=== PATIENT | male | born 1945 | race Caucasian/White ===

== ENCOUNTER → 2016-11-30 | Outpatient (REF) | payer MEDICARE ==
[~2016-11-30] MED LIST: MECL-68 PO; MELO15TA4 PO; PERCOCET PO; TYLE325T5 PO; WARF05TA PO
[2016-11-30 13:14] LABS: ALBUMIN 3.4 GM/DL (3.2-5.2); ALBUMIN/GLOBULIN RATIO 0.87 (1.00-1.93); ALKALINE PHOSPHATASE 105 U/L (45-117); ALT/SGPT 19 U/L (12-78); ANION GAP 4 MEQ/L (8-16); AST/SGOT 16 U/L (15-37); BILIRUBIN,TOTAL 0.5 MG/DL (0.2-1.0); BLOOD UREA NITROGEN 18 MG/DL (7-18); CALCIUM LEVEL 8.5 MG/DL (8.8-10.2); CARBON DIOXIDE LEVEL 29 MEQ/L (21-32); CHLORIDE LEVEL 105 MEQ/L (98-107); CHOLESTEROL LEVEL 155 MG/DL (<200); CREATININE FOR GFR 0.75 MG/DL (0.70-1.30); GLOMERULAR FILTRATION RATE > 60.0 (>42); GLUCOSE, FASTING 96 MG/DL (83-110); POTASSIUM SERUM 4.2 MEQ/L (3.5-5.1); SODIUM LEVEL 138 MEQ/L (136-145); TOTAL PROTEIN 7.3 GM/DL (6.4-8.2); TRIGLYCERIDES LEVEL 113 MG/DL (<150)
[2016-11-30 13:22] LABS: BASO % 0.5 % (0.0-1.0); EOS # 0.1 K/mm3 (0.0-0.50); EOS % 1.5 % (0.0-3.0); LARGE UNSTAINED CELL # 0.2 K/mm3 (0.0-0.4); LARGE UNSTAINED CELL % 2.5 % (0.0-4.0); LYMPH # 1.1 K/mm3 (1.5-4.5); LYMPH % 18.7 % (24.0-44.0); MEAN CORPUSCULAR HEMOGLOBIN 29.4 pg (27.0-33.0); MEAN CORPUSCULAR HGB CONC 32.3 g/dl (32.0-36.5); MEAN CORPUSCULAR VOLUME 91.3 fl (80.0-96.0); MONO # 0.4 K/mm3 (0.0-0.8); MONO % 7.3 % (0.0-5.0); NEUTROPHILS # 4.2 K/mm3 (1.8-7.7); NEUTROPHILS % 69.5 % (36.0-66.0); PLATELET COUNT, AUTOMATED 149 k/mm3 (150-450); RED CELL DISTRIBUTION WIDTH 13.7 % (11.5-14.5)
== END ==
LOC: M SFHCPLAZ 09:23
PROVIDERS: ATTEND Family Medicine
DX: Z12.5 Encounter for screening for malignant neoplasm of prostate (principal); I10 Essential (primary) hypertension; E78.5 Hyperlipidemia, unspecified; M06.9 Rheumatoid arthritis, unspecified; E55.9 Vitamin D deficiency, unspecified
CPT/HCPCS: 36415; 80053; 80061; 82306; 82550; 83970; 85025; 86140; 86677; G0103

== ENCOUNTER → 2016-12-07 | Outpatient (REF) | payer MEDICARE ==
[2016-12-07 12:23] LABS: VITAMIN B12 LEVEL 395 PG/ML (247-911)
[2016-12-07 12:29] LABS: RETIC HEMOGLOBIN CONTENT CHr 31.3 PG (24-36); RETICULOCYTE % ADVIA2120 2.2 % (0.5-1.5)
[2016-12-07 12:37] LABS: FERRITIN 110 NG/ML (26-388); PERCENT SATURATION 12.9 % (19.7-37.4); TOTAL IRON BINDING CAPACITY 286 UG/DL (250-450); TOTAL PROTEIN 7.3 GM/DL (6.4-8.2)
[2016-12-08 14:36] LABS: PSA TOTAL 3.4 ng/mL (0.0-4.0)
[2016-12-11 13:03] LABS: GAMMA GLOBULIN % 20.3 % (11.1-18.8)
== END ==
LOC: M SFHCPLAZ 10:08
PROVIDERS: ATTEND Family Medicine
DX: D64.9 Anemia, unspecified (principal); Z12.5 Encounter for screening for malignant neoplasm of prostate
CPT/HCPCS: 36415; 82607; 82728; 82747; 83550; 84154; 84165; 85046; G0463

== ENCOUNTER 2017-02-06 12:34 | Emergency (ER) | payer MEDICARE ==
[~2017-02-06] VITALS: Ht 165.1 cm; Wt 88.9 kg
--- NOTE | 2017-02-06 14:52 | REP ---
LEFT KNEE SERIES: Five views. HISTORY: Trauma. FINDINGS: Five views of the left knee demonstrate left knee replacement unchanged in position from 05/14/2012. There is some diffuse osteopenia. No fracture is seen. IMPRESSION: Status post left knee replacement. No fracture seen. Diffuse osteopenia. Signed by Kirt Wadsworth MD 02/06/2017 02:53 P
[2017-02-06 15:29] VITALS: BP 160/89
== END 2017-02-06 15:30 | disposition home or self-care (01) ==
LOC: M ED 13:31
DX: S83.92XA Sprain of unspecified site of left knee, initial encounter (principal); W18.40XA Slipping, tripping and stumbling without falling, unspecified, initial encounter; Y92.099 Unspecified place in other non-institutional residence as the place of occurrence of the external cause; Y93.9 Activity, unspecified; Y99.9 Unspecified external cause status; H81.09 Meniere's disease, unspecified ear; Z96.652 Presence of left artificial knee joint; M85.88 Other specified disorders of bone density and structure, other site; Z79.899 Other long term (current) drug therapy; Z88.6 Allergy status to analgesic agent

== ENCOUNTER → 2017-04-26 | Outpatient (REF) | payer MEDICARE ==
[~2017-04-26] MED LIST changes: +OMEP40CA2 PO; +TRAM50TA2 PO
[2017-04-26 13:06] LABS: BASO % 0.6 % (0.0-1.0); EOS # 0.1 K/mm3 (0.0-0.50); EOS % 1.7 % (0.0-3.0); LARGE UNSTAINED CELL # 0.2 K/mm3 (0.0-0.4); LARGE UNSTAINED CELL % 3.6 % (0.0-4.0); LYMPH # 1.1 K/mm3 (1.5-4.5); LYMPH % 22.8 % (24.0-44.0); MEAN CORPUSCULAR HEMOGLOBIN 28.8 pg (27.0-33.0); MEAN CORPUSCULAR HGB CONC 32.8 g/dl (32.0-36.5); MEAN CORPUSCULAR VOLUME 87.7 fl (80.0-96.0); MONO # 0.4 K/mm3 (0.0-0.8); MONO % 8.2 % (0.0-5.0); NEUTROPHILS # 3.1 K/mm3 (1.8-7.7); NEUTROPHILS % 63.1 % (36.0-66.0); PLATELET COUNT, AUTOMATED 182 k/mm3 (150-450); RED CELL DISTRIBUTION WIDTH 15.1 % (11.5-14.5); WHITE BLOOD COUNT 4.9 K/mm3 (4.0-10.0)
[2017-04-26 13:48] LABS: VITAMIN B12 LEVEL 387 PG/ML (247-911)
[2017-04-26 13:52] LABS: ALBUMIN 3.4 GM/DL (3.2-5.2); ALBUMIN/GLOBULIN RATIO 0.83 (1.00-1.93); ALKALINE PHOSPHATASE 106 U/L (45-117); ALT/SGPT 17 U/L (12-78); ANION GAP 6 MEQ/L (8-16); AST/SGOT 13 U/L (15-37); BILIRUBIN,TOTAL 0.5 MG/DL (0.2-1.0); BLOOD UREA NITROGEN 19 MG/DL (7-18); CALCIUM LEVEL 8.8 MG/DL (8.8-10.2); CARBON DIOXIDE LEVEL 27 MEQ/L (21-32); CHLORIDE LEVEL 105 MEQ/L (98-107); CREATININE FOR GFR 0.72 MG/DL (0.70-1.30); FERRITIN 164 NG/ML (26-388); GLOMERULAR FILTRATION RATE > 60.0 (>42); GLUCOSE, FASTING 87 MG/DL (83-110); PERCENT SATURATION 8.7 % (19.7-50.0); POTASSIUM SERUM 4.3 MEQ/L (3.5-5.1); SODIUM LEVEL 138 MEQ/L (136-145); TOTAL IRON BINDING CAPACITY 277 UG/DL (250-450); TOTAL PROTEIN 7.5 GM/DL (6.4-8.2)
[2017-04-27 12:45] LABS: CARCINOEMBRYONIC ANTIGEN 0.6 NG/ML (<2.5)
[2017-04-28 00:06] LABS: H PYLORI SERUM QUANT IgG ABY 2.5 U/mL (0.0-0.8)
== END ==
LOC: M SFHCPLAZ 11:34
PROVIDERS: ATTEND Family Medicine
DX: D50.9 Iron deficiency anemia, unspecified (principal); I10 Essential (primary) hypertension; M06.9 Rheumatoid arthritis, unspecified; R73.01 Impaired fasting glucose; Z12.5 Encounter for screening for malignant neoplasm of prostate; E78.5 Hyperlipidemia, unspecified; D69.6 Thrombocytopenia, unspecified; Z85.00 Personal history of malignant neoplasm of unspecified digestive organ; E66.9 Obesity, unspecified
CPT/HCPCS: 80053; 82378; 82607; 82728; 83036; 83550; 85025; 86140; 86256; 86334; 86677; G0463

== ENCOUNTER → 2017-06-12 | Outpatient (REF) | payer MEDICARE ==
[2017-06-12 16:19] LABS: BASO % 0.5 % (0.0-1.0); EOS # 0.1 10^3/uL (0.0-0.50); EOS % 1.5 % (0.0-3.0); IMMATURE GRANULOCYTE % 0.3 % (0-0); LYMPH # 1.5 10^3/uL (1.5-4.5); LYMPH % 22.7 % (24.0-44.0); MEAN CORPUSCULAR HEMOGLOBIN 28.6 pg (27.0-33.0); MEAN CORPUSCULAR HGB CONC 32.1 g/dl (32.0-36.5); MEAN CORPUSCULAR VOLUME 89.1 fl (80.0-96.0); MONO # 0.5 10^3/uL (0.0-0.8); MONO % 7.4 % (0.0-5.0); NEUTROPHILS # 4.4 10^3/uL (1.8-7.7); NEUTROPHILS % 67.6 % (36.0-66.0); PLATELET COUNT, AUTOMATED 184 10^3/uL (150-450); RED CELL DISTRIBUTION WIDTH 15.5 % (11.5-14.5); WHITE BLOOD COUNT 6.5 10^3/uL (4.0-10.0)
[2017-06-12 16:45] LABS: PERCENT SATURATION 12.4 % (19.7-50.0)
== END ==
LOC: M SFHCPLAZ 13:31
PROVIDERS: ATTEND Family Medicine
DX: D50.9 Iron deficiency anemia, unspecified (principal)

== ENCOUNTER 2017-06-25 07:21 | Day surgery (SDC) | payer MEDICARE ==
[~2017-06-25] VITALS: Ht 167.6 cm; Wt 90.3 kg
[2017-06-25] MEDS ORDERED: NS 1,000 ML IV ONE (07:30)
[2017-06-25] MEDS ORDERED: LIDOCAINE 2% INJ 100 MG/5 ML SDV (FOR ANES.) As Ordered ONE (09:27)
[2017-06-25] MEDS ORDERED: PROPOFOL 500 MG/50 ML VIAL As Ordered ONE (09:27)
--- NOTE | 2017-06-25 09:32 | ROOR ---
Patient Name: Geovanny Reis Procedure Date: 06/25/2017 9:16 AM Date of : 1945 Age: 72 Room: [facility] Gender: Male Note Status: Finalized Procedure: Upper GI endoscopy Indications: Iron deficiency anemia Providers: Alex CHOE MD Referring MD: Homar Villagomez MD Requesting Provider: Medicines: Monitored Anesthesia Care Complications: No immediate complications. Procedure: Pre-Anesthesia Assessment: - The heart rate, respiratory rate, oxygen saturations, blood pressure, adequacy of pulmonary ventilation, and response to care were monitored throughout the procedure. The Endoscope was introduced through the mouth, and advanced to the third part of duodenum. The upper GI endoscopy was accomplished without difficulty. The patient tolerated the procedure well. Findings: The examined esophagus was normal. The entire examined stomach was normal. The examined duodenum was normal. Impression: - Normal esophagus. - Normal stomach. - Normal examined duodenum. - No specimens collected. Recommendation: - Perform a colonoscopy. Aelx Choe MD Alex CHOE MD 06/25/2017 9:32:11 AM This report has been signed electronically. Number of Addenda: 0 Note Initiated On: 06/25/2017 9:16 AM Estimated Blood Loss: Estimated blood loss: none.
--- NOTE | 2017-06-25 09:53 | ROOR ---
Patient Name: Geovanny Reis Procedure Date: 06/25/2017 9:17 AM Date of : 1945 Age: 72 Room: [facility] Gender: Male Note Status: Finalized Procedure: Colonoscopy Indications: Iron deficiency anemia, Positive Cologuard test Providers: Alex CHOE MD Referring MD: Homar Villagomez MD Requesting Provider: Medicines: Monitored Anesthesia Care Complications: No immediate complications. Procedure: Pre-Anesthesia Assessment: - The heart rate, respiratory rate, oxygen saturations, blood pressure, adequacy of pulmonary ventilation, and response to care were monitored throughout the procedure. The Colonoscope was introduced through the anus and advanced to 5 cm into the ileum. The colonoscopy was performed without difficulty. The patient tolerated the procedure well. The quality of the bowel preparation was good. Findings: The perianal and digital rectal examinations were normal. A 5 mm polyp was found in the cecum. The polyp was sessile. The polyp was removed with a hot snare. Resection and retrieval were complete. Two semi-sessile polyps were found in the sigmoid colon and at 40 cm proximal to the anus. The polyps were 5 to 10 mm in size. These polyps were removed with a hot snare. Resection and retrieval were complete. A 5 mm polyp was found in the recto-sigmoid colon. The polyp was sessile. The polyp was removed with a hot snare. Resection and retrieval were complete. A few diverticula were found in the sigmoid colon. Internal hemorrhoids were found during retroflexion. The hemorrhoids were medium-sized. The exam was otherwise without abnormality. Impression: - One 5 mm polyp in the cecum, removed with a hot snare. Resected and retrieved. - Two 5 to 10 mm polyps in the sigmoid colon and at 40 cm proximal to the anus, removed with a hot snare. Resected and retrieved. - One 5 mm polyp at the recto-sigmoid colon, removed with a hot snare. Resected and retrieved. - Mild diverticulosis in the sigmoid colon and moderate Internal hemorrhoids. - The examination was otherwise normal. Recommendation: - Repeat colonoscopy for adenoma surveillance. - Telephone endoscopist for pathology results in 2 weeks. Alex Choe MD Alex CHOE MD 06/25/2017 9:53:23 AM This report has been signed electronically. Number of Addenda: 0 Note Initiated On: 06/25/2017 9:17 AM Estimated Blood Loss: Estimated blood loss: none.
[2017-06-25 10:10] VITALS: BP 140/79
== END 2017-06-25 10:21 | disposition home or self-care (01) ==
LOC: M OPP 07:21
PROVIDERS: ATTEND Internal Medicine Gastroenterology
DX: D12.7 Benign neoplasm of rectosigmoid junction (principal); D12.0 Benign neoplasm of cecum; D12.5 Benign neoplasm of sigmoid colon; K57.30 Diverticulosis of large intestine without perforation or abscess without bleeding; K64.8 Other hemorrhoids; K92.1 Melena; D50.9 Iron deficiency anemia, unspecified; M19.90 Unspecified osteoarthritis, unspecified site; M06.9 Rheumatoid arthritis, unspecified; Z88.6 Allergy status to analgesic agent; Z79.899 Other long term (current) drug therapy

== ENCOUNTER → 2017-09-27 | Outpatient (REF) | payer MEDICARE ==
[2017-09-27 12:35] LABS: BASO % 0.7 % (0.0-1.0); EOS # 0.1 10^3/uL (0.0-0.50); HEMATOCRIT 41.5 % (42.0-52.0); HEMOGLOBIN 13.7 g/dl (14.0-18.0); IMMATURE GRANULOCYTE % 0.2 % (0-0); LYMPH # 1.3 10^3/uL (1.5-4.5); LYMPH % 21.8 % (24.0-44.0); MEAN CORPUSCULAR HEMOGLOBIN 29.7 pg (27.0-33.0); MEAN CORPUSCULAR VOLUME 89.8 fl (80.0-96.0); MONO # 0.6 10^3/uL (0.0-0.8); MONO % 10.5 % (0.0-5.0); NEUTROPHILS % 64.8 % (36.0-66.0); PLATELET COUNT, AUTOMATED 145 10^3/uL (150-450); RED BLOOD COUNT 4.62 10^6/uL (4.30-6.10); RED CELL DISTRIBUTION WIDTH 14.7 % (11.5-14.5); RETIC HEMOGLOBIN EQUIVALENT 33.8 pg (24-36); RETICULOCYTE # 79.5 10^9/L (17-77); RETICULOCYTE % 1.7 % (0.5-1.5); WHITE BLOOD COUNT 6.1 10^3/uL (4.0-10.0)
[2017-09-27 12:56] LABS: ALBUMIN 3.6 GM/DL (3.2-5.2); ALBUMIN/GLOBULIN RATIO 0.95 (1.00-1.93); ALKALINE PHOSPHATASE 114 U/L (45-117); ALT/SGPT 20 U/L (12-78); ANION GAP 5 MEQ/L (8-16); AST/SGOT 15 U/L (7-37); BILIRUBIN,TOTAL 0.3 MG/DL (0.2-1.0); BLOOD UREA NITROGEN 17 MG/DL (7-18); C REACTIVE PROTEIN QUANTITATIV 1.15 MG/DL (0.00-0.30); CALCIUM LEVEL 8.4 MG/DL (8.8-10.2); CARBON DIOXIDE LEVEL 28 MEQ/L (21-32); CHLORIDE LEVEL 105 MEQ/L (98-107); CREATININE FOR GFR 0.77 MG/DL (0.70-1.30); GLOMERULAR FILTRATION RATE > 60.0 (>42); GLUCOSE, FASTING 122 MG/DL (70-100); POTASSIUM SERUM 4.3 MEQ/L (3.5-5.1); PSA SCREENING 3.03 NG/ML (< 4.0); SODIUM LEVEL 138 MEQ/L (136-145); TOTAL PROTEIN 7.4 GM/DL (6.4-8.2)
[2017-09-27 13:01] LABS: ESTIMATED AVERAGE GLUCOSE 123 MG/DL (60-110); HEMOGLOBIN A1c 5.9 %
[2017-09-27 13:20] LABS: ERYTHROCYTE SEDIMENTATION RATE 12 mm/hr (0-20)
[2017-09-28 14:13] LABS: INSULIN LEVEL 73.4 uIU/mL (2.6-24.9)
== END ==
LOC: M SFHCPLAZ 09:05
DX: D50.9 Iron deficiency anemia, unspecified (principal); R73.01 Impaired fasting glucose; Z12.5 Encounter for screening for malignant neoplasm of prostate; M06.9 Rheumatoid arthritis, unspecified
CPT/HCPCS: 83525

== ENCOUNTER → 2018-01-25 | Outpatient (REF) | payer MEDICARE ==
[2018-01-25 13:42] LABS: BASO % 0.6 % (0.0-1.0); EOS # 0.1 10^3/uL (0.0-0.50); EOS % 1.8 % (0.0-3.0); HEMATOCRIT 44.5 % (42.0-52.0); HEMOGLOBIN 14.7 g/dl (13.5-17.5); IMMATURE GRANULOCYTE % 0.2 % (0-3.0); LYMPH # 1.5 10^3/uL (1.5-4.5); LYMPH % 23.6 % (24.0-44.0); MEAN CORPUSCULAR HEMOGLOBIN 30.3 pg (27.0-33.0); MEAN CORPUSCULAR VOLUME 91.8 fl (80.0-96.0); MONO # 0.6 10^3/uL (0.0-0.8); MONO % 10.1 % (0.0-5.0); NEUTROPHILS % 63.7 % (36.0-66.0); RED BLOOD COUNT 4.85 10^6/uL (4.30-6.10); RED CELL DISTRIBUTION WIDTH 14.1 % (11.5-14.5); RETIC HEMOGLOBIN EQUIVALENT 36.2 pg (24-36); RETICULOCYTE # 75.7 10^9/L (17-77); RETICULOCYTE % 1.6 % (0.5-1.5); WHITE BLOOD COUNT 6.2 10^3/uL (4.0-10.0)
[2018-01-25 14:28] LABS: PTH INTACT 72.1 PG/ML (18.5-88.0); TOTAL 25(OH) VITAMIN D 21.1 NG/ML (30.0-100.0)
[2018-01-25 14:29] LABS: VITAMIN B12 LEVEL 401 PG/ML (247-911)
[2018-01-25 14:31] LABS: PLATELET COUNT, AUTOMATED 125 10^3/uL (150-450); POS COUNT POS FLAG
[2018-01-25 14:32] LABS: ALBUMIN/GLOBULIN RATIO 1.05 (1.00-1.93); ALKALINE PHOSPHATASE 123 U/L (45-117); ALT/SGPT 27 U/L (12-78); ANION GAP 8 MEQ/L (8-16); AST/SGOT 17 U/L (7-37); BILIRUBIN,TOTAL 0.6 MG/DL (0.2-1.0); BLOOD UREA NITROGEN 17 MG/DL (7-18); CALCIUM LEVEL 8.5 MG/DL (8.8-10.2); CARBON DIOXIDE LEVEL 26 MEQ/L (21-32); CHLORIDE LEVEL 105 MEQ/L (98-107); CHOLESTEROL LEVEL 158 MG/DL (<200); CHOLESTEROL RISK RATIO 4.937 (<5); CPK CREATINE PHOSPHOKINASE 109 U/L (39-308); CREATININE FOR GFR 0.75 MG/DL (0.70-1.30); FREE T4 1.03 NG/DL (0.76-1.46); GLOMERULAR FILTRATION RATE > 60.0 (>42); GLUCOSE, FASTING 88 MG/DL (70-100); HDL CHOLESTEROL 32 MG/DL (>40); LDL CHOLESTEROL 90.6 MG/DL (<100); NON-HDL-C 126 MG/DL; POTASSIUM SERUM 4.2 MEQ/L (3.5-5.1); SODIUM LEVEL 139 MEQ/L (136-145); TOTAL PROTEIN 7.8 GM/DL (6.4-8.2); TRIGLYCERIDES LEVEL 177 MG/DL (<150)
[2018-01-25 15:15] LABS: ESTIMATED AVERAGE GLUCOSE 126 MG/DL (60-110)
== END ==
LOC: M SFHCPLAZ 11:28
DX: E78.5 Hyperlipidemia, unspecified (principal); D50.9 Iron deficiency anemia, unspecified; E55.9 Vitamin D deficiency, unspecified; R73.01 Impaired fasting glucose; E66.9 Obesity, unspecified; Z68.34 Body mass index [BMI] 34.0-34.9, adult
CPT/HCPCS: 82550

== ENCOUNTER → 2018-06-28 | Outpatient (REF) | payer MEDICARE ==
[2018-06-28 13:55] LABS: BASO % 0.7 % (0.0-1.0); EOS # 0.1 10^3/uL (0.0-0.50); EOS % 2.1 % (0.0-3.0); HEMATOCRIT 44.3 % (42.0-52.0); HEMOGLOBIN 14.7 g/dl (13.5-17.5); IMMATURE GRANULOCYTE % 0.2 % (0-3.0); LYMPH # 1.3 10^3/uL (1.5-4.5); LYMPH % 22.1 % (24.0-44.0); MEAN CORPUSCULAR HEMOGLOBIN 31.2 pg (27.0-33.0); MEAN CORPUSCULAR HGB CONC 33.2 g/dl (32.0-36.5); MEAN CORPUSCULAR VOLUME 94.1 fl (80.0-96.0); MONO # 0.7 10^3/uL (0.0-0.8); MONO % 10.9 % (0.0-5.0); NEUTROPHILS # 3.9 10^3/uL (1.8-7.7); PLATELET COUNT, AUTOMATED 117 10^3/uL (150-450); RED BLOOD COUNT 4.71 10^6/uL (4.30-6.10); RED CELL DISTRIBUTION WIDTH 13.2 % (11.5-14.5); WHITE BLOOD COUNT 6.1 10^3/uL (4.0-10.0)
[2018-06-28 15:21] LABS: POS COUNT POS FLAG
[2018-06-28 15:39] LABS: ALBUMIN 3.7 GM/DL (3.2-5.2); ALBUMIN/GLOBULIN RATIO 0.95 (1.00-1.93); ALKALINE PHOSPHATASE 126 U/L (45-117); ALT/SGPT 22 U/L (12-78); ANION GAP 9 MEQ/L (8-16); AST/SGOT 16 U/L (7-37); BILIRUBIN,TOTAL 0.6 MG/DL (0.2-1.0); BLOOD UREA NITROGEN 20 MG/DL (7-18); CALCIUM LEVEL 8.6 MG/DL (8.8-10.2); CARBON DIOXIDE LEVEL 26 MEQ/L (21-32); CHLORIDE LEVEL 105 MEQ/L (98-107); CREATININE FOR GFR 0.77 MG/DL (0.70-1.30); GLOMERULAR FILTRATION RATE > 60.0 (>42); GLUCOSE, FASTING 86 MG/DL (70-100); POTASSIUM SERUM 4.4 MEQ/L (3.5-5.1); PSA SCREENING 3.39 NG/ML (< 4.0); PTH INTACT 61.9 PG/ML (18.5-88.0); SODIUM LEVEL 140 MEQ/L (136-145); TOTAL 25(OH) VITAMIN D 34.1 NG/ML (30.0-100.0); TOTAL PROTEIN 7.6 GM/DL (6.4-8.2)
[2018-07-01 00:14] LABS: GLYCOPROTEIN IV ANTIBODY Negative (Negative); HLA CLASS 1 ANTIBODY Negative (Negative); IIb/IIIa ANTIBODY Positive (Negative); Ib/IX ANTIBODY Negative (Negative)
== END ==
LOC: M SFHCPLAZ 10:40
DX: E55.9 Vitamin D deficiency, unspecified (principal); D69.6 Thrombocytopenia, unspecified; Z12.5 Encounter for screening for malignant neoplasm of prostate; Z68.34 Body mass index [BMI] 34.0-34.9, adult
CPT/HCPCS: 80053

== ENCOUNTER → 2018-11-18 | Outpatient (REF) | payer MEDICARE ==
[~2018-11-18] MED LIST changes: +MELO15TA28 PO; -MELO15TA4 PO; +OXYC1TAB23 PO; -PERCOCET PO
[2018-11-18 13:31] LABS: BASO % 0.4 % (0.0-1.0); EOS # 0.1 10^3/uL (0.0-0.50); EOS % 1.3 % (0.0-3.0); HEMATOCRIT 44.3 % (42.0-52.0); HEMOGLOBIN 14.6 g/dl (13.5-17.5); LYMPH # 1.4 10^3/uL (1.5-4.5); LYMPH % 19.2 % (24.0-44.0); MEAN CORPUSCULAR HEMOGLOBIN 30.5 pg (27.0-33.0); MEAN CORPUSCULAR VOLUME 92.5 fl (80.0-96.0); MONO # 0.7 10^3/uL (0.0-0.8); MONO % 10.3 % (0.0-5.0); NEUTROPHILS # 4.8 10^3/uL (1.8-7.7); NEUTROPHILS % 68.7 % (36.0-66.0); PLATELET COUNT, AUTOMATED 135 10^3/uL (150-450); RED BLOOD COUNT 4.79 10^6/uL (4.30-6.10)
[2018-11-18 13:48] LABS: ALBUMIN 3.8 GM/DL (3.2-5.2); ALT/SGPT 20 U/L (12-78); BILIRUBIN,TOTAL 0.4 MG/DL (0.2-1.0); BLOOD UREA NITROGEN 22 MG/DL (7-18); CALCIUM LEVEL 8.9 MG/DL (8.8-10.2); CARBON DIOXIDE LEVEL 25 MEQ/L (21-32); CHLORIDE LEVEL 108 MEQ/L (98-107); CREATININE FOR GFR 0.75 MG/DL (0.70-1.30); GLOMERULAR FILTRATION RATE > 60.0 (>42); GLUCOSE, FASTING 100 MG/DL (70-100); NT-PRO BNP 30 PG/ML (<450); POTASSIUM SERUM 4.4 MEQ/L (3.5-5.1); PTH INTACT 67.7 PG/ML (18.5-88.0); SODIUM LEVEL 140 MEQ/L (136-145); TOTAL 25(OH) VITAMIN D 30.3 NG/ML (30.0-100.0); TOTAL PROTEIN 7.6 GM/DL (6.4-8.2); VITAMIN B12 LEVEL 547 PG/ML (247-911)
[2018-11-18 14:10] LABS: HEMOGLOBIN A1c 5.7 %
== END ==
LOC: M SFHCPLAZ 11:22
PROVIDERS: ATTEND Family Medicine
DX: D50.9 Iron deficiency anemia, unspecified (principal); R73.01 Impaired fasting glucose; E55.9 Vitamin D deficiency, unspecified; I10 Essential (primary) hypertension; E66.9 Obesity, unspecified; Z68.35 Body mass index [BMI] 35.0-35.9, adult
CPT/HCPCS: 36415; 80053; 82306; 82607; 83036; 83880; 83970; 84439; 84443; 85025; 86677; G0463

== ENCOUNTER 2019-01-30 10:42 | Inpatient (IN) | payer MEDICARE ==
[2019-01-30] VITALS (13 sets, daily range): BP systolic 97–147; BP diastolic 43–74
[~2019-01-30] VITALS: Ht 167.6 cm; Wt 95.2 kg
[2019-01-30] MEDS ORDERED: MELO15TA28 PO (10:51)
[2019-01-30] MEDS ORDERED: ISOVUE-370 76% 100ML VIAL (Q9967) As Ordered ONE (10:58)
[2019-01-30] MEDS ORDERED: NS 500 ML IV ONE (11:00)
[2019-01-30] MEDS ORDERED: MECL25CH45 PO (11:25)
[2019-01-30] MEDS ORDERED: HEPARIN SOD (PORCINE) 5000 UNITS/ML VIAL As Ordered ONE ×3 (11:25→14:01)
[2019-01-30] MEDS ORDERED: ISOVUE-300 61% 50ML VIAL (Q9967) As Ordered ONE ×2 (11:25→12:18)
[2019-01-30] MEDS ORDERED: LIDOCAINE 1% SDV INJ 30 ML VIAL As Ordered ONE (11:25)
[2019-01-30] MEDS ORDERED: BUPIVACAINE HCL 0.5% 30 ML VIAL As Ordered ONE (11:25)
[2019-01-30] MEDS ORDERED: MELO7.5T35 PO (11:25)
[2019-01-30] MEDS ORDERED: PROPOFOL 200 MG/20 ML VIAL As Ordered ONE ×2 (11:25→11:26)
[2019-01-30] MEDS ORDERED: fentaNYL 100 MCG/2 ML INJECTION (J3010) As Ordered ONE ×3 (11:26→15:13)
[2019-01-30] MEDS ORDERED: MIDAZOLAM INJ 2 MG/2 ML VIAL (J2250) As Ordered ONE ×2 (11:26→15:10)
[2019-01-30] MEDS ORDERED: ONDANSETRON 4MG/2ML VIAL (J2405) As Ordered ONE (11:28)
--- NOTE | 2019-01-30 11:34 | REP ---
CHEST, SINGLE VIEW: Single view of the chest is performed and compared to a prior study of the 01/07/2016. There is mild linear fibroatelectatic change again seen in the lower lung zones without acute infiltrate or pulmonary edema. The heart is not enlarged. There is mild calcification of the thoracic aorta. The mediastinal silhouette is unchanged. IMPRESSION: Mild chronic changes without acute infiltrate or pulmonary edema. Electronically Signed by Adi Pryor MD 01/30/2019 04:31 P
--- NOTE | 2019-01-30 11:36 | REP ---
CT thoracic aortic angiogram: With IV contrast. History: Chest and abdomen pain. Comparison studies: No comparison study. Contrast dose: 100 ML of Isovue [address] technique: Helical scanning is acquired and overlapping 1.5 mm and contiguous 3 mm axial images are reformatted. In addition, maximum intensity projection and multiplanar re-formation images are generated in sagittal and coronal imaging projections. CT thoracic angiographic findings: There is good opacification of the thoracic aorta. There is no evidence of aneurysm or dissection. Mild vascular calcification is seen. There is no evidence of intramural hematoma. No hilar or mediastinal mass or adenopathy is observed. No pleural or pericardial effusion is seen. There is good opacification of the pulmonary arterial tree. There is no CT evidence of pulmonary embolism. Maximal intensity projection images show no vessel cutoff or filling defect. No pulmonary infiltrate nodule or mass lesion is observed. There is minimal bibasilar fibrosis. No acute bony abnormality is appreciated. Impression: No CT evidence of aneurysm or dissection in the thoracic aorta. No CT evidence of pulmonary embolus. Some vascular calcification. Otherwise no acute cardiopulmonary disease. Electronically Signed by Kirt Wadsworth MD 01/30/2019 11:27 A
[2019-01-30 11:40] LABS: BASO # 0.1 10^3/uL (0.0-0.2); BASO % 0.5 % (0.0-1.0); EOS # 0.1 10^3/uL (0.0-0.50); HEMATOCRIT 35.7 % (42.0-52.0); HEMOGLOBIN 11.3 g/dl (13.5-17.5); LYMPH # 2.4 10^3/uL (1.5-4.5); LYMPH % 20.3 % (24.0-44.0); MEAN CORPUSCULAR HEMOGLOBIN 30.5 pg (27.0-33.0); MEAN CORPUSCULAR HGB CONC 31.7 g/dl (32.0-36.5); MEAN CORPUSCULAR VOLUME 96.2 fl (80.0-96.0); MONO # 0.5 10^3/uL (0.0-0.8); MONO % 4.3 % (0.0-5.0); NEUTROPHILS # 8.4 10^3/uL (1.8-7.7); NEUTROPHILS % 71.5 % (36.0-66.0); PLATELET COUNT, AUTOMATED 151 10^3/uL (150-450); RED BLOOD COUNT 3.71 10^6/uL (4.30-6.10); WHITE BLOOD COUNT 11.8 10^3/uL (4.0-10.0)
[2019-01-30] MEDS ORDERED: LIDOCAINE PRES-FREE 2% 10ML AMP As Ordered ONE (11:42)
[2019-01-30 11:46] LABS: VENOUS BASE EXCESS -11.7 (-2.0-2.0); VENOUS HCO3 17.5 MEQ/L (23.0-27.0); VENOUS O2 SATURATION 63.4 % (60.0-80.0); VENOUS PARTIAL PRESSURE CO2 54.2 mmHg (38.0-50.0); VENOUS PARTIAL PRESSURE O2 43.7 mmHg (30.0-50.0); VENOUS PH 7.128 UNITS (7.330-7.430); VENOUS STANDARD HCO3 14.7 MEQ/L; VENOUS TOTAL CO2 19.2 MEQ/L (24.0-28.0)
[2019-01-30 11:49] LABS: INR 1.4; PROTHROMBIN TIME 17.4 SECONDS (12.1-14.4)
[2019-01-30 11:50] LABS: PARTIAL THROMBOPLASTIN TIME 29.8 SECONDS (25.4-37.6)
[2019-01-30] MEDS ORDERED: PHENYLEPHRINE INJ 10MG/ML VIAL (J2370) As Ordered ONE ×3 (11:53→15:13)
[2019-01-30] MEDS ORDERED: ceFAZolin 2 GM/D5W 50 ML IV BAG (J0690 PER 500MG) As Ordered ONE (11:53)
--- NOTE | 2019-01-30 11:56 | REP ---
CT ANGIOGRAPHY OF THE ABDOMEN AND PELVIS WITH IV CONTRAST: HISTORY: Abdomen and chest pain. CT CONTRAST DOSE: 100 mL of intravenous Isovue 370. CT FINDINGS: Preliminary digital cushion gum applicator radiograph is unremarkable. There is a focal low density lesion in the left lobe of the liver consistent with a cyst. This measures 3.6 cm in greatest diameter. There is evidence fatty infiltration of the liver. There is a focal calcification in the capsule of the spleen posteriorly. No adrenal lesion is seen. No pancreatic abnormality is observed. There are bilateral renal cysts. The largest of these is the lower pole cyst affecting the right kidney measuring 8.8 cm in greatest diameter. The patient has a large ruptured abdominal aortic aneurysm. The aneurysm measures 9.7 cm in anteroposterior dimension x up to 10.6 cm right to left. There is a large periaortic hematoma extending to the right and into the right retroperitoneum. This displaces the pancreas anteriorly and the right kidney laterally. It extends caudally anterior to the iliopsoas and along the right upper pelvic sidewall. There is an irregularly dilated patent aortic lumen. The aneurysm displaces the super aneurysmal aortic lumen anteriorly. The aneurysm arises approximately 2 cm below the origin of the renal arteries. It extends to the aortic bifurcation. The common iliac artery on the right is somewhat dilated, 2.0 cm in AP dimension. The left common iliac artery measures 1.3 cm. There is no evidence of free air. A small quantity of ascites is seen in the pelvic reflections. There is no evidence of significant hemoperitoneum. IMPRESSION: 1. Ruptured 9.7 cm infrarenal abdominal aortic aneurysm with a fairly large retroperitoneal hematoma. 2. Bilateral renal cysts and hepatic cysts. 3. Fatty infiltration of the liver. The findings were telephoned to the ED at the time of this dictation. Electronically Signed by Kirt Wadsworth MD 01/30/2019 02:38 P
[2019-01-30 12:08] LABS: CALCIUM LEVEL 7.6 MG/DL (8.8-10.2); CREATININE FOR GFR 1.57 MG/DL (0.70-1.30); MB/CK RELATIVE INDEX 2.96 (< OR =4); POTASSIUM SERUM 3.4 MEQ/L (3.5-5.1)
[2019-01-30 12:09] LABS: ALBUMIN 2.6 GM/DL (3.2-5.2); BILIRUBIN,DIRECT 0.2 MG/DL (0.0-0.2); BILIRUBIN,TOTAL 0.5 MG/DL (0.2-1.0); THYROID STIMULATING HORMONE 6.08 uIU/ML (0.358-3.740); TOTAL PROTEIN 5.8 GM/DL (6.4-8.2); TROPONIN I 0.18 NG/ML (< 0.10)
[2019-01-30] MEDS ORDERED: ROCURONIUM BROMIDE 50 MG/5 ML VIAL As Ordered ONE (13:00)
[2019-01-30] MEDS ORDERED: SODIUM BICARBONATE 8.4% INJ 50 ML SYRINGE As Ordered ONE (13:53)
[2019-01-30] MEDS ORDERED: CALCIUM CHLORIDE 10% 1 GM/10 ML SYR As Ordered ONE (13:53)
[2019-01-30] MEDS ORDERED: THROMBIN SOLN 20,000 UNITS KIT As Ordered ONE (14:15)
[2019-01-30] MEDS ORDERED: THROMBIN SOLN 5,000 UNITS VIAL As Ordered ONE (14:15)
[2019-01-30] MEDS ORDERED: KETAMINE HCL 200 MG/20 ML VIAL As Ordered ONE (14:18)
[2019-01-30] MEDS: fentaNYL 100 MCG/2 ML INJECTION (J3010) IV PRN ×2 (15:10→15:15)
[2019-01-30] MEDS ORDERED: D5W/LR 1,000 ML IV SCH (15:17)
--- NOTE | 2019-01-30 15:24 | REP ---
Portable KUB: Single view. History: Check for foreign body. Findings: There are skin vicente in the groins bilaterally. An aortobi-iliac stent graft is installed. There is a Leal catheter in place. No other opaque foreign body is appreciated. Intravenous contrast administered for the CT angiography earlier today shows persistent nephrogram on the left. No evidence of obstructive uropathy is seen on this film. Persistent nephrogram may reflect hypotension Impression: Status post aortobi-iliac stent graft placement. No opaque foreign body is appreciated. Only catheter in place. Electronically Signed by Kirt Wadsworth MD 01/30/2019 03:16 P
[2019-01-30] MEDS ORDERED: MORPHINE 4 MG/ML 1ML VIAL/SYRINGE (J2270) IV PRN ×2 (15:30)
[2019-01-30] MEDS ORDERED: ACETAMINOPHEN TAB 650MG DOSE (2X325MG) PO PRN (15:30)
[2019-01-30] MEDS ORDERED: PROPOFOL 1,000 MG/100 ML VIAL As Ordered ONE (15:47)
[2019-01-30 16:05] LABS: BASO % 0.2 % (0.0-1.0); EOS % 0.1 % (0.0-3.0); HEMATOCRIT 38.6 % (42.0-52.0); HEMOGLOBIN 12.8 g/dl (13.5-17.5); LYMPH # 0.8 10^3/uL (1.5-4.5); LYMPH % 6.1 % (24.0-44.0); MEAN CORPUSCULAR HEMOGLOBIN 30.3 pg (27.0-33.0); MEAN CORPUSCULAR HGB CONC 33.2 g/dl (32.0-36.5); MEAN CORPUSCULAR VOLUME 91.3 fl (80.0-96.0); MONO # 1.1 10^3/uL (0.0-0.8); MONO % 8.3 % (0.0-5.0); NEUTROPHILS # 11.2 10^3/uL (1.8-7.7); NEUTROPHILS % 84.3 % (36.0-66.0); RED BLOOD COUNT 4.23 10^6/uL (4.30-6.10); WHITE BLOOD COUNT 13.3 10^3/uL (4.0-10.0)
[2019-01-30 16:13] LABS: ABG BASE EXCESS -10.8 (-2.0-2.0); ABG HCO3 16.8 MEQ/L (22.0-26.0); ABG O2 SATURATION 96.8 % (95.0-99.0); ABG PARTIAL PRESSURE CO2 43.4 mmHg (35.0-45.0); ABG PARTIAL PRESSURE O2 97.6 mmHg (75.0-100.0); ABG STANDARD HCO3 16.1 MEQ/L (22.0-26.0); ABG TOTAL CO2 18.1 MEQ/L (23.0-31.0); ABG pH (ARTERIAL) 7.206 UNITS (7.350-7.450)
[2019-01-30 16:15] LABS: INR 1.64; PROTHROMBIN TIME 19.7 SECONDS (12.1-14.4)
[2019-01-30] MEDS ORDERED: PERCOCET 5MG/325MG TAB PO PRN (16:15)
[2019-01-30] MEDS ORDERED: MEPERIDINE INJ 25 MG/ML VIAL (J2175) IV PRN (16:15)
[2019-01-30] MEDS ORDERED: ONDANSETRON 4MG/2ML VIAL (J2405) IV PRN (16:15)
[2019-01-30] MEDS ORDERED: PHENYLEPHRINE HCL INJ 10 MG in D5W 99 ML IV SCH (16:15)
[2019-01-30] MEDS ORDERED: METOCLOPRAMIDE INJ 10MG/2ML VIAL (J2765) IV PRN (16:15)
[2019-01-30] MEDS ORDERED: LR 1,000 ML IV SCH (16:15)
[2019-01-30] MEDS ORDERED: PROPOFOL 1,000 MG in APPROPRIATE DILUENT 1 EA IV SCH (16:15)
[2019-01-30 16:16] LABS: PARTIAL THROMBOPLASTIN TIME 43.7 SECONDS (25.4-37.6)
[2019-01-30 16:25] LABS: ALBUMIN 2.3 GM/DL (3.2-5.2); BILIRUBIN,DIRECT 0.2 MG/DL (0.0-0.2); BILIRUBIN,TOTAL 0.6 MG/DL (0.2-1.0); CALCIUM LEVEL 6.8 MG/DL (8.8-10.2); CREATININE FOR GFR 1.3 MG/DL (0.70-1.30); GLOMERULAR FILTRATION RATE 57.1 (>42); POTASSIUM SERUM 4.7 MEQ/L (3.5-5.1); TOTAL PROTEIN 4.3 GM/DL (6.4-8.2)
[2019-01-30] MEDS ORDERED: MIDAZOLAM INJ 2 MG/2 ML VIAL (J2250) IV ONE (16:30)
[2019-01-30 16:48] LABS: PLATELET COUNT, AUTOMATED 77 10^3/uL (150-450)
[2019-01-30 17:35] LABS: ABG BASE EXCESS -6.8 (-2.0-2.0); ABG HCO3 18.5 MEQ/L (22.0-26.0); ABG O2 SATURATION 97.3 % (95.0-99.0); ABG PARTIAL PRESSURE CO2 36.4 mmHg (35.0-45.0); ABG PARTIAL PRESSURE O2 95.5 mmHg (75.0-100.0); ABG STANDARD HCO3 18.9 MEQ/L (22.0-26.0); ABG TOTAL CO2 19.6 MEQ/L (23.0-31.0); ABG pH (ARTERIAL) 7.323 UNITS (7.350-7.450)
--- NOTE | 2019-01-30 18:52 | REP ---
Clinical: Endotracheal tube placement. Comparison: 01/30/2019 at 10:54 a.m. Findings: Examination is limited by technique including underpenetration, positioning and poor inspiratory effort. Endotracheal tube approximately 2.5 cm above the fabiana. No obvious focal consolidation, effusion, or pneumothorax. Impression: Endotracheal tube in satisfactory position. Electronically Signed by Oren Thurman MD 01/30/2019 06:44 P
[2019-01-30] MEDS ORDERED: IPRATROPIUM 0.5MG/ALBUTEROL 2.5MG INH SOL UD 3ML (DUONEB)(J7620) NEB PRN (19:30)
[2019-01-30 19:47] LABS: FREE T4 1.13 NG/DL (0.76-1.46)
--- NOTE | 2019-01-30 20:16 | CR ---
DATE OF CONSULTATION: 01/30/2019 CRITICAL CARE PROGRESS NOTE The patient is a 74-year-old male with a past medical history of Meniere's disease, rheumatoid arthritis, gastroesophageal reflux disease (GERD), hypertension, who presented with complaints of chest pain radiating to the back as well as with abdominal pain and shortness of breath. In the emergency department (ED), the patient was tachypneic and hypotensive. He had a stat CT angiogram done which showed a ruptured infrarenal abdominal aortic aneurysm with a large periaortic and retroperitoneal hematoma. He was emergently brought to the operating room (OR), where he had placement of an aortobiiliac stent graft. He was given a total of six units of packed red blood cells, two units of fresh frozen plasma, as well as a bolus of lactated Ringer's The patient was intubated for the procedure. He also had a right radial arterial line placed. The patient initially was on phenylephrine for blood pressure support. However, he was able to be quickly weaned off of phenylephrine, and his blood pressure has been stable in the intensive care unit (ICU). The patient is sedated on propofol, and he is responsive to painful stimuli but not following commands currently. PAST MEDICAL HISTORY: Rheumatoid arthritis, hypertension, obesity, GERD, Meniere's disease, tinnitus. PAST SURGICAL HISTORY: Bilateral knee replacements, left arm fracture repair, right eye surgery. SOCIAL HISTORY: Former smoker of one pack a day for more than 50 years, quit in 2006. FAMILY HISTORY: Father with a history of diabetes and colon cancer. Mother with history of rheumatoid arthritis. ALLERGIES to NAPROXEN and ADVAIR. HOME MEDICATIONS: Meclizine and meloxicam. PHYSICAL EXAMINATION: Temperature 97.1, pulse 81, respirations 20, blood pressure 121/59, oxygen saturation (O2 sat) 98% on 40% FiO2. General: The patient is obese. He is intubated and sedated, is minimally responsive to painful stimuli. HEENT: Normocephalic, atraumatic. Pupils are pinpoint and sluggishly reactive bilaterally. Neck is supple. Unable to appreciate jugular venous distention (JVD) due to body habitus. Trachea is midline. Cardiovascular: Regular rate and rhythm. Normal S1, S2, distant heart sounds. Unable to appreciate murmurs. Pulmonary: Coarse wheeze on the right side and diminished breath sounds at the bases bilaterally. Abdomen is distended, nontender to palpation, diminished bowel sounds present. Lower extremities: Surgical incisions in the knees bilaterally. No pitting edema bilaterally. Peripheral pulses are present. LABORATORY: WBC 13.3, hemoglobin 12.8, platelets 77. Chemistry: Sodium 144, potassium 4.7, chloride 115, bicarbonate 21, BUN 15, creatinine 1.30, glucose 130, lactic acid 3.2, INR 1.64, PTT 43.7. ABG: pH 7.323, pCO2 of 36.4, pO2 of 95.5, troponin 0.18, BNP 181. IMAGING: CT angiogram on admission showed a large ruptured infrarenal abdominal aortic aneurysm of approximately 9.7 cm, up to 10.6 cm with a large retroperitoneal and periaortic hematoma. There are bilateral renal cysts and hepatic cysts, as well as evidence of fatty infiltration in the liver. In the lungs, there is some pleural-based opacities in the left lower lobe in the focus and some fibroatelectatic changes bilaterally as well as a more focal area of ground glass and possibly scarring in the right lower lobe. ASSESSMENT AND PLAN: - Mr. Reis is a 74-year-old male with a past medical history of hypertension, rheumatoid arthritis, obesity, gastroesophageal reflux disease, former smoker, Meniere's disease, who presented with complaints of chest pain, abdominal pain, and shortness of breath. The patient had a ruptured infrarenal abdominal aortic aneurysm, status post emergent graft stent placement. Postprocedure, the patient was transferred to the ICU, intubated and sedated on propofol. The patient's blood pressure has improved. He is off of pressors. He received a total of six units of PRBCs and two units of FFP. - Continue the patient on mechanical ventilation with PRVC with settings of 480/20/7 and 40%. Will continue to wean down FiO2 as tolerated. - Continue vent bundle care with head of bed elevation and chlorhexidine mouthwash. - Continue daily ABGs and chest x-rays while intubated. Will check a chest x- ray post intubation now to confirm correct placement of his endotracheal (ET) tube. - The patient has some abdominal distension, and he did receive a significant amount of fluids and blood products as well as having a large hematoma. He has a Leal in place. Will check bladder pressures for abdominal compartment syndrome. - Will keep his nasogastric (NG) tube to low wall intermittent suction and keep him nothing by mouth for now. - Continue to monitor his platelets and coagulation studies (coags). - Will attempt daily sedation vacation and weaning trials as tolerated. - The patient did have elevated thyroid-stimulating hormone (TSH). Will check a free T4. - Continue with pain control with morphine as needed and continue with propofol for sedation to target a [place] of 2-3. DVT prophylaxis. As per surgery. Gastrointestinal (GI) prophylaxis> With Protonix. FULL CODE. Total critical care time spent not including any procedures: Approximately 1 hour and 30 minutes MTDD
[2019-01-30] MEDS: CHLORHEXIDINE GLUCONATE 0.12 % 15ML UDC (PERIDEX ORAL RINSE) MT SCH (21:50)
[2019-01-30] MEDS: PANTOPRAZOLE 40MG INJ (PROTONIX) (C9113) IV SCH (21:51)
[2019-01-30] MEDS: PROPOFOL 1,000 MG in APPROPRIATE DILUENT 1 EA IV SCH (21:52)
[2019-01-31] VITALS (26 sets, daily range): BP systolic 77–139; BP diastolic 40–65
[2019-01-31 05:10] LABS: HEMATOCRIT 34.2 % (42.0-52.0); HEMOGLOBIN 11.9 g/dl (13.5-17.5); MEAN CORPUSCULAR HEMOGLOBIN 31.5 pg (27.0-33.0); MEAN CORPUSCULAR HGB CONC 34.8 g/dl (32.0-36.5); MEAN CORPUSCULAR VOLUME 90.5 fl (80.0-96.0); RED BLOOD COUNT 3.78 10^6/uL (4.30-6.10); WHITE BLOOD COUNT 11.1 10^3/uL (4.0-10.0)
[2019-01-31 05:13] LABS: PLATELET COUNT, AUTOMATED 59 10^3/uL (150-450)
[2019-01-31 05:22] LABS: INR 1.26
[2019-01-31 05:23] LABS: PARTIAL THROMBOPLASTIN TIME 33.8 SECONDS (25.4-37.6)
[2019-01-31 05:30] LABS: CALCIUM LEVEL 7.1 MG/DL (8.8-10.2); CREATININE FOR GFR 2.22 MG/DL (0.70-1.30); GLOMERULAR FILTRATION RATE 30.8 (>42); POTASSIUM SERUM 4.5 MEQ/L (3.5-5.1)
[2019-01-31 05:38] LABS: ABG BASE EXCESS -5.7 (-2.0-2.0); ABG HCO3 18.2 MEQ/L (22.0-26.0); ABG O2 SATURATION 96.4 % (95.0-99.0); ABG PARTIAL PRESSURE CO2 31.1 mmHg (35.0-45.0); ABG PARTIAL PRESSURE O2 83.5 mmHg (75.0-100.0); ABG STANDARD HCO3 19.8 MEQ/L (22.0-26.0); ABG TOTAL CO2 19.2 MEQ/L (23.0-31.0); ABG pH (ARTERIAL) 7.386 UNITS (7.350-7.450)
--- NOTE | 2019-01-31 05:50 | ECGEPIP ---
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
[2019-01-31] MEDS: MIDAZOLAM INJ 2 MG/2 ML VIAL (J2250) IV PRN ×3 (07:17→22:06)
[2019-01-31] MEDS: CHLORHEXIDINE GLUCONATE 0.12 % 15ML UDC (PERIDEX ORAL RINSE) MT SCH ×2 (08:29→21:49)
[2019-01-31] MEDS: PANTOPRAZOLE 40MG INJ (PROTONIX) (C9113) IV SCH ×2 (08:29→21:49)
[2019-01-31] MEDS: PROPOFOL 1,000 MG in APPROPRIATE DILUENT 1 EA IV SCH ×3 (08:31→20:45)
[2019-01-31] MEDS ORDERED: ENOXAPARIN 40 MG/0.4 ML SYRINGE (J1650) SC SCH (09:00)
[2019-01-31] MEDS ORDERED: NS 0.45% 1,000 ML IV SCH (09:00)
[2019-01-31 09:04] LABS: TROPONIN I 0.46 NG/ML (< 0.10)
[2019-01-31] MEDS ORDERED: fentaNYL 100 MCG/2 ML INJECTION (J3010) IV ONE (09:30)
--- NOTE | 2019-01-31 10:20 | REP ---
PORTABLE CHEST X-RAY: Single view. HISTORY: Intubated patient. COMPARISON STUDY: January 30, 2019. FINDINGS: Endotracheal tube remains in good position at the level of the transverse aorta. EKG electrodes are seen. The lungs are exposed and the relatively low level of inspiration. There is plate-like atelectasis in the left base. There is mild gaseous distension of the stomach. No new infiltrate is seen. Electronically Signed by Kirt Wadsworth MD 01/31/2019 03:54 P
[2019-01-31 10:24] LABS: ABG HCO3 20.5 MEQ/L (22.0-26.0); ABG O2 SATURATION 93.6 % (95.0-99.0); ABG PARTIAL PRESSURE CO2 44.5 mmHg (35.0-45.0); ABG STANDARD HCO3 19.5 MEQ/L (22.0-26.0); ABG TOTAL CO2 21.9 MEQ/L (23.0-31.0); ABG pH (ARTERIAL) 7.282 UNITS (7.350-7.450)
[2019-01-31] MEDS ORDERED: FUROSEMIDE 40 MG/4 ML VIAL (J1940) IV ONE (11:00)
[2019-01-31] MEDS: IPRATROPIUM 0.5MG/ALBUTEROL 2.5MG INH SOL UD 3ML (DUONEB)(J7620) NEB SCH ×3 (12:09→19:34)
--- NOTE | 2019-01-31 13:09 | CCN ---
DATE: 01/31/2019 The patient was seen and examined this morning during bedside rounds. Overnight, the patient had episodes of agitation requiring p.r.n. Versed in addition to his propofol. He also had received some p.r.n. morphine for pain control as well. The patient's blood pressures had been lower later on in the evening, but he did not require any vasopressor support for blood pressure. PHYSICAL EXAMINATION: Vitals: Temperature 98.7, pulse 95, respirations 23, blood pressure 86/43, O2 sat 96% on 40% FiO2. In 7.8 liters, out 1.2 liters. General: The patient is an obese male. He is intubated and sedated. Sedation vacation was held and the patient was responding appropriately and following commands. HEENT: Normocephalic, atraumatic. Mucous membranes are moist. Pupils are reactive to light bilaterally. Neck is supple. Unable to appreciate any jugular venous distention (JVD) due to neck habitus. Cardiovascular: Regular rate and rhythm. Normal S1 and S2. Unable to appreciate any murmurs. Pulmonary: The patient had diminished breath sounds bilaterally with some faint wheezes and crackles. Abdomen is obese, distended and tender to palpation. Lower Extremities: No significant lower extremity edema bilaterally. There are well-healed surgical incisions in his knees bilaterally. LABORATORY DATA: WBC 11.1, hemoglobin 11.9, platelets 59. Chemistry: Sodium 142, potassium 4.5, chloride 111, bicarb 22, BUN 21, creatinine 2.22, and glucose is 159. Repeat lactic acid 1.8, calcium is 7.1, troponin trending up to 0.46. ABG: pH 7.386, pCO2 of 31.1 and pO2 of 83.5. IMAGING: Chest x-ray this morning shows ET tube in good position. There is poor inspiration with evidence of atelectasis at the bases. There is air in his stomach and it appears mildly distended. There are no focal opacities or infiltrates. Possible mild vascular crowding due to poor inspiration versus some mild congestion. ASSESSMENT: Mr. Reis is a 74-year-old male with a past medical history of hypertension, rheumatoid arthritis, obesity, gastroesophageal reflux disease, and Meniere disease, who presented with complaints of abdominal pain, chest pain and shortness of breath. The patient had a ruptured infrarenal abdominal aortic aneurysm and is status post emergent graft stent placement. Postprocedure, the patient was kept intubated and transferred to the intensive care unit (ICU). The patient has been off of pressors. He received a total of 6 units packed red blood cells (PRBCs) and two units of fresh frozen plasma (FFP) and has not required further blood transfusions at this time. His hemoglobin has been stable. Patient has [place] with possible ATN in setting of hypotension and likely IV contrast administration, renal has been consulted. The patient is on PRVC of 480/20/7/40%. He had a sedation vacation and a weaning trial this morning, however, with the weaning trial the patient became more tachypneic and diaphoretic. A repeat ABG on the weaning trial showed worsening respiratory acidosis and he was placed back on PRVC. His respiratory rate was adjusted to 16. - Will continue with his daily sedation vacation and weaning trials to assess for possible extubation. - Will discontinue morphine and continue with fentanyl p.r.n. for pain control and continue with propofol for sedation to target a [place] of 2-3. - The patient has received blood products and IV fluids and he has had some decreased urine output. His chest x-ray today shows some mild vascular congestion. Will give him a dose of Lasix as well as start him on DuoNebs as he had some mild wheezing noted which may be more cardiogenic from pulmonary edema, but he also has a history of smoking although denies prior history of chronic obstructive pulmonary disease (COPD). - The patient had evidence of some air in his stomach on chest x-ray. He did have an NG tube, however, it was removed overnight as it was not felt to be in the correct position. Will place an OG tube then and put to low wall intermittent suction for decompression. - Continue to monitor his abdominal distention. Can check bladder pressures to evaluate for possible abdominal compartment syndrome and continue to monitor his urine output. - Appreciate renal recommendations. He does have some worsening [place], likely ATN secondary to his hypotension and IV contrast administration however, is still making some urine at this time and does not need appear to need emergent dialysis. - Will continue to monitor his electrolytes and his renal function. - The patient has some thrombocytopenia likely secondary to his significant bleeding and ruptured aortic aneurysm. Will continue to monitor and hold off on transfusion at this time. His H/H is stable. Will continue to trend platelets - The patient had increased troponins. Will continue to trend his troponins. Likely demand ischemia in the setting of hypovolemic shock from bleeding. DVT prophylaxis. TEDs and SCDs. GI prophylaxis with Protonix. Full code. Total critical care time spent, not including any procedures was approximately 50 minutes. MTDD
--- NOTE | 2019-01-31 13:12 | HPEPDOC ---
[facility] Medical History & Physical Date of Admission January 30, 2019 Date of Service: January 31, 2019 History and Physical Vascular surgery. Dr. Zamorano CC Dr. Gomes PCP: Dr. Villagomez CC: Abdominal/chest pain HPI: 74 yo M who presented to the emergency department reporting chest pain radiating to the back, abdominal pain, and shortness of breath associated with tachypnea and hypotension in the emergency department found to have ruptured infrarenal abdominal aortic aneurysm and was taken urgently to the operating room for a aortobiiliac stent graft placement as per Dr. Zamorano 01/30/19. The patient is currently in the intensive care unit, ventilated, sedated. History is taken from the chart. Family is at bedside. PMHx: Mnire's disease Rheumatoid arthritis GERD Hypertension Obesity. BMI 33.9 CKD3 PSHX: Bilateral total knee arthroplasty Left arm fracture Right eye surgery SOCHX: Resides in: [facility] Marital Status: Tobacco use: Former smoker FAMHX: History of diabetes, colon cancer, rheumatoid arthritis. ROS: The patient is unable to provide any additional history at this time. PE: GEN: 74 yo M, intubated, sedated. HEENT: Normocephalic, atraumatic. Sclera are nonicteric. Conjunctiva without injection. CHEST: Regular rate and rhythm, +S1, +S2 LUNGS: Decreased breath sounds at bases bilaterally. No wheezes, rales, or rhonchi. ABD: Round, soft, non-distended. +Bowel sounds hypoactive. EXT: Pulses 2+ bilaterally dorsalis pedis and radial. trace lower extremity edema appreciated. SKIN: [place], dry, warm. Capillary refill <2sec. No rashes. CTA abdomen/pelvis 1. Ruptured 9.7 cm infrarenal abdominal aortic aneurysm with a fairly large retroperitoneal hematoma. 2. Bilateral renal cysts and hepatic cysts. 3. Fatty infiltration of the liver. The findings were telephoned to the ED at the time of this dictation. Electronically Signed by Kirt Wadsworth MD 01/30/2019 02:[address] evidence of aneurysm or dissection in the thoracic aorta. No CT evidence of pulmonary embolus. Some vascular calcification. Otherwise no acute cardiopulmonary disease. Electronically Signed by Kirt Wadsworth MD 01/30/2019 11:27 A CXR: 01/30/19 Endotracheal tube in satisfactory position. Electronically Signed by Oren Thurman MD 01/30/2019 06:44 P AXR 01/30/19 Status post aortobi-iliac stent graft placement. No opaque foreign body is appreciated. Only catheter in place. Electronically Signed by Kirt Wadsworth MD 01/30/2019 03:16 P CXR 01/31/19 FINDINGS: Endotracheal tube remains in good position at the level of the transverse aorta. EKG electrodes are seen. The lungs are exposed and the relatively low level of inspiration. There is plate-like atelectasis in the left base. There is mild gaseous distension of the stomach. No new infiltrate is seen. Unreviewed DD: Kirt Wadsworth MD 01/31/19 0954 A&P: 74 yo M who presented to the emergency department reporting chest pain radiating to the back, abdominal pain, and shortness of breath associated with tachypnea and hypotension in the emergency department found to have ruptured infrarenal abdominal aortic aneurysm and was taken urgently to the operating room for a aortobiiliac stent graft placement as per Dr. Zamorano 01/30/19. 1. Ruptured infrarenal abdominal aortic aneurysm/status post aortobiiliac stent graft placement as per Dr. Zamorano 01/30/19. Patient remains sedated/ventilated. Critical care assistance appreciated. Blood pressure 88/54, arterial line 93/46. Oxygen saturation 95%. HR 95. Afebrile. WBC 11.1. 2. Acute blood loss/Lg retroperitoneal hematoma. Hemoglobin 11.9. S/P 6U PRBC, 2 U FFP. 3. Thrombocytopenia. Platelet 59, likely consumptive process. Heparin on hold. 4. Hypotension. IVF at 125 cc/hr d/cd. CIP/Trop pending. Monitor closely. 5. [place]/ CKD3. Patient's baseline appears to be 1.3-1.5. Serum creatinine this morning is noted to be 2.22. Nephrology is consulted. IV Lasix 40 mg IV x 1 today. 6. GERD. IV PPI BID. 7. Rheumatoid arthritis. Vital Signs Vital Signs Date Time Temp Pulse Resp B/P (MAP) Pulse Ox O2 Delivery O2 Flow Rate FiO2 01/31/19 10:18 40 01/31/19 08:30 115 95 40 01/31/19 06:00 85/54 (65) 86/43 01/31/19 04:00 98.7 01/30/19 21:52 Ventilator Laboratory Data Labs 24H Laboratory Tests 2 01/30/19 15:17: Immature Granulocyte % (Auto) 1.0, White Blood Count 13.3H, Red Blood Count 4.2 3L, Hemoglobin 12.8L, Hematocrit 38.6L, Mean Corpuscular Volume 91.3, Mean Corpuscular Hemoglobin 30.3, Mean Corpuscular Hemoglobin Concent 33.2, Red Cell Distribution Width 14.5, Platelet Count 77L, Neutrophils (%) (Auto) 84.3H, Lymphocytes (%) (Auto) 6.1L, Monocytes (%) (Auto) 8.3H, Eosinophils (%) (Auto) 0.1, Basophils (%) (Auto) 0.2, Neutrophils # (Auto) 11.2H, Lymphocytes # (Auto) 0.8L, Monocytes # (Auto) 1.1H, Eosinophils # (Auto) 0.0, Basophils # (Auto) 0.0, Nucleated Red Blood Cells % (auto) 0.0, Immature Platelet Fraction 6.1, Prothrombin Time 19.7H, Prothromb Time International Ratio 1.64, Activated Partial Thromboplast Time 43.7H, Anion Gap 8, Glomerular Filtration Rate 57.1, Lactic Acid Level 3.2*H, Blood Urea Nitrogen 15, Creatinine 1.30, Sodium Level 144#, Potassium Level 4.7#, Chloride Level 115H, Carbon Dioxide Level 21, Calcium Level 6.8L, Aspartate Amino Transf (AST/SGOT) 21, Alanine Aminotransferase (ALT/SGPT) 13, Alkaline Phosphatase 57, Total Bilirubin 0.6, Direct Bilirubin 0.2, Total Protein 4.3#L, Albumin 2.3L, Albumin/Globulin Ratio 1.15, Amylase Level 56, Lipase 89, Free Thyroxine 1.13 01/30/19 15:50: Blood Gas Bicarbonate Standard 16.1L, Arterial Blood pH 7.206*L, Arterial Blood Partial Pressure CO2 43.4, Arterial Blood Partial Pressure O2 97.6, Arterial Blood Total CO2 18.1L, Arterial Blood HCO3 16.8L, Arterial Blood Base Excess - 10.8L, Arterial Blood Oxygen Saturation 96.8 01/30/19 17:33: Blood Gas Bicarbonate Standard 18.9L, Arterial Blood pH 7.323L, Arterial Blood Partial Pressure CO2 36.4, Arterial Blood Partial Pressure O2 95.5, Arterial Blood Total CO2 19.6L, Arterial Blood HCO3 18.5L, Arterial Blood Base Excess - 6.8L, Arterial Blood Oxygen Saturation 97.3 01/30/19 20:07: Lactic Acid Followup at 4 Hours 1.8 01/30/19 23:55: POC pH (Misc Panel) 7.202*L, POC Base Excess (Misc Panel) -14.0L, POC Saturated Percent O2 (Misc) 99H, POC pO2 (Misc Panel) 178.0H, POC pCO2 (Misc Panel) 36.8, POC HCO3 (Misc Panel) 14.5L, POC Glucose (Misc Panel) 171H, POC Sodium (Misc Panel) 143, POC Potassium (Misc Panel) 3.0L, POC Total CO2 (Misc Panel) 16.0L, POC Ionized Calcium (Misc Panel) 3.8L, POC Hemoglobin (Misc) 7.5L, POC Hematocrit (Misc Panel) 22.0L 01/31/19 01:21: POC pH (Misc Panel) 7.182*L, POC Base Excess (Misc Panel) -10.0L, POC Saturated Percent O2 (Misc) 99H, POC pO2 (Misc Panel) 161.0H, POC pCO2 (Misc Panel) 48.4H, POC HCO3 (Misc Panel) 18.2L, POC Glucose (Misc Panel) 173H, POC Sodium (Misc Panel) 139, POC Potassium (Misc Panel) 4.3, POC Total CO2 (Misc Panel) 20.0L, POC Ionized Calcium (Misc Panel) 6.4H, POC Hemoglobin (Misc) 8.2L, POC Hematocrit (Misc Panel) 24.0L 01/31/19 02:30: POC pH (Misc Panel) 7.176*L, POC Base Excess (Misc Panel) -9.0L, POC Saturated Percent O2 (Misc) 100H, POC pO2 (Misc Panel) 285.0H, POC pCO2 (Misc Panel) 53.8H, POC HCO3 (Misc Panel) 19.9L, POC Glucose (Misc Panel) 151H, POC Sodium (Misc Panel) 139, POC Potassium (Misc Panel) 4.9, POC Total CO2 (Misc Panel) 22.0L, POC Ionized Calcium (Misc Panel) 4.4L, POC Hemoglobin (Misc) 11.6L, POC Hematocrit (Misc Panel) 34.0L 01/31/19 04:52: Nucleated Red Blood Cells % (auto) 0.0, Prothrombin Time 16.0H, Prothromb Time International Ratio 1.26, Activated Partial Thromboplast Time 33.8, Blood Gas Bicarbonate Standard 19.8L, Arterial Blood pH 7.386, Arterial Blood Partial Pressure CO2 31.1L, Arterial Blood Partial Pressure O2 83.5, Arterial Blood Total CO2 19.2L, Arterial Blood HCO3 18.2L, Arterial Blood Base Excess -5.7L, Arterial Blood Oxygen Saturation 96.4, Anion Gap 9, Glomerular Filtration Rate 30.8L, Blood Urea Nitrogen 21H, Creatinine 2.22#H, Sodium Level 142, Potassium Level 4.5, Chloride Level 111H, Carbon Dioxide Level 22, Calcium Level 7.1L, Troponin I 0.46#H 01/31/19 10:15: Blood Gas Bicarbonate Standard 19.5L, Arterial Blood pH 7.282L, Arterial Blood Partial Pressure CO2 44.5, Arterial Blood Partial Pressure O2 78.0, Arterial Blood Total CO2 21.9L, Arterial Blood HCO3 20.5L, Arterial Blood Base Excess - 6.0L, Arterial Blood Oxygen Saturation 93.6L CBC/BMP Laboratory Tests 01/30/19 15:17 Red Blood Count 4.23 L, Mean Corpuscular Volume 91.3, Mean Corpuscular Hemoglobin 30.3, Mean Corpuscular Hemoglobin Concent 33.2, Red Cell Distribution Width 14.5, Neutrophils (%) (Auto) 84.3 H, Lymphocytes (%) (Auto) 6.1 L, Monocytes (%) (Auto) 8.3 H, Eosinophils (%) (Auto) 0.1, Basophils (%) (Auto) 0.2, Neutrophils # (Auto) 11.2 H, Lymphocytes # (Auto) 0.8 L, Monocytes # (Auto) 1.1 H, Eosinophils # (Auto) 0.0, Basophils # (Auto) 0.0, Calcium Level 6.8 L, Aspartate Amino Transf (AST/SGOT) 21, Alanine Aminotransferase (ALT/SGPT) 13, Alkaline Phosphatase 57, Total Bilirubin 0.6, Direct Bilirubin 0.2, Total Protein 4.3 #L, Albumin 2.3 L 01/31/19 04:52 Red Blood Count 3.78 L, Mean Corpuscular Volume 90.5, Mean Corpuscular Hemoglobin 31.5, Mean Corpuscular Hemoglobin Concent 34.8, Red Cell Distribution Width 15.2 H, Calcium Level 7.1 L Home Medications Scheduled Meclizine HCl (Meclizine HCl) 25 Mg Tab.chew, 25 MG PO BID Scheduled PRN Meloxicam (Meloxicam) 7.5 Mg Tablet, 7.5 MG PO DAILY PRN for PAIN Allergies Coded Allergies: NSAIDS (Non-Steroidal Anti-Inflamma (Verified Allergy, Unknown, SWOLLEN LIPS, 01/30/19) ibuprofen (Verified Allergy, Unknown, SWOLLEN LIPS, 01/30/19) naproxen (Verified Allergy, Unknown, SWOLLEN LIPS, 01/30/19) A-FIB/CHADSVASC A-FIB History Current/History of A-Fib/PAF?: No Milady Chaney January 31, 2019 13:11
[2019-01-31 14:04] LABS: TROPONIN I 0.28 NG/ML (< 0.10)
[2019-01-31 14:07] LABS: MB/CK RELATIVE INDEX 1.63 (< OR =4); TROPONIN I 0.3 NG/ML (< 0.10)
[2019-01-31] MEDS: fentaNYL 100 MCG/2 ML INJECTION (J3010) IV PRN ×4 (16:50→23:53)
[2019-01-31 16:52] LABS: CALCIUM LEVEL 7.2 MG/DL (8.8-10.2); CREATININE FOR GFR 3.33 MG/DL (0.70-1.30); GLOMERULAR FILTRATION RATE 19.3 (>42); POTASSIUM SERUM 4.4 MEQ/L (3.5-5.1)
[2019-01-31] MEDS ORDERED: CHLOROTHIAZIDE 500 MG VIAL (J1205) IV ONE (18:30)
[2019-01-31] MEDS ORDERED: FUROSEMIDE 100 MG/10 ML VIAL (J1940) IV ONE (18:30)
--- NOTE | 2019-01-31 22:17 | CR ---
DATE OF CONSULTATION: 01/31/2019 REQUESTING PHYSICIAN: Geovanny Zamorano MD CONSULTING PHYSICIAN: Maxx Hewitt MD REASON FOR CONSULTATION: Management of acute renal failure. CHIEF COMPLAINT: The patient presented to the hospital yesterday with acute abdominal pain. NOTE: History was obtained from the patient's chart and from the patient's medical team. Patient is intubated at this point. HISTORY OF PRESENT ILLNESS Mr. Geovanny Reis is a 74-year-old male with past medical history of hypertension, obesity, baseline history of chronic kidney disease stage III, multiple other comorbidities as mentioned below. He presented to the hospital yesterday with chest pain and abdominal pain radiating to the back. He also had shortness of breath, tachypnea and hypotension in the emergency department. Further investigation showed that he had ruptured infrarenal abdominal aortic aneurysm. He was urgently taken to the OR and [id number] stent graft was placed by vascular surgery. Later on the patient was transferred to the ICU. He was intubated and during the ICU stay he was found to have oliguria and worsening renal function. His creatinine on admission was 1.5. It has bumped up to 2.2 today morning. Nephrology service was called for further help in the management of this patient with acute renal failure superimposed on chronic kidney disease stage III. I saw and evaluated the patient today morning at the bedside. He was sitting up and was undergoing weaning trial for possible asked extubation, however, the patient was having trouble breathing. He was otherwise, following commands and his eyes were open. PAST MEDICAL HISTORY Past medical history of hypertension, chronic kidney disease stage III, rheumatoid arthritis, Meniere's disease, osteoarthritis. PAST SURGICAL HISTORY Status post bilateral total knee arthroplasty, status post left arm fracture surgery, history of right eye surgery and status post a [id number] graft placement on January 30, 2019. ALLERGIES: The patient is allergic to NSAIDs. FAMILY HISTORY No significant family history of end-stage renal disease requiring hemodialysis. There is positive history of diabetes and colon cancer. Social History: Unable to review. REVIEW OF SYSTEMS The patient is unable to provide any reliable review of systems. He is intubated at this time. PHYSICAL EXAMINATION The patient is awake, follows commands, but he is intubated. Vital signs: Temperature is 98.7 degrees Fahrenheit. Blood pressure 110/46, pulse is 96, respiratory rate of 20, saturating 96% on the vent with 40% FiO2. Head and neck: Pupils are equally round and reactive to light. The patient has an endotracheal tube. Neck is supple. There is no JVD. Cardiovascular: S1, S2, no edema of the bilateral lower extremities. Respiratory: Decreased breath sounds at the bases with mild expiratory rhonchi despite being on the vent. Abdomen: Soft, obese, positive bowel sounds. Nontender. Genitourinary: Patient has an indwelling Leal catheter. Small amount of urine in the bag was noted. Musculoskeletal: The patient had dressing on both groins from recent vascular procedure. Otherwise no clubbing or cyanosis. GATE PERSON: The patient is awake on the vent. He follows commands and moves extremities. Skin: No rashes or ulcers. LAB REVIEW: CBC showed a WBC of 11.1, hemoglobin 11.9, platelets of 59. INR today is 1.2, ABG today morning showed pH of 7.28, pCO2 44, pO2 78, bicarb is 20, O2 sat is 93%. BMP showed a sodium 141, potassium 4.4, chloride 112, bicarb 22, BUN 28, creatinine is 3.3 now, glucose 132, calcium 7.2, CPK 1313, troponin 0.28. IMAGING STUDIES A chest x-ray was done today morning, which showed endotracheal tube in satisfactory position. There is low-level inspiration. There is atelectasis in the left base. No new infiltrate was seen. CURRENT INPATIENT MEDICATIONS The patient's medications were all reviewed by me. She is currently on propofol drip. He was getting IV fluid hydration which was stopped. He is on DuoNeb four times a day, fentanyl for pain. I gave him a dose of Lasix 40 mg IV times 1 dose today morning. He is on Versed as needed (p.r.n.) for agitation and Protonix 40 mg IV twice a day. ASSESSMENT 74-year-old male with past medical history of chronic kidney disease stage III, best baseline creatinine of around 0.7 as of November 2018. History of hypertension and obesity, admitted this time with ruptured infrarenal abdominal aortic aneurysm, status post [id number] stent placement admitted to ICU currently with vent dependent respiratory failure. Nephrology service following the patient for acute oliguric renal failure. PLAN 1. Acute oliguric renal failure. It is secondary to hemorrhagic shock and renal failure is most likely caused by ATN. The patient's creatinine is rising, however, his acid base status is within the acceptable range. I have given the patient a dose of Lasix. He did not respond well to that 40 mg dose. I have ordered another dose of Lasix 80 mg along with Diuril 500 mg IV. If the patient remains oliguric with the high dose of diuretics, he would probably need to start hemodialysis over the next 24-48 hours; try to maintain a mean arterial pressure of above 70. The patient also got IV contrast in the last [address] scan and during the procedures that might have contributed to acute renal failure as well. 2. Acute blood loss and large retroperitoneal hematoma. The patient is status post six PRBC transfusions and two FFP. Hemoglobin is within the acceptable range. Rest of the management is as per vascular surgery. 3. Vent dependent respiratory failure. The patient failed the weaning trial today. There are signs of fluid overload. IV fluids have been stopped as mentioned above. I have given him a dose of IV diuretics. If we are not able to optimize the volume status then patient will need to start dialysis. 4. Elevated CPK level, is likely secondary to ischemia induced by the rupture of abdominal aortic aneurysm. CPK levels are low. The patient's volume status is optimal. No need of IV fluid hydration at this point. Thank you for involving me in the care of this patient. I shall be happy to follow the patient along with you tomorrow morning. Total critical care time spent in the management of this patient today morning in the ICU is 1 hour. MTDD
[2019-02-01] VITALS (23 sets, daily range): BP systolic 98–172; BP diastolic 42–75
[2019-02-01] MEDS: PROPOFOL 1,000 MG in APPROPRIATE DILUENT 1 EA IV SCH ×2 (04:03→08:07)
[2019-02-01] MEDS: MIDAZOLAM INJ 2 MG/2 ML VIAL (J2250) IV PRN (04:04)
[2019-02-01 05:42] LABS: ABG BASE EXCESS -4.1 (-2.0-2.0); ABG HCO3 20.1 MEQ/L (22.0-26.0); ABG O2 SATURATION 96.5 % (95.0-99.0); ABG PARTIAL PRESSURE CO2 33.1 mmHg (35.0-45.0); ABG PARTIAL PRESSURE O2 82.5 mmHg (75.0-100.0); ABG STANDARD HCO3 21.1 MEQ/L (22.0-26.0); ABG TOTAL CO2 21.1 MEQ/L (23.0-31.0); ABG pH (ARTERIAL) 7.401 UNITS (7.350-7.450)
[2019-02-01 06:11] LABS: HEMATOCRIT 28.9 % (42.0-52.0); MEAN CORPUSCULAR HEMOGLOBIN 30.9 pg (27.0-33.0); MEAN CORPUSCULAR HGB CONC 33.2 g/dl (32.0-36.5); MEAN CORPUSCULAR VOLUME 92.9 fl (80.0-96.0); RED BLOOD COUNT 3.11 10^6/uL (4.30-6.10); WHITE BLOOD COUNT 11.4 10^3/uL (4.0-10.0)
[2019-02-01 06:12] LABS: INR 1.47; PROTHROMBIN TIME 18.1 SECONDS (12.1-14.4)
[2019-02-01 06:13] LABS: PARTIAL THROMBOPLASTIN TIME 35.2 SECONDS (25.4-37.6)
[2019-02-01 06:18] LABS: CALCIUM LEVEL 7.2 MG/DL (8.8-10.2); CREATININE FOR GFR 4.16 MG/DL (0.70-1.30); GLOMERULAR FILTRATION RATE 14.9 (>42); POTASSIUM SERUM 4.2 MEQ/L (3.5-5.1)
[2019-02-01 06:22] LABS: PLATELET COUNT, AUTOMATED 58 10^3/uL (150-450)
[2019-02-01 06:23] LABS: HEMOGLOBIN 9.6 g/dl (13.5-17.5)
--- NOTE | 2019-02-01 07:27 | REP ---
Clinical: Status post intubation . Comparison: 01/31/2019 . Findings: The endotracheal tube 4 cm above the fabiana. Nasogastric tube courses below left hemidiaphragm. The mediastinum and cardiac silhouette are stable and within normal limits for portable technique. The lung srinivasan are clear without acute consolidation, effusion, or pneumothorax. Skeletal structures are intact. Impression: No acute cardiopulmonary process appreciated. Electronically Signed by Oren Thurman MD 02/01/2019 07:19 A
[2019-02-01] MEDS: IPRATROPIUM 0.5MG/ALBUTEROL 2.5MG INH SOL UD 3ML (DUONEB)(J7620) NEB SCH ×4 (07:57→20:03)
[2019-02-01] MEDS: CHLORHEXIDINE GLUCONATE 0.12 % 15ML UDC (PERIDEX ORAL RINSE) MT SCH (08:07)
[2019-02-01] MEDS: PANTOPRAZOLE 40MG INJ (PROTONIX) (C9113) IV SCH ×2 (08:07→20:21)
[2019-02-01 10:06] LABS: ABG BASE EXCESS -4.3 (-2.0-2.0); ABG PARTIAL PRESSURE CO2 34.1 mmHg (35.0-45.0); ABG PARTIAL PRESSURE O2 97.7 mmHg (75.0-100.0); ABG STANDARD HCO3 20.9 MEQ/L (22.0-26.0); ABG TOTAL CO2 21.1 MEQ/L (23.0-31.0); ABG pH (ARTERIAL) 7.387 UNITS (7.350-7.450)
[2019-02-01 10:07] LABS: HEMATOCRIT 29.2 % (42.0-52.0); HEMOGLOBIN 9.8 g/dl (13.5-17.5); MEAN CORPUSCULAR HEMOGLOBIN 31.2 pg (27.0-33.0); MEAN CORPUSCULAR HGB CONC 33.6 g/dl (32.0-36.5); RED BLOOD COUNT 3.14 10^6/uL (4.30-6.10); WHITE BLOOD COUNT 12.2 10^3/uL (4.0-10.0)
[2019-02-01 10:12] LABS: PLATELET COUNT, AUTOMATED 58 10^3/uL (150-450)
[2019-02-01] MEDS ORDERED: FUROSEMIDE 100 MG/10 ML VIAL (J1940) IV ONE (12:00)
[2019-02-01] MEDS ORDERED: CHLOROTHIAZIDE 500 MG VIAL (J1205) IV ONE (12:00)
--- NOTE | 2019-02-01 12:26 | CCN ---
DATE: 02/01/2019 Patient has been on propofol for sedation overnight. He required two doses of as needed Versed and two doses of fentanyl for pain overnight. Patient's blood pressures have been stable. He has been tachycardic with his heart rate mostly in the 110s, occasionally up to 120. This morning. patient had a sedation vacation and was awake and arousable, following commands. He denied any shortness of breath or chest pain this morning. He was placed on a weaning trial, which he was tolerating well. Patient was given 40 mg intravenous (IV) Lasix yesterday in the morning and did not have any significant urine output. He was then given an additional 80 mg IV Lasix with diuril and did have some significant urine output afterwards. PHYSICAL EXAM: VITAL SIGNS: Temperature 99, pulse 116, respirations 16, blood pressure 103/42, oxygen saturation 95% on 40% FiO2. Ins 1.4, out 375. Later on after midnight, patient had an additional 750 mL out. General: Patient is obese male. He is intubated. Sedation is being held, and he is awake and following commands appropriately. HEENT: Normocephalic, atraumatic. Mucous membranes are moist. Pupils are reactive to light bilaterally. Neck is supple. Unable to appreciate any jugular venous distention (JVD) due to the neck habitus. Cardiovascular: Tachycardiac. Regular rhythm. Normal S1, S2. Unable to appreciate any murmurs. Pulmonary: Decreased breath sounds bilaterally with some faint crackles at the bases. Abdomen is obese, distended, appears to be mildly tender to palpation. Abdomen appears softer compared to previously. Lower extremities: No significant lower extremity edema bilaterally. There is are well-healed surgical incisions in his knees bilaterally. LABS: WBC 11.4, hemoglobin trended down to 9.6, platelets 58. Chemistry: Sodium is 141, potassium 4.2, chloride 107, bicarbonate 24, BUN 36, creatinine 4.16, glucose 128, calcium 7.2, corrected calcium is 8.6. Troponin trended down yesterday to 0.28, INR 1.47, PTT 35.2. ABG this morning; pH 7.40, pCO2 of 33.1, pO2 of 82.5. Chest x-ray this morning shows endotracheal (ET) tube in good position. Orogastric (OG) tube is in place coursing below the diaphragm. There is some atelectasis in the bases and some mild pulmonary vascular congestion. ASSESSMENT AND PLAN: Mr. Reis is a 74-year-old male with a past medical history of hypertension, rheumatoid arthritis, obesity, gastroesophageal reflux disease (GERD), Meniere disease, who presented with complaint of abdominal pain, chest pain, and shortness of breath. Patient was found to have a ruptured infrarenal abdominal aortic aneurysm with status post emergent aortobi-iliac stent graft placement on 01/30/2019. Post procedure, patient was kept intubated and transferred to the intensive care unit (ICU) for further monitoring. Patient received so far 6 units of packed red blood cells (PRBC) and 2 units of fresh frozen plasma (FFP) and his blood pressure has remained stable and he is off of pressors. Patient also with acute renal failure possibly ATN in the setting of his hypotension and intravenous (IV) contrast administration. Yesterday, patient was placed on a weaning trial, but he did not tolerate it as he had become more tachypneic and diaphoretic and his arterial blood gas (ABG) showed worsening respiratory acidosis. - Patient was placed on another sedation vacation and weaning trial this morning and he appeared to be tolerating it well. His ABG on the weaning trial was acceptable, and he was therefore extubated to bilevel positive airway pressure (BiPAP) with a setting of 12/7, a respiratory rate of 14, and FIO2 of 40%. Will keep patient on BiPAP and wean him off as tolerated. - Patient likely has some component of pulmonary edema given his aggressive fluid resuscitation and blood product administration. He was given Lasix yesterday, and he did not respond initially to the 40 mg IV, but he did respond with increased urine output to the 80 mg IV Lasix and diuril. He patient continues to be in oliguric acute renal failure possibly with likely component ATN in the setting of his hypotension and IV contrast administration; however, he does appear to continue to have good urine output and he has no significant acidosis or other electrolyte abnormalities which would indicate a need for emergent dialysis. Will followup with renal recommendations about additional diuretics, and we would continue to monitor his creatinine and his electrolytes. - Patient's hemoglobin did trend down today from around 11.8 to 12 to 9.6. A repeat hemoglobin is stable around 9.8. He does have thrombocytopenia which may be secondary to consumption from his acute bleeding, and they are stable currently. Will followup with a repeat CBC this evening. Would keep an active type and screen in case he would need further transfusions. -Patient had some elevated troponin, likely demand ischemia in the setting of his hypotension and acute bleeding. His troponins have trended down, and his blood pressure has been stable currently. -Can continue with fentanyl as needed for pain control. Would discontinue the rest of his medication for sedation as he is extubated. Deep venous thrombosis (DVT) prophylaxis with thromboembolism deterrents (TEDs) and sequential compression devices (SCDs). Gastrointestinal (GI) prophylaxis. FULL CODE. Total critical care time spent not including procedures, approximately 45 minutes. MTDD
[2019-02-01 18:14] LABS: HEMATOCRIT 29.7 % (42.0-52.0); HEMOGLOBIN 9.8 g/dl (13.5-17.5); MEAN CORPUSCULAR HEMOGLOBIN 30.6 pg (27.0-33.0); MEAN CORPUSCULAR VOLUME 92.8 fl (80.0-96.0); WHITE BLOOD COUNT 11.8 10^3/uL (4.0-10.0)
[2019-02-01 18:18] LABS: PLATELET COUNT, AUTOMATED 62 10^3/uL (150-450)
[2019-02-01] MEDS: PERCOCET 5MG/325MG TAB PO PRN (20:21)
[2019-02-02] VITALS (22 sets, daily range): BP systolic 105–164; BP diastolic 50–63; O2SAT 94
[2019-02-02 05:39] LABS: HEMATOCRIT 27.7 % (42.0-52.0); HEMOGLOBIN 9.1 g/dl (13.5-17.5); MEAN CORPUSCULAR HEMOGLOBIN 30.2 pg (27.0-33.0); MEAN CORPUSCULAR HGB CONC 32.9 g/dl (32.0-36.5); RED BLOOD COUNT 3.01 10^6/uL (4.30-6.10); WHITE BLOOD COUNT 11.1 10^3/uL (4.0-10.0)
[2019-02-02 05:40] LABS: PLATELET COUNT, AUTOMATED 62 10^3/uL (150-450)
[2019-02-02 05:49] LABS: INR 1.51; PROTHROMBIN TIME 18.4 SECONDS (12.1-14.4)
[2019-02-02 06:01] LABS: CALCIUM LEVEL 7.4 MG/DL (8.8-10.2); CREATININE FOR GFR 4.64 MG/DL (0.70-1.30); GLOMERULAR FILTRATION RATE 13.2 (>42); POTASSIUM SERUM 4.1 MEQ/L (3.5-5.1)
[2019-02-02] MEDS: IPRATROPIUM 0.5MG/ALBUTEROL 2.5MG INH SOL UD 3ML (DUONEB)(J7620) NEB SCH ×4 (07:35→19:57)
[2019-02-02] MEDS: PANTOPRAZOLE 40MG INJ (PROTONIX) (C9113) IV SCH ×2 (09:27→21:01)
[2019-02-02] MEDS: PERCOCET 5MG/325MG TAB PO PRN ×2 (09:28→21:01)
--- NOTE | 2019-02-02 09:41 | CCN ---
DATE: 02/02/2019 CRITICAL CARE PROGRESS NOTE Patient was seen and examined this morning during bedside rounds. The patient was extubated successfully to bilevel positive airway pressure (BiPAP) yesterday. He was on BiPAP during the day intermittently with some brief breaks as well as being on BiPAP overnight. This morning, the patient denies any increased shortness of breath. No chest pain. He does have some abdominal discomfort still. He denies any nausea or vomiting. Has not had any bowel movements and has not been passing gas that he notices. PHYSICAL EXAMINATION: Temperature 98.5, pulse 103, respirations 20, blood pressure 149/58, oxygen saturation (O2 sat) 96% on BiPAP. Intake (ins) 210, output (outs) 3.1 liters. General: The patient is an obese male. He is sitting in bed, is awake and alert and responsive appropriately. Does not appear to be using any accessory muscles for respiration. HEENT: Normocephalic, atraumatic. Mucous membranes are moist. Pupils are reactive to light bilaterally. Neck is supple. Unable to appreciate jugular venous distention (JVD) due to neck habitus. Cardiovascular: Regular rate and rhythm. Normal S1,S2. Unable to appreciate any murmurs. Pulmonary: Decreased breath sounds bilaterally with some faint crackles in the bases. Abdomen is obese, appears distended, is slightly more firm today than previously. Has some mild tenderness to palpation. Lower extremities: There is no significant lower extremity edema bilaterally. There are well-healed surgical incisions in his knees bilaterally. LABORATORY DATA: WBC 11.1, hemoglobin 9.1, [id number]. Chemistry: Sodium 142, potassium 4.1, chloride 106, bicarbonate 24, BUN 47, creatinine 4.64, glucose is 110, INR 1.51. ASSESSMENT AND PLAN: Mr. Reis is a 74-year-old male with a history of hypertension, rheumatoid arthritis, obesity, gastroesophageal reflux disease (GERD), Meniere's disease who presented with complaint of abdominal pain, chest pain and shortness of breath. The patient was found have a ruptured infrarenal abdominal aortic aneurysm and is status post emergent aortobiiliac stent graft placement on 01/30/2019. Postprocedure, he was kept intubated and transferred to the intensive care unit (ICU) for further monitoring. The patient was also noted to have acute renal failure, possibly acute tubular necrosis (ATN) in the setting of his hypotension and IV contrast administration. The patient was successfully extubated yesterday to BiPAP. Today, he has been able to be weaned off of BiPAP to nasal cannula supplementation and he appears comfortable. - Will continue with nasal cannula supplementation during the day and will place patient on continuous positive airway pressure (CPAP) tonight for possible undiagnosed obstructive sleep apnea. The patient does report a history of occasional snoring as well as some frequent nighttime awakenings. He is unclear about significant daytime sleepiness or having an refreshing sleep, however given his body habitus, there is suspicion for sleep apnea, and he would likely need followup and diagnostic testing as an outpatient. - The patient was given IV Lasix yesterday with good urine output. His creatinine is still trending up; however, he does not have any significant electrolyte abnormalities or acidosis at this time. Would follow up with renal recommendations about the possibility for dialysis and need for further diuretics. - Patient was ordered for renal Dopplers to evaluate for any possible obstruction, which may be due to his recent stent placement. Will followup the results of his ultrasound. - Did discuss with the patient about the possibility of dialysis, and he is agreeable if needed. - The patient's hemoglobin and hematocrit has remained stable. His thrombocytopenia is likely secondary to consumption with his hemorrhagic shock; however, it is slowly improving. Would continue to monitor. - Continue fentanyl as needed for pain control. Would encourage incentive spirometer use and out of bed to chair if tolerated. - The patient has some increased abdominal distension today. He has not had any bowel movements and is not passing gas. Suspect he may have a component of ileus. Would get an abdominal x-ray to evaluate. Would try clears if he is able to tolerate and hold for any nausea or vomiting. Deep vein thrombosis (DVT) prophylaxis with thromboembolism deterrents (TEDs) and sequential compression devices (SCDs). Gastrointestinal (GI) prophylaxis. CODE STATUS: Was discussed with the patient, and he is FULL CODE. Total critical care time spent not including any procedures: Approximately 40 minutes. MTDD
--- NOTE | 2019-02-02 11:22 | REP ---
Clinical: Abdominal distension. Comparison: 01/30/2019 Technique: Three supine views of the abdomen and pelvis. Findings: Distended small large bowel possibly related to ileus. No definite point of obstruction is appreciated. No organomegaly. Aorto-iliac stent again identified. Impression: Distended air-filled loops of small large bowel suggest ileus. Electronically Signed by Oren Thurman MD 02/02/2019 11:14 A
--- NOTE | 2019-02-02 11:32 | REP ---
Clinical: Acute renal failure. Technique: Real time sterling scale and color Doppler evaluation of the kidneys using curved array transducer. Comparison: CT dated 01/30/2019 Findings: The right kidney demonstrates cortical atrophic changes with multiple large simple cysts and no evidence for hydronephrosis. Cyst include mid pole cyst measuring 4.7 x 4.2 x 4.6 cm, mid/lower pole cyst measuring 5.7 x 6.0 x 4.6 cm, and partially exophytic lower pole cyst measuring 9.0 x 8.2 x 8.5 cm which are confirmed on recent CT. However, the recent CT demonstrates partial infarction to the right kidney due to decreased vascular supply secondary to the ruptured aortic aneurysm. This may be related to the patient's acute renal failure. The left kidney is normal in reniform shape with cortical atrophic changes and 2.5 x 1.2 x 2.0 cm mid pole cyst without hydronephrosis. Doppler interrogation to the kidneys is significantly limited due to the patient's inability to tolerate examination likely related to the recently repaired aortic rupture. However Doppler interrogation to the right kidney demonstrates relatively normal arterial wave patterns with normal resistive indices and 0.64 and normal acceleration times at 0.03 - 0.04. Impression: 1. Bilateral renal cysts (right greater than left) consistent with findings on recent CT. No hydronephrosis. Limited Doppler interrogation. 2. Acute renal failure may be secondary to chronic renal disease and superimposed partial infarction of the right kidney as identified on recent CT. Electronically Signed by Oren Thurman MD 02/02/2019 11:23 A
[2019-02-02] MEDS ORDERED: FUROSEMIDE 100 MG/10 ML VIAL (J1940) IV ONE (13:15)
[2019-02-02 14:49] LABS: MAGNESIUM LEVEL 2.4 MG/DL (1.8-2.4); PHOSPHORUS LEVEL 6.4 MG/DL (2.5-4.9)
--- NOTE | 2019-02-02 15:34 | IPN ---
DATE: 02/01/2018 SUBJECTIVE: Patient was seen and examined at the bedside today morning in the intensive care unit (ICU). His two daughters were also present at the bedside today. He was extubated. He was on bilevel positive airway pressure (BiPAP) mask. He was getting BiPAP mask when I saw him in the morning. There are no signs of improvement of renal function. Creatinine continues to rise; however, patient was given a dose of Lasix 80 mg intravenous (IV) and Diuril 500 mg IV last night and he responded to that, and he made around 875 mL of urine overnight. His volume status is otherwise optimal since he is making urine. OBJECTIVE: VITAL SIGNS: Temperature is 100.2 degrees Fahrenheit, blood pressure 127/57, pulse is 122, respiratory rate of 28, saturating 96% on 40% FiO2. INTAKE AND OUTPUT: Urine output recorded is 375 mL yesterday, 875 mL so far today since overnight. Weight in the bed scale is 104 kg. PHYSICAL EXAMINATION: GENERAL: Patient is awake, not sedated, wearing the BiPAP mask. Follows commands. HEAD AND NECK EXAM: Extraocular muscles intact. Pupils equally round and reactive to light. He is wearing a mask. Neck is supple. There is no jugular venous distention (JVD). CARDIOVASCULAR: S1, S2. No edema of the bilateral lower extremities. RESPIRATORY: Decreased breath sounds at the bases with mild expiratory rhonchi bilaterally at the bases. ABDOMEN: Soft, obese. Positive bowel sounds. Nontender. GENITOURINARY: He has an indwelling Leal catheter. Urine in the bag is clear. MUSCULOSKELETAL: Dressing in both groins. No evidence of hematoma in the groin. No clubbing or cyanosis. CENTRAL NERVOUS SYSTEM (CURRICULUM COACH): Patient is awake, not sedated. Follows commands and he is wearing a BiPAP mask. LABORATORY REVIEW: Complete blood count (CBC) showed WBC of 11.8, hemoglobin is 9.8, platelets are 62. INR is 1.4. Basic metabolic panel (BMP) showed sodium 141, potassium 4.2, chloride 107, bicarbonate 24, BUN 37, creatinine is 4.1, calcium 7.2. IMAGING STUDIES: A chest x-ray was done today morning which showed no acute cardiopulmonary process. CURRENT INPATIENT MEDICATIONS: Patient's medications were all reviewed by me. His propofol drip has been stopped. I gave him another dose of Lasix 100 mg IV times one plus Diuril 500 mg IV times one dose. No other change in the medications today as compared with yesterday. ASSESSMENT AND PLAN: 1. Acute oliguric renal failure. It is secondary to acute tubular necrosis (ATN) caused by hemorrhagic shock. Patient got a dose of Lasix and Diuril last night. I have given him another dose of Lasix and Diuril in the morning to convert oliguric renal failure to nonoliguric renal failure and optimize his volume status. I have explained to the patient's family members that even though he is making urine, there is no signs of improvement of renal function; however, there is no urgency to start the renal replacement therapy. Volume status is optimal. Electrolytes and acid base status is within the acceptable range. Patient might need to start dialysis over the next one to two days if there are no signs of renal recovery 2. Acute blood loss anemia. Patient is getting serial hemoglobin monitoring. Transfuse as needed for hemoglobin less than eight. 3. Status post vent dependent respiratory failure. Patient is currently getting noninvasive ventilation. Management is as per primary service. Continue the diuretics at this time to keep the patient's volume status optimal. 4. Ruptured abdominal aortic aneurysm status post aortobiiliac stent graft placement. Patient is hemodynamically stable now. Hemoglobin is 9.8, which is optimal. The rest of the management is as per vascular surgery recommendations. Total critical care time spent in the management of this patient today morning in the ICU is 40 minutes. MTDD
[2019-02-03] VITALS (14 sets, daily range): BP systolic 90–129; BP diastolic 50–76; O2SAT 99
[2019-02-03 04:55] LABS: HEMATOCRIT 26.8 % (42.0-52.0); HEMOGLOBIN 8.8 g/dl (13.5-17.5); MEAN CORPUSCULAR HEMOGLOBIN 30.8 pg (27.0-33.0); MEAN CORPUSCULAR HGB CONC 32.8 g/dl (32.0-36.5); MEAN CORPUSCULAR VOLUME 93.7 fl (80.0-96.0); RED BLOOD COUNT 2.86 10^6/uL (4.30-6.10); WHITE BLOOD COUNT 8.8 10^3/uL (4.0-10.0)
[2019-02-03 04:59] LABS: PLATELET COUNT, AUTOMATED 83 10^3/uL (150-450)
[2019-02-03 05:08] LABS: CALCIUM LEVEL 7.4 MG/DL (8.8-10.2); CREATININE FOR GFR 4.88 MG/DL (0.70-1.30); GLOMERULAR FILTRATION RATE 12.4 (>42); POTASSIUM SERUM 3.7 MEQ/L (3.5-5.1)
[2019-02-03] MEDS: IPRATROPIUM 0.5MG/ALBUTEROL 2.5MG INH SOL UD 3ML (DUONEB)(J7620) NEB SCH ×4 (07:28→20:20)
[2019-02-03] MEDS: PERCOCET 5MG/325MG TAB PO PRN ×2 (08:17→17:44)
[2019-02-03] MEDS: PANTOPRAZOLE 40MG INJ (PROTONIX) (C9113) IV SCH ×2 (08:17→20:58)
[2019-02-03] MEDS: ADVAIR HFA 115/21MCG INHALER INH SCH ×2 (09:00→20:19)
--- NOTE | 2019-02-03 09:21 | IPN ---
DATE: 02/02/2019 SUBJECTIVE: The patient was seen, examined this morning at the bedside in the intensive care unit. He was on BiPap overnight and has been transitioned over to 1 liter nasal cannula this morning. When lying flat to let bed, the patient complains of a discomfort, but he denies any shortness of breath at rest. He repeatedly requests water, but his abdominal flat plate was suggestive of ileus. He told me that he has been passing gas, although, per the nurse, he informed the medical care administrator that he is not passing gas. He is responsive to diuretics with adequate urine output, but laboratory studies show no improvement in his renal function. VITAL SIGNS: Temperature 100.0, pulse 101, respiratory rate 22, blood pressure 135/61, saturating 94% on 1 liter nasal cannula. Intake yesterday was 200 mL. Urine output yesterday was a 3.1 liters, net negative 2.9 liters, weight on the bed scale today is not recorded. General: The patient is seen lying fairly flat in bed in the intensive care unit. Awake, alert and answers questions appropriately and is cooperative with physical exam. There is no apparent respiratory distress. Extraocular muscles are intact. His tongue is dry. Neck is supple. Jugular veins do not appear elevated. Cardiac: Regular rate and rhythm. There is 1+ edema bilaterally in the lower extremities. There are compression stockings in place. Lungs: There are coarse breath sounds bilaterally with some faint crackles at the bases. Abdomen is distended and obese. There are bowel sounds, which are high pitched. Genitourinary: Shows some bruising in the groin and there is an indwelling Leal catheter with clear yellow urine. LABORATORY DATA: White count 11.1, hemoglobin 9.1, platelets 62. Sodium 142, potassium 4.1, bicarbonate 24, BUN 47, creatinine 4.6 IMAGING STUDIES: Renal ultrasound on 02/02/2019 showed both the kidneys have cystic changes and cortical atrophy. There is no hydronephrosis. There is partial infarction of the right kidney. KUB x-ray today showed dilated small bowel loops suggestive of ileus. MEDICATIONS: The patient continues on: - Tylenol as needed - DuoNeb as needed - fentanyl as needed - Percocet as needed - Protonix 40 mg intravenously twice a day PROBLEMS: 1. Nonoliguric renal failure in the setting of ruptured infrarenal abdominal aortic aneurysm with hemorrhagic and hypovolemic shock and concomitant IV contrast exposure. Renal ultrasound today is reviewed and shows chronic bilateral cortical atrophy, no hydronephrosis nor obstructive uropathy and a new partial infarction of the right kidney. The patient is diuretic responsive and nonoliguric with acceptable electrolytes and no significant acid base disorder. We will give another dose of Lasix today to and continue to monitor his renal panel. There is no urgent indication for hemodialysis at present, however, given the partial infarction of the right kidney there is a possibility that he may progress to hemodialysis needs, and the patient and family are aware of the same and agreeable. If there is no improvement in renal function in the coming 48 hours, we will plan for catheter placement and initiation of dialysis. 2. Status post hemorrhagic and hypovolemic shock from ruptured infrarenal abdominal aortic aneurysm, status post aortobiiliac stent graft placement. Hemoglobin and hematocrit have remained stable. He is also hemodynamically stable. He has sustained a partial infarction of the right kidney in the setting of his aortic aneurysm rupture. 3. Suspected ileus. Deferred to primary team for further management. 4. Hypovolemia, improving. The patient is not having much oral intake as well. I will be giving a smaller dose of diuretics today in view of the same. His supplemental oxygen requirements have improved nicely.
--- NOTE | 2019-02-03 10:52 | CCN ---
DATE: 02/03/2019 Patient was seen and examined this morning during bedside rounds. Overnight, the patient was changed to CPAP, which he tolerated well. This morning he denies any shortness of breath. No increasing cough. No chest pains. He has not had any fevers or chills overnight. The patient was noted to have some abdominal distention yesterday and concern for ileus. He did have some small loose bowel movements and he had another bowel movement early this morning. He has not had any nausea or vomiting. PHYSICAL EXAMINATION: Temperature 99.2, pulse 95, respirations 16, blood pressure 129/59, O2 sat 93% on 2 liters nasal cannula. Ins 550 mL, out 1.9 liters. General: Patient is an obese male. He is sitting in bed in no acute distress, is not using accessory muscles for respiration. HEENT: Normocephalic, atraumatic. Pupils are reactive to light bilaterally. Neck is supple. Trachea is midline. Unable to appreciate jugular venous distention (JVD) due to body habitus. Cardiovascular: Regular rate and rhythm. Normal S1-S2. No murmurs appreciated. Pulmonary: The patient has some coarse inspiratory wheeze on the right side today. He had some decreased breath sounds bilaterally. Abdomen is obese, is mildly distended, is slightly softer today than yesterday. He has hypoactive bowel sounds. Lower extremities: There is no significant lower extremity edema noted bilaterally. LABORATORY DATA: WBC 8.8, hemoglobin 8.8, platelets 83. Chemistry sodium is 148, potassium 3.7, chloride is 104, bicarb 24, BUN 65, creatinine 4.88, glucose is 99. ABG pH 7.387, pCO2 of 34.1, pO2 97.7. Abdominal x-ray yesterday showed evidence of dilated small bowel loops with possible ileus. Renal ultrasound showed bilateral renal cysts, right greater than left. No hydronephrosis noted. There was also a partial infarction in the right kidney. ASSESSMENT/PLAN: Patient is a 74-year-old male with a past medical history of hypertension, rheumatoid arthritis, gastroesophageal reflux disease, Meniere's disease who presented with complaint of abdominal pain, chest pain and shortness of breath. He was found to have a ruptured infrarenal abdominal aortic aneurysm and is status post emergent aortobiiliac stent graft placement on 01/30/2019. The patient was kept intubated post procedure and transferred to the ICU for further monitoring. He was successfully extubated to BiPAP on 02/01/2019. The patient was changed from BiPAP to CPAP overnight for possible undiagnosed obstructive sleep apnea. He does have a history of snoring and history of frequent nighttime awakenings with some possible daytime sleepiness. The patient has been doing well with CPAP at night. Discussed with the patient and his daughter at that he can continue CPAP while admitted and would need followup as an outpatient for formal sleep testing. - The patient has acute renal failure possibly ATN in the setting of his hypotension and IV contrast administration. He continues to have good urine output with Lasix although his creatinine is still trending up. He does not have any significant acidosis or electrolyte abnormalities which would require emergent dialysis; however, given evidence of renal infarction on his renal ultrasound, the patient may still require dialysis in the next day or two. Would follow-up with renal recommendations about dialysis. - The patient was noted to have some increased abdominal distention yesterday. He had an abdominal x-ray done which showed evidence of ileus. Later in the day he did have some small loose bowel movements. Will continue the patient therefore on liquid diet and continue with out of bed to chair as tolerated. - Continue to monitor his electrolytes and replete as needed - Continue incentive spirometer. - Continue nasal cannula supplementation and wean down as tolerated. - Continue with DuoNebs. The patient had some more coarse wheezing breath sounds noted today. He is a former smoker with a significant pack year history and no previous diagnosis of chronic obstructive pulmonary disease (COPD), however would start him on Advair and have him continue with DuoNebs. The patient can follow-up with pulmonary as an outpatient for further evaluation of possible COPD. Deep vein thrombosis (DVT) prophylaxis. Would start heparin as his hemoglobin and hematocrit has remained mostly stable and his platelets have recovered above 50,000. Gastrointestinal (GI) prophylaxis with Protonix. Code status: FULL CODE. Total critical care time spent not including any procedures approximately 35 minutes. Please do not hesitate to call with any further questions or concerns. MTDD
[2019-02-03] MEDS: HEPARIN SOD (PORCINE) 5000 UNITS/ML VIAL SQ SCH ×2 (12:26→20:59)
--- NOTE | 2019-02-03 14:27 | IPNPDOC ---
Date Seen The patient was seen on 02/03/19. Progress Note Vascular surgery. Dr. Zamorano CC Dr. Gomes PCP: Dr. Villagomez HPI: 74 yo M who presented to the emergency department reporting chest pain radiating to the back, abdominal pain, and shortness of breath associated with tachypnea and hypotension in the emergency department found to have ruptured infrarenal abdominal aortic aneurysm and was taken urgently to the operating room for a aortobiiliac stent graft placement as per Dr. Zamorano 01/30/19. The patient is currently in the intensive care unit. Family is at bedside. The pt states pain is controlled, breathing is comfortable. Tried some water last PM and felt nauseated, has had ice ships. OOB yesterday. PMHx: Mnire's disease Rheumatoid arthritis GERD Hypertension Obesity. BMI 33.9 CKD3 PSHX: Bilateral total knee arthroplasty Left arm fracture Right eye surgery PE: GEN: 74 yo M, comfortable in bed. HEENT: Normocephalic, atraumatic. Sclera are nonicteric. Conjunctiva without injection. CHEST: Regular rate and rhythm, +S1, +S2 LUNGS: Decreased breath sounds at bases bilaterally. No wheezes, rales, or rho nchi. ABD: Round, mildly distended/tympanic. Bowel sounds hypoactive. EXT: Pulses 2+ bilaterally dorsalis pedis and radial. no lower extremity edema appreciated. SKIN: Ivy, dry, warm. Capillary refill <2sec. No rashes. CTA abdomen/pelvis 1. Ruptured 9.7 cm infrarenal abdominal aortic aneurysm with a fairly large retroperitoneal hematoma. 2. Bilateral renal cysts and hepatic cysts. 3. Fatty infiltration of the liver. The findings were telephoned to the ED at the time of this dictation. Electronically Signed by Kirt Wadsworth MD 01/30/2019 02:[address] evidence of aneurysm or dissection in the thoracic aorta. No CT evidence of pulmonary embolus. Some vascular calcification. Otherwise no acute cardiopulmonary disease. Electronically Signed by Kirt Wadsworth MD 01/30/2019 11:27 A CXR: 01/30/19 Endotracheal tube in satisfactory position. Electronically Signed by Oren Thurman MD 01/30/2019 06:44 P AXR 01/30/19 Status post aortobi-iliac stent graft placement. No opaque foreign body is appreciated. Only catheter in place. Electronically Signed by Kirt Wadsworth MD 01/30/2019 03:16 P CXR 01/31/19 FINDINGS: Endotracheal tube remains in good position at the level of the transverse aorta. EKG electrodes are seen. The lungs are exposed and the relatively low level of inspiration. There is plate-like atelectasis in the left base. There is mild gaseous distension of the stomach. No new infiltrate is seen. Unreviewed DD: Kirt Wadsworth MD 01/31/19 [id number] A&P: 74 yo M who presented to the emergency department reporting chest pain radiating to the back, abdominal pain, and shortness of breath associated with tachypnea and hypotension in the emergency department found to have ruptured infrarenal abdominal aortic aneurysm and was taken urgently to the operating ro om for a aortobiiliac stent graft placement as per Dr. Zamorano 01/30/19. 1. Ruptured infrarenal abdominal aortic aneurysm/status post aortobiiliac stent graft placement as per Dr. Zamorano 01/30/19. Blood pressure 109/55 Oxygen saturation 95% 1 LNC. HR 94. Afebrile. WBC 11.1. 2. Acute blood loss/Lg retroperitoneal hematoma. S/P 6U PRBC, 2 U FFP. Hemoglobin 8.8. 3. Thrombocytopenia. likely consumptive process. Heparin restarted. Plt 83, trend improved 4.[place]/ CKD3. Patient's baseline appears to be 1.3-1.5. Serum creatinine this morning is noted to be 4.88. Nephrology is managing. 5. Ileus. Sips currently. OOB. Had small liquid BM this AM. 6. GERD. IV PPI BID. 7. Rheumatoid arthritis. 8. COPD. Advair Duonebs. 9. Possible OFELIA. CPAP as per pulmonary. VS, I&O, 24H, Fishbone Vital Signs/I&O Vital Signs Date Time Temp Pulse Resp B/P (MAP) Pulse Ox O2 Delivery O2 Flow Rate FiO2 02/03/19 12:00 1.0 02/03/19 11:50 89 18 02/03/19 10:00 109/55 (77) 95 Arterial Line 02/03/19 08:00 99.2 02/03/19 05:00 35 02/02/19 20:03 Nasal Cannula I&O- Last 24 Hours up to 6 AM 02/03/19 06:00 Intake Total 590 ml Output Total 1825 ml Balance -1235 ml Laboratory Data 24H LABS Laboratory Tests 2 02/02/19 15:55: Bedside Glucose (Misc Panel) 95 02/03/19 04:33: Nucleated Red Blood Cells % (auto) 0.0, Immature Platelet Fraction 6.0, Anion Gap 12, Glomerular Filtration Rate 12.4L, Blood Urea Nitrogen 65H, Creatinine 4.88H, Sodium Level 140, Potassium Level 3.7, Chloride Level 104, Carbon Dioxide Level 24, Calcium Level 7.4L CBC/BMP Laboratory Tests 02/03/19 04:33 Red Blood Count 2.86 L, Mean Corpuscular Volume 93.7, Mean Corpuscular Hemoglobin 30.8, Mean Corpuscular Hemoglobin Concent 32.8, Red Cell Distribution Width 15.3 H, Calcium Level 7.4 L Milady Chaney Feb 03, 2019 14:27
[2019-02-04] VITALS (10 sets, daily range): BP systolic 113–150; BP diastolic 55–67; O2SAT 94
[2019-02-04] MEDS: PERCOCET 5MG/325MG TAB PO PRN ×4 (00:46→21:53)
[2019-02-04 05:07] LABS: HEMATOCRIT 27.1 % (42.0-52.0); HEMOGLOBIN 8.8 g/dl (13.5-17.5); MEAN CORPUSCULAR HEMOGLOBIN 29.9 pg (27.0-33.0); MEAN CORPUSCULAR HGB CONC 32.5 g/dl (32.0-36.5); MEAN CORPUSCULAR VOLUME 92.2 fl (80.0-96.0); PLATELET COUNT, AUTOMATED 100 10^3/uL (150-450); RED BLOOD COUNT 2.94 10^6/uL (4.30-6.10); WHITE BLOOD COUNT 8.2 10^3/uL (4.0-10.0)
[2019-02-04 05:28] LABS: CALCIUM LEVEL 7.2 MG/DL (8.8-10.2); CREATININE FOR GFR 4.36 MG/DL (0.70-1.30); GLOMERULAR FILTRATION RATE 14.1 (>42); POTASSIUM SERUM 3.4 MEQ/L (3.5-5.1)
--- NOTE | 2019-02-04 07:21 | IPN ---
DATE OF SERVICE: 02/03/2019 SUBJECTIVE: Patient is seen and examined this morning at the bedside in the intensive care unit. He denies any acute overnight events or issues. His supplemental oxygen and is weaned down to 1 liter nasal cannula. He reports that he did pass some small bowel movements yesterday evening and again this morning and reports that he is passing gas as well. His renal function looks like it is now approaching a plateau and the patient's main complaint is that he is thirsty. PHYSICAL EXAMINATION: Vital signs: Temperature 99.0, pulse 95, respiratory rate 18, blood pressure 117/76, saturating 93-99% on 1 liter nasal cannula. Intake yesterday was 550 mL. Urine output yesterday was 1920 mL. Weight on the bed scale today is not recorded. General: The patient is seen lying in bed in the ICU, head of bed elevated, awake, alert, answers questions appropriately and is cooperative with physical exam. There is a family member at the bedside. There is no apparent respiratory distress. He is comfortable on nasal cannula. Extraocular muscles are intact. Tongue is dry. Neck is supple. Jugular veins are not elevated. Cardiac: Regular rate and rhythm. There is trace edema in the peripheries. There are compression stockings in place. Lungs show some diminished breath sounds at the bases, otherwise clear. Abdomen is obese and mildly distended. There is no tenderness to palpation. Genitourinary shows a Leal catheter indwelling with urine. There are old healed scars on both of his knees. Neurologic: He is oriented and no focal deficit. LABORATORY DATA: White count 8.8, hemoglobin 8.8, platelets 83. Sodium 140, potassium 3.7, BUN 65, creatinine 4.8. INPATIENT MEDICATIONS: Reviewed by myself, noted primary team started him on heparin 5000 units subcu twice a day and Advair 2 puffs inhaled twice a day. Remainder of medications are unchanged from prior. PROBLEMS 1. Nonoliguric renal failure in the setting of ruptured infrarenal abdominal aortic aneurysm with hemorrhagic/hypovolemic shock and concomitant IV contrast exposure with subsequent new partial infarction of the right kidney. The patient's renal function today is starting to show a plateau. Creatinine has not really changed much in the past 24 hours, which is a favorable sign. He has not had much oral intake in view of his ileus and his oxygen requirements are minimal. There is no longer any significant hypervolemia on exam. I do not feel that he needs any further diuretic administration today and we will hold off on the same. There is no urgent indication for dialysis at present and we will continue to monitor for any developing dialysis needs. His electrolytes and acid base status remain satisfactory. I feel that he is likely to have adequate urine output even without diuretics at present. 2. Status post hemorrhagic and hypovolemic shock from ruptured infrarenal abdominal aortic aneurysm status post aortobiiliac stent graft placement. A downward trend in the hemoglobin is noted despite daily net negative fluid balance. Defer need for any transfusion to the primary and surgical team and I note that he has been resumed on deep vein thrombosis (DVT) prophylaxis. Hemodynamically, he is stable. He has sustained a partial infarction of the right kidney as a sequela of the aortic aneurysm rupture. 3. Suspected ileus. Oral intake is, of course, not much. Volume status is optimal. No need for further diuretics. Ileus is otherwise as managed per the primary team.
[2019-02-04] MEDS: IPRATROPIUM 0.5MG/ALBUTEROL 2.5MG INH SOL UD 3ML (DUONEB)(J7620) NEB SCH ×4 (07:57→20:00)
[2019-02-04] MEDS: PANTOPRAZOLE 40MG INJ (PROTONIX) (C9113) IV SCH ×2 (08:18→20:15)
[2019-02-04] MEDS: HEPARIN SOD (PORCINE) 5000 UNITS/ML VIAL SQ SCH ×2 (08:18→20:30)
--- NOTE | 2019-02-04 10:30 | IPNPDOC ---
Date Seen The patient was seen on 02/04/19. Progress Note Vascular surgery. Dr. Zamorano CC Dr. Gomes PCP: Dr. Villagomez HPI: 74 yo M who presented to the emergency department reporting chest pain radiating to the back, abdominal pain, and shortness of breath associated with tachypnea and hypotension in the emergency department found to have ruptured infrarenal abdominal aortic aneurysm and was taken urgently to the operating room for a aortobiiliac stent graft placement as per Dr. Zamorano 01/30/19. The patient is currently in the intensive care unit. Family is at bedside. The pt states pain is controlled, breathing is comfortable. Has had sips of liquids and is tolerating, denies nausea. States has been passing gas, 2 small loose stools per nursing. OOB yesterday. PMHx: Mnire's disease Rheumatoid arthritis GERD Hypertension Obesity. BMI 33.9 CKD3 PSHX: Bilateral total knee arthroplasty Left arm fracture Right eye surgery PE: GEN: 74 yo M, comfortable in bed. HEENT: Normocephalic, atraumatic. Sclera are nonicteric. Conjunctiva without injection. CHEST: Regular rate and rhythm, +S1, +S2 LUNGS: Decreased breath sounds at bases bilaterally. No wheezes, rales, or rhonchi. ABD: Round, distended/tympanic. Bowel sounds hypoactive. EXT: Pulses 2+ bilaterally dorsalis pedis and radial. no lower extremity edema appreciated. SKIN: [place], dry, warm. Capillary refill <2sec. No rashes. CTA abdomen/pelvis 1. Ruptured 9.7 cm infrarenal abdominal aortic aneurysm with a fairly large retroperitoneal hematoma. 2. Bilateral renal cysts and hepatic cysts. 3. Fatty infiltration of the liver. The findings were telephoned to the ED at the time of this dictation. Electronically Signed by Kirt Wadsworth MD 01/30/2019 02:[address] evidence of aneurysm or dissection in the thoracic aorta. No CT evidence of pulmonary embolus. Some vascular calcification. Otherwise no acute cardiopulmonary disease. Electronically Signed by Kirt Wadsworth MD 01/30/2019 11:27 A CXR: 01/30/19 Endotracheal tube in satisfactory position. Electronically Signed by Oren Thurman MD 01/30/2019 06:44 P AXR 01/30/19 Status post aortobi-iliac stent graft placement. No opaque foreign body is appreciated. Only catheter in place. Electronically Signed by Kirt Wadsworth MD 01/30/2019 03:16 P CXR 01/31/19 FINDINGS: Endotracheal tube remains in good position at the level of the transverse aorta. EKG electrodes are seen. The lungs are exposed and the relatively low level of inspiration. There is plate-like atelectasis in the left base. There is mild gaseous distension of the stomach. No new infiltrate is seen. Unreviewed DD: Kirt Wadsworth MD 01/31/19 0954 A&P: 74 yo M who presented to the emergency department reporting chest pain radiating to the back, abdominal pain, and shortness of breath associated with tachypnea and hypotension in the emergency department found to have ruptured infrarenal abdominal aortic aneurysm and was taken urgently to the operating room for a aortobiiliac stent graft placement as per Dr. Zamorano 01/30/19. 1. Ruptured infrarenal abdominal aortic aneurysm/status post aortobiiliac stent graft placement as per Dr. Zamorano 01/30/19. Blood pressure 129/65 Oxygen saturation 95% 1 LNC. T max 99.4 WBC 8.2 encourage OOB. I/S. PT/OT. Transfer to PCU. 2. Acute blood loss/Lg retroperitoneal hematoma. S/P 6U PRBC, 2 U FFP. Hemoglobin 8.8. Stable. 3. Thrombocytopenia. likely consumptive process. Heparin restarted 02/03/19. Plt 100, trend upward. monitor. 4.[place]/ CKD3. Patient's baseline appears to be 1.3-1.5. Serum creatinine this morning is noted to be 4.36. downtrending. Nephrology following. 5. Ileus. Sips currently. Encourage OOB. Dulcolax x 2 this AM. Monitor. 6. GERD. IV PPI BID. 7. Rheumatoid arthritis. 8. COPD. Advair Duonebs. 9. Possible OFELIA. CPAP as per pulmonary. 10. Pt follows with [facility] as outpt, spoke with Dr Gupta, their service will follow Pt as well. VS, I&O, 24H, Fishbone Vital Signs/I&O Vital Signs Date Time Temp Pulse Resp B/P (MAP) Pulse Ox O2 Delivery O2 Flow Rate FiO2 02/04/19 09:36 18 02/04/19 08:00 1.0 02/04/19 08:00 99.4 89 129/65 (89) 95 02/04/19 02:20 35 02/03/19 20:22 Nasal Cannula I&O- Last 24 Hours up to 6 AM 02/04/19 06:00 Intake Total 740 ml Output Total 1210 ml Balance -470 ml Laboratory Data 24H LABS Laboratory Tests 2 02/04/19 04:46: Nucleated Red Blood Cells % (auto) 0.0, Anion Gap 11, Glomerular Filtration Rate 14.1L, Blood Urea Nitrogen 75H, Creatinine 4.36H, Sodium Level 139, Potassium Level 3.4L, Chloride Level 103, Carbon Dioxide Level 25, Calcium Level 7.2L CBC/BMP Laboratory Tests 02/04/19 04:46 Red Blood Count 2.94 L, Mean Corpuscular Volume 92.2, Mean Corpuscular Hemoglobin 29.9, Mean Corpuscular Hemoglobin Concent 32.5, Red Cell Distribution Width 15.3 H, Calcium Level 7.2 L Milady Chaney Feb 04, 2019 10:30
[2019-02-04] MEDS ORDERED: BISACODYL 10 MG SUPP PR ONE (11:00)
[2019-02-04] MEDS: ADVAIR HFA 115/21MCG INHALER INH SCH ×2 (12:27→20:07)
--- NOTE | 2019-02-04 15:47 | IPNPDOC ---
Subjective Date Seen The patient was seen on 02/04/19. Subjective Chief Complaint/HPI Mr. Reis was transferred out of the ICU today where he has been cared for by the vascular team and the intensivists. We have been asked to follow his care now. He has no complaints when I spoke with him. He was pretty tired at the time and is resting. He is still on water/clear liquids for a diet. General: Denies: Normal Appetite Constitutional: Denies: Chills, Fever, Fatigue Eyes: Denies: Conjunctivae inflammation Pulmonary: Denies: Cough Cardiovascular: Denies: Chest Pain, Palpitations Gastrointestinal: Denies: Nausea Objective Physical Examination General Exam: Positive: Alert, Cooperative (laying on the bed resting when I entered the room), No Acute Distress Eye Exam: Positive: Conjunctiva & lids normal; Negative: Sclera icteric ENT Exam: Positive: Mucous membr. moist/pink Neck Exam: Negative: Lymphadenopathy Chest Exam: Positive: Clear to auscultation, Diminished Heart Exam: Positive: Rate Normal, Normal S1, Normal S2; Negative: Murmurs Abdomen Exam: Positive: BS Hypoactive, Other (distended, mild tympany); Negative: Tenderness Extremity Exam: Negative: Edema Psych Exam: Positive: Mental status NL Assessment /Plan Problems (1) AAA (abdominal aortic aneurysm, ruptured) Status: Acute Response to Treatment: Stable Problem Text: Patient is status post aortobiiliac stent graft placement as per Dr. Zamorano 01/30/19. (2) Acute blood loss anemia Status: Acute Response to Treatment: Stable Problem Specific Plan: Repeat Labs Problem Text: Hb stable at around 8.8. Monitor. (3) Acute renal failure superimposed on stage 3 chronic kidney disease Status: Acute Response to Treatment: Stable Problem Text: Nephrology is following and assisting in management of this condition. (4) Hypokalemia Status: Acute Problem Text: Mild, will recheck in the Am. (5) Ileus Status: Acute Problem Text: Likely related to surgery, little input, and pain medication. Will monitor for now, maintain fluid and electrolytes. (6) Thrombocytopenia Status: Acute Response to Treatment: Stable Problem Text: Slightly improved to 100k. His bone marrow seems to be responding adequately. (7) COPD (chronic obstructive pulmonary disease) Status: Chronic Response to Treatment: Stable Problem Text: Continue nebs. (8) GERD (gastroesophageal reflux disease) Status: Chronic Problem Text: On PPI, Protonix BID (9) Rheumatoid arthritis Status: Chronic Response to Treatment: Stable Problem Text: Will need to use caution with NSAIDs for now. (10) Sleep apnea syndrome Status: Acute Problem Text: This is a clinical concern based on observation of his oxygen at night. Plan/VTE VTE Prophylaxis Ordered?: Yes (SQ heparin, TEDs, sequentials) VS, I&O, 24H, Fishbone Vital Signs/I&O Vital Signs Date Time Temp Pulse Resp B/P (MAP) Pulse Ox O2 Delivery O2 Flow Rate FiO2 02/04/19 12:00 1.0 02/04/19 12:00 99.0 89 18 127/60 (86) 95 02/04/19 02:20 35 02/03/19 20:22 Nasal Cannula I&O- Last 24 Hours up to 6 AM 02/04/19 06:00 Intake Total 740 ml Output Total 1210 ml Balance -470 ml Laboratory Data 24H LABS Laboratory Tests 2 02/04/19 04:46: Nucleated Red Blood Cells % (auto) 0.0, Anion Gap 11, Glomerular Filtration Rate 14.1L, Blood Urea Nitrogen 75H, Creatinine 4.36H, Sodium Level 139, Potassium Level 3.4L, Chloride Level 103, Carbon Dioxide Level 25, Calcium Level 7.2L CBC/BMP Laboratory Tests 02/04/19 04:46 Red Blood Count 2.94 L, Mean Corpuscular Volume 92.2, Mean Corpuscular Hemoglobin 29.9, Mean Corpuscular Hemoglobin Concent 32.5, Red Cell Distribution Width 15.3 H, Calcium Level 7.2 L Jose Juan Gupta MD Feb 04, 2019 15:47
--- NOTE | 2019-02-04 22:33 | IPN ---
DATE: 02/04/2019 SUBJECTIVE: The patient is seen and examined this morning. He has been moved out of the intensive care unit (ICU) over to the progressive care unit (PCU). He reports he has gotten out of bed and ambulated to the commode. He denies shortness of breath at rest, but did have dyspnea with mild exertion. He reports he is passing gas and had a bowel movement today. He is now on sips of clears. His renal function shows improvement, and he is nonoliguric and has not received any further diuretics. Vital signs: Temperature 99.8, pulse 95, respiratory rate 20, blood pressure 129/59, saturating 92% on room air. Intake yesterday was 560. Urine output yesterday was 1200. Weight on the bed scale today is 98.9 kg. General: The patient is seen lying in bed awake, alert, oriented. Family is present at the bedside. Extraocular muscles are intact. The patient is receiving a breathing treatment. There is no respiratory distress at rest. Tongue is moist. Neck is supple. Jugular veins were not elevated. Cardiac: Regular rate and rhythm. There is trace edema in the peripheries. He is wearing compression stockings. Lungs show diminished breath sounds at both bases, otherwise clear. The abdomen is distended. There are very sluggish bowel sounds. Genitourinary: Shows a Leal catheter with urine. Skin: With normal temperature and turgor. There are old healed scars on his knees. There is some ecchymosis at the groin. LABORATORY DATA: White count 8.2, hemoglobin 8.8, platelet 100. Sodium 139, potassium 3.4, BUN 75, creatinine 4.3. INPATIENT MEDICATIONS: Reviewed by myself and noted the patient was given a suppository; otherwise medications are unchanged from prior. PROBLEMS: 1. Nonoliguric acute kidney injury in the setting of ruptured infrarenal abdominal aortic aneurysm with hemorrhagic/hypovolemic shock and concomitant exposure to IV contrast and subsequently new partial infarction of the right kidney. His renal function plateaued yesterday and today he had a improvement in the serum creatinine. We have not given him diuretic since Sunday. He is making adequate urine on his own now. His electrolytes are acceptable. He is still not really having much oral intake given the ileus, and his daily weights are down trending. There is no need for diuretic dosing today. We are hopeful for ongoing recovery of his renal function, although he is less likely to recover to his prior baseline given the partial infarction of the right kidney. 2. Acute blood loss anemia in the setting of a ruptured infrarenal abdominal aortic aneurysm. Hemoglobin is stable at 8.8. His thrombocytopenia is also improving. 3. Ileus. The patient has had poor oral intake, now on clear sips. Daily weights are down trending. He is in net negative fluid balance. No need for diuretic at this time. Diet and bowel regimen as per primary and surgical team.
[2019-02-05 05:07] LABS: HEMATOCRIT 27.2 % (42.0-52.0); HEMOGLOBIN 8.9 g/dl (13.5-17.5); MEAN CORPUSCULAR HEMOGLOBIN 30.6 pg (27.0-33.0); MEAN CORPUSCULAR HGB CONC 32.7 g/dl (32.0-36.5); MEAN CORPUSCULAR VOLUME 93.5 fl (80.0-96.0); PLATELET COUNT, AUTOMATED 112 10^3/uL (150-450); RED BLOOD COUNT 2.91 10^6/uL (4.30-6.10); WHITE BLOOD COUNT 6.9 10^3/uL (4.0-10.0)
[2019-02-05 05:53] LABS: ALBUMIN 2.2 GM/DL (3.2-5.2); BILIRUBIN,TOTAL 3.4 MG/DL (0.2-1.0); CALCIUM LEVEL 7.4 MG/DL (8.8-10.2); CREATININE FOR GFR 3.62 MG/DL (0.70-1.30); GLOMERULAR FILTRATION RATE 17.5 (>42); POTASSIUM SERUM 2.9 MEQ/L (3.5-5.1); TOTAL PROTEIN 6.5 GM/DL (6.4-8.2)
[2019-02-05] MEDS ORDERED: POTASSIUM CHLORIDE 10 MEQ SR TABLET PO ONE ×2 (06:15→07:15)
[2019-02-05] MEDS: IPRATROPIUM 0.5MG/ALBUTEROL 2.5MG INH SOL UD 3ML (DUONEB)(J7620) NEB SCH ×4 (07:34→20:00)
[2019-02-05 08:00] VITALS: BP 138/69
--- NOTE | 2019-02-05 08:00 | IPNPDOC ---
Subjective Date Seen The patient was seen on 02/05/19. Subjective Chief Complaint/HPI Patient lying in bed as I entered the room with daughter at bedside. Daughter reports patient had a restless night, did not sleep well. He was nauseated this morning. Nursing approached me and stated they were unable to administer his oral potassium supplements this morning d/t his nausea. Nursing also reported patient had a brief episode of confusion during the middle of the night. He was easily redirected Constitutional: Denies: Chills, Fever Pulmonary: Denies: Dyspnea, Cough Cardiovascular: Denies: Chest Pain, Palpitations, Orthopnea, Edema Gastrointestinal: Reports: Nausea; Denies: Vomiting, Abdominal Pain, Diarrhea Genitourinary: Reports: Other Symptoms (darius ) Psych: Reports: Mood Normal Objective Physical Examination General Exam: Positive: Alert, Cooperative (laying on the bed resting when I entered the room), No Acute Distress Eye Exam: Positive: Conjunctiva & lids normal; Negative: Sclera icteric ENT Exam: Positive: Mucous membr. moist/pink Neck Exam: Negative: Lymphadenopathy Chest Exam: Positive: Clear to auscultation, Diminished Heart Exam: Positive: Rate Normal, Normal S1, Normal S2; Negative: Murmurs Abdomen Exam: Positive: Normal bowel sounds, Other (distended, mild tympany); Negative: Tenderness Extremity Exam: Negative: Edema Neuro Exam: Positive: Normal Speech Psych Exam: Positive: Mental status NL, Mood NL Assessment /Plan Problems (1) AAA (abdominal aortic aneurysm, ruptured) Status: Acute Response to Treatment: Stable Problem Text: Patient is status post aortobiiliac stent graft placement as per Dr. Zamorano 01/30/19 (2) Acute blood loss anemia Status: Acute Response to Treatment: Stable Problem Text: Hgb remains stable at 8.9 (3) Acute renal failure superimposed on stage 3 chronic kidney disease Status: Acute Response to Treatment: Stable Problem Text: Renal function appears to be stabilizing, BUN/Cre 78/3.62, GFR 17 .5. Nephrology following closely (4) Hypokalemia Status: Acute Problem Text: Patient was unable to tolerate oral K+ replacement this morning. K-run 10 meq x 3 administered. Recheck K+ at 11am. Patient only drinking water (5) Ileus Status: Acute Problem Text: Patient with small bowel movements this morning. BS + 4 in all 4 quadrants. He is tolerating liquids (6) Thrombocytopenia Status: Acute Response to Treatment: Stable Problem Text: Plt count 112 (7) COPD (chronic obstructive pulmonary disease) Status: Chronic Response to Treatment: Stable Problem Text: Using Nebs, stable (8) GERD (gastroesophageal reflux disease) Status: Chronic Response to Treatment: Stable Problem Text: On PPI, Protonix BID (9) Rheumatoid arthritis Status: Chronic Response to Treatment: Stable (10) Sleep apnea syndrome Status: Acute Response to Treatment: Stable Problem Text: Patient with no known hx of OFELIA. His O2 sats appear to be dropping some at night. He required 1L of 02 last night. I will discuss with MD regarding obtaining a Noc ox while inpatient Plan/VTE VTE Prophylaxis Ordered?: Yes (Heparin ) Plan Family Medicine Attending Note: I saw and examined Mr. Reis, discussed with Charles Brannon DNP. Agree with her note as documented. This morning he was having some gastric distress. It's not clear whether it is from the oral potassium, or whether his ileus is starting to resolve, or little bit of both. Regardless the fact that he starting to have some bowel movements, even if they thin mucoid, is a good idea in my mind. I agree with the idea of obtaining a nocturnal oximetry while inpatient to further characterize his desaturations at nighttime. In fact, untreated apnea may have exacerbated or caused the rupture of his aneurysm in the first place. 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) VS, I&O, 24H, Fishbone Vital Signs/I&O Vital Signs Date Time Temp Pulse Resp B/P (MAP) Pulse Ox O2 Delivery O2 Flow Rate FiO2 02/05/19 04:00 2.0 02/04/19 23:59 98.2 89 18 132/63 (86) 95 02/04/19 16:00 Room Air 02/04/19 02:20 35 I&O- Last 24 Hours up to 6 AM 02/05/19 06:00 Intake Total 780 ml Output Total 1610 ml Balance -830 ml Laboratory Data 24H LABS Laboratory Tests 2 02/05/19 04:45: Nucleated Red Blood Cells % (auto) 0.0, Anion Gap 9, Glomerular Filtration Rate 17.5L, Blood Urea Nitrogen 78H, Creatinine 3.62H, Sodium Level 138, Potassium Level 2.9*L, Chloride Level 104, Carbon Dioxide Level 25, Calcium Level 7.4L, A spartate Amino Transf (AST/SGOT) 92H, Alanine Aminotransferase (ALT/SGPT) 70, Alkaline Phosphatase 96, Total Bilirubin 3.4H, Total Protein 6.5, Albumin 2.2L, Albumin/Globulin Ratio 0.51L CBC/BMP Laboratory Tests 02/05/19 04:45 Red Blood Count 2.91 L, Mean Corpuscular Volume 93.5, Mean Corpuscular Hemoglobin 30.6, Mean Corpuscular Hemoglobin Concent 32.7, Red Cell Distribution Width 15.4 H, Calcium Level 7.4 L, Aspartate Amino Transf (AST/SGOT) 92 H, Alanine Aminotransferase (ALT/SGPT) 70, Alkaline Phosphatase 96, Total Bilirubin 3.4 H, Total Protein 6.5, Albumin 2.2 L CHARLES BRANNON Feb 05, 2019 08:00 Jose Juan Gupta MD Feb 05, 2019 22:32
[2019-02-05] MEDS: PANTOPRAZOLE 40MG INJ (PROTONIX) (C9113) IV SCH ×2 (08:22→20:46)
[2019-02-05] MEDS: HEPARIN SOD (PORCINE) 5000 UNITS/ML VIAL SQ SCH ×2 (08:23→20:47)
[2019-02-05] MEDS: KCL 10MEQ/100ML SWI (KRUN) 10 MEQ in APPROPRIATE DILUENT 1 EA IV SCH ×3 (08:24→10:31)
[2019-02-05] MEDS: ADVAIR HFA 115/21MCG INHALER INH SCH ×2 (09:00→20:33)
[2019-02-05] MEDS ORDERED: BISACODYL 10 MG SUPP PR ONE (09:15)
[2019-02-05 09:29] LABS: MAGNESIUM LEVEL 2.7 MG/DL (1.8-2.4); PHOSPHORUS LEVEL 3.9 MG/DL (2.5-4.9)
[2019-02-05] MEDS ORDERED: POTASSIUM CHLORIDE 10% LIQ 20 MEQ/15 ML UDC PO ONE (10:00)
[2019-02-05] MEDS ORDERED: BISACODYL 10 MG SUPP PR PRN (10:00)
[2019-02-05] MEDS ORDERED: FLEET ENEMA PR PRN (10:00)
--- NOTE | 2019-02-05 10:28 | IPNPDOC ---
Date Seen The patient was seen on 02/05/19. Progress Note Vascular surgery. Dr. Zamorano Nephrology Dr Okeefe PCP: Dr. Villagomez HPI: 74 yo M who presented to the emergency department reporting chest pain radiating to the back, abdominal pain, and shortness of breath associated with tachypnea and hypotension in the emergency department found to have ruptured infrarenal abdominal aortic aneurysm and was taken urgently to the operating room for a aortobiiliac stent graft placement as per Dr. Zamorano 01/30/19. The patient is currently in the PCU. Family is at bedside. Pt has been OOB. The pt states pain is controlled, breathing is comfortable. Has had sips of liquids and is tolerating, did have some nausea this AM. States has been passing gas, 2 small loose stools per nursing. PMHx: Mnire's disease Rheumatoid arthritis GERD Hypertension Obesity. BMI 33.9 CKD3 PSHX: Bilateral total knee arthroplasty Left arm fracture Right eye surgery PE: GEN: 74 yo M, comfortable in bed. HEENT: Normocephalic, atraumatic. Sclera are nonicteric. Conjunctiva without injection. CHEST: Regular rate and rhythm, +S1, +S2 LUNGS: Decreased breath sounds at bases bilaterally. No wheezes, rales, or rhonchi. ABD: Round, distended/tympanic, seems slightly improved c/w yesterday. Bowel sounds more active today in all quad. EXT: Pulses 2+ bilaterally dorsalis pedis and radial. no lower extremity edema appreciated. SKIN: [place], dry, warm. Capillary refill <2sec. No rashes. CTA abdomen/pelvis 1. Ruptured 9.7 cm infrarenal abdominal aortic aneurysm with a fairly large retroperitoneal hematoma. 2. Bilateral renal cysts and hepatic cysts. 3. Fatty infiltration of the liver. The findings were telephoned to the ED at the time of this dictation. Electronically Signed by Kirt Wadsworth MD 01/30/2019 02:[address] evidence of aneurysm or dissection in the thoracic aorta. No CT evidence of pulmonary embolus. Some vascular calcification. Otherwise no acute cardiopulmonary disease. Electronically Signed by Kirt Wadsworth MD 01/30/2019 11:27 A CXR: 01/30/19 Endotracheal tube in satisfactory position. Electronically Signed by Oren Thurman MD 01/30/2019 06:44 P AXR 01/30/19 Status post aortobi-iliac stent graft placement. No opaque foreign body is appreciated. Only catheter in place. Electronically Signed by Kirt Wadsworth MD 01/30/2019 03:16 P CXR 01/31/19 FINDINGS: Endotracheal tube remains in good position at the level of the transverse aorta. EKG electrodes are seen. The lungs are exposed and the relatively low level of inspiration. There is plate-like atelectasis in the left base. There is mild gaseous distension of the stomach. No new infiltrate is seen. Unreviewed DD: Kirt Wadsworth MD 01/31/19 0954 A&P: 74 yo M who presented to the emergency department reporting chest pain radiating to the back, abdominal pain, and shortness of breath associated with tachypnea and hypotension in the emergency department found to have ruptured infrarenal abdominal aortic aneurysm and was taken urgently to the operating room for a aortobiiliac stent graft placement as per Dr. Zamorano 01/30/19. 1. Ruptured infrarenal abdominal aortic aneurysm/status post aortobiiliac stent graft placement as per Dr. Zamorano 01/30/19. Blood pressure 132/63 Oxygen saturation 95% 1-2 LNC. Afebrile WBC 6.9 encourage OOB. I/S. PT/OT. 2. Acute blood loss/Lg retroperitoneal hematoma. S/P 6U PRBC, 2 U FFP. Hemoglobin 8.9. Stable. 3. Thrombocytopenia. likely consumptive process. Heparin restarted 02/03/19. Plt 112, trend upward. monitor. 4.[place]/ CKD3. Patient's baseline appears to be 1.3-1.5. Serum creatinine this morning is noted to be 3.62. downtrending. Nephrology following. 5. Ileus. Sips currently. Encourage OOB. Repeat Dulcolax x 2 this AM. Fleet if no response. Monitor. 6. GERD. IV PPI BID. 7. Rheumatoid arthritis. 8. COPD. Advair Duonebs. 9. Possible OFELIA. CPAP as per pulmonary. 10. Hypokalemia. IV/PO supplement ordered as per Medicine/Nephro. Recheck at 11 AM. VS, I&O, 24H, Fishbone Vital Signs/I&O Vital Signs Date Time Temp Pulse Resp B/P (MAP) Pulse Ox O2 Delivery O2 Flow Rate FiO2 02/05/19 08:00 98.5 90 18 138/69 (92) 95 2.0 02/04/19 16:00 Room Air 02/04/19 02:20 35 I&O- Last 24 Hours up to 6 AM 02/05/19 05:59 Intake Total 840 ml Output Total 1210 ml Balance -370 ml Laboratory Data 24H LABS Laboratory Tests 2 02/05/19 04:45: Nucleated Red Blood Cells % (auto) 0.0, Anion Gap 9, Glomerular Filtration Rate 17.5L, Blood Urea Nitrogen 78H, Creatinine 3.62H, Sodium Level 138, Potassium Level 2.9*L, Chloride Level 104, Carbon Dioxide Level 25, Calcium Level 7.4L, Phosphorus Level 3.9#, Aspartate Amino Transf (AST/SGOT) 92H, Alanine Aminotransferase (ALT/SGPT) 70, Alkaline Phosphatase 96, Total Bilirubin 3.4H, Total Protein 6.5, Albumin 2.2L, Magnesium Level 2.7H, Albumin/Globulin Ratio 0.51L CBC/BMP Laboratory Tests 02/05/19 04:45 Red Blood Count 2.91 L, Mean Corpuscular Volume 93.5, Mean Corpuscular Hemoglobin 30.6, Mean Corpuscular Hemoglobin Concent 32.7, Red Cell Distribution Width 15.4 H, Calcium Level 7.4 L, Phosphorus Level 3.9 #, Aspartate Amino Transf (AST/SGOT) 92 H, Alanine Aminotransferase (ALT/SGPT) 70, Alkaline Phosphatase 96, Total Bilirubin 3.4 H, Total Protein 6.5, Albumin 2.2 L Milady Chaney Feb 05, 2019 10:28
[2019-02-05] MEDS ORDERED: SLF 3 ML SYR IV PRN (12:00)
[2019-02-05] MEDS: SLF 3 ML SYR IV SCH ×2 (13:56→21:01)
[2019-02-05 16:00] VITALS: BP 160/64
[2019-02-05 20:00] VITALS: BP 158/70
[2019-02-05] MEDS: PERCOCET 5MG/325MG TAB PO PRN (21:34)
--- NOTE | 2019-02-05 23:07 | IPN ---
DATE: 02/05/2019 SUBJECTIVE The patient is seen and examined this morning at the bedside. Reports he had some trouble sleeping last night as he had to have multiple small bowel movements. Nursing staff reported seven small bowel movements yesterday which I am told were mucoid. The patient denies shortness of breath at rest and reports his appetite is coming back. Labs show ongoing recovery of renal function. Temperature 98.5, pulse 90, respiratory rate 18, blood pressure 138/69, saturating 95% on 1 liter nasal cannula. Intake yesterday was 1 liter. Urine output yesterday was 1400, net negative 390. Weight in the bed scale today is not recorded. General: The patient is seen lying down. Family present at the bedside. He is drowsy but easily arousable, awake, alert and oriented. Extraocular muscles are intact. Nasal cannula is in place. There is no tachypnea. Tongue is moist. Neck is supple. Jugular veins were not elevated. Cardiac: Regular rate and rhythm. Trace edema in the peripheries. Compression stockings in place. Lungs show diminished breath sounds at the bases, otherwise clear. Abdomen is distended. There are appreciable bowel sounds in all four quadrants. Genitourinary: Shows Leal catheter with urine. Skin: Shows normal temperature and turgor. There is some ecchymosis but the groin. LABORATORY DATA White count 6.9, hemoglobin 8.9, platelet 112. Sodium 138, potassium 2.9, bicarbonate 25, BUN 78, creatinine 3.6. INPATIENT MEDICATIONS: The patient is receiving 3 runs of potassium chloride, 10 mEq IV each. I ordered him 40 mEq of oral potassium chloride liquid. He received Dulcolax rectal suppository. Remainder medications are unchanged from prior. PROBLEMS: 1. 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 He is in renal recovery phase. Creatinine is down trending. It remains to be seen where his creatinine plateaus at. He may not recover back to his prior baseline renal function. (because of the partial infarction of the right kidney). He has not needed any diuretic since the weekend. His urine output is adequate. 2. Hypokalemia. It is because of improving urine output and ongoing renal recovery and he is given both IV and oral potassium supplementation. His remainder electrolytes are acceptable including his corrected calcium. 3. Ileus. The patient remains on clear sips. Diet is as per surgical team. Please note I have discontinued the Fleet's enema as it is unsuitable in kidney injury and may precipitate worsening renal function due to the heavy phosphorus load in Fleet's enemas. 4. Acute blood loss anemia in the setting of ruptured infrarenal abdominal aortic aneurysm. Hemoglobin is stable at 8.9 and his platelets are improving.
[2019-02-05 23:59] VITALS: BP 148/67
[2019-02-06] VITALS (7 sets, daily range): BP systolic 65–176; BP diastolic 72–80
[2019-02-06 05:18] LABS: HEMOGLOBIN 9.2 g/dl (13.5-17.5); MEAN CORPUSCULAR HEMOGLOBIN 30.7 pg (27.0-33.0); MEAN CORPUSCULAR HGB CONC 32.9 g/dl (32.0-36.5); MEAN CORPUSCULAR VOLUME 93.3 fl (80.0-96.0); PLATELET COUNT, AUTOMATED 136 10^3/uL (150-450); WHITE BLOOD COUNT 5.9 10^3/uL (4.0-10.0)
[2019-02-06 05:50] LABS: CALCIUM LEVEL 7.9 MG/DL (8.8-10.2); CREATININE FOR GFR 2.72 MG/DL (0.70-1.30); GLOMERULAR FILTRATION RATE 24.4 (>42); MAGNESIUM LEVEL 2.6 MG/DL (1.8-2.4); POTASSIUM SERUM 2.8 MEQ/L (3.5-5.1)
[2019-02-06] MEDS: SLF 3 ML SYR IV SCH ×3 (06:06→22:00)
[2019-02-06] MEDS: KCL 10MEQ/100ML SWI (KRUN) 10 MEQ in APPROPRIATE DILUENT 1 EA IV SCH ×8 (06:34→18:27)
[2019-02-06] MEDS: ADVAIR HFA 115/21MCG INHALER INH SCH ×2 (07:18→19:47)
[2019-02-06] MEDS: IPRATROPIUM 0.5MG/ALBUTEROL 2.5MG INH SOL UD 3ML (DUONEB)(J7620) NEB SCH ×4 (07:18→20:00)
[2019-02-06] MEDS: HEPARIN SOD (PORCINE) 5000 UNITS/ML VIAL SQ SCH ×2 (08:39→21:38)
[2019-02-06] MEDS: PANTOPRAZOLE 40MG INJ (PROTONIX) (C9113) IV SCH ×2 (08:40→21:38)
--- NOTE | 2019-02-06 09:46 | IPNPDOC ---
Date Seen The patient was seen on 02/06/19. Progress Note Vascular surgery. Dr. Zamorano Nephrology Dr Okeefe PCP: Dr. Villagomez HPI: 74 yo M who presented to the emergency department reporting chest pain radiating to the back, abdominal pain, and shortness of breath associated with tachypnea and hypotension in the emergency department found to have ruptured infrarenal abdominal aortic aneurysm and was taken urgently to the operating room for a aortobiiliac stent graft placement as per Dr. Zamorano 01/30/19. The patient is currently in the PCU. Family is at bedside. Pt has been OOB to chair for brief periods per nursing. The pt states pain is controlled, breathing is comfortable. Has had sips of liquids and is tolerating, denies nausea. States has been passing gas, has had BM per nursing. PMHx: Mnire's disease Rheumatoid arthritis GERD Hypertension Obesity. BMI 33.9 CKD3 PSHX: Bilateral total knee arthroplasty Left arm fracture Right eye surgery PE: GEN: 74 yo M, comfortable in bed. HEENT: Normocephalic, atraumatic. Sclera are nonicteric. Conjunctiva without injection. CHEST: Regular rate and rhythm, +S1, +S2 LUNGS: Decreased breath sounds at bases bilaterally. No wheezes, rales, or rhonchi. ABD: Round, distended/tympanic, seems improved c/w yesterday. Bowel sounds more active today in all quad. EXT: Pulses 2+ bilaterally dorsalis pedis and radial. no lower extremity edema appreciated. SKIN: [place], dry, warm. Capillary refill <2sec. No rashes. CTA abdomen/pelvis 1. Ruptured 9.7 cm infrarenal abdominal aortic aneurysm with a fairly large retroperitoneal hematoma. 2. Bilateral renal cysts and hepatic cysts. 3. Fatty infiltration of the liver. The findings were telephoned to the ED at the time of this dictation. Electronically Signed by Kirt Wadsworth MD 01/30/2019 02:[address] evidence of aneurysm or dissection in the thoracic aorta. No CT evidence of pulmonary embolus. Some vascular calcification. Otherwise no acute cardiopulmonary disease. Electronically Signed by Kirt Wadsworth MD 01/30/2019 11:27 A CXR: 01/30/19 Endotracheal tube in satisfactory position. Electronically Signed by Oren Thurman MD 01/30/2019 06:44 P AXR 01/30/19 Status post aortobi-iliac stent graft placement. No opaque foreign body is appreciated. Only catheter in place. Electronically Signed by Kirt Wadsworth MD 01/30/2019 03:16 P CXR 01/31/19 FINDINGS: Endotracheal tube remains in good position at the level of the transverse aorta. EKG electrodes are seen. The lungs are exposed and the relatively low level of inspiration. There is plate-like atelectasis in the left base. There is mild gaseous distension of the stomach. No new infiltrate is seen. Unreviewed DD: Kirt Wadsworth MD 01/31/19 0954 A&P: 74 yo M who presented to the emergency department reporting chest pain radiating to the back, abdominal pain, and shortness of breath associated with tachypnea and hypotension in the emergency department found to have ruptured infrarenal abdominal aortic aneurysm and was taken urgently to the operating room for a aortobiiliac stent graft placement as per Dr. Zamorano 01/30/19. 1. Ruptured infrarenal abdominal aortic aneurysm/status post aortobiiliac stent graft placement as per Dr. Zamorano 01/30/19. Afebrile WBC 5.9 encourage OOB. I/S. PT/OT. D/C Leal. send UA reflex culture as pt is c/o urgency. Monitor bladder scans. 2. Acute blood loss/Lg retroperitoneal hematoma. S/P 6U PRBC, 2 U FFP. Hemoglobin 9.2. Stable. 3. Thrombocytopenia. likely consumptive process. Heparin restarted 02/03/19. Plt 136, trend upward. monitor. 4.[place]/ CKD3. Patient's baseline appears to be 1.3-1.5. Serum creatinine this morning is noted to be 2.72. downtrending. Nephrology following. 5. Ileus. Tolerating sips, denies any further nausea. Had BMs yesterday per nursing. Trial of clear liquids. Encourage OOB/ambulation Monitor. 6. GERD. IV PPI BID. 7. Rheumatoid arthritis. 8. COPD. Advair Duonebs. 9. Possible OFELIA. CPAP as per pulmonary. Nursing reporting he is not using CPAP when sleeping or napping. 10. Hypokalemia. IV/PO supplement ordered as per Medicine/Nephro. Recheck ordered at 1400. VS, I&O, 24H, Fishbone Vital Signs/I&O Vital Signs Date Time Temp Pulse Resp B/P (MAP) Pulse Ox O2 Delivery O2 Flow Rate FiO2 02/06/19 07:37 98.3 86 20 164/74 (104) 94 02/06/19 04:00 1.0 02/05/19 20:33 Nasal Cannula 02/04/19 02:20 35 I&O- Last 24 Hours up to 6 AM 02/06/19 05:59 Intake Total 840 ml Output Total 2100 ml Balance -1260 ml Laboratory Data 24H LABS Laboratory Tests 2 02/06/19 04:35: Nucleated Red Blood Cells % (auto) 0.0, Anion Gap 8, Glomerular Filtration Rate 24.4L, Blood Urea Nitrogen 71H, Creatinine 2.72H, Sodium Level 138, Potassium Level 2.8*L, Chloride Level 106, Carbon Dioxide Level 24, Calcium Level 7.9L, Magnesium Level 2.6H CBC/BMP Laboratory Tests 02/05/19 12:51 02/06/19 04:35 Red Blood Count 3.00 L, Mean Corpuscular Volume 93.3, Mean Corpuscular Hemoglobin 30.7, Mean Corpuscular Hemoglobin Concent 32.9, Red Cell Distribution Width 15.3 H, Calcium Level 7.9 L Milady Chaney Feb 06, 2019 09:46
[2019-02-06] MEDS: POTASSIUM CHLORIDE 10% LIQ 20 MEQ/15 ML UDC PO SCH (09:53)
--- NOTE | 2019-02-06 11:45 | IPNPDOC ---
Subjective Date Seen The patient was seen on 02/06/19. Subjective Chief Complaint/HPI Patient reports to be feel better today. Abdominal pain has improved. He is moving his bowels. His daughter would like his mccoy removed if possible and she would like his diet advanced Constitutional: Denies: Chills, Fever Pulmonary: Reports: Cough; Denies: Dyspnea, Pleuritic Chest Pain Cardiovascular: Denies: Chest Pain, Palpitations, Orthopnea, Edema Gastrointestinal: Denies: Nausea, Vomiting, Abdominal Pain, Constipation Genitourinary: Reports: Other Symptoms (Mccoy ) Psych: Reports: Mood Normal Objective Physical Examination General Exam: Positive: Alert, Cooperative (laying on the bed resting when I entered the room), No Acute Distress Eye Exam: Positive: Conjunctiva & lids normal; Negative: Sclera icteric ENT Exam: Positive: Mucous membr. moist/pink Neck Exam: Negative: Lymphadenopathy Chest Exam: Positive: Clear to auscultation, Diminished Heart Exam: Positive: Rate Normal, Normal S1, Normal S2; Negative: Murmurs Abdomen Exam: Positive: Normal bowel sounds, Soft, Other (distended, but improved from yesterday); Negative: Tenderness Extremity Exam: Negative: Edema Neuro Exam: Positive: Normal Speech Psych Exam: Positive: Mental status NL, Mood NL Assessment /Plan Problems (1) AAA (abdominal aortic aneurysm, ruptured) Status: Acute Response to Treatment: Stable Problem Text: Patient is status post aortobiiliac stent graft placement as per Dr. Zamorano 01/30/19 (2) Acute blood loss anemia Status: Acute Response to Treatment: Stable Problem Text: 02/06/19: Hgb remains stable, 9.2 Hgb remains stable at 8.9 (3) Acute renal failure superimposed on stage 3 chronic kidney disease Status: Acute Response to Treatment: Stable Problem Text: 02/06/19: Renal function continues to improve BUN/Cre 71/2.72, GFR 24. Nephrology continues to follow Renal function appears to be stabilizing, BUN/Cre 78/3.62, GFR 17.5. Nephrology following closely (4) Hypokalemia Status: Acute Problem Text: 02/06/19: K+ 2.8 this morning. His hypokalemia is believed to be related to his improving renal function/renal recovery. He is receiving K+ runs this morning. We will repeat his K+ this afternoon Patient was unable to tolerate oral K+ replacement this morning. K-run 10 meq x 3 administered. Recheck K+ at 11am. Patient only drinking water (5) Ileus Status: Acute Problem Text: 02/06/19: Bowels are moving much better. We will start slowly advancing his diet Patient with small bowel movements this morning. BS + 4 in all 4 quadrants. He is tolerating liquids (6) Thrombocytopenia Status: Acute Response to Treatment: Stable Problem Text: 02/06/19: Plt count 136 Plt count 112 (7) COPD (chronic obstructive pulmonary disease) Status: Chronic Response to Treatment: Stable Problem Text: Using Nebs, stable (8) GERD (gastroesophageal reflux disease) Status: Chronic Response to Treatment: Stable Problem Text: On PPI, Protonix BID (9) Rheumatoid arthritis Status: Chronic Response to Treatment: Stable (10) Sleep apnea syndrome Status: Acute Response to Treatment: Stable Problem Text: 02/06/19: Noc Ox performed last evening. Awaiting final report. Patient with no known hx of OFELIA. His O2 sats appear to be dropping some at night. He required 1L of 02 last night. I will discuss with regarding obtaini ng a Noc ox while inpatient Plan/VTE VTE Prophylaxis Ordered?: Yes (SQ heparin, TEDs, sequentials) Plan Family Medicine Attending Note: I saw and examined Mr. Reis, discussed with Charles Brannon DNP. Agree with her note as documented. His nocturnal oximetry was interpreted by the time I saw him. It is still suggestive of possible OFELIA, but it would not be seen severe. He does not seem to need nocturnal oxygen. This could be followed further as an outpatient if needed. His repeat potassium was still low. I've ordered an additional 20 mEq IV to be given. I think once we can catch up from the depletion caused by his extended nothing by mouth period his potassium will stabilize again. (grievance coordinator) VS, I&O, 24H, Fishbone Vital Signs/I&O Vital Signs Date Time Temp Pulse Resp B/P (MAP) Pulse Ox O2 Delivery O2 Flow Rate FiO2 02/06/19 07:37 98.3 86 20 164/74 (104) 94 02/06/19 04:00 1.0 02/05/19 20:33 Nasal Cannula 02/04/19 02:20 35 I&O- Last 24 Hours up to 6 AM 02/06/19 06:00 Intake Total 840 ml Output Total 2150 ml Balance -1310 ml Laboratory Data 24H LABS Laboratory Tests 2 02/06/19 04:35: Nucleated Red Blood Cells % (auto) 0.0, Anion Gap 8, Glomerular Filtration Rate 24.4L, Blood Urea Nitrogen 71H, Creatinine 2.72H, Sodium Level 138, Potassium [place] 2.8*L, Chloride Level 106, Carbon Dioxide Level 24, Calcium Level 7.9L, Magnesium Level 2.6H CBC/BMP Laboratory Tests 02/05/19 12:51 02/06/19 04:35 Red Blood Count 3.00 L, Mean Corpuscular Volume 93.3, Mean Corpuscular Hemoglobin 30.7, Mean Corpuscular Hemoglobin Concent 32.9, Red Cell Distribution Width 15.3 H, Calcium Level 7.9 L CHARLES BRANNON Feb 06, 2019 09:01 Jose Juan Gupta MD Feb 06, 2019 23:20
--- NOTE | 2019-02-06 11:50 | NOCOX ---
DATE OF PROCEDURE: 02/05/2019 The study was performed on room air. The total valid sampling time for the study was 6 hours and 30 seconds. The highest O2 sat was 100%, the lowest O2 sat was 79%. The time spent with an O2 sat less 88% was 2 mins and 30 secs. The desaturation event index was approximately 4.8. Graphically, the patient had a few episodes of variable desaturations. The patient also had a few episodes of heart rate variability. IMPRESSION: No significant desaturations, would not qualify for nocturnal oxygen supplementation. Few episodic desaturations. Cannot rule out OFELIA, can consider formal sleep testing if clinically indicated. [id number]
[2019-02-06] MEDS: BISOPROLOL FUMARATE 5 MG TAB PO SCH (21:41)
[2019-02-06] MEDS: PERCOCET 5MG/325MG TAB PO PRN (23:25)
[2019-02-06] MEDS: IPRATROPIUM 0.5MG/ALBUTEROL 2.5MG INH SOL UD 3ML (DUONEB)(J7620) NEB PRN (23:39)
[2019-02-07 04:00] VITALS: BP 148/76
[2019-02-07 04:58] LABS: HEMATOCRIT 28.8 % (42.0-52.0); HEMOGLOBIN 9.4 g/dl (13.5-17.5); MEAN CORPUSCULAR HEMOGLOBIN 30.5 pg (27.0-33.0); MEAN CORPUSCULAR HGB CONC 32.6 g/dl (32.0-36.5); MEAN CORPUSCULAR VOLUME 93.5 fl (80.0-96.0); PLATELET COUNT, AUTOMATED 170 10^3/uL (150-450); RED BLOOD COUNT 3.08 10^6/uL (4.30-6.10); WHITE BLOOD COUNT 5.9 10^3/uL (4.0-10.0)
[2019-02-07 05:20] LABS: ALBUMIN 2.3 GM/DL (3.2-5.2); BILIRUBIN,TOTAL 4.1 MG/DL (0.2-1.0); CALCIUM LEVEL 8.2 MG/DL (8.8-10.2); CREATININE FOR GFR 2.01 MG/DL (0.70-1.30); GLOMERULAR FILTRATION RATE 34.6 (>42); MAGNESIUM LEVEL 2.2 MG/DL (1.8-2.4); TOTAL PROTEIN 6.7 GM/DL (6.4-8.2)
[2019-02-07] MEDS: SLF 3 ML SYR IV SCH ×3 (06:00→21:41)
[2019-02-07] MEDS ORDERED: POTASSIUM CHLORIDE 10 MEQ SR TABLET PO ONE (06:15)
--- NOTE | 2019-02-07 07:28 | IPNPDOC ---
Subjective Date Seen The patient was seen on 02/07/19. Subjective Chief Complaint/HPI Patient sitting comfortably in chair as I entered the room. His daughter is with him. Patient reports to be feeling well. He is urinating and moving his bowels. He is tolerating his clear liquid diet. Constitutional: Denies: Chills, Fever Pulmonary: Denies: Dyspnea, Cough Cardiovascular: Denies: Chest Pain, Palpitations, Orthopnea, Edema Gastrointestinal: Denies: Nausea, Vomiting, Abdominal Pain, Diarrhea, Constipation Genitourinary: Denies: Dysuria Psych: Reports: Mood Normal Objective Physical Examination General Exam: Positive: Alert, Cooperative (laying on the bed resting when I entered the room), No Acute Distress Eye Exam: Positive: Conjunctiva & lids normal; Negative: Sclera icteric ENT Exam: Positive: Mucous membr. moist/pink Neck Exam: Negative: Lymphadenopathy Chest Exam: Positive: Clear to auscultation; Negative: Rales, Rhonchi, Wheezing Heart Exam: Positive: Rate Normal, Normal S1, Normal S2; Negative: Murmurs Abdomen Exam: Positive: Normal bowel sounds, Soft; Negative: Tenderness Extremity Exam: Negative: Edema Neuro Exam: Positive: Normal Speech Psych Exam: Positive: Mental status NL, Mood NL Assessment /Plan Problems (1) AAA (abdominal aortic aneurysm, ruptured) Status: Acute Response to Treatment: Stable Problem Text: Patient is status post aortobiiliac stent graft placement as per Dr. Zamorano 01/30/19 (2) Acute blood loss anemia Status: Acute Response to Treatment: Stable Problem Text: 02/07/19: Improving. Hgb 9.4 02/06/19: Hgb remains stable, 9.2 Hgb remains stable at 8.9 (3) Acute renal failure superimposed on stage 3 chronic kidney disease Status: Acute Response to Treatment: Stable Problem Text: 02/07/19: Continues to improve. BUN/Cre 49/2.01, GFR 46. Nephrology following 02/06/19: Renal function continues to improve BUN/Cre 71/2.72, GFR 24. Nephrology continues to follow Renal function appears to be stabilizing, BUN/Cre 78/3.62, GFR 17.5. Nephrology following closely (4) Hypokalemia Status: Acute Problem Text: 02/07/19: K+ 3.0 this morning. Replaced with K+ 40 Meq. We will recheck at 1300 02/06/19: K+ 2.8 this morning. His hypokalemia is believed to be related to his improving renal function/renal recovery. He is receiving K+ runs this morning. We will repeat his K+ this afternoon Patient was unable to tolerate oral K+ replacement this morning. K-run 10 meq x 3 administered. Recheck K+ at 11am. Patient only drinking water (5) Ileus Status: Acute Problem Text: 02/07/19: Patient having regular bowel movements. We will continue to titrate his diet 02/06/19: Bowels are moving much better. We will start slowly advancing his diet Patient with small bowel movements this morning. BS + 4 in all 4 quadrants. He is tolerating liquids (6) COPD (chronic obstructive pulmonary disease) Status: Chronic Response to Treatment: Stable Problem Text: Using Nebs, stable (7) GERD (gastroesophageal reflux disease) Status: Chronic Response to Treatment: Stable Problem Text: On PPI, Protonix BID (8) Rheumatoid arthritis Status: Chronic Response to Treatment: Stable (9) Sleep apnea syndrome Status: Acute Response to Treatment: Stable Problem Text: 02/06/19: Noc Ox performed last evening. Awaiting final report. Patient with no known hx of OFELIA. His O2 sats appear to be dropping some at night. He required 1L of 02 last night. I will discuss with MD regarding obtaining a Noc ox while inpatient (10) Thrombocytopenia Status: Resolved Response to Treatment: Stable Problem Text: 02/07/19: Plt count 170 02/06/19: Plt count 136 Plt count 112 Plan/VTE VTE Prophylaxis Ordered?: Yes (SQ heparin, TEDs, sequentials) Plan Family Medicine Attending Note: I saw and examined Mr. Reis, discussed with Charles Brannon DNP. Agree with her note as documented. His potassium continues to require repletion, likely related to the improvement of his renal function. We will continue to monitor. 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) VS, I&O, 24H, Fishbone Vital Signs/I&O Vital Signs Date Time Temp Pulse Resp B/P (MAP) Pulse Ox O2 Delivery O2 Flow Rate FiO2 02/07/19 04:00 97.7 74 20 148/76 (100) 95 02/06/19 04:00 1.0 02/05/19 20:33 Nasal Cannula 02/04/19 02:20 35 I&O- Last 24 Hours up to 6 AM 02/07/19 06:00 Intake Total 1580 ml Output Total 2300 ml Balance -720 ml Laboratory Data 24H LABS Laboratory Tests 2 02/07/19 02:00: Urine Color KEV, Urine Appearance CLEAR, Urine pH 6.0, Urine Specific [place] 1.015, Urine Protein 1+H, Urine Glucose (UA) NEGATIVE, Urine Ketones NEGATIVE, Urine Blood 3+H, Urine Nitrite NEGATIVE, Urine Bilirubin NEGATIVE, Urine Urobilinogen 4.0H, Urine Leukocyte Esterase NEGATIVE, Urine WBC (Auto) 13H, Urine RBC (Auto) 3, Urine Hyaline Casts (Auto) 0, Urine Bacteria (Auto) 1+H, Urine Squamous Epithelial Cells 0, Urine Sperm (Auto) 02/07/19 04:46: Nucleated Red Blood Cells % (auto) 0.0, Anion Gap 7L, Glomerular Filtration Rate 34.6L, Blood Urea Nitrogen 49H, Creatinine 2.01H, Sodium Level 140, Potassium Level 3.0L, Chloride Level 109H, Carbon Dioxide Level 24, Calcium Level 8.2L, Aspartate Amino Transf (AST/SGOT) 84H, Alanine Aminotransferase (ALT/SGPT) 67, Alkaline Phosphatase 91, Total Bilirubin 4.1H, Total Protein 6.7, Albumin 2.3L, Magnesium Level 2.2, Albumin/Globulin Ratio 0.52L CBC/BMP Laboratory Tests 02/06/19 13:58 02/07/19 04:46 Red Blood Count 3.08 L, Mean Corpuscular Volume 93.5, Mean Corpuscular Hemoglobin 30.5, Mean Corpuscular Hemoglobin Concent 32.6, Red Cell Distribution Width 15.7 H, Calcium Level 8.2 L, Aspartate Amino Transf (AST/SGOT) 84 H, Alanine Aminotransferase (ALT/SGPT) 67, Alkaline Phosphatase 91, Total Bilirubin 4.1 H, Total Protein 6.7, Albumin 2.3 L Microbiology Microbiology 02/07/19 Urine Culture, Received Pending CHARLES BRANNON Feb 07, 2019 07:27 Jose Juan Gupta MD Feb 07, 2019 20:47
[2019-02-07] MEDS: IPRATROPIUM 0.5MG/ALBUTEROL 2.5MG INH SOL UD 3ML (DUONEB)(J7620) NEB SCH ×4 (07:30→20:00)
[2019-02-07] MEDS: ADVAIR HFA 115/21MCG INHALER INH SCH ×2 (07:30→20:36)
[2019-02-07 07:51] VITALS: BP 137/63
[2019-02-07] MEDS: BISOPROLOL FUMARATE 5 MG TAB PO SCH (08:17)
[2019-02-07] MEDS: POTASSIUM CHLORIDE 10% LIQ 20 MEQ/15 ML UDC PO SCH (08:18)
[2019-02-07] MEDS: HEPARIN SOD (PORCINE) 5000 UNITS/ML VIAL SQ SCH ×2 (08:18→21:40)
[2019-02-07] MEDS: PANTOPRAZOLE 40MG INJ (PROTONIX) (C9113) IV SCH ×2 (08:18→21:39)
--- NOTE | 2019-02-07 08:55 | IPNPDOC ---
Date Seen The patient was seen on 02/07/19. Progress Note Vascular surgery. Dr. Zamorano Nephrology Dr Okeefe PCP: Dr. Villagomez HPI: 74 yo M who presented to the emergency department reporting chest pain radiating to the back, abdominal pain, and shortness of breath associated with tachypnea and hypotension in the emergency department found to have ruptured infrarenal abdominal aortic aneurysm and was taken urgently to the operating room for a aortobiiliac stent graft placement as per Dr. Zamorano 01/30/19. The patient is currently in the PCU. Family is at bedside. Pt has been OOB to chair, ambulating to BR. Leal removed 02/06, pt states is urinating without difficulty. The pt states pain is controlled, breathing is comfortable. Has had clear liquids and is tolerating, denies nausea. States has been havin BMs. PMHx: Mnire's disease Rheumatoid arthritis GERD Hypertension Obesity. BMI 33.9 CKD3 PSHX: Bilateral total knee arthroplasty Left arm fracture Right eye surgery PE: GEN: 74 yo M, comfortable in bed. HEENT: Normocephalic, atraumatic. Sclera are nonicteric. Conjunctiva without injection. CHEST: Regular rate and rhythm, +S1, +S2 LUNGS: Decreased breath sounds at bases bilaterally. No wheezes, rales, or rhonchi. ABD: Round, non distended. Bowel sounds active in all quad. EXT: Pulses 2+ bilaterally dorsalis pedis and radial. no lower extremity edema appreciated. SKIN: Landa, dry, warm. Capillary refill <2sec. No rashes. CTA abdomen/pelvis 1. Ruptured 9.7 cm infrarenal abdominal aortic aneurysm with a fairly large retroperitoneal hematoma. 2. Bilateral renal cysts and hepatic cysts. 3. Fatty infiltration of the liver. The findings were telephoned to the ED at the time of this dictation. Electronically Signed by Kirt Wadsworth MD 01/30/2019 02:[address] evidence of aneurysm or dissection in the thoracic aorta. No CT evidence of pulmonary embolus. Some vascular calcification. Otherwise no acute cardiopulmonary disease. Electronically Signed by Kirt Wadsworth MD 01/30/2019 11:27 A CXR: 01/30/19 Endotracheal tube in satisfactory position. Electronically Signed by Oren Thurman MD 01/30/2019 06:44 P AXR 01/30/19 Status post aortobi-iliac stent graft placement. No opaque foreign body is appreciated. Only catheter in place. Electronically Signed by Kirt Wadsworth MD 01/30/2019 03:16 P CXR 01/31/19 FINDINGS: Endotracheal tube remains in good position at the level of the transverse aorta. EKG electrodes are seen. The lungs are exposed and the relatively low level of inspiration. There is plate-like atelectasis in the left base. There is mild gaseous distension of the stomach. No new infiltrate is seen. Unreviewed DD: Kirt Wadsworth MD 01/31/19 0954 A&P: 74 yo M who presented to the emergency department reporting chest pain radiating to the back, abdominal pain, and shortness of breath associated with tachypnea and hypotension in the emergency department found to have ruptured infrarenal abdominal aortic aneurysm and was taken urgently to the operating gabriel m for a aortobiiliac stent graft placement as per Dr. Zamorano 01/30/19. 1. Ruptured infrarenal abdominal aortic aneurysm/status post aortobiiliac stent graft placement as per Dr. Zamorano 01/30/19. Afebrile WBC 5.9 encourage OOB. I/S. PT/OT/ARU screen. 2. Acute blood loss/Lg retroperitoneal hematoma. S/P 6U PRBC, 2 U FFP. Hemoglobin 9.4. Stable. 3. Thrombocytopenia. Resolved. [place] likely consumptive process. Plt 170, normalized. monitor. 4.[place]/ CKD3. Patient's baseline appears to be 1.3-1.5. Serum creatinine this morning is noted to be 2.01. downtrending. Nephrology following. 5. Ileus. Resolved. Tolerating clear liquids, denies any further nausea. Having BMs Encourage OOB/ambulation Advance diet as tolerated Monitor. 6. GERD. IV PPI BID. 7. Rheumatoid arthritis. 8. COPD. Advair Duonebs. 9. Possible OFELIA. CPAP as per pulmonary. Nursing reporting he is not using CPAP when sleeping or napping. Pt states he does not tolerate mask, makes him "hyper". 10. Hypokalemia. IV/PO supplement ordered as per Medicine/Nephro. Monitor. VS, I&O, 24H, Fishbone Vital Signs/I&O Vital Signs Date Time Temp Pulse Resp B/P (MAP) Pulse Ox O2 Delivery O2 Flow Rate FiO2 02/07/19 08:17 72 137/63 02/07/19 07:51 97.0 22 97 02/06/19 04:00 1.0 02/05/19 20:33 Nasal Cannula 02/04/19 02:20 35 I&O- Last 24 Hours up to 6 AM 02/07/19 06:00 Intake Total 1580 ml Output Total 2300 ml Balance -720 ml Laboratory Data 24H LABS Laboratory Tests 2 02/07/19 02:00: Urine Color KEV, Urine Appearance CLEAR, Urine pH 6.0, Urine Specific [place] 1.015, Urine Protein 1+H, Urine Glucose (UA) NEGATIVE, Urine Ketones NEGATIVE, Urine Blood 3+H, Urine Nitrite NEGATIVE, Urine Bilirubin NEGATIVE, Urine Urobilinogen 4.0H, Urine Leukocyte Esterase NEGATIVE, Urine WBC (Auto) 13H, Urine RBC (Auto) 3, Urine Hyaline Casts (Auto) 0, Urine Bacteria (Auto) 1+H, Urine Squamous Epithelial Cells 0, Urine Sperm (Auto) 02/07/19 04:46: Nucleated Red Blood Cells % (auto) 0.0, Anion Gap 7L, Glomerular Filtration Rate 34.6L, Blood Urea Nitrogen 49H, Creatinine 2.01H, Sodium Level 140, Potassium Level 3.0L, Chloride Level 109H, Carbon Dioxide Level 24, Calcium Level 8.2L, Aspartate Amino Transf (AST/SGOT) 84H, Alanine Aminotransferase (ALT/SGPT) 67, Alkaline Phosphatase 91, Total Bilirubin 4.1H, Total Protein 6.7, Albumin 2.3L, Magnesium Level 2.2, Albumin/Globulin Ratio 0.52L CBC/BMP Laboratory Tests 02/06/19 13:58 02/07/19 04:46 Red Blood Count 3.08 L, Mean Corpuscular Volume 93.5, Mean Corpuscular Hemoglobin 30.5, Mean Corpuscular Hemoglobin Concent 32.6, Red Cell Distribution Width 15.7 H, Calcium Level 8.2 L, Aspartate Amino Transf (AST/SGOT) 84 H, Alanine Aminotransferase (ALT/SGPT) 67, Alkaline Phosphatase 91, Total Bilirubin 4.1 H, Total Protein 6.7, Albumin 2.3 L Microbiology Microbiology 02/07/19 Urine Culture, Received Pending Milady Chaney Feb 07, 2019 08:55
[2019-02-07] MEDS ORDERED: METOPROLOL SUCC *XL* 12.5MG PER 1/2 TAB (TopROL *XL*) PO SCH (09:00)
[2019-02-07 12:00] VITALS: BP 148/70
--- NOTE | 2019-02-07 15:15 | NUR ---
Pt w/ minimal dysarthria characterized by mildly imprecise articulation & decreased breath support for speech. Will f/u and provide HEP for articulation drills and exercises for breath support. Addendum: 02/07/19 at 1516 by SHRUTI VASQUEZ [facility] Amended: Links added.
[2019-02-07 16:00] VITALS: BP 131/61
[2019-02-07 20:00] VITALS: BP 153/71
[2019-02-07] MEDS: IPRATROPIUM 0.5MG/ALBUTEROL 2.5MG INH SOL UD 3ML (DUONEB)(J7620) NEB PRN (22:39)
[2019-02-07 23:59] VITALS: BP 162/74
[2019-02-08] MEDS: PERCOCET 5MG/325MG TAB PO PRN ×4 (00:19→23:31)
[2019-02-08 04:00] VITALS: BP 148/72
[2019-02-08 05:47] LABS: HEMATOCRIT 28.6 % (42.0-52.0); HEMOGLOBIN 9.4 g/dl (13.5-17.5); MEAN CORPUSCULAR HGB CONC 32.9 g/dl (32.0-36.5); MEAN CORPUSCULAR VOLUME 94.4 fl (80.0-96.0); PLATELET COUNT, AUTOMATED 182 10^3/uL (150-450); RED BLOOD COUNT 3.03 10^6/uL (4.30-6.10)
[2019-02-08] MEDS: SLF 3 ML SYR IV SCH ×3 (05:58→22:01)
[2019-02-08 06:11] LABS: ALBUMIN 2.2 GM/DL (3.2-5.2); BILIRUBIN,TOTAL 2.6 MG/DL (0.2-1.0); CREATININE FOR GFR 1.68 MG/DL (0.70-1.30); GLOMERULAR FILTRATION RATE 42.5 (>42); POTASSIUM SERUM 3.2 MEQ/L (3.5-5.1); TOTAL PROTEIN 6.5 GM/DL (6.4-8.2)
[2019-02-08 07:43] VITALS: BP 144/70
[2019-02-08] MEDS: IPRATROPIUM 0.5MG/ALBUTEROL 2.5MG INH SOL UD 3ML (DUONEB)(J7620) NEB SCH ×4 (08:00→19:19)
[2019-02-08] MEDS: ADVAIR HFA 115/21MCG INHALER INH SCH ×2 (08:36→19:19)
[2019-02-08] MEDS: BISOPROLOL FUMARATE 5 MG TAB PO SCH (09:44)
[2019-02-08] MEDS: HEPARIN SOD (PORCINE) 5000 UNITS/ML VIAL SQ SCH ×2 (09:44→22:01)
[2019-02-08] MEDS: POTASSIUM CHLORIDE 10% LIQ 20 MEQ/15 ML UDC PO SCH (09:44)
[2019-02-08] MEDS: PANTOPRAZOLE 40MG INJ (PROTONIX) (C9113) IV SCH ×2 (09:45→21:59)
--- NOTE | 2019-02-08 10:22 | IPN ---
DATE: 02/07/2019 SUBJECTIVE: The patient is seen ambulating from the bed to the bathroom and then again later lying in bed. He reports he is having dyspnea on exertion otherwise denies any new complaints. Renal function continues to improve and blood pressures are better today. Temperature 97.0, pulse 72, respiratory rate 22, blood pressure 137/63, saturating 97% on room air. Intake yesterday was 1080. Urine output yesterday was 2100, net negative 1 liter. Weight in the bed scale today is 95.7 kg. General: The patient is seen lying in bed awake, alert, oriented, comfortable in no acute distress. Extraocular muscles are intact and is moist. Neck is supple. Cardiac: S1, S2, regular rate and rhythm. Lungs were clear to auscultation bilaterally. The abdomen is soft and obese and there are bowel sounds present. Extremities: Show trace edema and compression stockings. Neurologic: He is oriented times three. Skin: Normal turgor and temperature. LABS: Sodium 148, potassium 3.5, bicarbonate 24, BUN 49, creatinine 2.0, magnesium 2.2. Hemoglobin 9.4, platelet 170. Inpatient medications reviewed by myself and no changes from prior. PROBLEMS: 1. Nonoliguric acute kidney injury in the setting of ruptured infrarenal abdominal aortic aneurysm with hemorrhagic and hypovolemic shock and concomitant exposure to IV contrast and subsequent new partial infarction of the right kidney. He continues in renal recovery phase. Creatinine is down-trending. Blood urea nitrogen is improving and remains to be seen where his creatinine plateaus at. He may not recover back to his prior baseline renal function because of the partial infarction of the right kidney. He remains in daily net negative fluid balance with down-trending daily weights and adequate urine output. He has not required any further diuretics for several days now. 2. Hypokalemia: It is secondary to improving urine output and renal recovery. He is receiving supplementation both IV and orally of potassium. Remainder electrolytes are acceptable including his corrected calcium and magnesium. 3. Hypertension: Blood pressures have improved with addition of bisoprolol. 4. Acute blood loss anemia in the setting of ruptured infrarenal abdominal aortic aneurysm. Hemoglobin has improved over the past several days and there was likely also an element of hemodilution. His platelet count has also normalized today.
--- NOTE | 2019-02-08 10:22 | IPN ---
DATE OF SERVICE: 02/06/2019 SUBJECTIVE: The patient is seen and examined this morning at the bedside. Family is present. There are no acute events reported. He is moving his bowels. He continues in renal recovery. There is hypokalemia associated with the same. His blood pressures are elevated, and the primary team has started him on bisoprolol. Vital signs: Temperature 98.1, pulse 78, respiratory rate 20, blood pressure 152/78, saturating 97% on room air. Intake yesterday was 840. Urine output yesterday was 2100. Net negative 1260. Weight in the bed scale today is 96.3 kg. General: The patient is seen lying in bed, awake, alert, oriented, no acute distress. Extraocular muscles are intact. Tongue is moist. Neck is supple. Jugular veins are not elevated. Cardiac: Regular rate and rhythm. There is trace to 1+ edema in the peripheries. There are compression stockings in place. Lungs show diminished breath sounds at the bases, otherwise clear. Abdomen is distended. There are bowel sounds present. Skin: Shows normal temperature and turgor. There is some old healed scars on the knees. LABORATORIES: White count 5.9, hemoglobin 9.2. Sodium 138, potassium 2.8, bicarbonate 24, BUN 71, creatinine 2.7. INPATIENT MEDICATIONS: Reviewed by me. He received multiple intravenous (IV) and oral runs of potassium. The primary team started him on bisoprolol 5 mg by mouth daily. The remainder of medications are unchanged from prior. PROBLEMS: 1. 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 He is in renal recovery phase. Creatinine is downtrending. It remains to be seen where his creatinine will plateau. There is a hypokalemia associated with renal recovery and auto diuresis. He is in net negative fluid balance the past 24 hours. He has not needed any further diuretics since the weekend. 2. Hypokalemia. He is receiving both oral and IV supplementation, and I am going to start standing potassium supplement. His remainder electrolytes are acceptable. 3. Ileus. It is improving. The patient reports improving bowel function. I discontinued the Fleets enema because it can worsen renal function due to its heavy phosphorus load. Diet is as per surgical team. Leal catheter may be discontinued. 4. Acute blood loss anemia in the setting of ruptured infrarenal abdominal aortic aneurysm. Hemoglobin is stable, and platelets are improving. 5. Hypertension. Blood pressures are noted to be elevated. The primary team has already started him on bisoprolol.
[2019-02-08] MEDS ORDERED: POTASSIUM CHLORIDE 10 MEQ SR TABLET PO ONE (10:30)
[2019-02-08 11:47] VITALS: BP 146/70
[2019-02-08 16:00] VITALS: BP 157/73
--- NOTE | 2019-02-08 17:16 | IPN ---
DATE: 02/08/2019 Mr. Reis is seen this morning on his bedside. He is sitting in the chair at the time of my visit, getting ready to make a trip to the bathroom. He is weak and short of breath. He denies any nausea or vomiting and is tolerating his full liquid diet. PHYSICAL EXAMINATION: Temperature 97.6 degrees Fahrenheit, heart rate 72 per minute and respiratory rate 18 per minute. Blood pressure 144/70 mmHg and oxygen saturation 95%. His head is atraumatic. Neck is supple and jugular venous distention (JVD) is not abnormally elevated sitting upright. His heart sounds are regular. Lungs with slightly diminished breath sounds but no wheezing or rales. Abdomen is soft and nontender. Bowel sounds are normal. Extremities have no cyanosis or clubbing. Neurologically, he is awake, alert and oriented times three. LABORATORY DATA: Today's laboratories show sodium 142, potassium 3.2, CO2 22, BUN 45 and creatinine 1.68. Glucose 111 and calcium 8.0. WBC count is 5.0, hemoglobin 9.4 and hematocrit 28.6. PROBLEMS: 1. Acute renal failure, superimposed on chronic kidney disease. Kidney function is gradually improving and the patient has decent urine output. We will continue to monitor his kidney function closely while he is here. 2. Hypokalemia. This is related to decreased oral intake. The patient should have his diet advanced. He is already receiving potassium supplement. 3. Hypertension. Blood pressure seems reasonably well-controlled on current medications and no changes are being made today. 4. Blood loss anemia. His anemia is stable at this point and no urgent intervention is needed.
[2019-02-08 20:00] VITALS: BP 131/63
--- NOTE | 2019-02-08 23:21 | IPNPDOC ---
Subjective Date Seen The patient was seen on 02/08/19. Subjective Chief Complaint/HPI He reports that he is, overall, feeling pretty good. He is tolerating his advancing diet. He states that he has been up and moving, though he hasn't been using his incentive spirometer much. Constitutional: Denies: Chills, Fever Skin: Denies: Rash Pulmonary: Reports: Dyspnea (states chronic); Denies: Cough Cardiovascular: Denies: Chest Pain Gastrointestinal: Denies: Nausea, Vomiting, Diarrhea, Constipation Psych: Reports: Mood Normal Objective Physical Examination General Exam: Positive: Alert, Cooperative (laying on the bed resting when I entered the room), No Acute Distress Eye Exam: Positive: Conjunctiva & lids normal; Negative: Sclera icteric ENT Exam: Positive: Mucous membr. moist/pink Neck Exam: Negative: Lymphadenopathy Chest Exam: Positive: Wheezing (initially; improved after repositioning and cough); Negative: Rales, Rhonchi Heart Exam: Positive: Rate Normal, Normal S1, Normal S2; Negative: Murmurs Abdomen Exam: Positive: Normal bowel sounds, Soft; Negative: Tenderness Extremity Exam: Negative: Edema Neuro Exam: Positive: Normal Speech Psych Exam: Positive: Mental status NL, Mood NL Assessment /Plan Problems (1) AAA (abdominal aortic aneurysm, ruptured) Status: Acute Response to Treatment: Stable Problem Text: Patient is status post aortobiiliac stent graft placement as per Dr. Zamorano 01/30/19 (2) Acute blood loss anemia Status: Acute Response to Treatment: Stable Problem Text: 02/07/19: Improving. Hgb 9.4 02/06/19: Hgb remains stable, 9.2 Hgb remains stable at 8.9 (3) Acute renal failure superimposed on stage 3 chronic kidney disease Status: Acute Response to Treatment: Stable Problem Text: 02/08: Appreciate nephrology's input. Renal function continues to improve. 02/07/19: Continues to improve. BUN/Cre 49/2.01, GFR 46. Nephrology following 02/06/19: Renal function continues to improve BUN/Cre 71/2.72, GFR 24. Nephrology continues to follow Renal function appears to be stabilizing, BUN/Cre 78/3.62, GFR 17.5. Nephrology following closely (4) Hypokalemia Status: Acute Problem Text: 02/08: Still hypokalemic, but improving. Potassium repleted orally. 02/07/19: K+ 3.0 this morning. Replaced with K+ 40 Meq. We will recheck at 1300 02/06/19: K+ 2.8 this morning. His hypokalemia is believed to be related to his improving renal function/renal recovery. He is receiving K+ runs this morning. We will repeat his K+ this afternoon Patient was unable to tolerate oral K+ replacement this morning. K-run 10 meq x 3 administered. Recheck K+ at 11am. Patient only drinking water (5) Ileus Status: Acute Problem Text: 02/07/19: Patient having regular bowel movements. We will continue to titrate his diet 02/06/19: Bowels are moving much better. We will start slowly advancing his diet Patient with small bowel movements this morning. BS + 4 in all 4 quadrants. He is tolerating liquids (6) COPD (chronic obstructive pulmonary disease) Status: Chronic Response to Treatment: Stable Problem Text: Using Nebs, stable (7) GERD (gastroesophageal reflux disease) Status: Chronic Response to Treatment: Stable Problem Text: On PPI, Protonix BID (8) Rheumatoid arthritis Status: Chronic Response to Treatment: Stable (9) Sleep apnea syndrome Status: Acute Response to Treatment: Stable Problem Text: 02/06/19: Noc Ox performed last evening. Awaiting final report. Patient with no known hx of OFELIA. His O2 sats appear to be dropping some at night. He required 1L of 02 last night. I will discuss with MD regarding obtaining a Noc ox while inpatient (10) Thrombocytopenia Status: Resolved Response to Treatment: Stable Problem Text: 02/07/19: Plt count 170 02/06/19: Plt count 136 Plt count 112 Plan/VTE VTE Prophylaxis Ordered?: Yes (SQ heparin, TEDs, sequentials) VS, I&O, 24H, Fishbone Vital Signs/I&O Vital Signs Date Time Temp Pulse Resp B/P (MAP) Pulse Ox O2 Delivery O2 Flow Rate FiO2 02/08/19 18:53 97.4 73 18 157/73 97 1.0 35 02/05/19 20:33 Nasal Cannula I&O- Last 24 Hours up to 6 AM 02/08/19 06:00 Intake Total 960 ml Output Total 1450 ml Balance -490 ml Laboratory Data 24H LABS Laboratory Tests 2 02/08/19 05:18: Nucleated Red Blood Cells % (auto) 0.0, Anion Gap 8, Glomerular Filtration Rate 42.5, Blood Urea Nitrogen 45H, Creatinine 1.68H, Sodium Level 142, Potassium Level 3.2L, Chloride Level 112H, Carbon Dioxide Level 22, Calcium Level 8.0L, Aspartate Amino Transf (AST/SGOT) 81H, Alanine Aminotransferase (ALT/SGPT) 71, Alkaline Phosphatase 91, Total Bilirubin 2.6H, Total Protein 6.5, Albumin 2.2L, Albumin/Globulin Ratio 0.51L CBC/BMP Laboratory Tests 02/08/19 05:18 Red Blood Count 3.03 L, Mean Corpuscular Volume 94.4, Mean Corpuscular Hemoglobin 31.0, Mean Corpuscular Hemoglobin Concent 32.9, Red Cell Distribution Width 15.9 H, Calcium Level 8.0 L, Aspartate Amino Transf (AST/SGOT) 81 H, Alanine Aminotransferase (ALT/SGPT) 71, Alkaline Phosphatase 91, Total Bilirubin 2.6 H, Total Protein 6.5, Albumin 2.2 L Microbiology Microbiology 02/07/19 Urine Culture - Final, Complete MYLES GARVEY DO Feb 08, 2019 19:03
[2019-02-09 00:11] VITALS: BP 150/77
[2019-02-09 04:00] VITALS: BP 120/63
[2019-02-09 05:16] LABS: HEMATOCRIT 30.2 % (42.0-52.0); HEMOGLOBIN 9.7 g/dl (13.5-17.5); MEAN CORPUSCULAR HEMOGLOBIN 30.7 pg (27.0-33.0); MEAN CORPUSCULAR HGB CONC 32.1 g/dl (32.0-36.5); MEAN CORPUSCULAR VOLUME 95.6 fl (80.0-96.0); PLATELET COUNT, AUTOMATED 191 10^3/uL (150-450); RED BLOOD COUNT 3.16 10^6/uL (4.30-6.10)
[2019-02-09] MEDS: SLF 3 ML SYR IV SCH ×3 (06:13→21:44)
[2019-02-09 07:46] VITALS: BP 147/69
[2019-02-09] MEDS: IPRATROPIUM 0.5MG/ALBUTEROL 2.5MG INH SOL UD 3ML (DUONEB)(J7620) NEB SCH ×4 (08:11→20:06)
[2019-02-09] MEDS: ADVAIR HFA 115/21MCG INHALER INH SCH ×2 (08:11→20:06)
[2019-02-09] MEDS: PERCOCET 5MG/325MG TAB PO PRN ×3 (09:45→18:54)
[2019-02-09] MEDS: POTASSIUM CHLORIDE 10% LIQ 20 MEQ/15 ML UDC PO SCH (09:54)
[2019-02-09] MEDS: PANTOPRAZOLE 40MG INJ (PROTONIX) (C9113) IV SCH ×2 (09:55→21:42)
[2019-02-09] MEDS: HEPARIN SOD (PORCINE) 5000 UNITS/ML VIAL SQ SCH ×2 (09:56→21:43)
[2019-02-09] MEDS: BISOPROLOL FUMARATE 5 MG TAB PO SCH (09:56)
[2019-02-09 11:36] VITALS: BP 133/70
[2019-02-09 14:29] LABS: ALBUMIN 2.3 GM/DL (3.2-5.2); BILIRUBIN,TOTAL 2.1 MG/DL (0.2-1.0); CALCIUM LEVEL 7.4 MG/DL (8.8-10.2); CREATININE FOR GFR 1.71 MG/DL (0.70-1.30); GLOMERULAR FILTRATION RATE 41.6 (>42); POTASSIUM SERUM 3.8 MEQ/L (3.5-5.1); TOTAL PROTEIN 6.1 GM/DL (6.4-8.2)
--- NOTE | 2019-02-09 17:18 | IPN ---
DATE: 02/09/2019 Mr. Reis is seen this afternoon on his bedside. He is sitting in the chair at the time of my visit. He is still feeling weak and short of breath on ambulation. He also gets abdominal discomfort when he eats. He denies any nausea or vomiting. PHYSICAL EXAMINATION: Temperature 97.4 degrees Fahrenheit, heart rate 72 per minute and respiratory rate 18 per minute. Blood pressure 133/70 mmHg and oxygen saturation 93%. His head is atraumatic. Neck is supple and without jugular venous distention (JVD) or thyroid enlargement. Heart sounds are regular. Lungs clear to auscultation. Abdomen is protuberant, soft and nontender and bowel sounds are present. Extremities have no cyanosis or clubbing. Neurologically, he is awake, alert and oriented times three. Today's labs show sodium 144, potassium 3.8, CO2 21, BUN 46 and creatinine 1.71. WBC count is 5.0, hemoglobin 9.7 and hematocrit 30.2. Platelets 191. PROBLEMS: 1. Acute kidney injury superimposed on chronic kidney disease. Kidney function seems to be leveled off and this is probably his prior baseline kidney function. His electrolytes are stable and we will continue to monitor closely. 2. Hypokalemia. Potassium level has improved and corrected with potassium supplement. No changes are being made today. 3. Anemia. His anemia is stable and does not need any intervention at this point. 4. Generalized weakness and deconditioning. I have discussed with the patient and his family about potential need for rehabilitation prior to discharge, as he is quite deconditioned.
[2019-02-09 20:00] VITALS: BP 140/67
[2019-02-10] VITALS (7 sets, daily range): BP systolic 133–157; BP diastolic 64–82
--- NOTE | 2019-02-10 02:37 | IPNPDOC ---
Subjective Date Seen The patient was seen on 02/09/19. Subjective Chief Complaint/HPI Patient admits to general deconditioning. Family has encouraged use of incentive spirometer, and he admits that it is getting progressively easier. Constitutional: Denies: Chills, Fever Pulmonary: Denies: Dyspnea, Cough Cardiovascular: Denies: Chest Pain Gastrointestinal: Reports: Abdominal Pain; Denies: Nausea, Vomiting Hematologic: Reports: Bruising (expected postop bruising); Denies: Bleeding Excessively Objective Physical Examination General Exam: Positive: Alert, Cooperative (laying on the bed resting when I entered the room), No Acute Distress Eye Exam: Positive: Conjunctiva & lids normal; Negative: Sclera icteric ENT Exam: Positive: Mucous membr. moist/pink Neck Exam: Negative: Lymphadenopathy Chest Exam: Positive: Clear to auscultation; Negative: Rales, Rhonchi, Wheezing Heart Exam: Positive: Rate Normal, Normal S1, Normal S2; Negative: Murmurs Abdomen Exam: Positive: Normal bowel sounds, Soft; Negative: Tenderness Extremity Exam: Negative: Edema Skin Exam: Positive: Other skin issue (dressings removed from groin incisions, staple line is clean) Neuro Exam: Positive: Normal Speech Psych Exam: Positive: Mental status NL, Mood NL Assessment /Plan Problems (1) AAA (abdominal aortic aneurysm, ruptured) Status: Acute Response to Treatment: Stable Problem Text: Patient is status post aortobiiliac stent graft placement as per Dr. Zamorano 01/30/19 (2) Acute blood loss anemia Status: Acute Response to Treatment: Stable Problem Text: 02/07/19: Improving. Hgb 9.4 02/06/19: Hgb remains stable, 9.2 Hgb remains stable at 8.9 (3) Acute renal failure superimposed on stage 3 chronic kidney disease Status: Acute Response to Treatment: Stable Problem Text: 02/08: Appreciate nephrology's input. Renal function continues to improve. 02/07/19: Continues to improve. BUN/Cre 49/2.01, GFR 46. Nephrology following 02/06/19: Renal function continues to improve BUN/Cre 71/2.72, GFR 24. Nephrology continues to follow Renal function appears to be stabilizing, BUN/Cre 78/3.62, GFR 17.5. Nephrology following closely (4) Hypokalemia Status: Acute Problem Text: 02/08: Still hypokalemic, but improving. Potassium repleted orally. 02/07/19: K+ 3.0 this morning. Replaced with K+ 40 Meq. We will recheck at 1300 02/06/19: K+ 2.8 this morning. His hypokalemia is believed to be related to his improving renal function/renal recovery. He is receiving K+ runs this morning. We will repeat his K+ this afternoon Patient was unable to tolerate oral K+ replacement this morning. K-run 10 meq x 3 administered. Recheck K+ at 11am. Patient only drinking water (5) Ileus Status: Acute Problem Text: 02/07/19: Patient having regular bowel movements. We will continue to titrate his diet 02/06/19: Bowels are moving much better. We will start slowly advancing his diet Patient with small bowel movements this morning. BS + 4 in all 4 quadrants. He is tolerating liquids (6) COPD (chronic obstructive pulmonary disease) Status: Chronic Response to Treatment: Stable Problem Text: Using Nebs, stable (7) GERD (gastroesophageal reflux disease) Status: Chronic Response to Treatment: Stable Problem Text: On PPI, Protonix BID (8) Rheumatoid arthritis Status: Chronic Response to Treatment: Stable (9) Sleep apnea syndrome Status: Acute Response to Treatment: Stable Problem Text: 02/06/19: Noc Ox performed last evening. Awaiting final report. Patient with no known hx of OFELIA. His O2 sats appear to be dropping some at night. He required 1L of 02 last night. I will discuss with regarding obtaining a Noc ox while inpatient (10) Thrombocytopenia Status: Resolved Response to Treatment: Stable Problem Text: 02/07/19: Plt count 170 02/06/19: Plt count 136 Plt count 112 Plan/VTE VTE Prophylaxis Ordered?: Yes (SQ heparin, TEDs, sequentials) VS, I&O, 24H, Fishbone Vital Signs/I&O Vital Signs Date Time Temp Pulse Resp B/P (MAP) Pulse Ox O2 Delivery O2 Flow Rate FiO2 02/09/19 20:00 99.6 80 19 140/67 (91) 95 02/09/19 19:24 1.0 35 02/05/19 20:33 Nasal Cannula I&O- Last 24 Hours up to 6 AM 02/09/19 06:00 Intake Total 1210 ml Output Total 1250 ml Balance -40 ml Laboratory Data 24H LABS Laboratory Tests 2 02/09/19 04:50: Anion Gap 12, Glomerular Filtration Rate 41.6L, Blood Urea Nitrogen 46H, Cre atinine 1.71H, Sodium Level 144, Potassium Level 3.8, Chloride Level 111H, Carbon Dioxide Level 21, Calcium Level 7.4L, Aspartate Amino Transf (AST/SGOT) 76H, Alanine Aminotransferase (ALT/SGPT) 76, Alkaline Phosphatase 98, Total Bilirubin 2.1H, Total Protein 6.1L, Albumin 2.3L, Albumin/Globulin Ratio 0.61L 02/09/19 04:51: Nucleated Red Blood Cells % (auto) 0.0 CBC/BMP Laboratory Tests 02/09/19 04:50 Calcium Level 7.4 L, Aspartate Amino Transf (AST/SGOT) 76 H, Alanine Aminotransferase (ALT/SGPT) 76, Alkaline Phosphatase 98, Total Bilirubin 2.1 H, Total Protein 6.1 L, Albumin 2.3 L 02/09/19 04:51 Red Blood Count 3.16 L, Mean Corpuscular Volume 95.6, Mean Corpuscular Hemoglobin 30.7, Mean Corpuscular Hemoglobin Concent 32.1, Red Cell Distribution Width 16.1 H Microbiology Microbiology 02/07/19 Urine Culture - Final, Complete MYLES GARVEY DO Feb 09, 2019 21:39
[2019-02-10] MEDS: PERCOCET 5MG/325MG TAB PO PRN ×2 (04:47→20:00)
[2019-02-10 05:08] LABS: HEMATOCRIT 29.3 % (42.0-52.0); HEMOGLOBIN 9.3 g/dl (13.5-17.5); MEAN CORPUSCULAR HEMOGLOBIN 29.4 pg (27.0-33.0); MEAN CORPUSCULAR HGB CONC 31.7 g/dl (32.0-36.5); MEAN CORPUSCULAR VOLUME 92.7 fl (80.0-96.0); PLATELET COUNT, AUTOMATED 217 10^3/uL (150-450); RED BLOOD COUNT 3.16 10^6/uL (4.30-6.10); WHITE BLOOD COUNT 5.2 10^3/uL (4.0-10.0)
[2019-02-10 05:32] LABS: ALBUMIN 2.5 GM/DL (3.2-5.2); BILIRUBIN,TOTAL 2.3 MG/DL (0.2-1.0); CALCIUM LEVEL 8.5 MG/DL (8.8-10.2); CREATININE FOR GFR 1.62 MG/DL (0.70-1.30); GLOMERULAR FILTRATION RATE 44.3 (>42); POTASSIUM SERUM 3.3 MEQ/L (3.5-5.1)
[2019-02-10] MEDS: SLF 3 ML SYR IV SCH ×3 (06:20→21:22)
[2019-02-10] MEDS: IPRATROPIUM 0.5MG/ALBUTEROL 2.5MG INH SOL UD 3ML (DUONEB)(J7620) NEB SCH ×4 (07:29→20:18)
[2019-02-10] MEDS: ADVAIR HFA 115/21MCG INHALER INH SCH ×2 (07:29→20:18)
[2019-02-10] MEDS: HEPARIN SOD (PORCINE) 5000 UNITS/ML VIAL SQ SCH ×2 (08:05→20:02)
[2019-02-10] MEDS: PANTOPRAZOLE 40MG INJ (PROTONIX) (C9113) IV SCH ×2 (08:05→20:01)
[2019-02-10] MEDS: BISOPROLOL FUMARATE 5 MG TAB PO SCH (08:06)
[2019-02-10] MEDS ORDERED: POTASSIUM CHLORIDE 10 MEQ SR TABLET PO SCH (09:00)
[2019-02-10] MEDS ORDERED: diphenhydrAMINE 25 MG CAP PO PRN (10:30)
[2019-02-10] MEDS ORDERED: ONDANSETRON 4 MG TAB (S0181) PO PRN (10:30)
--- NOTE | 2019-02-10 10:34 | IPNPDOC ---
Subjective Date Seen The patient was seen on 02/10/19. Subjective Chief Complaint/HPI Pt this morning with his son at bedside. Pt tells me that his stomach is off, not able to eat breakfast, just had some juice and coffee. His son is at bedside, reports that the pt had 2 BMs overnight. The pt has demonstrated some confusion overnight as well, wants to make sure that the pt hasn't had a stroke as the cause of these intermittent periods of confusion, wants Neuro consulted. States that his father isn't sleeping at night, very restless. He also wants to know why the pt was only in the ICU for a few days and is now in PCU. He states that his family was told that he would be at least in the ICU for 2 weeks. General: Reports: Fatigue Constitutional: Denies: Chills, Fever ENT: Denies: Head Aches Pulmonary: Denies: Dyspnea, Cough Cardiovascular: Denies: Chest Pain, Palpitations Gastrointestinal: Reports: Nausea, Other Symptoms (C/o feeling bloated since last night); Denies: Vomiting, Abdominal Pain, Diarrhea Neurological: Reports: Weakness Psych: Reports: Mood Normal Objective Physical Examination General Exam: Positive: Alert, Cooperative (laying on the bed resting when I entered the room), No Acute Distress ENT Exam: Positive: Mucous membr. moist/pink Neck Exam: Positive: JVD Chest Exam: Positive: Clear to auscultation, Rales (fine bibasilar rales B); Negative: Rhonchi, Wheezing Heart Exam: Positive: Rate Normal, Normal S1, Normal S2; Negative: Murmurs Abdomen Exam: Positive: Normal bowel sounds, Soft; Negative: Tenderness Extremity Exam: Positive: Edema (3 mm pitting BLE) Neuro Exam: Positive: Normal Speech Psych Exam: Positive: Mental status NL, Mood NL Assessment /Plan Problems (1) Ileus Status: Acute Problem Text: Stable on doc 100 BID (2) AAA (abdominal aortic aneurysm, ruptured) Status: Acute Response to Treatment: Stable Problem Text: 02/10 jada Mishraha-agrees c PMR transfer Patient is status post aortobiiliac stent graft placement as per Dr. Zamorano 01/30/19 (3) Hypokalemia Status: Acute Problem Text: 02/10 K+ 3.3 on K 20 QD; therefore, increased to 20 BID favor 2 improved excretion c improved renal fx and autodiuresis given +volume s tatus (4) COPD (chronic obstructive pulmonary disease) Status: Chronic Response to Treatment: Stable Problem Text: Stable on Advair 115 2 BID (new this admit) (5) GERD (gastroesophageal reflux disease) Status: Chronic Response to Treatment: Stable Problem Text: 02/10 changed panto 40 IV BID to po (6) Rheumatoid arthritis Status: Chronic Response to Treatment: Stable Problem Text: remains quiescent off HD todd 7.5 QD (7) Sleep apnea syndrome Status: Acute Response to Treatment: Stable Problem Text: plan spilt study soon p dc-dw Pulm-agrees to repeat trial of different mask (8) CKD (chronic kidney disease), stage III Status: Acute Problem Text: favor at new baseline ~1.8 2 ATN 2 hypotension 2 AAA rupture baseline cr ~0.8 (9) Hypertension Response to Treatment: Stable Problem Text: Stable on biso 5 (new this admit) (10) Physical deconditioning Status: Chronic Problem Text: 02/10 strongly favor PMR tx-currently qualifies-may NOT in near future-patient and family agree to tx in AM (11) Congestive heart failure Problem Text: 02/10 and check TTE 01/30/19 BNP 181 Plan/VTE VTE Prophylaxis Ordered?: Yes (SQ heparin, TEDs, sequentials) VS, I&O, 24H, Fishbone Vital Signs/I&O Vital Signs Date Time Temp Pulse Resp B/P (MAP) Pulse Ox O2 Delivery O2 Flow Rate FiO2 02/10/19 08:06 83 155/82 02/10/19 08:00 97.8 20 97 02/09/19 19:24 1.0 35 02/05/19 20:33 Nasal Cannula I&O- Last 24 Hours up to 6 AM 02/10/19 06:00 Intake Total 840 ml Output Total 2200 ml Balance -1360 ml Laboratory Data 24H LABS Laboratory Tests 2 02/10/19 04:55: Nucleated Red Blood Cells % (auto) 0.0, Anion Gap 8, Glomerular Filtration Rate 44.3, Blood Urea Nitrogen 39H, Creatinine 1.62H, Sodium Level 141, Potassium Level 3.3L, Chloride Level 111H, Carbon Dioxide Level 22, Calcium Level 8.5L, Aspartate Amino Transf (AST/SGOT) 53H, Alanine Aminotransferase (ALT/SGPT) 64, Alkaline Phosphatase 91, Total Bilirubin 2.3H, Total Protein 7.0, Albumin 2.5L, Albumin/Globulin Ratio 0.56L CBC/BMP Laboratory Tests 02/10/19 04:55 Red Blood Count 3.16 L, Mean Corpuscular Volume 92.7, Mean Corpuscular Hemoglobin 29.4, Mean Corpuscular Hemoglobin Concent 31.7 L, Red Cell D istribution Width 16.2 H, Calcium Level 8.5 L, Aspartate Amino Transf (AST/SGOT) 53 H, Alanine Aminotransferase (ALT/SGPT) 64, Alkaline Phosphatase 91, Total Bilirubin 2.3 H, Total Protein 7.0, Albumin 2.5 L Microbiology Microbiology 02/07/19 Urine Culture - Final, Complete JULIANE MIRANDA PA-C Feb 10, 2019 10:34 Homar Villagomez M.D. Feb 10, 2019 18:17
[2019-02-10] MEDS: DOCUSATE SODIUM 100 MG CAP PO SCH ×2 (11:21→20:02)
[2019-02-10] MEDS ORDERED: KCL 10MEQ/100ML SWI (KRUN) 10 MEQ in APPROPRIATE DILUENT 1 EA IV ONE ×2 (11:30→13:00)
--- NOTE | 2019-02-10 12:06 | IPN ---
DATE: 02/10/2019 Mr. Reis is seen this morning on his bedside. He is not feeling good today and reports abdominal bloating and nausea. He could not eat much. He also has problems at night with disorientation. There is no fever or chills. PHYSICAL EXAMINATION: Temperature 97.8 degrees Fahrenheit, heart rate 80 per minute and respiratory rate 20 per minute. Blood pressure 136/65 mmHg and oxygen saturation 97% on room air. Head is atraumatic. Neck is supple and jugular venous distention (JVD) is about 6-7 cm above sternal angle. There is no oral thrush or ulcers. Heart sounds are regular and lungs clear to auscultation. Abdomen is distended and nontender. Bowel sounds are present. Extremities have no cyanosis or clubbing. He does have 1+ edema on lower extremities. Neurologically, he is awake, alert and without a focal deficit. LABORATORIES: Today's labs show WBC count 5.2, hemoglobin 9.3, hematocrit 29.3. Platelets 217. Sodium 141, potassium 3.3, CO2 22, BUN 39 and creatinine 1.62. Calcium level is 8.5 and total bilirubin is 2.3. Total protein 7.0 and albumin 2.5. PROBLEMS: 1. Acute renal failure superimposed on chronic kidney disease. Kidney function has improved and stable at about baseline now. 2. Abdominal distension, most likely this is related to ileus. Abdominal x-ray is recommended. I will defer to surgery for evaluation and possible treatment. He is likely to require nasogastric tube placement. 3. Hypokalemia. We will replace his potassium with intravenous potassium run. He has ileus and not likely to absorb much from his GI tract. 4. Anemia. His anemia has been stable and does not need any intervention at this point. 5. Congestive heart failure. His volume status seems to be slightly decompensated. Now he has significant abdominal distension and ileus, which is probably contributing to his respiratory status. I will hold off on diuretic at this point due to hypokalemia and poor oral intake. We will watch him for the next 24 hours as he is oxygenating well.
[2019-02-10] MEDS ORDERED: POTASSIUM CHLORIDE 10% LIQ 20 MEQ/15 ML UDC PO ONE (12:15)
--- NOTE | 2019-02-10 13:48 | REP ---
KUB: Three views presented. History: Abdominal distension. Comparison study: February 02, 2019. Findings: The patient is status post aortobifemoral graft placement. There is gaseous distension of the ascending and transverse segment of the colon as noted previously similar in degree. The ascending colon measures up to 12.9 cm in transverse dimension. This is felt to be unchanged. There is a small quantity of gas in the sigmoid segment of the colon. No gas or stool in the rectum. Impression: Status post aortobiiliac stent graft placement for abdominal aortic aneurysm. Persistent gaseous distension of the colon. Electronically Signed by Kirt Wadsworth MD 02/10/2019 03:48 P
--- NOTE | 2019-02-10 15:03 | IPNPDOC ---
Date Seen The patient was seen on 02/10/19. Progress Note Vascular surgery. Dr. Zamorano Nephrology Dr Okeefe PCP: Dr. Villagomez HPI: 74 yo M who presented to the emergency department reporting chest pain radiating to the back, abdominal pain, and shortness of breath associated with tachypnea and hypotension in the emergency department found to have ruptured infrarenal abdominal aortic aneurysm and was taken urgently to the operating room for a aortobiiliac stent graft placement as per Dr. Zamorano 01/30/19. The patient is currently in the PCU. Family is at bedside. Son reports 2 BM this AM. Pt currently denies nausea or abdominal pain. Son states pt does not sleep well at night. States he became confused last night. PMHx: Mnire's disease Rheumatoid arthritis GERD Hypertension Obesity. BMI 33.9 CKD3 PSHX: Bilateral total knee arthroplasty Left arm fracture Right eye surgery PE: GEN: 74 yo M, comfortable in bed. HEENT: Normocephalic, atraumatic. Sclera are nonicteric. Conjunctiva without injection. CHEST: Regular rate and rhythm, +S1, +S2 LUNGS: Decreased breath sounds at bases bilaterally. No wheezes, rales, or rhonchi. ABD: Round. NT, Bowel sounds active in all quad. EXT: Pulses 2+ bilaterally dorsalis pedis and radial. no lower extremity edema appreciated. SKIN: [place], dry, warm. Capillary refill <2sec. No rashes. CTA abdomen/pelvis 1. Ruptured 9.7 cm infrarenal abdominal aortic aneurysm with a fairly large retroperitoneal hematoma. 2. Bilateral renal cysts and hepatic cysts. 3. Fatty infiltration of the liver. The findings were telephoned to the ED at the time of this dictation. Electronically Signed by Kirt Wadsworth MD 01/30/2019 02:[address] evidence of aneurysm or dissection in the thoracic aorta. No CT evidence of pulmonary embolus. Some vascular calcification. Otherwise no acute cardiopulmonary disease. Electronically Signed by Kirt Wadsworth MD 01/30/2019 11:27 A CXR: 01/30/19 Endotracheal tube in satisfactory position. Electronically Signed by Oren Thurman MD 01/30/2019 06:44 P AXR 01/30/19 Status post aortobi-iliac stent graft placement. No opaque foreign body is appreciated. Only catheter in place. Electronically Signed by Kirt Wadsworth MD 01/30/2019 03:16 P CXR 01/31/19 FINDINGS: Endotracheal tube remains in good position at the level of the transverse aorta. EKG electrodes are seen. The lungs are exposed and the relatively low level of inspiration. There is plate-like atelectasis in the left base. There is mild gaseous distension of the stomach. No new infiltrate is seen. Unreviewed DD: Kirt Wadsworth MD 01/31/19 0954 A&P: 74 yo M who presented to the emergency department reporting chest pain radiating to the back, abdominal pain, and shortness of breath associated with tachypnea and hypotension in the emergency department found to have ruptured infrarenal abdominal aortic aneurysm and was taken urgently to the operating room for a aortobiiliac stent graft placement as per Dr. Zamorano 01/30/19. 1. Ruptured infrarenal abdominal aortic aneurysm/status post aortobiiliac stent graft placement as per Dr. Zamorano 01/30/19. Afebrile encourage OOB. I/S. PT/OT/ARU screen. 2. Acute blood loss/Lg retroperitoneal hematoma. S/P 6U PRBC, 2 U FFP. Hemoglobin 9.3. Stable. 3. Thrombocytopenia. Resolved. [place] likely consumptive process. monitor. 4.[place]/ CKD3. Patient's baseline appears to be 1.3-1.5. Serum creatinine this morning is noted to be 1.62. downtrending. Nephrology following. 5. Ileus. Resolved. Pt denies nausea this AM. Having BMs Encourage OOB/ambulation Advanced diet, tolerating AXR this AM pending. Monitor. 6. GERD. IV PPI BID. 7. Rheumatoid arthritis. 8. COPD. Advair Duonebs. 9. Possible OFELIA. NocOx No significant desaturations, would not qualify for nocturnal oxygen supplementation. Few episodic desaturations. Cannot rule out OFELIA, can consider formal sleep testing if clinically indicated. DD: LUCIA SU MD 02/06/19 1131 CPAP as per pulmonary. Pt states he does not tolerate mask, makes him "hyper". 10. Hypokalemia. IV/PO supplement ordered as per Medicine/Nephro. Monitor. VS, I&O, 24H, Fishbone Vital Signs/I&O Vital Signs Date Time Temp Pulse Resp B/P (MAP) Pulse Ox O2 Delivery O2 Flow Rate FiO2 02/10/19 12:00 98.8 84 18 148/73 (98) 98 02/09/19 19:24 1.0 35 02/05/19 20:33 Nasal Cannula I&O- Last 24 Hours up to 6 AM 02/10/19 06:00 Intake Total 840 ml Output Total 2200 ml Balance -1360 ml Laboratory Data 24H LABS Laboratory Tests 2 02/10/19 04:55: Nucleated Red Blood Cells % (auto) 0.0, Anion Gap 8, Glomerular Filtration Rate 44.3, Blood Urea Nitrogen 39H, Creatinine 1.62H, Sodium Level 141, Potassium Level 3.3L, Chloride Level 111H, Carbon Dioxide Level 22, Calcium Level 8.5L, Aspartate Amino Transf (AST/SGOT) 53H, Alanine Aminotransferase (ALT/SGPT) 64, Alkaline Phosphatase 91, Total Bilirubin 2.3H, Total Protein 7.0, Albumin 2.5L, Albumin/Globulin Ratio 0.56L 02/10/19 13:34: Urine Color KEV, Urine Appearance CLEAR, Urine pH 6.0, Urine Specific [place] 1.015, Urine Protein 1+H, Urine Glucose (UA) NEGATIVE, Urine Ketones NEGATIVE, Urine Blood 3+H, Urine Nitrite NEGATIVE, Urine Bilirubin NEGATIVE, Urine Urobilinogen 4.0H, Urine Leukocyte Esterase NEGATIVE, Urine WBC (Auto) 12H, Urine RBC (Auto) 2, Urine Hyaline Casts (Auto) 0, Urine Bacteria (Auto) 1+H, Urine Squamous Epithelial Cells 0, Urine Sperm (Auto) CBC/BMP Laboratory Tests 02/10/19 04:55 Red Blood Count 3.16 L, Mean Corpuscular Volume 92.7, Mean Corpuscular Hemoglobin 29.4, Mean Corpuscular Hemoglobin Concent 31.7 L, Red Cell Distribution Width 16.2 H, Calcium Level 8.5 L, Aspartate Amino Transf (AST/SGOT) 53 H, Alanine Aminotransferase (ALT/SGPT) 64, Alkaline Phosphatase 91, Total Bilirubin 2.3 H, Total Protein 7.0, Albumin 2.5 L Microbiology Microbiology 02/10/19 Urine Culture, Received Pending 02/07/19 Urine Culture - Final, Complete Milady Chanye Feb 10, 2019 15:03
[2019-02-11 04:00] VITALS: BP 135/61
[2019-02-11] MEDS: SLF 3 ML SYR IV SCH (05:05)
[2019-02-11 06:13] LABS: ALBUMIN 2.3 GM/DL (3.2-5.2); BILIRUBIN,TOTAL 2.2 MG/DL (0.2-1.0); CALCIUM LEVEL 7.8 MG/DL (8.8-10.2); CREATININE FOR GFR 1.6 MG/DL (0.70-1.30); MAGNESIUM LEVEL 1.8 MG/DL (1.8-2.4); POTASSIUM SERUM 3.5 MEQ/L (3.5-5.1); TOTAL PROTEIN 6.7 GM/DL (6.4-8.2)
[2019-02-11] MEDS: ADVAIR HFA 115/21MCG INHALER INH SCH (07:14)
[2019-02-11] MEDS: IPRATROPIUM 0.5MG/ALBUTEROL 2.5MG INH SOL UD 3ML (DUONEB)(J7620) NEB SCH ×2 (07:14→11:08)
[2019-02-11 08:00] VITALS: BP 146/66
[2019-02-11 08:14] VITALS: BP 146/66
[2019-02-11] MEDS: DOCUSATE SODIUM 100 MG CAP PO SCH (08:14)
[2019-02-11] MEDS: BISOPROLOL FUMARATE 5 MG TAB PO SCH (08:14)
[2019-02-11] MEDS: HEPARIN SOD (PORCINE) 5000 UNITS/ML VIAL SQ SCH (08:15)
[2019-02-11] MEDS ORDERED: PANTOPRAZOLE 40MG TAB (PROTONIX) PO SCH (09:00)
[2019-02-11] MEDS ORDERED: POTASSIUM CHLORIDE 10 MEQ SR TABLET PO SCH (09:00)
--- NOTE | 2019-02-11 09:23 | IPNPDOC ---
Date Seen The patient was seen on 02/11/19. Progress Note Vascular surgery. Dr. Zamorano Nephrology Dr Okeefe PCP: Dr. Villagomez HPI: 74 yo M who presented to the emergency department reporting chest pain radiating to the back, abdominal pain, and shortness of breath associated with tachypnea and hypotension in the emergency department found to have ruptured infrarenal abdominal aortic aneurysm and was taken urgently to the operating room for a aortobiiliac stent graft placement as per Dr. Zamorano 01/30/19. The patient is currently in the PCU. Family is at bedside. Currently having TTE done. PMHx: Mnire's disease Rheumatoid arthritis GERD Hypertension Obesity. BMI 33.9 CKD3 PSHX: Bilateral total knee arthroplasty Left arm fracture Right eye surgery PE: GEN: 74 yo M, comfortable in bed. HEENT: Normocephalic, atraumatic. Sclera are nonicteric. Conjunctiva without injection. CHEST: Regular rate and rhythm, +S1, +S2 LUNGS: Decreased breath sounds at bases bilaterally. No wheezes, rales, or rhonchi. ABD: Round. NT, Bowel sounds active in all quad. EXT: Pulses 2+ bilaterally dorsalis pedis and radial. no lower extremity edema appreciated. SKIN: [place], dry, warm. Capillary refill <2sec. No rashes. CTA abdomen/pelvis 1. Ruptured 9.7 cm infrarenal abdominal aortic aneurysm with a fairly large retroperitoneal hematoma. 2. Bilateral renal cysts and hepatic cysts. 3. Fatty infiltration of the liver. The findings were telephoned to the ED at the time of this dictation. Electronically Signed by Kirt Wadsworth MD 01/30/2019 02:[address] evidence of aneurysm or dissection in the thoracic aorta. No CT evidence of pulmonary embolus. Some vascular calcification. Otherwise no acute cardiopulmonary disease. Electronically Signed by Kirt Wadsworth MD 01/30/2019 11:27 A CXR: 01/30/19 Endotracheal tube in satisfactory position. Electronically Signed by Oren Thurman MD 01/30/2019 06:44 P AXR 01/30/19 Status post aortobi-iliac stent graft placement. No opaque foreign body is appreciated. Only catheter in place. Electronically Signed by Kirt Wadsworth MD 01/30/2019 03:16 P CXR 01/31/19 FINDINGS: Endotracheal tube remains in good position at the level of the transverse aorta. EKG electrodes are seen. The lungs are exposed and the relatively low level of inspiration. There is plate-like atelectasis in the left base. There is mild gaseous distension of the stomach. No new infiltrate is seen. Unreviewed DD: Kirt Wadsworth MD 01/31/19 0954 A&P: 74 yo M who presented to the emergency department reporting chest pain radiating to the back, abdominal pain, and shortness of breath associated with tachypnea and hypotension in the emergency department found to have ruptured infrarenal abdominal aortic aneurysm and was taken urgently to the operating room for a aortobiiliac stent graft placement as per Dr. Zamorano 01/30/19. 1. Ruptured infrarenal abdominal aortic aneurysm/status post aortobiiliac stent graft placement as per Dr. Zamorano 01/30/19. encourage OOB. I/S. PT/OT/ARU screen. 2. Acute blood loss/Lg retroperitoneal hematoma. S/P 6U PRBC, 2 U FFP. 02/11/19.Hemoglobin 9.3. Stable. 3. Thrombocytopenia. Resolved. [place] likely consumptive process. monitor. 4.[place]/ CKD3. Patient's baseline appears to be 1.3-1.5. Serum creatinine this morning is noted to be 1.60. downtrending. Nephrology following. 5. Ileus. Resolved. Pt denies nausea this AM. Having BMs Encourage OOB/ambulation Advanced diet, tolerating Monitor. 6. GERD. IV PPI BID. 7. Rheumatoid arthritis. 8. COPD. Advair Duonebs. 9. Possible OFELIA. NocOx No significant desaturations, would not qualify for nocturnal oxygen supplementation. Few episodic desaturations. Cannot rule out OFELIA, can consider formal sleep testing if clinically indicated. DD: LUCIA SU MD 02/06/19 1131 CPAP as per pulmonary. Pt states he does not tolerate mask, makes him "hyper". 10. Hypokalemia. IV/PO supplement ordered as per Medicine/Nephro. Monitor. VS, I&O, 24H, Fishbone Vital Signs/I&O Vital Signs Date Time Temp Pulse Resp B/P (MAP) Pulse Ox O2 Delivery O2 Flow Rate FiO2 02/11/19 08:14 82 146/66 02/11/19 08:00 98.1 18 95 02/09/19 19:24 1.0 35 02/05/19 20:33 Nasal Cannula I&O- Last 24 Hours up to 6 AM 02/11/19 06:00 Intake Total 1630 ml Output Total 1550 ml Balance 80 ml Laboratory Data 24H LABS Laboratory Tests 2 02/10/19 13:34: Urine Color KEV, Urine Appearance CLEAR, Urine pH 6.0, Urine Specific [place] 1.015, Urine Protein 1+H, Urine Glucose (UA) NEGATIVE, Urine Ketones NEGATIVE, Urine Blood 3+H, Urine Nitrite NEGATIVE, Urine Bilirubin NEGATIVE, Urine Urobilinogen 4.0H, Urine Leukocyte Esterase NEGATIVE, Urine WBC (Auto) 12H, Urine RBC (Auto) 2, Urine Hyaline Casts (Auto) 0, Urine Bacteria (Auto) 1+H, Urine Squamous Epithelial Cells 0, Urine Sperm (Auto) 02/11/19 04:51: Anion Gap 7L, Glomerular Filtration Rate 45.0, Blood Urea Nitrogen 39H, Creatinine 1.60H, Sodium Level 141, Potassium Level 3.5, Chloride Level 111H, Carbon Dioxide Level 23, Calcium Level 7.8L, Aspartate Amino Transf (AST/SGOT) 57H, Alanine Aminotransferase (ALT/SGPT) 58, Alkaline Phosphatase 88, Total Bilirubin 2.2H, Total Protein 6.7, Albumin 2.3L, Magnesium Level 1.8, CA-Rls-E-Type Natriuretic Peptide 612H, Albumin/Globulin Ratio 0.52L CBC/BMP Laboratory Tests 02/11/19 04:51 Calcium Level 7.8 L, Aspartate Amino Transf (AST/SGOT) 57 H, Alanine Aminotransferase (ALT/SGPT) 58, Alkaline Phosphatase 88, Total Bilirubin 2.2 H, Total Protein 6.7, Albumin 2.3 L Microbiology Microbiology 02/10/19 Urine Culture, Received Pending 02/07/19 Urine Culture - Final, Complete Milady Chaney Feb 11, 2019 09:23
[2019-02-11] MEDS ORDERED: HEPA500011 SQ (09:36)
[2019-02-11] MEDS ORDERED: SLF3ML IV ×2 (09:36)
[2019-02-11] MEDS ORDERED: ONDA4TAB5 PO (09:36)
[2019-02-11] MEDS ORDERED: PERCOCET PO (09:36)
[2019-02-11] MEDS ORDERED: KLOR10TA76 PO (09:36)
[2019-02-11] MEDS ORDERED: IPRA0.00 NEB ×2 (09:36)
[2019-02-11] MEDS ORDERED: COLA100C5 PO (09:36)
[2019-02-11] MEDS ORDERED: BENA25CA4 PO (09:36)
[2019-02-11] MEDS ORDERED: PANT40TA3 PO (09:36)
[2019-02-11] MEDS ORDERED: ADVA115A INH (09:36)
--- NOTE | 2019-02-11 10:31 | DS.PDOC ---
Discharge Summary General Date of Admission January 30, 2019 at 11:30 Date of Discharge 02/11/19 Discharge Summary PROCEDURES PERFORMED DURING STAY: aortobiiliac stent graft placement as per Dr. Zamorano 01/30/19. ADMITTING DIAGNOSES: ruptured infrarenal abdominal aortic aneurysm DISCHARGE DIAGNOSES: ruptured infrarenal abdominal aortic aneurysm aortobiiliac stent graft placement as per Dr. Zamorano 01/30/19. HTN Mnire's disease Rheumatoid arthritis GERD Obesity. BMI 33.9 CKD3 Possible OFELIA, intolerant to CPAP COMPLICATIONS/CHIEF COMPLAINT: Ruptured AAA. HISTORY OF PRESENT ILLNESS: 74 yo M who presented to the emergency department reporting chest pain radiating to the back, abdominal pain, and shortness of breath associated with tachypnea and hypotension in the emergency department found to have ruptured infrarenal abdominal aortic aneurysm and was taken urgently to the operating room for a aortobiiliac stent graft placement as per Dr. Zamorano 01/30/19. HOSPITAL COURSE: 74 yo M who presented to the emergency department reporting chest pain radiating to the back, abdominal pain, and shortness of breath associated with tachypnea and hypotension in the emergency department found to have ruptured infrarenal abdominal aortic aneurysm S/P aortobiiliac stent graft placement as per Dr. Zamorano 01/30/19. Postoperatively, pt with [place] on CKD3 managed as per Nephrology, has downtrended ad now back to baseline. Noted to have hypokalemia ith renal recovery s/p supplementation, noted NL this Am. Post oper atively also noted to have nausea and ileus, pt now advanced to regular diet and having regular BMs. Pt noted to have obesity with likely OFELIA, noc ox completed per Pulmonary. CPAP recommended as per Pulmonary however pt states he is unable to tolerate. Pt is felt to be medically stable and is agreeable to transferring to ARU today to the care of Dr Rodriguez. DISCHARGE MEDICATIONS: Please see below. ALLERGIES: Please see below. PHYSICAL EXAMINATION ON DISCHARGE: VITAL SIGNS: Please see below. LABORATORY DATA: Please see below. IMAGING: CTA abdomen/pelvis 1. Ruptured 9.7 cm infrarenal abdominal aortic aneurysm with a fairly large retroperitoneal hematoma. 2. Bilateral renal cysts and hepatic cysts. 3. Fatty infiltration of the liver. The findings were telephoned to the ED at the time of this dictation. Electronically Signed by Kirt Wadsworth MD 01/30/2019 02:[address] evidence of aneurysm or dissection in the thoracic aorta. No CT evidence of pulmonary embolus. Some vascular calcification. Otherwise no acute cardiopulmonary disease. Electronically Signed by Kirt Wadsworth MD 01/30/2019 11:27 A CXR: 01/30/19 Endotracheal tube in satisfactory position. Electronically Signed by Oren Thurman MD 01/30/2019 06:44 P AXR 01/30/19 Status post aortobi-iliac stent graft placement. No opaque foreign body is appreciated. Only catheter in place. Electronically Signed by Kirt Wadsworth MD 01/30/2019 03:16 P CXR 01/31/19 FINDINGS: Endotracheal tube remains in good position at the level of the transverse aorta. EKG electrodes are seen. The lungs are exposed and the relatively low level of inspiration. There is plate-like atelectasis in the left base. There is mild gaseous distension of the stomach. No new infiltrate is seen. Unreviewed DD: Kirt Wadsworth MD 01/31/19 0954 AXR 02/10/19 Status post aortobiiliac stent graft placement for abdominal aortic aneurysm. Persistent gaseous distension of the colon. Electronically Signed by Kirt Wadsworth MD 02/10/2019 03:48 P ACTIVITY: As tolerated. DIET: As tolerated DISCHARGE PLAN: Pt to discharge to [facility] ARU today. Outpt FU with Dr Zamorano. Out pt FU with Dr Villagomez. DISCHARGE CONDITION: Stable. TIME SPENT ON DISCHARGE: Greater than 30 minutes. Vital Signs/I&Os Vital Signs Date Time Temp Pulse Resp B/P (MAP) Pulse Ox O2 Delivery O2 Flow Rate FiO2 02/11/19 08:14 82 146/66 02/11/19 08:00 98.1 18 95 02/09/19 19:24 1.0 35 02/05/19 20:33 Nasal Cannula I&O- Last 24 Hours up to 6 AM 02/11/19 06:00 Intake Total 1630 ml Output Total 1550 ml Balance 80 ml Laboratory Data Labs 24H Laboratory Tests 2 02/10/19 13:34: Urine Color KEV, Urine Appearance CLEAR, Urine pH 6.0, Urine Specific [place] 1.015, Urine Protein 1+H, Urine Glucose (UA) NEGATIVE, Urine Ketones NEGATIVE, Urine Blood 3+H, Urine Nitrite NEGATIVE, Urine Bilirubin NEGATIVE, Urine Urobilinogen 4.0H, Urine Leukocyte Esterase NEGATIVE, Urine WBC (Auto) 12H, Urine RBC (Auto) 2, Urine Hyaline Casts (Auto) 0, Urine Bacteria (Auto) 1+H, Urine Squamous Epithelial Cells 0, Urine Sperm (Auto) 02/11/19 04:51: Anion Gap 7L, Glomerular Filtration Rate 45.0, Blood Urea Nitrogen 39H, Creatinine 1.60H, Sodium Level 141, Potassium Level 3.5, Chloride Level 111H, Ca rbon Dioxide Level 23, Calcium Level 7.8L, Aspartate Amino Transf (AST/SGOT) 57H, Alanine Aminotransferase (ALT/SGPT) 58, Alkaline Phosphatase 88, Total Bilirubin 2.2H, Total Protein 6.7, Albumin 2.3L, Magnesium Level 1.8, XW-Zyp-S-Type Natriuretic Peptide 612H, Albumin/Globulin Ratio 0.52L CBC/BMP Laboratory Tests 02/11/19 04:51 Calcium Level 7.8 L, Aspartate Amino Transf (AST/SGOT) 57 H, Alanine Aminotransferase (ALT/SGPT) 58, Alkaline Phosphatase 88, Total Bilirubin 2.2 H, Total Protein 6.7, Albumin 2.3 L Microbiology Microbiology 02/10/19 Urine Culture - Final, Complete 02/07/19 Urine Culture - Final, Complete Discharge Medications Scheduled Docusate Sodium (Colace) 100 Mg Capsule, 100 MG PO BID Fluticasone Propion/Salmeterol (Advair Hfa 115-21 Mcg Inhaler) 12 Gm Hfa.aer.ad, 2 PUFF INH BID Heparin Sodium,Porcine (Heparin Sodium) 5,000 Unit/1 Ml Vial, 5,000 UNITS SQ BID Ipratropium/Albuterol Sulfate (Iprat-Albut 0.5-3(2.5) mg/3 ml) 3 Ml Ampul.neb, 3 ML NEB RQID Pantoprazole Sodium (Pantoprazole Sodium) 40 Mg Tablet.dr, 40 MG PO DAILY Potassium Chloride (Klor-Con M10) 10 Meq Tab.er.prt, 20 MEQ PO BID Saline Lock Flush (Normal Saline Flush) 3 Ml Syringe, 2 ML IV SLF Scheduled PRN Diphenhydramine HCl (Benadryl) 25 Mg Capsule, 25 MG PO QHSP PRN for INSOMNIA Ipratropium/Albuterol Sulfate (Iprat-Albut 0.5-3(2.5) mg/3 ml) 3 Ml Ampul.neb, 3 ML NEB Q4HP PRN for SOB/WHEEZING Ondansetron HCl (Ondansetron HCl) 4 Mg Tablet, 4 MG PO Q6HP PRN for NAUSEA OR VOMITING Oxycodone/Acetaminophen (Oxycodone-Acetaminophen 5-325) 1 Each Tablet, 1 TAB PO Q4HP PRN for MILD/MODERATE PAIN (PS 1-7) Saline Lock Flush (Normal Saline Flush) 3 Ml Syringe, 2 ML IV ASDIRECTED PRN for SEE LABEL COMMENTS Allergies Coded Allergies: NSAIDS (Non-Steroidal Anti-Inflamma (Verified Allergy, Unknown, SWOLLEN LIPS, 01/30/19) ibuprofen (Verified Allergy, Unknown, SWOLLEN LIPS, 01/30/19) naproxen (Verified Allergy, Unknown, SWOLLEN LIPS, 01/30/19) Milady Chaney Feb 11, 2019 10:31
--- NOTE | 2019-02-11 20:05 | ECHO ---
DATE OF PROCEDURE: 02/11/2019 REFERRING PHYSICIAN: Dr. Homar Villagomez INDICATION: Congestive heart failure. Height 168 cm, weight 96 kg. DIMENSIONS: IVS: 1.1 LV: 5.1 LVPW: 1.0 LA: 4.0 Aorta: 3.8 IVC: 1.1 Left atrial volume index: 28 Mitral E wave velocity: 81 A wave: 122 E prime septal: 6.9 E prime lateral: 6.2 FINDINGS: The study is of fair technical quality but useful information was obtained. The patient is in sinus rhythm. Left ventricle is normal size and systolic function, I estimate left ventricular ejection fraction (LVEF) 60-65%. No segmental wall motion abnormalities are noted. Right ventricle appears to be normal size and systolic function. There is at least mild left atrial enlargement. Right atrium appears normal. No pericardial effusion is noted. Aortic valve is mildly sclerotic but it has three cusps and normal mobility. There are mild degenerative abnormalities of mitral valve with mitral annular calcifications. Tricuspid and pulmonic valves appear normal. No pericardial effusion is noted. Inferior vena cava is normal size. Aortic root is normal. Aortic arch and abdominal aorta were not visualized. Doppler interrogation of aortic valve reveals no stenosis or insufficiency. There is mild mitral and tricuspid insufficiency. Calculated pulmonary artery pressure is within normal limits. Mild pulmonic insufficiency is seen. Mitral inflow pattern and tissue Doppler imaging of mitral annulus revealed grade 1 diastolic dysfunction. CONCLUSIONS: 1. Study is of fair technical quality. 2. Normal LV size with preserved LV systolic function and grade 1 diastolic dysfunction. 3. No significant valvular disease. 4. Normal central venous pressure and likely normal pulmonary artery pressure. COMMENT: Subacute bacterial endocarditis (SBE) prophylaxis is not recommended. Study is not overly supportive of diagnosis of congestive heart failure.
--- NOTE | 2019-02-11 21:32 | IPN ---
DATE: 02/11/2019 Mr. Reis is seen this morning on his bedside. He is laying in the bed without any acute distress. His family and nursing staff are present in the room. Nursing staff has informed me the patient is going to acute rehab unit today for rehab. He continues to have some nausea and abdominal bloating, but denies any vomiting or diarrhea. He does get short of breath on ambulation but at rest he feels well. PHYSICAL EXAMINATION: Temperature 98.1 degrees Fahrenheit, heart rate 82 per minute and respiratory rate 18 per minute. Blood pressure 146/66 mmHg and oxygen saturation 95% on room air. His head is atraumatic. There is no oral thrush or ulcers. Neck: Supple and jugular venous distention (JVD) is not abnormally elevated. Heart sounds regular and lungs with slightly diminished breath sounds at bases. Abdomen is slightly protuberant but nontender. Bowel sounds are hypoactive. Extremities: Without any cyanosis or clubbing. Today's labs show sodium 141, potassium 3.5, CO2 of 23, BUN 39 and creatinine 1.6. PROBLEMS: 1. Acute renal failure superimposed on chronic kidney disease. Kidney function seems to be leveled off, and this is probably his baseline function. No changes are being made today. He is currently not on any intravenous (IV) fluid or diuretic. 2. Hypokalemia. His potassium level did improve with supplement yesterday. He is likely to require further potassium supplementation. Electrolytes should be checked periodically while he is going to acute rehab floor. 3. Congestive heart failure. He does have a history of congestive heart failure with slightly elevated BNP level. However, clinically his volume status is well compensated, and he is laying in the bed comfortably in supine position. We will continue to monitor and use diuretic only as needed. 4. Generalized weakness and deconditioning. The patient is going to be transferred to acute rehab floor today for rehab. TRUNG
[2019-02-17] MEDS ORDERED: OXYCO5TA PO (09:30)
== END 2019-02-11 12:05 | DRG 268 ==
LOC: M ED 10:42 → M ED INP 11:30 → M ICU 17:22 → M PCU 02-04 15:17
PROVIDERS: ADMIT Surgery Vascular Surgery; ATTEND Surgery Vascular Surgery
PROC: 30233N1 Transfusion of Nonautologous Red Blood Cells into Peripheral Vein, Percutaneous Approach (ICD-10-PCS; 2019-01-30)
PROC: 30233K1 Transfusion of Nonautologous Frozen Plasma into Peripheral Vein, Percutaneous Approach (ICD-10-PCS; 2019-01-30)
PROC: 5A1955Z Respiratory Ventilation, Greater than 96 Consecutive Hours (ICD-10-PCS; 2019-01-30)
PROC: 04V03DZ Restriction of Abdominal Aorta with Intraluminal Device, Percutaneous Approach (ICD-10-PCS; principal; 2019-01-30 11:30)
DX: I71.3 Abdominal aortic aneurysm, ruptured (principal); K66.1 Hemoperitoneum; R57.8 Other shock; N17.0 Acute kidney failure with tubular necrosis; J96.00 Acute respiratory failure, unspecified whether with hypoxia or hypercapnia; R57.1 Hypovolemic shock; D62 Acute posthemorrhagic anemia; K56.7 Ileus, unspecified; I12.9 Hypertensive chronic kidney disease with stage 1 through stage 4 chronic kidney disease, or unspecified chronic kidney disease; N18.3 Chronic kidney disease, stage 3 (moderate); E66.9 Obesity, unspecified; M06.9 Rheumatoid arthritis, unspecified; Z68.33 Body mass index [BMI] 33.0-33.9, adult; G47.33 Obstructive sleep apnea (adult) (pediatric); H81.09 Meniere's disease, unspecified ear; Z79.899 Other long term (current) drug therapy; Z88.6 Allergy status to analgesic agent; Z88.8 Allergy status to other drugs, medicaments and biological substances; K21.9 Gastro-esophageal reflux disease without esophagitis; Z96.651 Presence of right artificial knee joint; Z96.652 Presence of left artificial knee joint; D69.6 Thrombocytopenia, unspecified; I95.9 Hypotension, unspecified; E87.6 Hypokalemia; I50.9 Heart failure, unspecified

== ENCOUNTER 2019-02-11 10:25 | Inpatient (IN) | payer MEDICARE ==
[~2019-02-11] VITALS: Ht 167.6 cm; Wt 119.3 kg
[~2019-02-11 10:25] MED LIST changes: +ADVA115A INH; +BENA25CA4 PO; +COLA100C5 PO; +HEPA500011 SQ; +IPRA0.00 NEB; +KLOR10TA76 PO; +MECL25CH45 PO; +MELO7.5T35 PO; +ONDA4TAB5 PO; +PANT40TA3 PO; +PERCOCET PO; +SLF3ML IV
[2019-02-11 12:20] VITALS: BP 161/75
[2019-02-11 14:01] VITALS: BP 160/70
[2019-02-11] MEDS ORDERED: ONDANSETRON 4 MG TAB (S0181) PO ONE (16:00)
[2019-02-11] MEDS ORDERED: MAALOX 30 ML SUSP *UDC PO PRN (16:15)
[2019-02-11] MEDS ORDERED: ONDANSETRON 4 MG TAB (S0181) PO PRN (16:15)
[2019-02-11] MEDS ORDERED: BISACODYL 10 MG SUPP PR PRN (16:15)
[2019-02-11] MEDS ORDERED: oxyCODONE 5MG TAB PO PRN ×2 (16:15→17:15)
[2019-02-11] MEDS ORDERED: BISACODYL 10 MG SUPP PR ONE (18:15)
[2019-02-11 20:00] VITALS: BP 150/71
[2019-02-11] MEDS: ADVAIR HFA 230/21MCG INHALER INH SCH (20:05)
[2019-02-11] MEDS: IPRATROPIUM 0.5MG/ALBUTEROL 2.5MG INH SOL UD 3ML (DUONEB)(J7620) NEB SCH (20:05)
[2019-02-11] MEDS: BOUDREAUX'S BUTT PASTE TOP SCH (21:00)
[2019-02-11] MEDS: POTASSIUM CHLORIDE 10 MEQ SR TABLET PO SCH (21:22)
[2019-02-11] MEDS: DOCUSATE SODIUM 100 MG CAP PO SCH (21:22)
[2019-02-11] MEDS: HEPARIN SOD (PORCINE) 5000 UNITS/ML VIAL SC SCH (21:22)
[2019-02-11] MEDS: SIMETHICONE 80 MG CHEW TAB PO SCH (21:22)
[2019-02-11] MEDS: ACETAMINOPHEN TAB 650MG DOSE (2X325MG) PO PRN (21:23)
[2019-02-12 05:43] LABS: BASO % 0.4 % (0.0-1.0); EOS % 0.8 % (0.0-3.0); HEMATOCRIT 30.4 % (42.0-52.0); HEMOGLOBIN 9.5 g/dl (13.5-17.5); LYMPH # 0.7 10^3/uL (1.5-4.5); LYMPH % 13.9 % (24.0-44.0); MEAN CORPUSCULAR HEMOGLOBIN 29.8 pg (27.0-33.0); MEAN CORPUSCULAR HGB CONC 31.3 g/dl (32.0-36.5); MEAN CORPUSCULAR VOLUME 95.3 fl (80.0-96.0); MONO # 0.5 10^3/uL (0.0-0.8); MONO % 10.3 % (0.0-5.0); NEUTROPHILS # 3.9 10^3/uL (1.8-7.7); NEUTROPHILS % 73.3 % (36.0-66.0); PLATELET COUNT, AUTOMATED 226 10^3/uL (150-450); RED BLOOD COUNT 3.19 10^6/uL (4.30-6.10); WHITE BLOOD COUNT 5.3 10^3/uL (4.0-10.0)
[2019-02-12 06:00] VITALS: BP 135/63
[2019-02-12 06:16] LABS: ALBUMIN 2.3 GM/DL (3.2-5.2); BILIRUBIN,TOTAL 1.9 MG/DL (0.2-1.0); CALCIUM LEVEL 7.9 MG/DL (8.8-10.2); CREATININE FOR GFR 1.49 MG/DL (0.70-1.30); GLOMERULAR FILTRATION RATE 48.8 (>42); POTASSIUM SERUM 3.6 MEQ/L (3.5-5.1); TOTAL PROTEIN 6.7 GM/DL (6.4-8.2)
[2019-02-12] MEDS: ADVAIR HFA 230/21MCG INHALER INH SCH ×2 (08:00→19:55)
[2019-02-12] MEDS: IPRATROPIUM 0.5MG/ALBUTEROL 2.5MG INH SOL UD 3ML (DUONEB)(J7620) NEB SCH ×4 (08:00→19:55)
[2019-02-12] MEDS: BOUDREAUX'S BUTT PASTE TOP SCH ×2 (09:00→20:42)
[2019-02-12] MEDS ORDERED: PANTOPRAZOLE 40MG TAB (PROTONIX) PO SCH (09:00)
[2019-02-12] MEDS: DOCUSATE SODIUM 100 MG CAP PO SCH ×2 (09:37→20:41)
[2019-02-12] MEDS: POTASSIUM CHLORIDE 10 MEQ SR TABLET PO SCH ×2 (09:38→20:42)
[2019-02-12] MEDS: SIMETHICONE 80 MG CHEW TAB PO SCH ×3 (09:38→20:42)
[2019-02-12] MEDS: PANTOPRAZOLE 40MG TAB (PROTONIX) PO SCH (09:38)
[2019-02-12] MEDS: HEPARIN SOD (PORCINE) 5000 UNITS/ML VIAL SC SCH ×2 (09:38→20:42)
[2019-02-12] MEDS: FLUTICASONE PROP 0.05% NASAL SPRAY 16 GM (FLONASE) NARES SCH (09:39)
[2019-02-12] MEDS: BISOPROLOL FUMARATE 5 MG TAB PO SCH (09:42)
--- NOTE | 2019-02-12 10:48 | IPNPDOC ---
Date Seen The patient was seen on 02/12/19. Progress Note Vascular surgery. Dr. Zamorano Nephrology Dr Okeefe PCP: Dr. Villagomez HPI: 74 yo M who presented to the emergency department reporting chest pain radiating to the back, abdominal pain, and shortness of breath associated with tachypnea and hypotension in the emergency department found to have ruptured infrarenal abdominal aortic aneurysm and was taken urgently to the operating room for a aortobiiliac stent graft placement as per Dr. Zamorano 01/30/19. The pt transferred to the care of ARU, DR Rodriguez, 02/11/19. The patient states he is feeling well. No verbalized concerns. PMHx: Mnire's disease Rheumatoid arthritis GERD Hypertension Obesity. BMI 33.9 CKD3 PSHX: Bilateral total knee arthroplasty Left arm fracture Right eye surgery PE: GEN: 74 yo M, comfortable in bed. HEENT: Normocephalic, atraumatic. MMM. CHEST: Regular rate and rhythm, +S1, +S2 LUNGS: Decreased breath sounds at bases bilaterally. No wheezes, rales, or rhonchi. ABD: Round. NT, Bowel sounds active in all quad. EXT: Pulses 2+ bilaterally dorsalis pedis and radial. no lower extremity edema appreciated. SKIN: [place], dry, warm. Capillary refill <2sec. No rashes. CTA abdomen/pelvis 1. Ruptured 9.7 cm infrarenal abdominal aortic aneurysm with a fairly large retroperitoneal hematoma. 2. Bilateral renal cysts and hepatic cysts. 3. Fatty infiltration of the liver. The findings were telephoned to the ED at the time of this dictation. Electronically Signed by Kirt Wadsworth MD 01/30/2019 02:[address] evidence of aneurysm or dissection in the thoracic aorta. No CT evidence of pulmonary embolus. Some vascular calcification. Otherwise no acute cardiopulmonary disease. Electronically Signed by Kirt Wadsworth MD 01/30/2019 11:27 A CXR: 01/30/19 Endotracheal tube in satisfactory position. Electronically Signed by Oren Thurman MD 01/30/2019 06:44 P AXR 01/30/19 Status post aortobi-iliac stent graft placement. No opaque foreign body is appreciated. Only catheter in place. Electronically Signed by Kirt Wadsworth MD 01/30/2019 03:16 P CXR 01/31/19 FINDINGS: Endotracheal tube remains in good position at the level of the transverse aorta. EKG electrodes are seen. The lungs are exposed and the relatively low level of inspiration. There is plate-like atelectasis in the left base. There is mild gaseous distension of the stomach. No new infiltrate is seen. Unreviewed DD: Kirt Wadsworth MD 01/31/19 0954 A&P: 74 yo M who presented to the emergency department reporting chest pain radiating to the back, abdominal pain, and shortness of breath associated with tachypnea and hypotension in the emergency department found to have ruptured infrarenal abdominal aortic aneurysm and was taken urgently to the operating room for a aortobiiliac stent graft placement as per Dr. Zamorano 01/30/19. 1. Ruptured infrarenal abdominal aortic aneurysm/status post aortobiiliac stent graft placement as per Dr. Zamorano 01/30/19. D/W Dr Zamorano, recommend add ASA 81mg daily. I/S. PT/OT as per ARU. Dispo as per ARU. 2. Acute blood loss/Lg retroperitoneal hematoma. S/P 6U PRBC, 2 U FFP. Hemoglobin 9.5. Stable. 3. Thrombocytopenia. Resolved. [place] likely consumptive process. monitor. 4.[place]/ CKD3. Patient's baseline appears to be 1.3-1.5. Serum creatinine this morning is noted to be 1.49. at baseline. Nephrology following. Avod nephrotoxic meds, Avoid NSAID. 5. Ileus. Resolved. Pt denies nausea this AM. Having BMs 6. GERD. IV PPI BID. 7. Rheumatoid arthritis. 8. COPD. Advair Duonebs. 9. Possible OFELIA. NocOx No significant desaturations, would not qualify for nocturnal oxygen supplementation. Few episodic desaturations. Cannot rule out OFELIA, can consider formal sleep testing if clinically indicated. DD: LUCIA SU MD 02/06/19 1131 CPAP as per pulmonary. Pt states he does not tolerate mask, makes him "hyper". 10. Hypokalemia. PO supplement ordered as per Nephro. Monitor. VS, I&O, 24H, Fishbone Vital Signs/I&O Vital Signs Date Time Temp Pulse Resp B/P (MAP) Pulse Ox O2 Delivery O2 Flow Rate FiO2 02/12/19 09:42 75 140/65 02/12/19 06:00 97.6 19 97 I&O- Last 24 Hours up to 6 AM 02/12/19 06:00 Intake Total 360 ml Balance 360 ml Laboratory Data 24H LABS Laboratory Tests 2 02/12/19 05:30: Immature Granulocyte % (Auto) 1.3, White Blood Count 5.3, Red Blood Count 3.19L, Hemoglobin 9.5L, Hematocrit 30.4L, Mean Corpuscular Volume 95.3, Mean Corpuscular Hemoglobin 29.8, Mean Corpuscular Hemoglobin Concent 31.3L, Red Cell Distribution Width 16.2H, Platelet Count 226, Neutrophils (%) (Auto) 73.3H, Lymphocytes (%) (Auto) 13.9L, Monocytes (%) (Auto) 10.3H, Eosinophils (%) (Auto) 0.8, Basophils (%) (Auto) 0.4, Neutrophils # (Auto) 3.9, Lymphocytes # (Auto) 0.7L, Monocytes # (Auto) 0.5, Eosinophils # (Auto) 0.0, Basophils # (Auto) 0.0, Nucleated Red Blood Cells % (auto) 0.0, Anion Gap 8, Glomerular Filtration Rate 48.8, Blood Urea Nitrogen 31H, Creatinine 1.49H, Sodium Level 142, Potassium Level 3.6, Chloride Level 112H, Carbon Dioxide Level 22, Calcium Level 7.9L, Aspartate Amino Transf (AST/SGOT) 56H, Alanine Aminotransferase (ALT/SGPT) 56, Alkaline Phosphatase 88, Total Bilirubin 1.9H, Total Protein 6.7, Albumin 2.3L, PZ-[id number]-U-Type Natriuretic Peptide 692H, Albumin/Globulin Ratio 0.52L CBC/BMP Laboratory Tests 02/12/19 05:30 Red Blood Count 3.19 L, Mean Corpuscular Volume 95.3, Mean Corpuscular Hemoglobin 29.8, Mean Corpuscular Hemoglobin Concent 31.3 L, Red Cell Distribution Width 16.2 H, Neutrophils (%) (Auto) 73.3 H, Lymphocytes (%) (Auto) 13.9 L, Monocytes (%) (Auto) 10.3 H, Eosinophils (%) (Auto) 0.8, Basophils (%) (Auto) 0.4, Neutrophils # (Auto) 3.9, Lymphocytes # (Auto) 0.7 L, Monocytes # (Auto) 0.5, Eosinophils # (Auto) 0.0, Basophils # (Auto) 0.0, Calcium Level 7.9 L, Aspartate Amino Transf (AST/SGOT) 56 H, Alanine Aminotransferase (ALT/SGPT) 56, Alkaline Phosphatase 88, Total Bilirubin 1.9 H, Total Protein 6.7, Albumin 2.3 L Milady Chaney Feb 12, 2019 10:48
--- NOTE | 2019-02-12 11:08 | IPNPDOC ---
PM&R Progress Note DATE OF SERVICE: Feb 12, 2019 Efficiency Clerk Progress Note Subjective: Patient reports he slept well ad had a bowel movement and is feeling better this morning. REVIEW OF SYSTEMS: The following is a completed review of systems and has been reviewed. Review of systems otherwise unremarkable. PAIN: Patient self reports no pain EYES: no recent vision loss EARS, NOSE, & THROAT: no dysphagia, no rhinorrhea or throat pain CARDIOVASCULAR: denies chest pain or palpitations PULMONARY: +exertional dyspnea GASTROINTESTINAL: +constipation GENITOURINARY: +intermittent burning with urination NEUROLOGICAL: no tremor or seizure activity, recent delirium HEMATOLOGICAL: +anemia SKIN: bilateral groin incision PSYCHIATRIC: Unremarkable All other review of systems found to be negative. PHYSICAL EXAMINATION: VITAL SIGNS: Please see below. GENERAL: Pleasant and cooperative. No acute distress. HEENT: PERRL. Extraocular movements intact. Clear conjunctiva CARDIOVASCULAR: Regular rate and rhythm. No murmurs, rubs, or gallops LUNGS: Clear to auscultation bilaterally. No wheezes. No rhonchi ABDOMEN: Soft, nontender, mildly distended Positive bowel sounds. Normal active bowel sound NEUROLOGICAL: [Alert and oriented times three. Cranial nerves II through XII grossly intact. Sensation grossly intact in all 4 limbs negative babinski bilat, no pronator drift EXTREMITIES: 5/5 strength bilateral upper extremities. 5\5 strength right lower extremity. 5/5 strength in left lower extremity. negative Homans bilat SKIN:bilateral inguinal vicente- c/d/i, stage 2 ulcer right inner buttock ASSESSMENT:74-year-old M with past medical history of diastolic CHF who presents status post AAA-rupture s/p repair with respiratory failure requiring mechanical ventilation. PLAN: 1. rehab: PT, OT- will work on endurance training, goal to minimize exertional dyspnea, optimize ADLs while avoiding dizziness in setting of Meniere's, work on fall prevention, avoid isometric exercises increasing intra-abdominal pressure -ambulating with cane 2. Neuro: recent episodes of delirium, will d/c opioids, check UA given dysuria, and avoid deliriogenic meds 3. CArdio: s/p AAA rupture on 01/30/19 with aorto-iliac graft placed by Dr. Zamorano with retroperitoneal hematoma requiring multple units of rbcs, with exacerbation of diastolic CHF (recent ECHO showing grade 2 diastolic dysfunction) requiring diuresis, c/u to hold diuretics, consulted medicine and renal to advise on fluid management -f/u with Dr. Zamorano outpatient (consulted) -h HTN c/u Bisoprolol 4. Resp: recent respiratory failure requiring mechanical ventilation, will refer for outpatient sleep study for concern for OFELIA, encourage incentive spirometry -c/u Advair 5. Renal: recent oliguric anuria in setting of ATN, will consult renal to follow 6. GI: recent ileus, patient reporting improvements in bowel movements, c/u bowel care -Protonix for ppx 7. DVT ppx: heparin 8. Pain: tylenol 9. SKin: zinc oxide to sacrum 10. Dispo: TBD Allergies Coded Allergies: NSAIDS (Non-Steroidal Anti-Inflamma (Verified Allergy, Unknown, SWOLLEN LIPS, 01/30/19) ibuprofen (Verified Allergy, Unknown, SWOLLEN LIPS, 01/30/19) naproxen (Verified Allergy, Unknown, SWOLLEN LIPS, 01/30/19) Vital Signs Vital Signs Date Time Temp Pulse Resp B/P (MAP) Pulse Ox O2 Delivery O2 Flow Rate FiO2 02/12/19 09:42 75 140/65 02/12/19 06:00 97.6 19 97 Laboratory Data CBC/BMP Laboratory Tests 02/12/19 05:30 Red Blood Count 3.19 L, Mean Corpuscular Volume 95.3, Mean Corpuscular Hemoglobin 29.8, Mean Corpuscular Hemoglobin Concent 31.3 L, Red Cell Distribution Width 16.2 H, Neutrophils (%) (Auto) 73.3 H, Lymphocytes (%) (Auto) 13.9 L, Monocytes (%) (Auto) 10.3 H, Eosinophils (%) (Auto) 0.8, Basophils (%) (Auto) 0.4, Neutrophils # (Auto) 3.9, Lymphocytes # (Auto) 0.7 L, Monocytes # (Auto) 0.5, Eosinophils # (Auto) 0.0, Basophils # (Auto) 0.0, Calcium Level 7.9 L, Aspartate Amino Transf (AST/SGOT) 56 H, Alanine Aminotransferase (ALT/SGPT) 56, Alkaline Phosphatase 88, Total Bilirubin 1.9 H, Total Protein 6.7, Albumin 2.3 L Labs 24H Laboratory Tests 2 02/12/19 05:30: Immature Granulocyte % (Auto) 1.3, White Blood Count 5.3, Red Blood Count 3.19L, Hemoglobin 9.5L, Hematocrit 30.4L, Mean Corpuscular Volume 95.3, Mean Corpuscular Hemoglobin 29.8, Mean Corpuscular Hemoglobin Concent 31.3L, Red Cell Distribution Width 16.2H, Platelet Count 226, Neutrophils (%) (Auto) 73.3H, Lymphocytes (%) (Auto) 13.9L, Monocytes (%) (Auto) 10.3H, Eosinophils (%) (Auto) 0.8, Basophils (%) (Auto) 0.4, Neutrophils # (Auto) 3.9, Lymphocytes # (Auto) 0.7L, Monocytes # (Auto) 0.5, Eosinophils # (Auto) 0.0, Basophils # (Auto) 0.0, Nucleated Red Blood Cells % (auto) 0.0, Anion Gap 8, Glomerular Filtration Rate 48.8, Blood Urea Nitrogen 31H, Creatinine 1.49H, Sodium Level 142, Potassium Level 3.6, Chloride Level 112H, Carbon Dioxide Level 22, Calcium Level 7.9L, Aspartate Amino Transf (AST/SGOT) 56H, Alanine Aminotransferase (ALT/SGPT) 56, Alkaline Phosphatase 88, Total Bilirubin 1.9H, Total Protein 6.7, Albumin 2.3L, PQ-Iyp-J-Type Natriuretic Peptide 692H, Albumin/Globulin Ratio 0.52L Current Medications Current Medications Current Medications Acetaminophen (Tylenol Tab) 650 mg Q4HP PRN PO fever/MILD PAIN (PS 1-4) Last administered on 02/11/19at 21:23; Start 02/11/19 at 16:15 Al Hydrox/Mg Hydrox/Simethicone (Mylanta) 30 ml Q4HP PRN PO DYSPEPSIA; Start 02/11/19 at 16:15 Albuterol/ Ipratropium (Duoneb (Ipr 0.5mg/Alb 2.5mg)) 3 ml RQID NEB Last administered on 02/11/19at 20:05; Start 02/11/19 at 20:00 Bisacodyl (Dulcolax Suppository) 10 mg DAILYPRN PRN HI CONSTIPATION; Start 02/11/19 at 16:15 Bisoprolol Fumarate (Zebeta) 5 mg DAILY PO Last administered on 02/12/19at 09:42; Start 02/12/19 at 09:00 Docusate Sodium (Colace) 100 mg BID PO Last administered on 02/12/19 09:37; Start 02/11/19 at 21:00 Fluticasone Propionate (Flonase 0.05% Nasal Sesser) 2 spray DAILY NARES Last administered on 02/12/19 09:39; Start 02/12/19 at 09:00 Heparin Sodium (Porcine) (Heparin) 5,000 units Q12H SC Last administered on 02/12/19 09:38; Start 02/11/19 at 21:00 Ondansetron HCl (Zofran) 4 mg Q6HP PRN PO NAUSEA; Start 02/11/19 at 16:15 Oxycodone HCl (Roxicodone, Oxyir) 5 mg Q4HP PRN PO PAIN; Start 02/11/19 at 16:15; Stop 02/11/19 at 17:05; Status DC Oxycodone HCl (Roxicodone, Oxyir) 5 mg Q8HP PRN PO PAIN; Start 02/11/19 at 17:15 Pantoprazole Sodium (Protonix) 40 mg DAILY PO ; Start 02/12/19 at 09:00; Stop 02/12/19 at 09:00; Status DC Pantoprazole Sodium (Protonix) 40 mg DAILY PO Last administered on 02/12/19 09:38; Start 02/12/19 at 09:00 Potassium Chloride (Micro-K Extencaps) 20 meq BID PO Last administered on 02/12/19 09:38; Start 02/11/19 at 21:00 Salmeterol Xinafoate/ Fluticasone (Advair Hfa 230/ 21) 2 puff BID INH Last administered on 02/12/19 08:00; Start 02/11/19 at 21:00 Simethicone (Mylicon) 80 mg TID PO Last administered on 02/12/19 09:38; Start 02/11/19 at 21:00 Zinc Oxide (Boudreauxs Butt Paste) sacrum- clean first BID TOP ; Start 02/11/19 at 21:00 SUMMER COY MD Feb 12, 2019 11:08
--- NOTE | 2019-02-12 11:08 | HPEPDOC ---
[facility] Lead Note DATE OF ADMISSION: Feb 11, 2019 at 1603 SOURCE OF ADMISSION INFORMATION: [facility] records and patient CHIEF COMPLAINT: AAA-rupture s/p stenting with acute respiratory failure and CHF HISTORY OF PRESENT ILLNESS: 74M RA, HTN, GERD, obesity, Menieres, ex-smoker who presented to [facility] ED on pmh on 01/30/19 complaining of chest pain that radiated to the back. CTA revealed Ruptured 9.7 cm infrarenal abdominal aortic aneurysm with a fairly large retroperitoneal hematoma. He had bilateral aortoiliac stent grafts placed by Dr. Zamorano and was given several units of prbcs, requiring blood pressure support. He initially required mechanical ventilation, but was eventually weaned to BIPAP. He had acute oliguric renal failure in the setting of acute tubular ne crosis and was given Lasix and Diuril per renal who assisted in his care. He was transferred out of the ICU on 02/04/19 and had his diet advanced gradually after being NPO. He had episodes of hypokalemia and thrombocytopenia, in addition to ileus which improved. He also had episodes of delirium thought to be from hypercapnia and it was recommended that he obtain a sleep study as an outpatient to look for OFELIA. He was evaluated by therapy and required assistance with ambulation with a RW and help with lower body dressing which was below his prior level of function. Prior to discharge he had an ECHO performed showing persevered LVEF and grade 2 diastolic heart failure. He was deemed medically ap propriate for discharge to ARU on 02/11/19. REVIEW OF SYSTEMS: The following is a completed review of systems and has been reviewed. Review of systems otherwise unremarkable. PAIN: Patient self reports no pain EYES: no recent vision loss EARS, NOSE, & THROAT: no dysphagia, no rhinorrhea or throat pain CARDIOVASCULAR: denies chest pain or palpitations PULMONARY: +exertional dyspnea GASTROINTESTINAL: +constipation GENITOURINARY: +intermittent burning with urination NEUROLOGICAL: no tremor or seizure activity, recent delirium HEMATOLOGICAL: +anemia SKIN: bilateral groin incision PSYCHIATRIC: Unremarkable All other review of systems found to be negative. PAST MEDICAL HISTORY: As per HPI PAST SURGICAL HISTORY: bilat knee replacements, right eye surgery, left arm surgery ALLERGIES: Please see below. MEDICATIONS: Please see below. SOCIAL HISTORY: ex-smoker, ETOH occasionally, no illicit drugs, lives with DIET: low sodium PHYSICAL EXAMINATION: VITAL SIGNS: Please see below. GENERAL: Pleasant and cooperative. No acute distress. HEENT: PERRL. Extraocular movements intact. Clear conjunctiva CARDIOVASCULAR: Regular rate and rhythm. No murmurs, rubs, or gallops LUNGS: Clear to auscultation bilaterally. No wheezes. No rhonchi ABDOMEN: Soft, nontender, mildly distended Positive bowel sounds. Normal active bowel sound NEUROLOGICAL: [Alert and oriented times three. Cranial nerves II through XII grossly intact. Sensation grossly intact in all 4 limbs negative babinski bilat, no pronator drift EXTREMITIES: 5/5 strength bilateral upper extremities. 5\5 strength right lower extremity. 5/5 strength in left lower extremity. negative Homans bilat SKIN:bilateral inguinal vicente- c/d/i, stage 2 ulcer right inner buttock IMAGING: Imaging documentation personally reviewed by record FUNCTIONAL STATUS: Premorbid: Modified Independent with all activities of daily life as well as mobility with a cane. On Admission: COntact guard for ambulation, functional transfers, stand-by assist for upper body dressing, requring more assistance with lower body dressing, exertional dyspnea. GOALS: Modified Independent with cane walking community distances and stair negotiation without dyspnea, Mod-I for bathing, dressing, toileting, dynamic balance training, fall recovery, caregiver training, diet and lifestyle modification education. ASSESSMENT:74-year-old M with past medical history of diastolic CHF who presents status post AAA-rupture s/p repair with respiratory failure requiring mechanical ventilation. PLAN: 1. rehab: PT, OT- will work on endurance training, goal to minimize exertional dyspnea, optimize ADLs while avoiding dizziness in setting of Meniere's, work on fall prevention, avoid isometric exercises increasing intra-abdominal pressure 2. Neuro: recent episodes of delirium, will d/c opioids, check UA given dysuria, and avoid deliriogenic meds 3. CArdio: s/p AAA rupture on 01/30/19 with aorto-iliac graft placed by Dr. Zamorano with retroperitoneal hematoma requiring multple unit sof rbcs, with exacerbation of diastolic CHF (recent ECHO showing grade 2 diastolic dysfunction) requiring diuresis, c/u to hold diuretics, will consult emdicine and renal to advise on fluid management -f/u with Dr. Zamorano outpatient (consulted) -[facility] HTN c/u Bisoprolol 4. Resp: recent respiratory failure requiring mechanical ventilation, will refer for outpatient sleep study for concern for OFELIA, encourage incentive spirometry -c/u Advair 5. Renal: recent oliguric anuria in setting of ATN, will consult renal to follow 6. GI: recent ileus, patient reporting he had a bowel movement earlier today, but feels bloated and nauseaous- will give suppository and optimize bowel care -Protonix for ppx 7. DIVT ppx: heparin 8. Pain: tylenol 9. SKin: zinc oxide to sacrum 10. Dispo: TBD POST ADMISSION PHYSICIAN EVALUATION: Medical and functional status: Description of medical status, medical assessment: As above. Rehabilitation diagnosis and current and prior cold morbid medical conditions as above. Risk of complications and plans to mitigate them as above. Description of functional status current status is as above. Prior status as above. Status compared to preadmission: There are no clinically significant differences between the patient's current status and the information described on the pre admission screening document. Treatment plan anticipated: Treatment plan is as described above. Required disciplines including physical therapy, occupational therapy, others as noted above Intensity of services: 3 hours a day, 6 days a week. Special considerations: There are no specific special or safety considerations that would likely preclude immediate implementation of an intensive rehabilitation program or subsequently influence the plan of care. ATTESTATION: Considering all the information above, it is my best judgment that this patient requires intensive rehabilitation therapy as described above and an inpatient hospital environment due to the complexity of nursing, medical, and rehabilitation needs required by the patient. Furthermore, this patient can reasonably be expected to participate in an benefit from an inpatient rehabilitation stay with an interdisciplinary team approach to the delivery of rehabilitation care under the direction and supervision of rehabilitation physician. PROGNOSIS: Excellent ESTIMATED LENGTH OF STAY:8-10 days. PROJECTED DISCHARGE DESTINATION: Home with family support and any durable medical equipment required to increase functional safety and mobility. TIME SPENT COUNSELING AND COORDINATING INITIAL CARE: Greater than 70 minutes. Vital Signs Vital Sign - Last 24 Hours 02/11/19 02/11/19 02/11/19 02/12/19 12:20 20:00 20:05 06:00 Temp 97.4 98.9 97.6 Pulse 77 72 80 Resp 18 17 14 19 B/P (MAP) 161/75 (103) 150/71 (97) 135/63 (87) Pulse Ox 96 96 97 02/12/19 09:42 Pulse 75 B/P (MAP) 140/65 Laboratory Data CBC/BMP Laboratory Tests 02/12/19 05:30 Red Blood Count 3.19 L, Mean Corpuscular Volume 95.3, Mean Corpuscular Hemoglobin 29.8, Mean Corpuscular Hemoglobin Concent 31.3 L, Red Cell Distribution Width 16.2 H, Neutrophils (%) (Auto) 73.3 H, Lymphocytes (%) (Auto) 13.9 L, Monocytes (%) (Auto) 10.3 H, Eosinophils (%) (Auto) 0.8, Basophils (%) (Auto) 0.4, Neutrophils # (Auto) 3.9, Lymphocytes # (Auto) 0.7 L, Monocytes # (Auto) 0.5, Eosinophils # (Auto) 0.0, Basophils # (Auto) 0.0, Calcium Level 7.9 L, Aspartate Amino Transf (AST/SGOT) 56 H, Alanine Aminotransferase (ALT/SGPT) 56, Alkaline Phosphatase 88, Total Bilirubin 1.9 H, Total Protein 6.7, Albumin 2.3 L Labs 24H Laboratory Tests 2 02/12/19 05:30: Immature Granulocyte % (Auto) 1.3, White Blood Count 5.3, Red Blood Count 3.19L, Hemoglobin 9.5L, Hematocrit 30.4L, Mean Corpuscular Volume 95.3, Mean Corpuscular Hemoglobin 29.8, Mean Corpuscular Hemoglobin Concent 31.3L, Red Cell Distribution Width 16.2H, Platelet Count 226, Neutrophils (%) (Auto) 73.3H, Lymphocytes (%) (Auto) 13.9L, Monocytes (%) (Auto) 10.3H, Eosinophils (%) (Auto) 0.8, Basophils (%) (Auto) 0.4, Neutrophils # (Auto) 3.9, Lymphocytes # (Auto) 0.7L, Monocytes # (Auto) 0.5, Eosinophils # (Auto) 0.0, Basophils # (Auto) 0.0, Nucleated Red Blood Cells % (auto) 0.0, Anion Gap 8, Glomerular Filtration Rate 48.8, Blood Urea Nitrogen 31H, Creatinine 1.49H, Sodium Level 142, Potassium Level 3.6, Chloride Level 112H, Carbon Dioxide Level 22, Calcium Level 7.9L, Aspartate Amino Transf (AST/SGOT) 56H, Alanine Aminotransferase (ALT/SGPT) 56, Alkaline Phosphatase 88, Total Bilirubin 1.9H, Total Protein 6.7, Albumin 2.3L, RW-Mmd-A-Type Natriuretic Peptide 692H, Albumin/Globulin Ratio 0.52L Home Medications Scheduled Docusate Sodium (Colace) 100 Mg Capsule, 100 MG PO BID Fluticasone Propion/Salmeterol (Advair Hfa 115-21 Mcg Inhaler) 12 Gm Hfa.aer.ad, 2 PUFF INH BID Heparin Sodium,Porcine (Heparin Sodium) 5,000 Unit/1 Ml Vial, 5,000 UNITS SQ BID Ipratropium/Albuterol Sulfate (Iprat-Albut 0.5-3(2.5) mg/3 ml) 3 Ml Ampul.neb, 3 ML NEB RQID Pantoprazole Sodium (Pantoprazole Sodium) 40 Mg Tablet.dr, 40 MG PO DAILY Potassium Chloride (Klor-Con M10) 10 Meq Tab.er.prt, 20 MEQ PO BID Saline Lock Flush (Normal Saline Flush) 3 Ml Syringe, 2 ML IV SLF Scheduled PRN Diphenhydramine HCl (Benadryl) 25 Mg Capsule, 25 MG PO QHSP PRN for INSOMNIA Ipratropium/Albuterol Sulfate (Iprat-Albut 0.5-3(2.5) mg/3 ml) 3 Ml Ampul.neb, 3 ML NEB Q4HP PRN for SOB/WHEEZING Ondansetron HCl (Ondansetron HCl) 4 Mg Tablet, 4 MG PO Q6HP PRN for NAUSEA OR VOMITING Oxycodone/Acetaminophen (Oxycodone-Acetaminophen 5-325) 1 Each Tablet, 1 TAB PO Q4HP PRN for MILD/MODERATE PAIN (PS 1-7) Saline Lock Flush (Normal Saline Flush) 3 Ml Syringe, 2 ML IV ASDIRECTED PRN for SEE LABEL COMMENTS Allergies Coded Allergies: NSAIDS (Non-Steroidal Anti-Inflamma (Verified Allergy, Unknown, SWOLLEN LIPS, 01/30/19) ibuprofen (Verified Allergy, Unknown, SWOLLEN LIPS, 01/30/19) naproxen (Verified Allergy, Unknown, SWOLLEN LIPS, 01/30/19) A-FIB/CHADSVASC A-FIB History Current/History of A-Fib/PAF?: No SUMMER COY MD Feb 12, 2019 11:08
--- NOTE | 2019-02-12 12:38 | IPN ---
DATE: 02/12/2019 Mr. Reis is seen this morning on his bedside. He has been transferred to acute rehab unit since yesterday. He feels short of breath on exertion but denies any chest pain or palpitations. He has no vomiting or diarrhea. His nausea and abdominal bloating has improved. PHYSICAL EXAMINATION Temperature 97.6 degrees Fahrenheit, heart rate 76 per minute and respiratory rate 18 per minute. Blood pressure 140/65 mmHg and oxygen saturation 97% on room air. His head is atraumatic. Neck is supple and jugular venous distention (JVD) is about 6 cm above sternal angle. There is no oral thrush or ulcers. Heart sounds are regular and lungs clear to auscultation. Abdomen is soft and bowel sounds are present. There is no palpable organomegaly. Extremities are without any cyanosis or clubbing. Neurologically, he is at his baseline mentation. Today's laboratories show sodium 142, potassium 3.6, CO2 22, BUN 31 and creatinine 1.49. Calcium 7.9 and total bilirubin 1.9. Albumin is 2.3 and total protein 6.7. PROBLEMS: 1. Acute kidney injury superimposed on chronic kidney disease. Kidney function has been stable and slight fluctuations are noted. We will continue to monitor him closely. 2. Congestive heart failure. His volume status is slightly decompensated. His potassium level is borderline so I am going to put him on spironolactone 25 mg daily. He is also receiving potassium supplements so we will need to monitor his electrolytes closely. Once his potassium level improves, then we can cut down or stop the potassium supplement and continue with spironolactone. 3. Generalized weakness and deconditioning. The patient is now in acute rehab floor and rehab has been started.
[2019-02-12] MEDS ORDERED: SPIRONOLACTONE 25 MG TAB PO ONE (13:00)
[2019-02-12 14:00] VITALS: BP 129/70
[2019-02-12 20:00] VITALS: BP 144/67
[2019-02-13 02:00] VITALS: BP 160/71
[2019-02-13 05:50] VITALS: BP 158/74
[2019-02-13] MEDS: IPRATROPIUM 0.5MG/ALBUTEROL 2.5MG INH SOL UD 3ML (DUONEB)(J7620) NEB SCH ×4 (08:00→19:43)
[2019-02-13] MEDS: ADVAIR HFA 230/21MCG INHALER INH SCH ×2 (08:06→19:43)
[2019-02-13] MEDS: PANTOPRAZOLE 40MG TAB (PROTONIX) PO SCH (08:30)
[2019-02-13] MEDS: SPIRONOLACTONE 25 MG TAB PO SCH (08:30)
[2019-02-13] MEDS: BISOPROLOL FUMARATE 5 MG TAB PO SCH (08:30)
[2019-02-13] MEDS: DOCUSATE SODIUM 100 MG CAP PO SCH ×2 (08:30→20:42)
[2019-02-13] MEDS: POTASSIUM CHLORIDE 10 MEQ SR TABLET PO SCH ×2 (08:30→20:42)
[2019-02-13] MEDS: SIMETHICONE 80 MG CHEW TAB PO SCH ×3 (08:30→20:42)
[2019-02-13] MEDS: HEPARIN SOD (PORCINE) 5000 UNITS/ML VIAL SC SCH ×2 (08:30→20:41)
[2019-02-13] MEDS: FLUTICASONE PROP 0.05% NASAL SPRAY 16 GM (FLONASE) NARES SCH (08:31)
[2019-02-13] MEDS: BOUDREAUX'S BUTT PASTE TOP SCH ×2 (08:31→20:44)
--- NOTE | 2019-02-13 10:05 | IPNPDOC ---
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 REVIEW OF SYSTEMS: The following is a completed review of systems and has been reviewed. Review of systems otherwise unremarkable. PAIN: Patient self reports no pain EYES: no recent vision loss EARS, NOSE, & THROAT: no dysphagia, no rhinorrhea or throat pain CARDIOVASCULAR: denies chest pain or palpitations PULMONARY: +exertional dyspnea GASTROINTESTINAL: +constipation GENITOURINARY: +intermittent burning with urination NEUROLOGICAL: no tremor or seizure activity, recent delirium HEMATOLOGICAL: +anemia SKIN: bilateral groin incision PSYCHIATRIC: Unremarkable All other review of systems found to be negative. PHYSICAL EXAMINATION: VITAL SIGNS: Please see below. GENERAL: Pleasant and cooperative. No acute distress. HEENT: PERRL. Extraocular movements intact. Clear conjunctiva CARDIOVASCULAR: Regular rate and rhythm. No murmurs, rubs, or gallops LUNGS: Clear to auscultation bilaterally. No wheezes. No rhonchi ABDOMEN: Soft, nontender, mildly distended Positive bowel sounds. Normal active bowel sound NEUROLOGICAL: [Alert and oriented times three. Cranial nerves II through XII grossly intact. Sensation grossly intact in all 4 limbs negative babinski bilat, no pronator drift EXTREMITIES: 5/5 strength bilateral upper extremities. 5\5 strength right lower extremity. 5/5 strength in left lower extremity. negative Homans bilat SKIN:bilateral inguinal vicente- c/d/i, stage 2 ulcer right inner buttock ASSESSMENT:74-year-old M with past medical history of diastolic CHF who presents status post AAA-rupture s/p repair with respiratory failure requiring mechanical ventilation. PLAN: 1. rehab: PT, OT- will work on endurance training, goal to minimize exertional dyspnea, optimize ADLs while avoiding dizziness in setting of Meniere's, work on fall prevention, avoid isometric exercises increasing intra-abdominal pressure -ambulating further with cane 2. Neuro: recent episodes of delirium, will d/c opioids, check UA given dysuria, and avoid deliriogenic meds 3. CArdio: s/p AAA rupture on 01/30/19 with aorto-iliac graft placed by Dr. Zamorano with retroperitoneal hematoma requiring multple units of rbcs, with exacerbation of diastolic CHF (recent ECHO showing grade 2 diastolic dysfunction) requiring diuresis, c/u to hold diuretics, consulted medicine and renal to advise on fluid management -f/u with Dr. Zamorano outpatient (consulted) -[facility] HTN c/u Bisoprolol 4. Resp: recent respiratory failure requiring mechanical ventilation, will refer for outpatient sleep study for concern for OFELIA, encourage incentive spirometry -c/u Advair 5. Renal: recent oliguric anuria in setting of ATN, will consult renal to follow 6. GI: recent ileus, patient reporting improvements in bowel movements, c/u bowel care -Protonix for ppx 7. DVT ppx: heparin 8. Pain: tylenol 9. SKin: zinc oxide to sacrum 10. Dispo: 02/17/19 to home, quickly progressing towards goals Allergies Coded Allergies: NSAIDS (Non-Steroidal Anti-Inflamma (Verified Allergy, Unknown, SWOLLEN LIPS, 01/30/19) ibuprofen (Verified Allergy, Unknown, SWOLLEN LIPS, 01/30/19) naproxen (Verified Allergy, Unknown, SWOLLEN LIPS, 01/30/19) Vital Signs Vital Signs Date Time Temp Pulse Resp B/P (MAP) Pulse Ox O2 Delivery O2 Flow Rate FiO2 02/13/19 08:30 76 158/74 02/13/19 05:50 97.1 18 96 Current Medications Current Medications Current Medications Acetaminophen (Tylenol Tab) 650 mg Q4HP PRN PO fever/MILD PAIN (PS 1-4) Last administered on 02/11/19at 21:23; Start 02/11/19 at 16:15 Al Hydrox/Mg Hydrox/Simethicone (Mylanta) 30 ml Q4HP PRN PO DYSPEPSIA; Start 02/11/19 at 16:15 Albuterol/ Ipratropium (Duoneb (Ipr 0.5mg/Alb 2.5mg)) 3 ml RQID NEB Last administered on 02/12/19at 19:55; Start 02/11/19 at 20:00 Bisacodyl (Dulcolax Suppository) 10 mg DAILYPRN PRN MA CONSTIPATION; Start 02/11/19 at 16:15 Bisoprolol Fumarate (Zebeta) 5 mg DAILY PO Last administered on 02/13/19at 08:30; Start 02/12/19 at 09:00 Docusate Sodium (Colace) 100 mg BID PO Last administered on 02/12/19 09:37; Start 02/11/19 at 21:00 Fluticasone Propionate (Flonase 0.05% Nasal Russell) 2 spray DAILY NARES Last administered on 02/12/19 09:39; Start 02/12/19 at 09:00 Heparin Sodium (Porcine) (Heparin) 5,000 units Q12H SC Last administered on 02/13/19 08:30; Start 02/11/19 at 21:00 Ondansetron HCl (Zofran) 4 mg Q6HP PRN PO NAUSEA; Start 02/11/19 at 16:15 Oxycodone HCl (Roxicodone, Oxyir) 5 mg Q4HP PRN PO PAIN; Start 02/11/19 at 16:15; Stop 02/11/19 at 17:05; Status DC Oxycodone HCl (Roxicodone, Oxyir) 5 mg Q8HP PRN PO PAIN; Start 02/11/19 at 17:15 Pantoprazole Sodium (Protonix) 40 mg DAILY PO ; Start 02/12/19 at 09:00; Stop 02/12/19 at 09:00; Status DC Pantoprazole Sodium (Protonix) 40 mg DAILY PO Last administered on 02/13/19 0 8:30; Start 02/12/19 at 09:00 Potassium Chloride (Micro-K Extencaps) 20 meq BID PO Last administered on 02/13/19 08:30; Start 02/11/19 at 21:00 Salmeterol Xinafoate/ Fluticasone (Advair Hfa 230/ 21) 2 puff BID INH Last administered on 02/13/19 08:06; Start 02/11/19 at 21:00 Simethicone (Mylicon) 80 mg TID PO Last administered on 02/13/19 08:30; Start 02/11/19 at 21:00 Spironolactone (Aldactone) 25 mg DAILY PO Last administered on 02/13/19 08:30; Start 02/13/19 at 09:00 Zinc Oxide (Boudreauxs Butt Paste) sacrum- clean first BID TOP ; Start 02/11/19 at 21:00 SUMMER COY MD Feb 13, 2019 10:05
[2019-02-13 14:00] VITALS: BP 149/72
[2019-02-13 20:05] VITALS: BP 141/76
[2019-02-14 05:00] VITALS: BP 140/63
[2019-02-14 06:28] LABS: BASO % 0.4 % (0.0-1.0); EOS % 0.6 % (0.0-3.0); HEMATOCRIT 28.6 % (42.0-52.0); HEMOGLOBIN 9.3 g/dl (13.5-17.5); LYMPH # 0.7 10^3/uL (1.5-4.5); MEAN CORPUSCULAR HEMOGLOBIN 31.4 pg (27.0-33.0); MEAN CORPUSCULAR HGB CONC 32.5 g/dl (32.0-36.5); MEAN CORPUSCULAR VOLUME 96.6 fl (80.0-96.0); MONO # 0.6 10^3/uL (0.0-0.8); MONO % 11.8 % (0.0-5.0); NEUTROPHILS # 3.3 10^3/uL (1.8-7.7); NEUTROPHILS % 71.1 % (36.0-66.0); PLATELET COUNT, AUTOMATED 233 10^3/uL (150-450); RED BLOOD COUNT 2.96 10^6/uL (4.30-6.10); WHITE BLOOD COUNT 4.7 10^3/uL (4.0-10.0)
[2019-02-14 06:56] LABS: CALCIUM LEVEL 7.9 MG/DL (8.8-10.2); CREATININE FOR GFR 1.47 MG/DL (0.70-1.30); GLOMERULAR FILTRATION RATE 49.6 (>42); POTASSIUM SERUM 3.7 MEQ/L (3.5-5.1)
[2019-02-14] MEDS: IPRATROPIUM 0.5MG/ALBUTEROL 2.5MG INH SOL UD 3ML (DUONEB)(J7620) NEB SCH ×4 (08:00→20:23)
[2019-02-14] MEDS: ADVAIR HFA 230/21MCG INHALER INH SCH ×2 (08:20→20:24)
[2019-02-14] MEDS: SIMETHICONE 80 MG CHEW TAB PO SCH ×3 (09:41→20:28)
[2019-02-14] MEDS: BISOPROLOL FUMARATE 5 MG TAB PO SCH (09:41)
[2019-02-14] MEDS: SPIRONOLACTONE 25 MG TAB PO SCH (09:41)
[2019-02-14] MEDS: DOCUSATE SODIUM 100 MG CAP PO SCH ×2 (09:41→20:28)
[2019-02-14] MEDS: HEPARIN SOD (PORCINE) 5000 UNITS/ML VIAL SC SCH ×2 (09:41→20:30)
[2019-02-14] MEDS: POTASSIUM CHLORIDE 10 MEQ SR TABLET PO SCH ×2 (09:42→20:29)
[2019-02-14] MEDS: PANTOPRAZOLE 40MG TAB (PROTONIX) PO SCH (09:42)
[2019-02-14] MEDS: FLUTICASONE PROP 0.05% NASAL SPRAY 16 GM (FLONASE) NARES SCH (09:43)
[2019-02-14] MEDS: BOUDREAUX'S BUTT PASTE TOP SCH ×2 (09:44→20:30)
[2019-02-14] MEDS ORDERED: FUROSEMIDE 40 MG TAB PO ONE (11:00)
[2019-02-14 14:00] VITALS: BP 148/72
--- NOTE | 2019-02-14 14:04 | IPN ---
DATE OF VISIT: 02/14/2019 Mr. Reis is seen this morning on his bedside. He is sitting on the chair eating his lunch sandwich. He is getting evaluated for possible discharge next week. The patient denies any nausea or vomiting, however, his appetite has been significantly affected since his aortic aneurysm rupture and surgery. He has increased leg edema, but denies any dyspnea or chest pain. On physical examination, temperature 98.2 degrees Fahrenheit, heart rate 77 per minute and respiratory rate 18 per minute. Blood pressure 140/63 mmHg and oxygen saturation 98% on room air. Head is atraumatic. Neck is supple and jugular venous distention (JVD) is mildly elevated. His lungs have slightly diminished breath sounds at bases. Heart sounds are regular. Abdomen soft and bowel sounds are present. Extremities have no cyanosis or clubbing. Lower extremity edema is at least 2+. Today's labs show WBC count 4.7, hemoglobin 9.3 and hematocrit 28.6. Platelets 233. Sodium 142, potassium 3.7, CO2 24, BUN 28 and creatinine 1.47. Glucose 102 and calcium 7.9. PROBLEMS: 1. Acute kidney injury superimposed on chronic kidney disease. Kidney function seems to be stable at this level which is probably his new baseline. 2. Congestive heart failure. Volume status is slightly decompensated. I had avoided diuretic for a few days due to hypokalemia, which has now improved. He is receiving potassium chloride 20 mEq twice a day and also spironolactone 25 mg daily. I am going to start him on Lasix 40 mg daily which will help with the lower extremity edema and volume overload. His electrolytes will need to be monitored on a daily basis. 3. Hypokalemia. Potassium level has improved with potassium supplement and potassium sparing diuretic. Now Lasix is being started so will have to monitor his electrolytes on a daily basis. 4. Hypertension. Blood pressure seems very well controlled on current antihypertensive meds.
[2019-02-14 20:00] VITALS: BP 149/68
[2019-02-15 05:42] VITALS: BP 157/77
[2019-02-15 07:05] LABS: HEMATOCRIT 28.5 % (42.0-52.0); HEMOGLOBIN 9.2 g/dl (13.5-17.5); MEAN CORPUSCULAR HEMOGLOBIN 30.9 pg (27.0-33.0); MEAN CORPUSCULAR HGB CONC 32.3 g/dl (32.0-36.5); MEAN CORPUSCULAR VOLUME 95.6 fl (80.0-96.0); PLATELET COUNT, AUTOMATED 204 10^3/uL (150-450); RED BLOOD COUNT 2.98 10^6/uL (4.30-6.10); WHITE BLOOD COUNT 4.2 10^3/uL (4.0-10.0)
[2019-02-15 07:15] LABS: ALBUMIN 2.5 GM/DL (3.2-5.2); CALCIUM LEVEL 8.2 MG/DL (8.8-10.2); CREATININE FOR GFR 1.6 MG/DL (0.70-1.30); PHOSPHORUS LEVEL 2.6 MG/DL (2.5-4.9); POTASSIUM SERUM 3.6 MEQ/L (3.5-5.1)
[2019-02-15] MEDS: IPRATROPIUM 0.5MG/ALBUTEROL 2.5MG INH SOL UD 3ML (DUONEB)(J7620) NEB SCH ×4 (07:40→20:00)
[2019-02-15] MEDS: ADVAIR HFA 230/21MCG INHALER INH SCH ×2 (07:40→20:16)
[2019-02-15] MEDS: BISOPROLOL FUMARATE 5 MG TAB PO SCH (09:56)
[2019-02-15] MEDS: PANTOPRAZOLE 40MG TAB (PROTONIX) PO SCH (09:57)
[2019-02-15] MEDS: FUROSEMIDE 40 MG TAB PO SCH (09:57)
[2019-02-15] MEDS: SPIRONOLACTONE 25 MG TAB PO SCH (09:57)
[2019-02-15] MEDS: SIMETHICONE 80 MG CHEW TAB PO SCH ×3 (09:57→20:28)
[2019-02-15] MEDS: DOCUSATE SODIUM 100 MG CAP PO SCH ×2 (09:57→20:28)
[2019-02-15] MEDS: POTASSIUM CHLORIDE 10 MEQ SR TABLET PO SCH ×2 (09:57→20:28)
[2019-02-15] MEDS: HEPARIN SOD (PORCINE) 5000 UNITS/ML VIAL SC SCH ×2 (09:58→20:28)
[2019-02-15] MEDS: FLUTICASONE PROP 0.05% NASAL SPRAY 16 GM (FLONASE) NARES SCH (09:58)
[2019-02-15] MEDS: BOUDREAUX'S BUTT PASTE TOP SCH ×2 (09:59→20:29)
[2019-02-15] MEDS: ACETAMINOPHEN TAB 650MG DOSE (2X325MG) PO PRN (09:59)
[2019-02-15 14:00] VITALS: BP 121/59
[2019-02-15 22:00] VITALS: BP 144/70
[2019-02-16 06:00] VITALS: BP 155/73
[2019-02-16] MEDS: ADVAIR HFA 230/21MCG INHALER INH SCH ×2 (07:12→19:53)
[2019-02-16] MEDS: IPRATROPIUM 0.5MG/ALBUTEROL 2.5MG INH SOL UD 3ML (DUONEB)(J7620) NEB SCH ×4 (07:12→19:53)
[2019-02-16] MEDS: BOUDREAUX'S BUTT PASTE TOP SCH ×2 (09:00→20:08)
[2019-02-16] MEDS: PANTOPRAZOLE 40MG TAB (PROTONIX) PO SCH (10:15)
[2019-02-16] MEDS: SPIRONOLACTONE 25 MG TAB PO SCH (10:15)
[2019-02-16] MEDS: POTASSIUM CHLORIDE 10 MEQ SR TABLET PO SCH ×2 (10:15→20:07)
[2019-02-16] MEDS: SIMETHICONE 80 MG CHEW TAB PO SCH ×3 (10:15→20:07)
[2019-02-16] MEDS: DOCUSATE SODIUM 100 MG CAP PO SCH ×2 (10:16→20:07)
[2019-02-16] MEDS: FUROSEMIDE 40 MG TAB PO SCH (10:16)
[2019-02-16] MEDS: BISOPROLOL FUMARATE 5 MG TAB PO SCH (10:18)
[2019-02-16] MEDS: HEPARIN SOD (PORCINE) 5000 UNITS/ML VIAL SC SCH ×2 (10:19→20:07)
[2019-02-16] MEDS: FLUTICASONE PROP 0.05% NASAL SPRAY 16 GM (FLONASE) NARES SCH (10:19)
[2019-02-16 14:00] VITALS: BP 122/57
[2019-02-16 20:45] VITALS: BP 108/51
[2019-02-17 06:01] LABS: BASO % 0.5 % (0.0-1.0); EOS % 0.5 % (0.0-3.0); HEMATOCRIT 28.5 % (42.0-52.0); LYMPH # 0.9 10^3/uL (1.5-4.5); LYMPH % 24.5 % (24.0-44.0); MEAN CORPUSCULAR HEMOGLOBIN 29.6 pg (27.0-33.0); MEAN CORPUSCULAR HGB CONC 31.6 g/dl (32.0-36.5); MEAN CORPUSCULAR VOLUME 93.8 fl (80.0-96.0); MONO # 0.6 10^3/uL (0.0-0.8); MONO % 15.6 % (0.0-5.0); NEUTROPHILS # 2.2 10^3/uL (1.8-7.7); NEUTROPHILS % 58.4 % (36.0-66.0); PLATELET COUNT, AUTOMATED 195 10^3/uL (150-450); RED BLOOD COUNT 3.04 10^6/uL (4.30-6.10); WHITE BLOOD COUNT 3.8 10^3/uL (4.0-10.0)
[2019-02-17 06:14] VITALS: BP 130/58
[2019-02-17 06:15] LABS: ALBUMIN 2.6 GM/DL (3.2-5.2); CALCIUM LEVEL 7.9 MG/DL (8.8-10.2); CREATININE FOR GFR 1.68 MG/DL (0.70-1.30); GLOMERULAR FILTRATION RATE 42.5 (>42); PHOSPHORUS LEVEL 2.9 MG/DL (2.5-4.9); POTASSIUM SERUM 3.8 MEQ/L (3.5-5.1)
--- NOTE | 2019-02-17 06:40 | IPN ---
DATE OF SERVICE: 02/15/2019 SUBJECTIVE: The patient was seen and examined at the bedside today morning. He was actually sitting in the sofa, he was getting ready for the physical therapy. He is awake and alert. Renal function is stable. Creatinine has been fluctuating between 1.5-1.6. His diuretics dose was increased yesterday. He reports lower extremity edema is slowly improving now. OBJECTIVE: Vital Signs: Temperature is 97.9 degrees Fahrenheit, blood pressure 121/59, pulse is 70, respiratory rate of 18, saturating 98% on room air. Intake and Output: Urine output recorded as 1.4 liters yesterday, 790 mL so far today since overnight. Weight in the bed scale is not available. PHYSICAL EXAMINATION: General: The patient is awake, alert, oriented times three, sitting up in the sofa in no apparent distress. Head and Neck Exam: Extraocular muscles intact. Pupils equally round and reactive to light. Mucous membranes are moist. Neck is supple. There is no jugular venous distention (JVD). Cardiovascular: S1 and S2, 2+ edema of the bilateral lower extremities. Respiratory: Chest is clear to auscultation bilaterally. Bilateral equal air entry. No rales or rhonchi. Abdomen: Soft, obese, positive bowel sounds, nontender. No organomegaly. Musculoskeletal: No clubbing or cyanosis. Pulses are 2+. He has vicente on the bilateral groins. COMMUNITY FUNDRAISER: No focal deficit. Power is 5/5 in all extremities. Psychiatric: Normal mood and affect. LAB REVIEW: CBC showed a WBC of 4.2, hemoglobin 9.2, platelets 204. CMP shows sodium 141, potassium 3.6, chloride 111, bicarb 24, BUN 27, and creatinine is 1.6 - it was 1.47 yesterday. CURRENT INPATIENT MEDICATIONS: The patient's medications were all reviewed by me. He was started on Lasix 40 mg by mouth daily yesterday. He is already getting spironolactone 25 mg by mouth daily. ASSESSMENT/PLAN: 1. Acute kidney injury. Patient's renal function is stable. Creatinine has been fluctuating at around 1.5-1.6. It is okay to continue the diuretics since the patient has evidence of edema in the lower extremities. 2. Chronic diastolic congestive heart failure. The patient's volume status is decompensated. He was started on Lasix 40 mg by mouth daily. He is also on spironolactone 25 mg daily. If he does not have adequate response to current diuretics, dose will be increased tomorrow morning. 3. Hypertension. Blood pressure is optimized. Continue current dose of diuretics. Continue bisoprolol 5 mg by mouth daily. No other change in the regimen is needed at this time.
[2019-02-17] MEDS: ADVAIR HFA 230/21MCG INHALER INH SCH (07:43)
[2019-02-17] MEDS: IPRATROPIUM 0.5MG/ALBUTEROL 2.5MG INH SOL UD 3ML (DUONEB)(J7620) NEB SCH ×2 (07:43→11:14)
[2019-02-17] MEDS: DOCUSATE SODIUM 100 MG CAP PO SCH (09:00)
[2019-02-17] MEDS: BOUDREAUX'S BUTT PASTE TOP SCH (09:00)
[2019-02-17] MEDS: FLUTICASONE PROP 0.05% NASAL SPRAY 16 GM (FLONASE) NARES SCH (09:00)
[2019-02-17] MEDS ORDERED: KLOR10TA76 PO (09:30)
[2019-02-17] MEDS ORDERED: OXYCO5TA PO (09:30)
[2019-02-17] MEDS ORDERED: BISO5TAB5 PO (09:30)
[2019-02-17] MEDS ORDERED: PANT40TA3 PO (09:30)
[2019-02-17] MEDS ORDERED: FURO40TA2 PO (09:30)
[2019-02-17] MEDS ORDERED: ALDA25TA2 PO (09:30)
[2019-02-17] MEDS: HEPARIN SOD (PORCINE) 5000 UNITS/ML VIAL SC SCH (09:52)
[2019-02-17] MEDS: FUROSEMIDE 40 MG TAB PO SCH (09:52)
[2019-02-17] MEDS: SIMETHICONE 80 MG CHEW TAB PO SCH (09:52)
[2019-02-17] MEDS: POTASSIUM CHLORIDE 10 MEQ SR TABLET PO SCH (09:53)
[2019-02-17] MEDS: PANTOPRAZOLE 40MG TAB (PROTONIX) PO SCH (09:53)
[2019-02-17] MEDS: SPIRONOLACTONE 25 MG TAB PO SCH (09:53)
[2019-02-17 09:54] VITALS: BP 130/58
[2019-02-17] MEDS: BISOPROLOL FUMARATE 5 MG TAB PO SCH (09:54)
--- NOTE | 2019-02-17 11:01 | IPN ---
DATE: 02/16/2019 SUBJECTIVE: The patient was seen and examined at the bedside. He is afebrile, hemodynamically stable. He continues to improve with the physical therapy. Renal function is stable. Latest blood work was done yesterday. There are no labs available today. OBJECTIVE: VITAL SIGNS: Temperature is 97.9 degrees Fahrenheit, blood pressure 108/51, pulse is 80, respiratory of 80, saturating 100% on room air. Intake and output: Urine output is not recorded well. He had three voids overnight. Weight in the bed scale is 119.3 kg. PHYSICAL EXAMINATION: GENERAL: The patient is awake, alert, oriented times three, sitting in t he chair in no apparent distress. HEAD AND NECK EXAM: Extraocular muscles intact. Pupils equally round and reactive to light. Mucous membranes are moist. Neck is supple. CARDIOVASCULAR: S1, S2 regular rate, 2+ edema of the bilateral lower extremities. RESPIRATORY: Chest is clear to auscultation bilaterally. Bilateral equal air entry. No rales or rhonchi. ABDOMEN: Soft, nontender. MUSCULOSKELETAL: No clubbing or cyanosis. Pulses are 2+, 2+ edema of the bilateral lower extremities. CENTRAL NERVOUS SYSTEM (OPEN HEARTH STOCKYARD SUPERVISOR): No focal deficit. Power is 5/5 in bilateral upper extremities. LAB REVIEW: BMP is available from yesterday. Creatinine was 1.6 on yesterday's labs: CURRENT INPATIENT MEDICATIONS: The patient's medications were all reviewed by me. He continues to be on diuretics including Lasix 40 mg daily and spironolactone 25 mg daily. No other change in the medications today as compared with yesterday. ASSESSMENT/PLAN: 1. Acute kidney injury superimposed on chronic kidney disease stage III. Patient's renal function is stable. Creatinine was 1.6 yesterday. Next lab will be done tomorrow morning. Continue the diuretics dose. 2. Hypertension with chronic kidney disease: Blood pressure is optimized. Continue current dose of bisoprolol 5 mg by mouth daily and current dose of diuretics. 3. Diastolic congestive heart failure: Patient is currently getting Lasix and spironolactone. He is having a good diuretic response. Continue the daily. Lower extremity edema is improving.
--- NOTE | 2019-02-17 23:31 | IPN ---
DATE: 02/17/2019 SUBJECTIVE: The patient was seen and examined at the bedside today, morning. He is afebrile, hemodynamically stable. Denies any active complaints. Labs done today showed stable renal function with a creatinine of 1.68. He denies any active complaints. OBJECTIVE: VITAL SIGNS: Temperature is 98.7 degrees Fahrenheit, blood pressure is 130/58, pulse is 78, respiratory rate of 18, saturating 98% on room air. INTAKE/OUTPUT: Urine output is not recorded. Weight on the bed scale was 119.3 kg yesterday. PHYSICAL EXAMINATION: GENERAL: The patient is awake, alert, oriented times three, sitting up in the bed, in no apparent distress. HEAD AND NECK EXAM: Extraocular muscles intact. Pupils equally round and reactive to light. Mucous membranes are moist. Neck is supple. There is no jugular venous distention (JVD). CARDIOVASCULAR: S1, S2, regular rate. 1+ edema of the bilateral lower extremities. RESPIRATORY: Chest is clear to auscultation bilaterally. Bilateral equal air entry. No rales or rhonchi. ABDOMEN: Abdomen is soft, obese, nontender. MUSCULOSKELETAL: No clubbing or cyanosis. Pulses are 2+. CENTRAL NERVOUS SYSTEM (CLASSROOM TEACHER): No focal deficit. Power is 5/5 in bilateral upper extremities. LAB REVIEW: CBC showed a WBC of 3.8, hemoglobin 9, platelets are 195. BMP showed sodium 138, potassium 3.8, chloride 109, bicarbonate 26, BUN 28, creatinine is 1.68, calcium 7.9, phosphorus is 2.9. CURRENT INPATIENT MEDICATIONS: The patient's medications were all reviewed by me. A stool softener is being stopped because he complains of loose stools now. No other change in the medications today. ASSESSMENT AND PLAN: 1. Chronic kidney disease, stage III. Patient's renal function is stable. Creatinine has been fluctuating at 1.6. OK to continue current dose of diuretics. 2. Hypertension with chronic kidney disease. Continue current dose of bisoprolol and diuretics. 3. Diastolic congestive heart failure. Patient can be discharged home on Lasix and spironolactone. 4. Loose stools. Patient is on stool softeners. His Colace has been stopped. 5. Disposition: The patient can be discharged from a nephrology standpoint. He would need to followup with nephrology service within 1 week after discharge from the hospital.
--- NOTE | 2019-02-25 17:13 | PMRDS ---
DATE OF ADMISSION: 02/11/2019 DATE OF DISCHARGE: 02/17/2019 CHIEF COMPLAINT/DISCHARGE DIAGNOSES: Abdominal aortic aneurysm repair, status post stenting with acute respiratory failure and congestive heart failure (CHF). HISTORY OF PRESENT ILLNESS: This is a 74-year-old male, past medical history of rheumatoid arthritis, hypertension, gastroesophageal reflux disease (GERD), obesity, Meniere's disease, ex-smoker, who presented to [facility] emergency department (ED) on 01/30/2019 complaining of chest pain that radiated to the back. CTA revealed: "Ruptured 9.7 cm infrarenal abdominal aortic aneurysm with a fairly large retroperitoneal hematoma." He had bilateral aortoiliac stent grafts placed by Dr. Zamorano and was given several units of packed red blood cells (PRBCs) requiring blood pressure support. He initially required mechanical ventilation but was eventually weaned to bilevel positive airway pressure (BiPAP). He had acute oliguric renal failure in the setting of acute tubular necrosis and was given Lasix and Diuril per renal who assisted in the care. He was transferred out of intensive care unit (ICU) on 02/04/2019 and had his diet advanced gradually after being nothing by mouth (n.p.o.). He had episodes of hypokalemia and thrombocytopenia in addition to ileus, which improved. He also had episodes of delirium thought to be from hypercapnia, and it was recommended that he obtain a sleep study as an outpatient to look for obstructive sleep apnea (OFELIA). He was evaluated by therapy and required assistance with ambulation with a rolling walker and help with lower body dressing, which was below his prior level of function. Prior to discharge, he had an echo performed showing preserved left ventricular ejection fraction (LVEF) and grade 2 diastolic heart failure. He was deemed medically appropriate for discharge to acute rehabilitation unit (ARU) on 02/11/2019 PAST MEDICAL HISTORY: As per history of the present illness. HOSPITAL COURSE: The patient was admitted and enrolled in a comprehensive physical therapy (PT), occupational therapy (OT) program. He received 24-hour nursing supervision and weekly team meetings were held to discuss his progress. Upon arrival, the patient and family reported episodes of delirium for which his opioid regimen was discontinued and urinalysis (UA) was ordered in the setting of dysuria and eventually resulted as negative. His diuretics were held as per medicine rec and medicine was consulted in addition to nephrology for fluid management in the setting of diastolic CHF. He continued on Advair and incentive spirometry for his recent respiratory failure requiring mechanical ventilation, and he was maintained on heparin for deep vein thrombosis (DVT) prophylaxis and Protonix for gastrointestinal (GI) prophylaxis. The patient made quick gains in therapy and was deemed medically and functionally stable to return home. DISCHARGE MEDICATIONS As per discharge instructions. FUNCTIONAL HISTORY: On discharge, the patient was independent without an assist device, able to ambulate 300 feet and in occupational therapy, he was able to bathe, dress his upper and lower body dressing at a modified independent level. He was provided with a script for outpatient physical therapy and deemed medically and functionally stable to return home.
== END 2019-02-17 12:30 | disposition home or self-care (01) | DRG 949 ==
LOC: M PM&R 12:10
PROVIDERS: ADMIT Physical Medicine & Rehabilitation; ATTEND Physical Medicine & Rehabilitation
DX: Z48.812 Encounter for surgical aftercare following surgery on the circulatory system (principal); N17.0 Acute kidney failure with tubular necrosis; I13.0 Hypertensive heart and chronic kidney disease with heart failure and stage 1 through stage 4 chronic kidney disease, or unspecified chronic kidney disease; I50.30 Unspecified diastolic (congestive) heart failure; R06.09 Other forms of dyspnea; R42 Dizziness and giddiness; K21.9 Gastro-esophageal reflux disease without esophagitis; N18.3 Chronic kidney disease, stage 3 (moderate); E66.9 Obesity, unspecified; G47.33 Obstructive sleep apnea (adult) (pediatric); E87.6 Hypokalemia; Z87.891 Personal history of nicotine dependence; M06.9 Rheumatoid arthritis, unspecified

== ENCOUNTER 2019-02-28 15:05 | Outpatient (RCR) | payer MEDICARE ==
[~2019-02-28 15:05] MED LIST changes: +ALDA25TA2 PO; +BISO5TAB5 PO; +FURO40TA2 PO; +OXYCO5TA PO
== END 2019-03-02 ==
LOC: M PT 15:05
PROVIDERS: ATTEND Family Medicine
DX: R26.89 Other abnormalities of gait and mobility (principal)

== ENCOUNTER 2019-03-19 13:38 | Outpatient (RCR) | payer MEDICARE | END 2019-04-02 | LOC: M PT 13:38 | PROVIDERS: ATTEND Family Medicine | DX: Z51.89 Encounter for other specified aftercare (principal); R53.83 Other fatigue; R26.89 Other abnormalities of gait and mobility; Z98.890 Other specified postprocedural states; Z86.79 Personal history of other diseases of the circulatory system ==

== ENCOUNTER → 2019-03-21 | Outpatient (CLI) | payer MEDICARE ==
--- NOTE | 2019-03-21 08:37 | REP ---
Abdominal aortic ultrasound: The patient has a history of abdominal aortic aneurysm with rupture in February of this year. There is an aortic Endo graft. Comparison is the abdominal CT dated 01/30/2019. Abdominal aorta ultrasound: Abdominal Aortic Measurements are as follows: Proximal 2.0 cm AP 2.7 cm TRV Renal Artery Level 2.9 cm AP 2.9 cm TRV Mid Aorta 8.1 cm AP 10.0 cm TRV Distal Aorta 7.3 cm AP 9.9 cm TRV R Iliac Artery 2.3 cm AP 2.0 cm TRV L Iliac Artery 1.6 cm AP 1.9 The abdominal aortic aneurysm by ultrasound today measures 8.0 x 11.2 cm and has a craniocaudad length of 12.2 cm . There is no periaortic fluid. No of graft endoleak is identified by ultrasound, including color Doppler ultrasound . Electronically Signed by Adi Patrick MD 03/21/2019 08:28 A
== END ==
LOC: M RAD 07:06
PROVIDERS: ATTEND Physician Assistant
DX: I71.4 Abdominal aortic aneurysm, without rupture (principal)

== ENCOUNTER → 2019-04-22 | Outpatient (REF) | payer MEDICARE ==
[~2019-04-22] MED LIST changes: -BISO5TAB5 PO; +BISO5TAB9 PO
[2019-04-22 11:56] LABS: BASO % 0.7 % (0.0-1.0); EOS # 0.2 10^3/uL (0.0-0.50); EOS % 3.1 % (0.0-3.0); HEMATOCRIT 39.3 % (42.0-52.0); LYMPH # 1.6 10^3/uL (1.5-4.5); LYMPH % 28.5 % (24.0-44.0); MEAN CORPUSCULAR HEMOGLOBIN 31.6 pg (27.0-33.0); MEAN CORPUSCULAR HGB CONC 33.1 g/dl (32.0-36.5); MEAN CORPUSCULAR VOLUME 95.6 fl (80.0-96.0); MONO # 0.7 10^3/uL (0.0-0.8); MONO % 11.8 % (0.0-5.0); NEUTROPHILS # 3.1 10^3/uL (1.8-7.7); NEUTROPHILS % 55.5 % (36.0-66.0); PLATELET COUNT, AUTOMATED 126 10^3/uL (150-450); RED BLOOD COUNT 4.11 10^6/uL (4.30-6.10); WHITE BLOOD COUNT 5.6 10^3/uL (4.0-10.0)
[2019-04-22 12:13] LABS: BILIRUBIN,TOTAL 0.4 MG/DL (0.2-1.0); CREATININE FOR GFR 1.83 MG/DL (0.70-1.30); GLOMERULAR FILTRATION RATE 38.5 (>42); MAGNESIUM LEVEL 2.6 MG/DL (1.8-2.4); POTASSIUM SERUM 4.6 MEQ/L (3.5-5.1); TOTAL PROTEIN 7.9 GM/DL (6.4-8.2)
== END ==
LOC: M SFHCPLAZ 10:33
PROVIDERS: ATTEND Family Medicine
DX: I50.32 Chronic diastolic (congestive) heart failure (principal); D50.9 Iron deficiency anemia, unspecified
CPT/HCPCS: 36415; 80053; 82607; 82668; 83735; 83880; 85025; 85046; G0463

== ENCOUNTER → 2019-09-18 | Outpatient (REF) | payer MEDICARE ==
[~2019-09-18] MED LIST changes: +BISO5TAB14 PO; -BISO5TAB9 PO; -MECL-68 PO; +MECL1TAB31 PO; -OMEP40CA2 PO; +OMEP40CA97 PO; +ONDA-83 PO; -ONDA4TAB5 PO
[2019-09-18 13:30] LABS: BASO # 0.1 10^3/uL (0.0-0.2); BASO % 0.8 % (0.0-1.0); EOS # 0.1 10^3/uL (0.0-0.5); EOS % 1.9 % (0.0-3.0); HEMATOCRIT 42.1 % (42.0-52.0); HEMOGLOBIN 14.3 g/dl (13.5-17.5); LYMPH # 1.3 10^3/uL (1.5-5.0); LYMPH % 20.3 % (24.0-44.0); MEAN CORPUSCULAR HEMOGLOBIN 33.1 pg (27.0-33.0); MEAN CORPUSCULAR VOLUME 97.5 fl (80.0-96.0); MONO # 0.7 10^3/uL (0.0-0.8); MONO % 11.7 % (0.0-5.0); NEUTROPHILS % 64.8 % (36.0-66.0); PLATELET COUNT, AUTOMATED 122 10^3/uL (150-450); RED BLOOD COUNT 4.32 10^6/uL (4.30-6.10); WHITE BLOOD COUNT 6.2 10^3/uL (4.0-10.0)
[2019-09-18 13:41] LABS: ALBUMIN 4.1 GM/DL (3.2-5.2); ALT/SGPT 23 U/L (12-78); BILIRUBIN,TOTAL 0.6 MG/DL (0.2-1.0); BLOOD UREA NITROGEN 30 MG/DL (7-18); CALCIUM LEVEL 9.2 MG/DL (8.8-10.2); CARBON DIOXIDE LEVEL 28 MEQ/L (21-32); CHLORIDE LEVEL 107 MEQ/L (98-107); CHOLESTEROL LEVEL 186 MG/DL (<200); CHOLESTEROL RISK RATIO 6.413 (<5); CREATININE FOR GFR 1.78 MG/DL (0.70-1.30); FREE T4 0.87 NG/DL (0.76-1.46); GLOMERULAR FILTRATION RATE 39.8 (>42); GLUCOSE, FASTING 104 MG/DL (70-100); HDL CHOLESTEROL 29 MG/DL (>40); LDL CHOLESTEROL 83 MG/DL (<100); MAGNESIUM LEVEL 2.2 MG/DL (1.8-2.4); NON-HDL-C 157 MG/DL; NT-PRO BNP 201 PG/ML (<450); POTASSIUM SERUM 5.1 MEQ/L (3.5-5.1); SODIUM LEVEL 140 MEQ/L (136-145); TOTAL PROTEIN 7.7 GM/DL (6.4-8.2); TRIGLYCERIDES LEVEL 369 MG/DL (<150)
[2019-09-18 13:44] LABS: PTH INTACT 53.2 PG/ML (18.5-88.0); TOTAL 25(OH) VITAMIN D 33.9 NG/ML (30.0-100.0)
[2019-09-18 14:04] LABS: HEMOGLOBIN A1c 5.4 %
[2019-09-23 12:43] LABS: ALBUMIN 4.39 GM/DL (3.29-5.55); ALPHA-1-GLOBULIN % 3.9 % (2.9-4.9); ALPHA-2-GLOBULINS 0.76 GM/DL (0.42-0.99); ALPHA-2-GLOBULINS % 9.9 % (7.1-11.8); BETA-1-GLOBULINS 0.44 GM/DL (0.28-0.60); BETA-1-GLOBULINS % 5.7 % (4.7-7.2); BETA-2-GLOBULINS 0.45 GM/DL (0.19-0.55); BETA-2-GLOBULINS % 5.8 % (3.2-6.5); GAMMA GLOBULIN % 17.7 % (11.1-18.8); GAMMA GLOBULINS 1.36 GM/DL (0.65-1.58)
== END ==
LOC: M SFHCPLAZ 10:36
PROVIDERS: ATTEND Family Medicine
DX: E78.5 Hyperlipidemia, unspecified (principal); R73.01 Impaired fasting glucose; E55.9 Vitamin D deficiency, unspecified; N18.3 Chronic kidney disease, stage 3 (moderate); Z12.5 Encounter for screening for malignant neoplasm of prostate; I50.32 Chronic diastolic (congestive) heart failure
CPT/HCPCS: 36415; 80053; 80061; 82306; 83036; 83735; 83880; 83970; 84165; 84439; 84443; 85025; 85046; G0103; G0463

== ENCOUNTER → 2019-09-26 | Outpatient (CLI) | payer MEDICARE ==
[~2019-09-26] MED LIST changes: +ISOVUE-370 76% 100ML VIAL (Q9967) As Ordered ONE
--- NOTE | 2019-09-26 19:30 | REP ---
CT angiography of the abdomen with IV contrast: History: Abdominal aortic aneurysm. Ruptured. Comparison CT study January 30, 2019. CT contrast dose: A 100 ml of intravenous Isovue 370. CT angiographic findings: Preliminary digital public health veterinarian radiograph demonstrates an aortobi-iliac stent graft. Bowel gas pattern is unremarkable. The lung bases show minimal linear fibrosis. There is a low-density lesion in the left lobe of the liver unchanged from comparison study 3.7 cm in diameter. The left kidney is profoundly atrophic suggesting left renal artery occlusion. There is considerable atrophy in the lower pole right kidney. There is a lower pole cyst of the right kidney measuring 5.0 cm in diameter. The lower pole atrophy suggests renal infarction on the right. The previously noted retroperitoneal hematoma has resolved. The aorta by iliac stent graft is noted in place. There is no evidence of Endo leak. The aneurysm measures 8.2 cm in greatest diameter, previously 9.7 cm by my measurement. Small and large bowel loops are unremarkable in the abdomen and pelvis. The external and internal iliac arteries are patent bilaterally. Flow is observed in the celiac axis above the aneurysm, the SMA at the level of the top of the graft, and the right renal artery at the level of the top of the graft. Impression: Status post aortobi-iliac stent graft for ruptured abdominal aortic aneurysm. The aneurysm size is improved. There is no evidence of Endo leak. There is evidence of complete infarction of the left kidney and focal infarction of the lower pole of the right kidney. Electronically Signed by Kirt Wadsworth MD 09/26/2019 09:14 P
== END ==
LOC: M RAD 09:57
PROVIDERS: ATTEND Physician Assistant
DX: I71.3 Abdominal aortic aneurysm, ruptured (principal)
CPT/HCPCS: 74174; Q9967

== ENCOUNTER → 2020-02-17 | Outpatient (REF) | payer MEDICARE ==
[~2020-02-17] MED LIST changes: -ISOVUE-370 76% 100ML VIAL (Q9967) As Ordered ONE
[2020-02-17 13:55] LABS: BASO % 0.4 % (0.0-1.0); EOS % 0.6 % (0.0-3.0); HEMATOCRIT 41.7 % (42.0-52.0); HEMOGLOBIN 13.6 g/dl (13.5-17.5); LYMPH % 14.9 % (24.0-44.0); MEAN CORPUSCULAR HGB CONC 32.6 g/dl (32.0-36.5); MONO # 0.7 10^3/uL (0.0-0.8); MONO % 10.6 % (0.0-5.0); NEUTROPHILS # 5.1 10^3/uL (1.5-8.5); NEUTROPHILS % 73.2 % (36.0-66.0); PLATELET COUNT, AUTOMATED 127 10^3/uL (150-450); RED BLOOD COUNT 4.39 10^6/uL (4.30-6.10)
[2020-02-17 13:59] LABS: ALBUMIN 3.8 GM/DL (3.2-5.2); BILIRUBIN,TOTAL 0.6 MG/DL (0.2-1.0); C REACTIVE PROTEIN QUANTITATIV 2.48 MG/DL (0.00-0.30); CALCIUM LEVEL 9.3 MG/DL (8.8-10.2); CREATININE FOR GFR 1.52 MG/DL (0.70-1.30); GLOMERULAR FILTRATION RATE 47.6 (>42); MAGNESIUM LEVEL 2.4 MG/DL (1.8-2.4); POTASSIUM SERUM 4.8 MEQ/L (3.5-5.1); TOTAL PROTEIN 7.8 GM/DL (6.4-8.2)
[2020-02-17 14:35] LABS: ERYTHROCYTE SEDIMENTATION RATE 29 mm/hr (0-20)
[2020-02-19 00:07] LABS: ANA (HEP2) Positive (.); CYCLIC CITRULLINATED PEPTIDE > 250 units (0-19)
== END ==
LOC: M SFHCPLAZ 10:48
PROVIDERS: ATTEND Family Medicine
DX: M06.9 Rheumatoid arthritis, unspecified (principal); D50.9 Iron deficiency anemia, unspecified; I50.32 Chronic diastolic (congestive) heart failure
CPT/HCPCS: 36415; 80053; 83735; 83880; 85025; 85046; 85652; 86038; 86140; 86200; G0463

== ENCOUNTER → 2020-04-26 | Outpatient (CLI) | payer MEDICARE ==
[~2020-04-26] MED LIST changes: +PANT40TA29 PO; -PANT40TA3 PO
[2020-04-26 16:20] LABS: HEMATOCRIT 43.3 % (42.0-52.0); HEMOGLOBIN 14.1 g/dl (13.5-17.5); MEAN CORPUSCULAR HEMOGLOBIN 32.5 pg (27.0-33.0); MEAN CORPUSCULAR HGB CONC 32.6 g/dl (32.0-36.5); MEAN CORPUSCULAR VOLUME 99.8 fl (80.0-96.0); PLATELET COUNT, AUTOMATED 116 10^3/uL (150-450); RED BLOOD COUNT 4.34 10^6/uL (4.30-6.10); WHITE BLOOD COUNT 8.6 10^3/uL (4.0-10.0)
[2020-04-26 16:28] LABS: ALBUMIN 3.4 GM/DL (3.2-5.2); BILIRUBIN,TOTAL 0.5 MG/DL (0.2-1.0); C REACTIVE PROTEIN QUANTITATIV 0.62 MG/DL (0.00-0.30); CALCIUM LEVEL 8.8 MG/DL (8.8-10.2); CREATININE FOR GFR 1.69 MG/DL (0.70-1.30); GLOMERULAR FILTRATION RATE 42.1 (>42); MAGNESIUM LEVEL 2.2 MG/DL (1.8-2.4); POTASSIUM SERUM 4.3 MEQ/L (3.5-5.1); TOTAL PROTEIN 6.8 GM/DL (6.4-8.2)
[2020-04-26 18:40] LABS: ERYTHROCYTE SEDIMENTATION RATE 15 mm/hr (0-20)
== END ==
LOC: M PLALAB 11:48
PROVIDERS: ATTEND Family Medicine
DX: I50.30 Unspecified diastolic (congestive) heart failure (principal); M06.9 Rheumatoid arthritis, unspecified

== ENCOUNTER → 2020-05-13 | Outpatient (CLI) | payer MEDICARE ==
[2020-05-13 16:48] LABS: ALBUMIN 3.5 GM/DL (3.2-5.2); BILIRUBIN,TOTAL 0.9 MG/DL (0.2-1.0); C REACTIVE PROTEIN QUANTITATIV 2.11 MG/DL (0.00-0.30); CALCIUM LEVEL 9.3 MG/DL (8.8-10.2); CREATININE FOR GFR 1.77 MG/DL (0.70-1.30); GLOMERULAR FILTRATION RATE 39.9 (>42); POTASSIUM SERUM 4.4 MEQ/L (3.5-5.1); TOTAL PROTEIN 7.2 GM/DL (6.4-8.2)
== END ==
LOC: M PLALAB 14:29
PROVIDERS: ATTEND Family Medicine
DX: M06.9 Rheumatoid arthritis, unspecified (principal); N18.3 Chronic kidney disease, stage 3 (moderate); I50.30 Unspecified diastolic (congestive) heart failure

== ENCOUNTER → 2020-06-03 | Outpatient (REF) | payer MEDICARE ==
[2020-06-03 15:08] LABS: BASO % 0.2 % (0.0-1.0); HEMATOCRIT 36.5 % (42.0-52.0); LYMPH # 0.9 10^3/uL (1.5-5.0); LYMPH % 10.5 % (24.0-44.0); MEAN CORPUSCULAR HEMOGLOBIN 32.3 pg (27.0-33.0); MEAN CORPUSCULAR HGB CONC 32.9 g/dl (32.0-36.5); MEAN CORPUSCULAR VOLUME 98.4 fl (80.0-96.0); MONO # 0.5 10^3/uL (0.0-0.8); MONO % 5.9 % (0.0-5.0); NEUTROPHILS # 6.9 10^3/uL (1.5-8.5); NEUTROPHILS % 82.6 % (36.0-66.0); PLATELET COUNT, AUTOMATED 138 10^3/uL (150-450); RED BLOOD COUNT 3.71 10^6/uL (4.30-6.10); WHITE BLOOD COUNT 8.4 10^3/uL (4.0-10.0)
[2020-06-03 15:22] LABS: HEMOGLOBIN A1c 5.2 %
[2020-06-03 15:29] LABS: CREATININE,RANDOM URINE 90.8 MG/DL; TOTAL PROTEIN,RANDOM URINE 29.3 MG/DL (0.0-12.0)
[2020-06-03 15:32] LABS: ERYTHROCYTE SEDIMENTATION RATE 31 mm/hr (0-20)
== END ==
LOC: M SFHCPLAZ 13:15
PROVIDERS: ATTEND Family Medicine
DX: R73.01 Impaired fasting glucose (principal); M06.9 Rheumatoid arthritis, unspecified; I10 Essential (primary) hypertension
CPT/HCPCS: 36415; 82570; 83036; 84156; 85025; 85652; 86140; G0463

== ENCOUNTER → 2020-06-22 | Outpatient (REF) | payer MEDICARE ==
[2020-06-22 15:56] LABS: BASO % 0.4 % (0.0-1.0); EOS % 0.4 % (0.0-3.0); HEMATOCRIT 39.7 % (42.0-52.0); HEMOGLOBIN 12.4 g/dl (13.5-17.5); LYMPH % 13.5 % (24.0-44.0); MEAN CORPUSCULAR HEMOGLOBIN 32.4 pg (27.0-33.0); MEAN CORPUSCULAR HGB CONC 31.2 g/dl (32.0-36.5); MEAN CORPUSCULAR VOLUME 103.7 fl (80.0-96.0); MONO # 0.8 10^3/uL (0.0-0.8); MONO % 10.7 % (0.0-5.0); NEUTROPHILS # 5.7 10^3/uL (1.5-8.5); NEUTROPHILS % 74.5 % (36.0-66.0); PLATELET COUNT, AUTOMATED 115 10^3/uL (150-450); RED BLOOD COUNT 3.83 10^6/uL (4.30-6.10); WHITE BLOOD COUNT 7.6 10^3/uL (4.0-10.0)
[2020-06-22 16:02] LABS: ALBUMIN 3.5 GM/DL (3.2-5.2); BILIRUBIN,TOTAL 0.6 MG/DL (0.2-1.0); C REACTIVE PROTEIN QUANTITATIV 0.3 MG/DL (0.00-0.30); CALCIUM LEVEL 8.7 MG/DL (8.8-10.2); CREATININE FOR GFR 1.64 MG/DL (0.70-1.30); GLOMERULAR FILTRATION RATE 43.6 (>42); POTASSIUM SERUM 4.5 MEQ/L (3.5-5.1); TOTAL PROTEIN 6.7 GM/DL (6.4-8.2)
[2020-06-22 16:35] LABS: ERYTHROCYTE SEDIMENTATION RATE 11 mm/hr (0-20)
[2020-06-24 17:09] LABS: G6PD2 3.87 x10E6/uL (4.14-5.80)
== END ==
LOC: M SFHCPLAZ 11:26
PROVIDERS: ATTEND Physician Assistant Medical
DX: M06.9 Rheumatoid arthritis, unspecified (principal); N18.30 Chronic kidney disease, stage 3 unspecified
CPT/HCPCS: 36415; 80053; 82955; 85025; 85046; 85652; 86140; G0463

== ENCOUNTER → 2020-08-09 | Outpatient (REF) | payer MEDICARE ==
[2020-08-09 13:55] LABS: BASO % 0.7 % (0.0-1.0); EOS # 0.1 10^3/uL (0.0-0.5); EOS % 1.8 % (0.0-3.0); HEMATOCRIT 39.6 % (42.0-52.0); HEMOGLOBIN 12.9 g/dl (13.5-17.5); LYMPH # 1.2 10^3/uL (1.5-5.0); LYMPH % 18.9 % (24.0-44.0); MEAN CORPUSCULAR HGB CONC 32.6 g/dl (32.0-36.5); MEAN CORPUSCULAR VOLUME 98.3 fl (80.0-96.0); MONO # 0.8 10^3/uL (0.0-0.8); MONO % 12.7 % (0.0-5.0); NEUTROPHILS % 65.4 % (36.0-66.0); PLATELET COUNT, AUTOMATED 188 10^3/uL (150-450); RED BLOOD COUNT 4.03 10^6/uL (4.30-6.10); WHITE BLOOD COUNT 6.2 10^3/uL (4.0-10.0)
[2020-08-09 14:22] LABS: ALBUMIN 3.5 GM/DL (3.2-5.2); BILIRUBIN,TOTAL 0.7 MG/DL (0.2-1.0); C REACTIVE PROTEIN QUANTITATIV 6.28 MG/DL (0.00-0.30); CALCIUM LEVEL 9.4 MG/DL (8.8-10.2); CHOLESTEROL RISK RATIO 4.666 (<5); CREATININE FOR GFR 1.99 MG/DL (0.70-1.30); FREE T4 1.56 NG/DL (0.76-1.46); GLOMERULAR FILTRATION RATE 34.9 (>42); POTASSIUM SERUM 4.4 MEQ/L (3.5-5.1); PTH INTACT 57.8 PG/ML (18.5-88.0); THYROID STIMULATING HORMONE 1.72 uIU/ML (0.358-3.740); TOTAL PROTEIN 7.5 GM/DL (6.4-8.2)
[2020-08-09 14:36] LABS: ERYTHROCYTE SEDIMENTATION RATE 53 mm/hr (0-20)
[2020-08-09 15:29] LABS: HEMOGLOBIN A1c 5.4 %
== END ==
LOC: M SFHCPLAZ 10:10
PROVIDERS: ATTEND Family Medicine
DX: M06.9 Rheumatoid arthritis, unspecified (principal); I50.32 Chronic diastolic (congestive) heart failure; E78.5 Hyperlipidemia, unspecified; E55.9 Vitamin D deficiency, unspecified; R73.01 Impaired fasting glucose
CPT/HCPCS: 36415; 80053; 80061; 82306; 83036; 83880; 83970; 84439; 84443; 85025; 85652; 86140; G0463

== ENCOUNTER → 2020-09-08 | Outpatient (CLI) | payer MEDICARE ==
[2020-09-08 14:24] LABS: CREATININE FOR GFR 1.64 MG/DL (0.70-1.30); GLOMERULAR FILTRATION RATE 43.6 (>42); POTASSIUM SERUM 4.3 MEQ/L (3.5-5.1)
== END ==
LOC: M PLALAB 09:57
PROVIDERS: ATTEND Physician Assistant
DX: Z01.818 Encounter for other preprocedural examination (principal); I71.3 Abdominal aortic aneurysm, ruptured

== ENCOUNTER → 2020-09-14 | Outpatient (CLI) | payer MEDICARE ==
--- NOTE | 2020-09-14 10:07 | REP ---
INDICATION: AAA RUPTURE COMPARISON: 01/30/2019, 09/26/2019 TECHNIQUE: Axial noncontrast images from the lung bases to the pubic symphysis with coronal and sagittal reformations. This CT examination was performed using the following dose reduction techniques: Automated exposure control, adjustment of mA and/or kv according to the patient's size, and use of iterative reconstruction technique. FINDINGS: Patient is again noted to be status post aortobi-iliac stent graft for abdominal aortic aneurysm. The stent is in stable position and the excluded portion of the aortic aneurysm is stable in size measuring up to approximately 8.7 x 7.3 cm maximal diameter without periaortic inflammatory changes or fluid to suggest leak/rupture. Stable 3.2 cm hepatic cyst in the left hepatic lobe. Spleen, pancreas, gallbladder, bilateral adrenal glands, atrophic left kidney and right kidney with stable cysts again noted and unchanged. The enteric system is without obstruction or acute inflammatory process. Normal terminal ileum and appendix are identified in the right lower quadrant. Pelvis demonstrates normal bladder and age-appropriate prostate/seminal vesicles. Small fat containing inguinal hernia suggested. No ascites. No free air. No adenopathy. Surrounding musculoskeletal structures demonstrate stable degenerative changes without acute osseous abnormality. IMPRESSION: 1. Stable appearance to the known aortic aneurysm and aortoiliac stent graft. No periaortic inflammatory changes or fluid identified. 2. Stable hepatic and right renal cysts. <Electronically signed by Oren Thurman > 09/14/20 [id number]
== END ==
LOC: M RAD 09:19
PROVIDERS: ATTEND Physician Assistant
DX: Z12.11 Encounter for screening for malignant neoplasm of colon (principal); I71.9 Aortic aneurysm of unspecified site, without rupture; N28.1 Cyst of kidney, acquired; K76.89 Other specified diseases of liver; Z86.010 Personal history of colon polyps; Z80.0 Family history of malignant neoplasm of digestive organs

== ENCOUNTER → 2020-11-22 | Outpatient (REF) | payer MEDICARE ==
[2020-11-22 15:30] LABS: BASO % 0.8 % (0.0-1.0); EOS # 0.1 10^3/uL (0.0-0.5); EOS % 2.1 % (0.0-3.0); HEMATOCRIT 39.7 % (42.0-52.0); HEMOGLOBIN 12.8 g/dl (13.5-17.5); LYMPH # 1.5 10^3/uL (1.5-5.0); LYMPH % 29.1 % (24.0-44.0); MEAN CORPUSCULAR HEMOGLOBIN 31.6 pg (27.0-33.0); MEAN CORPUSCULAR HGB CONC 32.2 g/dl (32.0-36.5); MONO # 0.8 10^3/uL (0.0-0.8); MONO % 14.6 % (2.0-8.0); NEUTROPHILS # 2.7 10^3/uL (1.5-8.5); PLATELET COUNT, AUTOMATED 163 10^3/uL (150-450); RED BLOOD COUNT 4.05 10^6/uL (4.30-6.10); WHITE BLOOD COUNT 5.1 10^3/uL (4.0-10.0)
[2020-11-22 15:57] LABS: ERYTHROCYTE SEDIMENTATION RATE 26 mm/hr (0-20)
[2020-11-22 16:40] LABS: ALBUMIN 3.8 GM/DL (3.2-5.2); ALT/SGPT 15 U/L (12-78); BILIRUBIN,TOTAL 0.6 MG/DL (0.2-1.0); BLOOD UREA NITROGEN 19 MG/DL (7-18); C REACTIVE PROTEIN QUANTITATIV 2.16 MG/DL (0.00-0.30); CALCIUM LEVEL 9.4 MG/DL (8.8-10.2); CARBON DIOXIDE LEVEL 29 MEQ/L (21-32); CHLORIDE LEVEL 105 MEQ/L (98-107); CREATININE FOR GFR 1.65 MG/DL (0.70-1.30); FERRITIN 767 NG/ML (26-388); GLOMERULAR FILTRATION RATE 43.3 (>42); GLUCOSE, FASTING 123 MG/DL (70-100); NT-PRO BNP 257 PG/ML (<450); POTASSIUM SERUM 4.4 MEQ/L (3.5-5.1); SODIUM LEVEL 138 MEQ/L (136-145)
[2020-11-24 11:00] LABS: ALBUMIN 3.92 GM/DL (3.29-5.55); ALPHA-1-GLOBULIN % 5.4 % (2.9-4.9); ALPHA-1-GLOBULINS 0.38 GM/DL (0.17-0.41); ALPHA-2-GLOBULINS 0.81 GM/DL (0.42-0.99); ALPHA-2-GLOBULINS % 11.6 % (7.1-11.8); BETA-1-GLOBULINS 0.37 GM/DL (0.28-0.60); BETA-1-GLOBULINS % 5.3 % (4.7-7.2); BETA-2-GLOBULINS 0.39 GM/DL (0.19-0.55); BETA-2-GLOBULINS % 5.6 % (3.2-6.5); GAMMA GLOBULIN % 16.1 % (11.1-18.8); GAMMA GLOBULINS 1.13 GM/DL (0.65-1.58)
== END ==
LOC: M SFHCPLAZ 13:08
PROVIDERS: ATTEND Family Medicine
DX: M06.9 Rheumatoid arthritis, unspecified (principal); I50.32 Chronic diastolic (congestive) heart failure; D50.9 Iron deficiency anemia, unspecified
CPT/HCPCS: 36415; 80053; 82728; 83880; 84165; 85025; 85046; 85652; 86140; 86335; 86677; G0463

== ENCOUNTER → 2021-02-22 | Outpatient (REF) | payer MEDICARE ==
[~2021-02-22] MED LIST changes: +OMEP40CA4 PO; -OMEP40CA97 PO
[2021-02-22 13:25] LABS: BASO % 0.6 % (0.0-1.0); EOS % 0.6 % (0.0-3.0); HEMATOCRIT 41.4 % (42.0-52.0); HEMOGLOBIN 13.4 g/dl (13.5-17.5); LYMPH # 1.2 10^3/uL (1.5-5.0); LYMPH % 17.3 % (24.0-44.0); MEAN CORPUSCULAR HEMOGLOBIN 31.5 pg (27.0-33.0); MEAN CORPUSCULAR HGB CONC 32.4 g/dl (32.0-36.5); MEAN CORPUSCULAR VOLUME 97.2 fl (80.0-96.0); MONO # 0.6 10^3/uL (0.0-0.8); MONO % 9.1 % (2.0-8.0); NEUTROPHILS % 71.8 % (36.0-66.0); PLATELET COUNT, AUTOMATED 104 10^3/uL (150-450); RED BLOOD COUNT 4.26 10^6/uL (4.30-6.10)
[2021-02-22 13:40] LABS: HEMOGLOBIN A1c 5.3 %
[2021-02-22 14:08] LABS: ERYTHROCYTE SEDIMENTATION RATE 12 mm/hr (0-20)
[2021-02-22 14:12] LABS: ALBUMIN 3.8 GM/DL (3.2-5.2); BILIRUBIN,TOTAL 0.6 MG/DL (0.2-1.0); C REACTIVE PROTEIN QUANTITATIV 1.46 MG/DL (0.00-0.30); CALCIUM LEVEL 8.9 MG/DL (8.8-10.2); CHOLESTEROL RISK RATIO 5.078 (<5); CREATININE FOR GFR 1.57 MG/DL (0.70-1.30); GLOMERULAR FILTRATION RATE 45.7 (>42); POTASSIUM SERUM 4.7 MEQ/L (3.5-5.1); TOTAL PROTEIN 7.3 GM/DL (6.4-8.2)
== END ==
LOC: M SFHCPLAZ 11:17
PROVIDERS: ATTEND Family Medicine
DX: M06.9 Rheumatoid arthritis, unspecified (principal); K21.9 Gastro-esophageal reflux disease without esophagitis; I11.0 Hypertensive heart disease with heart failure; I50.32 Chronic diastolic (congestive) heart failure; R73.01 Impaired fasting glucose; E78.5 Hyperlipidemia, unspecified; D75.89 Other specified diseases of blood and blood-forming organs; Z12.5 Encounter for screening for malignant neoplasm of prostate
CPT/HCPCS: 36415; 80053; 80061; 82607; 83036; 83880; 85025; 85046; 85652; 86140; G0103; G0463

== ENCOUNTER → 2021-05-14 | Outpatient (CLI) | payer MEDICARE ==
[~2021-05-14] MED LIST changes: +EQ C0.05; +HYDR200T3; +MECL-86
== END ==
LOC: M LABSMTC 10:20
PROVIDERS: ATTEND Anesthesiology
DX: Z01.812 Encounter for preprocedural laboratory examination (principal); Z20.822 Contact with and (suspected) exposure to COVID-19

== ENCOUNTER 2021-05-19 07:32 | Day surgery (SDC) | payer MEDICARE ==
[~2021-05-19] VITALS: Ht 167.6 cm; Wt 91.1 kg
[~2021-05-19 07:32] MED LIST changes: -KLOR10TA76 PO; +NS 1,000 ML IV ONE; +POTA-136 PO
--- NOTE | 2021-05-19 09:03 | ROOR ---
Patient Name: Geovanny Reis Procedure Date: 05/19/2021 8:43 AM Date of : 1945 Age: 76 Room: [facility] Gender: Male Note Status: Finalized Procedure: Colonoscopy Indications: High risk colon cancer surveillance: Personal history of colonic polyps Providers: Alex Mathis MD Referring MD: Homar Villagomez MD Requesting Provider: Medicines: Monitored Anesthesia Care Complications: No immediate complications. Procedure: Pre-Anesthesia Assessment: - The heart rate, respiratory rate, oxygen saturations, blood pressure, adequacy of pulmonary ventilation, and response to care were monitored throughout the procedure. The Colonoscope was introduced through the anus and advanced to the terminal ileum, with identification of the appendiceal orifice and IC valve. The colonoscopy was performed without difficulty. The patient tolerated the procedure well. The quality of the bowel preparation was good. Findings: The perianal and digital rectal examinations were normal. A 10 mm polyp was found in the rectum. The polyp was semi-sessile. The polyp was removed with a cold snare. Resection and retrieval were complete. To prevent bleeding after the polypectomy, one hemostatic clip was successfully placed. A 4 mm polyp was found in the sigmoid colon. The polyp was sessile. The polyp was removed with a cold snare. Resection and retrieval were complete. Mild sigmoid diverticulosis and small internal hemorrhoids. The exam was otherwise without abnormality on direct and retroflexion views. Impression: - One 10 mm polyp in the rectum, removed with a cold snare. Resected and retrieved. Clip was placed. - One 4 mm polyp in the sigmoid colon, removed with a cold snare. Resected and retrieved. - Mild sigmoid diverticulosis and small internal hemorrhoids. - The examination was otherwise normal on direct and retroflexion views. Recommendation: - Repeat colonoscopy in 3 years for surveillance. Procedure Code(s): --- Professional --- 03683, Colonoscopy, flexible; with removal of tumor(s), polyp(s), or other lesion(s) by snare technique Diagnosis Code(s): --- Professional --- K63.5, Polyp of colon K62.1, Rectal polyp Z86.010, Personal history of colonic polyps CPT copyright 2019 [employer]. All rights reserved. The codes documented in this report are preliminary and upon chief engineer drilling and recovery review may be revised to meet current compliance requirements. Alex Mathis MD Alex Mathis MD 05/19/2021 9:02:53 AM Electronically signed by Alex Mathis MD Number of Addenda: 0 Note Initiated On: 05/19/2021 8:43 AM Estimated Blood Loss: Estimated blood loss: none.
[2021-05-19] MEDS ORDERED: LIDOCAINE 2% 100MG/5ML SDV (FOR ANES.) As Ordered ONE (09:07)
[2021-05-19] MEDS ORDERED: propofoL 200 MG/20 ML VIAL As Ordered ONE (09:07)
[2021-05-19 09:20] VITALS: BP 145/62
== END 2021-05-19 09:37 | disposition home or self-care (01) ==
LOC: M OPP 07:32
PROVIDERS: ATTEND Internal Medicine Gastroenterology
DX: Z12.11 Encounter for screening for malignant neoplasm of colon (principal); Z86.010 Personal history of colon polyps; Z80.0 Family history of malignant neoplasm of digestive organs; K63.5 Polyp of colon; K62.1 Rectal polyp; K57.30 Diverticulosis of large intestine without perforation or abscess without bleeding; K64.8 Other hemorrhoids; Z79.899 Other long term (current) drug therapy; Z88.6 Allergy status to analgesic agent; Z88.8 Allergy status to other drugs, medicaments and biological substances

== ENCOUNTER → 2021-06-28 | Outpatient (CLI) | payer MEDICARE ==
[~2021-06-28] MED LIST changes: -NS 1,000 ML IV ONE
[2021-06-28 10:30] LABS: BASO % 0.7 % (0.0-1.0); EOS # 0.1 10^3/uL (0.0-0.5); EOS % 2.5 % (0.0-3.0); HEMATOCRIT 40.3 % (42.0-52.0); HEMOGLOBIN 13.3 g/dl (13.5-17.5); LYMPH # 1.3 10^3/uL (1.5-5.0); LYMPH % 22.5 % (24.0-44.0); MEAN CORPUSCULAR VOLUME 96.9 fl (80.0-96.0); MONO # 0.5 10^3/uL (0.0-0.8); MONO % 8.1 % (2.0-8.0); NEUTROPHILS # 3.7 10^3/uL (1.5-8.5); NEUTROPHILS % 65.5 % (36.0-66.0); PLATELET COUNT, AUTOMATED 114 10^3/uL (150-450); RED BLOOD COUNT 4.16 10^6/uL (4.30-6.10); WHITE BLOOD COUNT 5.7 10^3/uL (4.0-10.0)
[2021-06-28 10:46] LABS: ALBUMIN 3.6 GM/DL (3.2-5.2); BILIRUBIN,TOTAL 0.5 MG/DL (0.2-1.0); C REACTIVE PROTEIN QUANTITATIV 0.33 MG/DL (0.00-0.30); CALCIUM LEVEL 8.8 MG/DL (8.8-10.2); CREATININE FOR GFR 1.5 MG/DL (0.70-1.30); GLOMERULAR FILTRATION RATE 48.2 (>42); POTASSIUM SERUM 3.9 MEQ/L (3.5-5.1); RHEUMATOID FACTOR QUANT 83.3 IU/ML (<15.0); TOTAL PROTEIN 6.7 GM/DL (6.4-8.2)
[2021-06-28 11:05] LABS: TOTAL PROTEIN,RANDOM URINE 35.4 MG/DL (0.0-12.0)
[2021-06-28 11:08] LABS: ERYTHROCYTE SEDIMENTATION RATE 9 mm/hr (0-20)
[2021-06-28 11:51] LABS: PTH INTACT 70.8 PG/ML (18.5-88.0); TOTAL 25(OH) VITAMIN D 88.4 NG/ML (30.0-100.0)
== END ==
LOC: M PLALAB 08:33
PROVIDERS: ATTEND Family Medicine
DX: M06.9 Rheumatoid arthritis, unspecified (principal); E55.9 Vitamin D deficiency, unspecified

== ENCOUNTER → 2021-09-28 | Outpatient (CLI) | payer MEDICARE | LOC: M RAD 08:53 | PROVIDERS: ATTEND Family Medicine | DX: K76.89 Other specified diseases of liver (principal); N28.1 Cyst of kidney, acquired; Z98.890 Other specified postprocedural states ==

== ENCOUNTER 2022-05-08 14:25 | Observation (INO) | payer MEDICARE ==
[~2022-05-08] VITALS: Ht 165.1 cm; Wt 91.7 kg
[2022-05-08] MEDS ORDERED: PRED5TA PO ×2 (14:38→22:06)
[2022-05-08] MEDS ORDERED: CHOL125C5 PO (14:38)
[2022-05-08] MEDS ORDERED: OMEP-173 PO (14:38)
[2022-05-08] MEDS ORDERED: HYDR200T3 PO ×2 (14:38→22:06)
[2022-05-08] MEDS ORDERED: LIDOCAINE 5% (LIDODERM) PATCH TD ONE (17:15)
[2022-05-08] MEDS ORDERED: NS 1,000 ML IV ONE ×2 (18:20→20:25)
[2022-05-08 18:23] LABS: BASO % 0.3 % (0.0-1.0); HEMATOCRIT 40.4 % (42.0-52.0); HEMOGLOBIN 13.4 g/dl (13.5-17.5); LYMPH # 0.7 10^3/uL (1.5-5.0); LYMPH % 10.3 % (24.0-44.0); MEAN CORPUSCULAR HEMOGLOBIN 31.7 pg (27.0-33.0); MEAN CORPUSCULAR HGB CONC 33.2 g/dl (32.0-36.5); MEAN CORPUSCULAR VOLUME 95.5 fl (80.0-96.0); MONO # 0.4 10^3/uL (0.0-0.8); MONO % 6.2 % (2.0-8.0); NEUTROPHILS # 5.9 10^3/uL (1.5-8.5); NEUTROPHILS % 82.8 % (36.0-66.0); RED BLOOD COUNT 4.23 10^6/uL (4.30-6.10); WHITE BLOOD COUNT 7.1 10^3/uL (4.0-10.0)
[2022-05-08 18:28] LABS: PLATELET COUNT, AUTOMATED 96 10^3/uL (150-450)
[2022-05-08 18:55] LABS: ALBUMIN 4.2 GM/DL (3.2-5.2); BILIRUBIN,DIRECT 0.3 MG/DL (0.0-0.2); BILIRUBIN,TOTAL 0.8 MG/DL (0.2-1.0); TOTAL PROTEIN 7.7 GM/DL (6.4-8.2)
[2022-05-08 20:32] LABS: APPEARANCE, URINE MANUAL CLEAR (CLEAR); COLOR, URINE MANUAL LT YELLOW (YELLOW)
[2022-05-08 20:33] LABS: BILIRUBIN, URINE MANUAL NEGATIVE (NEGATIVE); BLOOD URINE MANUAL NEGATIVE (NEGATIVE); GLUCOSE, URINE (UA) MANUAL NEGATIVE (NEGATIVE); KETONE, URINE MANUAL NEGATIVE (NEGATIVE); LEUKOCYTE ESTERASE, URINE MAN NEGATIVE (NEGATIVE); NITRITE, URINE MANUAL NEGATIVE (NEGATIVE); PH,URINE MAN 5.5 UNITS (5.0 - 7.0); SPECIFIC GRAVITY,URINE MANUAL 1.015 (1.002-1.035); UROBILINOGEN, URINE MANUAL NORMAL (NORMAL)
[2022-05-08 20:43] LABS: SQUAMOUS EPITHELIAL CELL URINE MOD AMOUNT /hpf (SMALL AMT); TRANSITIONAL EPI CELLS, URINE SMALL AMOUNT /hpf
[2022-05-08 20:44] LABS: BACTERIA, URINE NONE SEEN
[2022-05-08 20:45] LABS: MUCUS, URINE MOD AMOUNT (NEGATIVE); PROTEIN, URINE MANUAL TRACE mg/dL (NEGATIVE)
[2022-05-08 20:46] LABS: HYALINE CAST, URINE 15-20 /lpf (0-1)
[2022-05-08] MEDS ORDERED: **NOTE PATIENT COMMENT** MISC XX SCH (21:00)
[2022-05-08] MEDS ORDERED: FLON1SPR (22:06)
[2022-05-08] MEDS ORDERED: FURO40TA2 PO (22:06)
[2022-05-08] MEDS ORDERED: D-20TAB PO (22:06)
[2022-05-08] MEDS ORDERED: OMEP1CAP73 PO (22:06)
[2022-05-08] MEDS ORDERED: BISO5TAB14 PO (22:06)
[2022-05-08] MEDS ORDERED: HOME MED LIST COMPLETE! XX SCH (22:10)
[2022-05-08] MEDS ORDERED: LR 1,000 ML IV ONE (22:35)
[2022-05-08] MEDS ORDERED: ACETAMINOPHEN TAB 650MG DOSE (2X325MG) PO PRN (22:35)
[2022-05-08 22:46] LABS: RSV AMPLIFICATION NEGATIVE (NEGATIVE)
[2022-05-08] MEDS ORDERED: FLUTICASONE PROP 0.05% NASAL SPRAY 16 GM (FLONASE) PRN (23:05)
[2022-05-08] MEDS ORDERED: oxyCODONE 5MG TAB PO PRN (23:25)
[2022-05-08 23:27] LABS: CREATININE,RANDOM URINE 54.6 MG/DL; POTASSIUM RANDOM URINE 43.8 MEQ/L; TOTAL PROTEIN,RANDOM URINE 17.8 MG/DL (0.0-12.0)
[2022-05-08] MEDS: OMEPRAZOLE 20MG CAP PO SCH (23:32)
[2022-05-09] VITALS (7 sets, daily range): BP systolic 138–181; BP diastolic 76–91
[2022-05-09 00:07] LABS: CALCIUM LEVEL 8.7 MG/DL (8.8-10.2); CREATININE FOR GFR 2.28 MG/DL (0.70-1.30); GLOMERULAR FILTRATION RATE 29.6 (>42); POTASSIUM SERUM 4.4 MEQ/L (3.5-5.1)
[2022-05-09] MEDS ORDERED: **hydrALAZINE** 50 MG TAB PO ONE (01:00)
[2022-05-09] MEDS: HYDROXYCHLOROQUINE 200 MG TAB PO SCH ×2 (01:42→08:19)
[2022-05-09 05:35] LABS: HEMATOCRIT 35.1 % (42.0-52.0); HEMOGLOBIN 11.7 g/dl (13.5-17.5); MEAN CORPUSCULAR HEMOGLOBIN 31.4 pg (27.0-33.0); MEAN CORPUSCULAR HGB CONC 33.3 g/dl (32.0-36.5); MEAN CORPUSCULAR VOLUME 94.1 fl (80.0-96.0); RED BLOOD COUNT 3.73 10^6/uL (4.30-6.10); WHITE BLOOD COUNT 5.4 10^3/uL (4.0-10.0)
[2022-05-09 05:37] LABS: PLATELET COUNT, AUTOMATED 70 10^3/uL (150-450)
[2022-05-09 05:59] LABS: CALCIUM LEVEL 8.7 MG/DL (8.8-10.2); CREATININE FOR GFR 2.01 MG/DL (0.70-1.30); GLOMERULAR FILTRATION RATE 34.3 (>42); MAGNESIUM LEVEL 1.9 MG/DL (1.8-2.4); POTASSIUM SERUM 3.9 MEQ/L (3.5-5.1)
[2022-05-09] MEDS: OMEPRAZOLE 20MG CAP PO SCH (08:18)
[2022-05-09] MEDS ORDERED: bisoproloL fumarate 5 MG TAB PO SCH (09:00)
[2022-05-09] MEDS ORDERED: DOCUSATE SODIUM 100MG CAPSULE PO SCH (09:00)
[2022-05-09] MEDS ORDERED: predniSONE 5 MG TAB PO SCH (09:00)
[2022-05-09] MEDS ORDERED: amLODIPine 5 MG TAB PO SCH (11:35)
[2022-05-09] MEDS ORDERED: amLODIPine 5 MG TAB PO ONE (14:00)
[2022-05-09] MEDS ORDERED: AMLO1TAB24 PO (15:54)
[2022-05-10] MEDS ORDERED: amLODIPine 5 MG TAB PO SCH (09:00)
== END 2022-05-09 17:01 | disposition home or self-care (01) ==
LOC: M ED 14:25 → M ED INP 14:26 → ENRESERV 23:03 → M MSPAV 05-09 00:52
PROVIDERS: ADMIT Internal Medicine; ATTEND Internal Medicine
DX: N17.9 Acute kidney failure, unspecified (principal); N18.30 Chronic kidney disease, stage 3 unspecified; K21.9 Gastro-esophageal reflux disease without esophagitis; M06.9 Rheumatoid arthritis, unspecified; I11.9 Hypertensive heart disease without heart failure; I50.9 Heart failure, unspecified; D69.6 Thrombocytopenia, unspecified; Z79.52 Long term (current) use of systemic steroids; R10.31 Right lower quadrant pain; Z79.899 Other long term (current) drug therapy; Z88.8 Allergy status to other drugs, medicaments and biological substances; Z87.891 Personal history of nicotine dependence
CPT/HCPCS: 36415; 74176; 76775; 80047; 80048; 80076; 81000; 82570; 83690; 83735; 83935; 84133; 84156; 84300; 85025; 85027; 85049; 85055; 87426; 87631; 93005; 96360; 96361; 96374; 96376; 97161; 97530; 99285; G0378; J7512

== ENCOUNTER → 2022-05-17 | Outpatient (CLI) | payer MEDICARE ==
[~2022-05-17] MED LIST changes: +AMLO1TAB24 PO; +CHOL125C5 PO; +D-20TAB PO; +FLON1SPR; +HYDR200T3 PO; +OMEP-173 PO; +OMEP1CAP73 PO; +PRED5TA PO
[2022-05-17 14:35] LABS: BASO % 0.5 % (0.0-1.0); EOS # 0.1 10^3/uL (0.0-0.5); EOS % 1.4 % (0.0-3.0); HEMATOCRIT 37.2 % (42.0-52.0); HEMOGLOBIN 12.1 g/dl (13.5-17.5); LYMPH # 0.8 10^3/uL (1.5-5.0); LYMPH % 12.9 % (24.0-44.0); MEAN CORPUSCULAR HEMOGLOBIN 31.3 pg (27.0-33.0); MEAN CORPUSCULAR HGB CONC 32.5 g/dl (32.0-36.5); MEAN CORPUSCULAR VOLUME 96.4 fl (80.0-96.0); MONO # 0.6 10^3/uL (0.0-0.8); MONO % 10.6 % (2.0-8.0); NEUTROPHILS # 4.4 10^3/uL (1.5-8.5); NEUTROPHILS % 74.1 % (36.0-66.0); PLATELET COUNT, AUTOMATED 90 10^3/uL (150-450); RED BLOOD COUNT 3.86 10^6/uL (4.30-6.10); WHITE BLOOD COUNT 5.9 10^3/uL (4.0-10.0)
[2022-05-17 14:51] LABS: INR 1.13; PROTHROMBIN TIME 14.9 SECONDS (12.7-14.5)
[2022-05-17 14:52] LABS: PARTIAL THROMBOPLASTIN TIME 35.4 SECONDS (25.9-37.0)
[2022-05-17 15:25] LABS: ALBUMIN 3.6 GM/DL (3.2-5.2); BILIRUBIN,TOTAL 0.5 MG/DL (0.2-1.0); CALCIUM LEVEL 8.8 MG/DL (8.8-10.2); CREATININE FOR GFR 2.29 MG/DL (0.70-1.30); GLOMERULAR FILTRATION RATE 29.5 (>42); POTASSIUM SERUM 4.5 MEQ/L (3.5-5.1); TOTAL PROTEIN 6.7 GM/DL (6.4-8.2)
[2022-05-17 16:07] LABS: TOTAL 25(OH) VITAMIN D 104.6 NG/ML (30.0-100.0)
[2022-05-17 16:10] LABS: PTH INTACT 44.3 PG/ML (18.5-88.0)
== END ==
LOC: M PLALAB 11:24
PROVIDERS: ATTEND Family Medicine
DX: I50.32 Chronic diastolic (congestive) heart failure (principal); N18.30 Chronic kidney disease, stage 3 unspecified; D75.89 Other specified diseases of blood and blood-forming organs; Z79.899 Other long term (current) drug therapy

== ENCOUNTER → 2022-05-29 | Outpatient (CLI) | payer MEDICARE ==
[2022-05-29 14:43] LABS: ALBUMIN 3.8 GM/DL (3.2-5.2); CALCIUM LEVEL 9.2 MG/DL (8.8-10.2); CREATININE FOR GFR 2.09 MG/DL (0.70-1.30); GLOMERULAR FILTRATION RATE 32.8 (>42); MAGNESIUM LEVEL 2.3 MG/DL (1.8-2.4); PHOSPHORUS LEVEL 2.5 MG/DL (2.5-4.9); POTASSIUM SERUM 4.4 MEQ/L (3.5-5.1)
== END ==
LOC: M PLALAB 10:07
PROVIDERS: ATTEND Physician Assistant
DX: I50.32 Chronic diastolic (congestive) heart failure (principal)

== ENCOUNTER 2022-11-17 18:33 | Inpatient (IN) | payer MEDICARE ==
[~2022-11-17] VITALS: Ht 165.1 cm; Wt 92.0 kg
[~2022-11-17 18:33] MED LIST changes: -AMLO2.5T3 PO; -COMBAER6 INH; -MECL-86 PO; -OMEP40CA5 PO; -TORS5TAB2 PO
[2022-11-17 22:34] LABS: BASO % 0.8 % (0.0-1.0); EOS # 0.2 10^3/uL (0.0-0.5); EOS % 3.2 % (0.0-3.0); HEMATOCRIT 28.8 % (42.0-52.0); HEMOGLOBIN 9.7 g/dl (13.5-17.5); LYMPH # 1.2 10^3/uL (1.5-5.0); LYMPH % 23.6 % (24.0-44.0); MEAN CORPUSCULAR HEMOGLOBIN 33.6 pg (27.0-33.0); MEAN CORPUSCULAR HGB CONC 33.7 g/dl (32.0-36.5); MEAN CORPUSCULAR VOLUME 99.7 fl (80.0-96.0); MONO # 0.6 10^3/uL (0.0-0.8); MONO % 11.8 % (2.0-8.0); NEUTROPHILS # 3.2 10^3/uL (1.5-8.5); NEUTROPHILS % 60.2 % (36.0-66.0); RED BLOOD COUNT 2.89 10^6/uL (4.30-6.10); WHITE BLOOD COUNT 5.3 10^3/uL (4.0-10.0)
[2022-11-17 22:47] LABS: PLATELET COUNT, AUTOMATED 72 10^3/uL (150-450)
[2022-11-17 23:07] LABS: ALBUMIN 3.8 G/DL (3.2-5.2); BILIRUBIN,DIRECT 0.2 MG/DL (<0.4); BILIRUBIN,TOTAL 0.5 MG/DL (0.3-1.2); CALCIUM LEVEL 8.5 MG/DL (8.3-10.6); CK-MB VALUE MASS 1.4 NG/ML (<3.6); CREATININE FOR GFR 4.05 MG/DL (0.70-1.30); GLOMERULAR FILTRATION RATE 15.3 (>42); MB/CK RELATIVE INDEX 2.74 (< OR =4); POTASSIUM SERUM 4.8 MMOL/L (3.5-5.1); TOTAL PROTEIN 6.3 G/DL (5.7-8.2)
[2022-11-17 23:10] LABS: THYROID STIMULATING HORMONE 1.463 uIU/ML (0.55-4.78)
[2022-11-17 23:11] LABS: THYROXINE (T4) 6.5 UG/DL (4.5-10.9)
[2022-11-17] MEDS ORDERED: amLODIPine 5 MG TAB PO ONE (23:35)
[2022-11-17] MEDS: NS 1,000 ML IV SCH (23:44)
[2022-11-18] MEDS ORDERED: AMLO2.5T3 PO (00:18)
[2022-11-18] MEDS ORDERED: OMEP40CA5 PO (00:18)
[2022-11-18] MEDS ORDERED: TORS5TAB2 PO (00:18)
[2022-11-18] MEDS ORDERED: MECL-86 PO (00:19)
[2022-11-18] MEDS ORDERED: COMBAER6 INH (00:19)
[2022-11-18] MEDS ORDERED: HOME MED LIST COMPLETE! XX SCH (00:20)
[2022-11-18] MEDS ORDERED: hydrALAZINE 20MG/ML 1ML VIAL IV PRN (01:25)
[2022-11-18] MEDS: DOXYCYCLINE HYCLATE 100MG TABLET PO SCH ×2 (03:38→08:39)
[2022-11-18 03:55] LABS: HEMATOCRIT 26.9 % (42.0-52.0); MEAN CORPUSCULAR HEMOGLOBIN 32.8 pg (27.0-33.0); MEAN CORPUSCULAR HGB CONC 33.5 g/dl (32.0-36.5); MEAN CORPUSCULAR VOLUME 98.2 fl (80.0-96.0); RED BLOOD COUNT 2.74 10^6/uL (4.30-6.10); WHITE BLOOD COUNT 4.5 10^3/uL (4.0-10.0)
[2022-11-18 03:59] LABS: PLATELET COUNT, AUTOMATED 68 10^3/uL (150-450)
[2022-11-18 07:03] LABS: HEMATOCRIT 27.9 % (42.0-52.0); HEMOGLOBIN 9.2 g/dl (13.5-17.5); MEAN CORPUSCULAR HEMOGLOBIN 32.4 pg (27.0-33.0); MEAN CORPUSCULAR VOLUME 98.2 fl (80.0-96.0); RED BLOOD COUNT 2.84 10^6/uL (4.30-6.10); WHITE BLOOD COUNT 4.2 10^3/uL (4.0-10.0)
[2022-11-18 07:06] LABS: PLATELET COUNT, AUTOMATED 73 10^3/uL (150-450)
[2022-11-18 08:15] LABS: CALCIUM LEVEL 8.3 MG/DL (8.3-10.6); CREATININE FOR GFR 3.2 MG/DL (0.70-1.30); POTASSIUM SERUM 4.5 MMOL/L (3.5-5.1)
[2022-11-18] MEDS: OMEPRAZOLE 20MG CAP PO SCH ×2 (08:40→22:46)
[2022-11-18] MEDS: predniSONE 5 MG TAB PO SCH (08:40)
[2022-11-18] MEDS: bisoproloL fumarate 5 MG TAB PO SCH (08:40)
[2022-11-18] MEDS: NS 1,000 ML IV SCH (08:40)
[2022-11-18] MEDS: HYDROXYCHLOROQUINE 200 MG TAB PO SCH (09:17)
[2022-11-18] MEDS ORDERED: amLODIPine 5 MG TAB PO ONE (12:00)
[2022-11-18] MEDS ORDERED: ISOVUE-370 76% 100ML VIAL As Ordered ONE ×2 (13:27→13:44)
[2022-11-18 13:42] LABS: HEMOGLOBIN 9.6 g/dl (13.5-17.5); MEAN CORPUSCULAR HEMOGLOBIN 32.8 pg (27.0-33.0); MEAN CORPUSCULAR HGB CONC 33.1 g/dl (32.0-36.5); PLATELET COUNT, AUTOMATED 69 10^3/uL (150-450); RED BLOOD COUNT 2.93 10^6/uL (4.30-6.10); WHITE BLOOD COUNT 4.1 10^3/uL (4.0-10.0)
[2022-11-18 18:13] LABS: INR 1.24; PROTHROMBIN TIME 15.9 SECONDS (12.5-14.5)
[2022-11-18 18:49] LABS: IRON (FE) 28 UG/DL (65-175); PERCENT SATURATION 12.4 % (19.7-50.0); TOTAL IRON BINDING CAPACITY 226 UG/DL (250-425)
[2022-11-18 18:51] VITALS: BP 152/74
[2022-11-18 18:56] LABS: FERRITIN 425.8 NG/ML (10.5-307.3)
[2022-11-18 18:57] LABS: FOLATE 10.25 NG/ML (>5.4); VITAMIN B12 LEVEL 392 PG/ML (211-911)
[2022-11-18 19:27] LABS: HIV 1&2 SCREEN CENTAUR NEGATIVE (NEGATIVE)
[2022-11-18 20:50] VITALS: BP 164/75
[2022-11-18 20:50] LABS: HEMATOCRIT 29.2 % (42.0-52.0); HEMOGLOBIN 9.6 g/dl (13.5-17.5); MEAN CORPUSCULAR HEMOGLOBIN 32.5 pg (27.0-33.0); MEAN CORPUSCULAR HGB CONC 32.9 g/dl (32.0-36.5); RED BLOOD COUNT 2.95 10^6/uL (4.30-6.10); WHITE BLOOD COUNT 4.3 10^3/uL (4.0-10.0)
[2022-11-18 20:52] LABS: PLATELET COUNT, AUTOMATED 76 10^3/uL (150-450)
[2022-11-18 21:05] LABS: CALCIUM LEVEL 7.8 MG/DL (8.3-10.6); CREATININE FOR GFR 2.51 MG/DL (0.70-1.30); GLOMERULAR FILTRATION RATE 26.5 (>42)
[2022-11-18] MEDS: IPRATROPIUM 0.5MG/ALBUTEROL 2.5MG INH SOL UD 3ML (DUONEB) NEB SCH (21:08)
[2022-11-19 00:43] VITALS: BP 170/88
[2022-11-19] MEDS: IPRATROPIUM 0.5MG/ALBUTEROL 2.5MG INH SOL UD 3ML (DUONEB) NEB SCH ×4 (01:17→19:55)
[2022-11-19] MEDS: NS 1,000 ML IV SCH (04:38)
[2022-11-19 04:47] VITALS: BP 127/88
[2022-11-19 07:45] VITALS: BP 170/82
[2022-11-19 07:50] LABS: BASO % 0.3 % (0.0-1.0); EOS # 0.1 10^3/uL (0.0-0.5); EOS % 1.9 % (0.0-3.0); HEMATOCRIT 27.1 % (42.0-52.0); HEMOGLOBIN 8.8 g/dl (13.5-17.5); LYMPH # 0.7 10^3/uL (1.5-5.0); MEAN CORPUSCULAR HEMOGLOBIN 32.2 pg (27.0-33.0); MEAN CORPUSCULAR HGB CONC 32.5 g/dl (32.0-36.5); MEAN CORPUSCULAR VOLUME 99.3 fl (80.0-96.0); MONO # 0.4 10^3/uL (0.0-0.8); MONO % 10.6 % (2.0-8.0); NEUTROPHILS # 2.6 10^3/uL (1.5-8.5); NEUTROPHILS % 68.9 % (36.0-66.0); RED BLOOD COUNT 2.73 10^6/uL (4.30-6.10); WHITE BLOOD COUNT 3.8 10^3/uL (4.0-10.0)
[2022-11-19 07:53] LABS: PLATELET COUNT, AUTOMATED 58 10^3/uL (150-450)
[2022-11-19 08:30] LABS: ALBUMIN 3.3 G/DL (3.2-5.2); BILIRUBIN,TOTAL 0.5 MG/DL (0.3-1.2); CALCIUM LEVEL 7.5 MG/DL (8.3-10.6); CREATININE FOR GFR 2.63 MG/DL (0.70-1.30); GLOMERULAR FILTRATION RATE 25.1 (>42); MAGNESIUM LEVEL 1.6 MG/DL (1.8-2.4); POTASSIUM SERUM 4.5 MMOL/L (3.5-5.1); TOTAL PROTEIN 5.6 G/DL (5.7-8.2)
[2022-11-19] MEDS: MECLIZINE 25 MG TABLET PO SCH (09:00)
[2022-11-19] MEDS ORDERED: FLUBLOK(EGG FREE)(QUAD)INFLUENZA VACC 0.5ML SYRINGE 18YRS & OLDER IM.IMMUN ONE (09:00)
[2022-11-19] MEDS: bisoproloL fumarate 5 MG TAB PO SCH (09:33)
[2022-11-19] MEDS: OMEPRAZOLE 20MG CAP PO SCH ×2 (09:33→21:17)
[2022-11-19] MEDS: predniSONE 5 MG TAB PO SCH (09:34)
[2022-11-19] MEDS: HYDROXYCHLOROQUINE 200 MG TAB PO SCH (11:17)
[2022-11-19] MEDS ORDERED: bisoproloL fumarate 5 MG TAB PO ONE (11:45)
[2022-11-19] MEDS: MAGNESIUM OXIDE 400MG TAB (MAG-OX) PO SCH ×2 (12:00→21:17)
[2022-11-19 12:17] VITALS: BP 137/60
[2022-11-19] MEDS: MAG SULF 1GM/100ML (MAG RUN) 1 GM in IV 1 EA IV SCH ×2 (12:34→16:03)
[2022-11-19] MEDS ORDERED: FERRIC CARBOXYMALTOSE INJ 750 MG, VIAL MATE ADAPTER 1 EACH in NS 250 ML IV ONE (13:00)
[2022-11-19 16:35] VITALS: BP 158/86
[2022-11-19 19:55] VITALS: BP 149/69
[2022-11-19] MEDS: RAMELTEON 8 MG TAB (ROZEREM) PO PRN (21:18)
[2022-11-20 00:43] VITALS: BP 154/72
[2022-11-20] MEDS: IPRATROPIUM 0.5MG/ALBUTEROL 2.5MG INH SOL UD 3ML (DUONEB) NEB SCH ×4 (02:25→19:30)
[2022-11-20 03:42] VITALS: BP 145/70
[2022-11-20 05:51] LABS: BASO % 0.7 % (0.0-1.0); EOS # 0.1 10^3/uL (0.0-0.5); EOS % 1.1 % (0.0-3.0); HEMATOCRIT 26.2 % (42.0-52.0); HEMOGLOBIN 8.6 g/dl (13.5-17.5); LYMPH # 0.6 10^3/uL (1.5-5.0); LYMPH % 13.6 % (24.0-44.0); MEAN CORPUSCULAR HEMOGLOBIN 32.8 pg (27.0-33.0); MEAN CORPUSCULAR HGB CONC 32.8 g/dl (32.0-36.5); MONO # 0.4 10^3/uL (0.0-0.8); MONO % 9.1 % (2.0-8.0); NEUTROPHILS # 3.4 10^3/uL (1.5-8.5); NEUTROPHILS % 75.1 % (36.0-66.0); RED BLOOD COUNT 2.62 10^6/uL (4.30-6.10); WHITE BLOOD COUNT 4.5 10^3/uL (4.0-10.0)
[2022-11-20 05:56] LABS: PLATELET COUNT, AUTOMATED 58 10^3/uL (150-450)
[2022-11-20 06:20] LABS: ALBUMIN 3.3 G/DL (3.2-5.2); BILIRUBIN,TOTAL 0.6 MG/DL (0.3-1.2); CALCIUM LEVEL 7.9 MG/DL (8.3-10.6); CREATININE FOR GFR 3.16 MG/DL (0.70-1.30); GLOMERULAR FILTRATION RATE 20.3 (>42); MAGNESIUM LEVEL 2.2 MG/DL (1.8-2.4); POTASSIUM SERUM 4.7 MMOL/L (3.5-5.1); TOTAL PROTEIN 5.5 G/DL (5.7-8.2)
[2022-11-20 07:36] VITALS: BP 132/80
[2022-11-20] MEDS: bisoproloL fumarate 5 MG TAB PO SCH (10:10)
[2022-11-20] MEDS: OMEPRAZOLE 20MG CAP PO SCH ×2 (10:10→20:45)
[2022-11-20] MEDS: predniSONE 5 MG TAB PO SCH (10:11)
[2022-11-20] MEDS: MAGNESIUM OXIDE 400MG TAB (MAG-OX) PO SCH (10:11)
[2022-11-20 11:18] VITALS: BP 136/62
[2022-11-20] MEDS: HYDROXYCHLOROQUINE 200 MG TAB PO SCH (11:43)
[2022-11-20] MEDS: MECLIZINE 25 MG TABLET PO SCH (11:43)
[2022-11-20 16:00] VITALS: BP 128/53
[2022-11-20 20:25] VITALS: BP 128/59
[2022-11-20] MEDS: RAMELTEON 8 MG TAB (ROZEREM) PO PRN (20:45)
[2022-11-21 00:56] VITALS: BP 124/56
[2022-11-21] MEDS: IPRATROPIUM 0.5MG/ALBUTEROL 2.5MG INH SOL UD 3ML (DUONEB) NEB SCH ×5 (02:51→23:57)
[2022-11-21 03:56] VITALS: BP 127/61
[2022-11-21 06:20] LABS: BASO % 0.4 % (0.0-1.0); EOS # 0.1 10^3/uL (0.0-0.5); EOS % 1.7 % (0.0-3.0); HEMATOCRIT 25.9 % (42.0-52.0); HEMOGLOBIN 8.2 g/dl (13.5-17.5); LYMPH # 0.6 10^3/uL (1.5-5.0); MEAN CORPUSCULAR HEMOGLOBIN 31.7 pg (27.0-33.0); MEAN CORPUSCULAR HGB CONC 31.7 g/dl (32.0-36.5); MONO # 0.4 10^3/uL (0.0-0.8); MONO % 9.1 % (2.0-8.0); NEUTROPHILS # 3.6 10^3/uL (1.5-8.5); NEUTROPHILS % 75.2 % (36.0-66.0); RED BLOOD COUNT 2.59 10^6/uL (4.30-6.10); WHITE BLOOD COUNT 4.8 10^3/uL (4.0-10.0)
[2022-11-21 06:26] LABS: PLATELET COUNT, AUTOMATED 62 10^3/uL (150-450)
[2022-11-21 07:58] VITALS: BP 133/63
[2022-11-21 07:58] LABS: ALBUMIN 3.3 G/DL (3.2-5.2); BILIRUBIN,TOTAL 0.6 MG/DL (0.3-1.2); CALCIUM LEVEL 8.4 MG/DL (8.3-10.6); CREATININE FOR GFR 4.21 MG/DL (0.70-1.30); GLOMERULAR FILTRATION RATE 14.6 (>42); MAGNESIUM LEVEL 2.3 MG/DL (1.8-2.4); POTASSIUM SERUM 4.9 MMOL/L (3.5-5.1); TOTAL PROTEIN 5.5 G/DL (5.7-8.2)
[2022-11-21] MEDS ORDERED: DARBEPOETIN 100MCG/0.5ML *NON-DIALYSIS* SYRINGE SC SCH (09:00)
[2022-11-21] MEDS: bisoproloL fumarate 5 MG TAB PO SCH (09:36)
[2022-11-21] MEDS: OMEPRAZOLE 20MG CAP PO SCH ×2 (09:36→21:13)
[2022-11-21] MEDS: HYDROXYCHLOROQUINE 200 MG TAB PO SCH (09:36)
[2022-11-21] MEDS: MECLIZINE 25 MG TABLET PO SCH (09:36)
[2022-11-21] MEDS: MAGNESIUM OXIDE 400MG TAB (MAG-OX) PO SCH (09:37)
[2022-11-21] MEDS: predniSONE 5 MG TAB PO SCH (09:37)
[2022-11-21 12:18] VITALS: BP 124/58
[2022-11-21] MEDS: NS 1,000 ML IV SCH ×2 (12:31→22:47)
[2022-11-21 16:10] VITALS: BP 113/64
[2022-11-21 20:00] VITALS: BP 135/63
[2022-11-21] MEDS: RAMELTEON 8 MG TAB (ROZEREM) PO PRN (21:13)
[2022-11-22] VITALS (7 sets, daily range): BP systolic 128–147; BP diastolic 61–81; O2SAT 93
[2022-11-22] MEDS: ALBUTEROL 90 MCG/ACT 8GM HFA INHALER INH PRN ×2 (03:37→19:46)
[2022-11-22 05:58] LABS: BASO % 0.4 % (0.0-1.0); EOS # 0.1 10^3/uL (0.0-0.5); EOS % 1.4 % (0.0-3.0); HEMATOCRIT 25.8 % (42.0-52.0); HEMOGLOBIN 8.2 g/dl (13.5-17.5); LYMPH # 0.5 10^3/uL (1.5-5.0); LYMPH % 10.5 % (24.0-44.0); MEAN CORPUSCULAR HEMOGLOBIN 31.9 pg (27.0-33.0); MEAN CORPUSCULAR HGB CONC 31.8 g/dl (32.0-36.5); MEAN CORPUSCULAR VOLUME 100.4 fl (80.0-96.0); MONO # 0.5 10^3/uL (0.0-0.8); MONO % 9.8 % (2.0-8.0); NEUTROPHILS # 3.8 10^3/uL (1.5-8.5); NEUTROPHILS % 77.5 % (36.0-66.0); RED BLOOD COUNT 2.57 10^6/uL (4.30-6.10); WHITE BLOOD COUNT 4.9 10^3/uL (4.0-10.0)
[2022-11-22 06:01] LABS: PLATELET COUNT, AUTOMATED 64 10^3/uL (150-450)
[2022-11-22 06:30] LABS: ALBUMIN 3.3 G/DL (3.2-5.2); BILIRUBIN,TOTAL 0.7 MG/DL (0.3-1.2); CALCIUM LEVEL 8.2 MG/DL (8.3-10.6); CREATININE FOR GFR 5.24 MG/DL (0.70-1.30); GLOMERULAR FILTRATION RATE 11.3 (>42); MAGNESIUM LEVEL 2.4 MG/DL (1.8-2.4); POTASSIUM SERUM 5.2 MMOL/L (3.5-5.1); TOTAL PROTEIN 5.5 G/DL (5.7-8.2)
[2022-11-22] MEDS: IPRATROPIUM 0.5MG/ALBUTEROL 2.5MG INH SOL UD 3ML (DUONEB) NEB SCH ×3 (08:21→19:24)
[2022-11-22] MEDS ORDERED: amLODIPine 5 MG TAB PO SCH (09:00)
[2022-11-22] MEDS: OMEPRAZOLE 20MG CAP PO SCH ×2 (09:55→20:19)
[2022-11-22] MEDS: NS 1,000 ML IV SCH (09:55)
[2022-11-22] MEDS: HYDROXYCHLOROQUINE 200 MG TAB PO SCH (09:55)
[2022-11-22] MEDS: MAGNESIUM OXIDE 400MG TAB (MAG-OX) PO SCH (09:56)
[2022-11-22] MEDS: bisoproloL fumarate 5 MG TAB PO SCH (09:56)
[2022-11-22] MEDS: predniSONE 5 MG TAB PO SCH (09:56)
[2022-11-22] MEDS: MECLIZINE 25 MG TABLET PO SCH (09:59)
[2022-11-22] MEDS: PATIROMER SORBITEX CALCIUM 8.4 GM POWDER PACKET (VELTASSA) PO SCH (11:35)
[2022-11-22] MEDS ORDERED: FUROSEMIDE 100MG/10ML VIAL IV ONE (16:25)
[2022-11-22 16:46] LABS: ABG BASE EXCESS -8.2 (-2.0-2.0); ABG HCO3 16.3 MEQ/L (22.0-26.0); ABG O2 SATURATION 91.5 % (95.0-99.0); ABG PARTIAL PRESSURE CO2 29.8 mmHg (35.0-45.0); ABG PARTIAL PRESSURE O2 62.2 mmHg (75.0-100.0); ABG STANDARD HCO3 17.7 MEQ/L (22.0-26.0); ABG TOTAL CO2 17.2 MEQ/L (23.0-31.0); ABG pH (ARTERIAL) 7.356 UNITS (7.350-7.450)
[2022-11-22 17:28] LABS: CK-MB VALUE MASS 3.2 NG/ML (<3.6)
[2022-11-22 17:30] LABS: MB/CK RELATIVE INDEX 2.93 (< OR =4)
[2022-11-22 19:37] LABS: CK-MB VALUE MASS 3.4 NG/ML (<3.6)
[2022-11-22 19:38] LABS: MB/CK RELATIVE INDEX 3.14 (< OR =4)
[2022-11-22] MEDS: methylPREDNISolone 125MG 2ML VIAL IV SCH (20:19)
[2022-11-22 21:25] LABS: ABG BASE EXCESS -8.9 (-2.0-2.0); ABG O2 SATURATION 96.6 % (95.0-99.0); ABG PARTIAL PRESSURE CO2 30.6 mmHg (35.0-45.0); ABG STANDARD HCO3 17.2 MEQ/L (22.0-26.0); ABG TOTAL CO2 16.9 MEQ/L (23.0-31.0); ABG pH (ARTERIAL) 7.335 UNITS (7.350-7.450)
[2022-11-23 00:09] VITALS: BP 151/68
[2022-11-23] MEDS: IPRATROPIUM 0.5MG/ALBUTEROL 2.5MG INH SOL UD 3ML (DUONEB) NEB SCH ×4 (00:24→19:19)
[2022-11-23 03:20] VITALS: BP 139/87
[2022-11-23] MEDS: methylPREDNISolone 125MG 2ML VIAL IV SCH ×4 (03:59→20:24)
[2022-11-23] MEDS: ALBUTEROL 90 MCG/ACT 8GM HFA INHALER INH PRN ×2 (05:29→23:42)
[2022-11-23 07:48] VITALS: BP 120/60
[2022-11-23 08:15] LABS: HEMATOCRIT 26.5 % (42.0-52.0); HEMOGLOBIN 8.5 g/dl (13.5-17.5); LYMPH # 0.2 10^3/uL (1.5-5.0); LYMPH % 5.5 % (24.0-44.0); MEAN CORPUSCULAR HGB CONC 32.1 g/dl (32.0-36.5); MEAN CORPUSCULAR VOLUME 99.6 fl (80.0-96.0); MONO % 0.6 % (2.0-8.0); NEUTROPHILS # 3.2 10^3/uL (1.5-8.5); NEUTROPHILS % 92.7 % (36.0-66.0); RED BLOOD COUNT 2.66 10^6/uL (4.30-6.10); WHITE BLOOD COUNT 3.5 10^3/uL (4.0-10.0)
[2022-11-23 08:17] LABS: PLATELET COUNT, AUTOMATED 70 10^3/uL (150-450)
[2022-11-23] MEDS: bisoproloL fumarate 5 MG TAB PO SCH (08:33)
[2022-11-23] MEDS: MECLIZINE 25 MG TABLET PO SCH (08:34)
[2022-11-23] MEDS: HYDROXYCHLOROQUINE 200 MG TAB PO SCH (08:34)
[2022-11-23] MEDS: OMEPRAZOLE 20MG CAP PO SCH ×2 (08:34→20:24)
[2022-11-23] MEDS: predniSONE 5 MG TAB PO SCH (08:34)
[2022-11-23 08:50] LABS: ALBUMIN 3.4 G/DL (3.2-5.2); BILIRUBIN,TOTAL 0.6 MG/DL (0.3-1.2); CALCIUM LEVEL 8.4 MG/DL (8.3-10.6); CREATININE FOR GFR 4.61 MG/DL (0.70-1.30); GLOMERULAR FILTRATION RATE 13.2 (>42); MAGNESIUM LEVEL 2.3 MG/DL (1.8-2.4); POTASSIUM SERUM 5.3 MMOL/L (3.5-5.1); TOTAL PROTEIN 5.9 G/DL (5.7-8.2)
[2022-11-23] MEDS: MAGNESIUM OXIDE 400MG TAB (MAG-OX) PO SCH (10:15)
[2022-11-23] MEDS: FUROSEMIDE 100MG/10ML VIAL IV SCH ×2 (10:15→16:27)
[2022-11-23] MEDS: PATIROMER SORBITEX CALCIUM 8.4 GM POWDER PACKET (VELTASSA) PO SCH (11:30)
[2022-11-23 12:00] VITALS: BP 135/64
[2022-11-23 16:09] VITALS: BP 134/66
[2022-11-23 20:05] VITALS: BP 146/65
[2022-11-23] MEDS: RAMELTEON 8 MG TAB (ROZEREM) PO PRN (23:59)
[2022-11-24] VITALS (12 sets, daily range): BP systolic 131–148; BP diastolic 64–78; O2SAT 95–98
[2022-11-24] MEDS: IPRATROPIUM 0.5MG/ALBUTEROL 2.5MG INH SOL UD 3ML (DUONEB) NEB SCH ×4 (02:22→20:40)
[2022-11-24] MEDS: methylPREDNISolone 125MG 2ML VIAL IV SCH ×2 (04:09→09:10)
[2022-11-24 05:56] LABS: HEMATOCRIT 26.4 % (42.0-52.0); HEMOGLOBIN 8.6 g/dl (13.5-17.5); LYMPH # 0.2 10^3/uL (1.5-5.0); LYMPH % 2.9 % (24.0-44.0); MEAN CORPUSCULAR HEMOGLOBIN 32.6 pg (27.0-33.0); MEAN CORPUSCULAR HGB CONC 32.6 g/dl (32.0-36.5); MONO # 0.3 10^3/uL (0.0-0.8); MONO % 3.3 % (2.0-8.0); NEUTROPHILS # 7.5 10^3/uL (1.5-8.5); NEUTROPHILS % 92.9 % (36.0-66.0); RED BLOOD COUNT 2.64 10^6/uL (4.30-6.10); WHITE BLOOD COUNT 8.1 10^3/uL (4.0-10.0)
[2022-11-24 05:58] LABS: PLATELET COUNT, AUTOMATED 86 10^3/uL (150-450)
[2022-11-24 06:25] LABS: ALBUMIN 3.5 G/DL (3.2-5.2); BILIRUBIN,TOTAL 0.5 MG/DL (0.3-1.2); CALCIUM LEVEL 8.6 MG/DL (8.3-10.6); CREATININE FOR GFR 4.18 MG/DL (0.70-1.30); GLOMERULAR FILTRATION RATE 14.7 (>42); MAGNESIUM LEVEL 2.2 MG/DL (1.8-2.4); POTASSIUM SERUM 4.2 MMOL/L (3.5-5.1); TOTAL PROTEIN 5.9 G/DL (5.7-8.2)
[2022-11-24] MEDS: FUROSEMIDE 100MG/10ML VIAL IV SCH ×2 (09:09→16:33)
[2022-11-24] MEDS: MAGNESIUM OXIDE 400MG TAB (MAG-OX) PO SCH (09:09)
[2022-11-24] MEDS: bisoproloL fumarate 5 MG TAB PO SCH (09:09)
[2022-11-24] MEDS: OMEPRAZOLE 20MG CAP PO SCH ×2 (09:09→20:13)
[2022-11-24] MEDS: HYDROXYCHLOROQUINE 200 MG TAB PO SCH (09:10)
[2022-11-24] MEDS: MECLIZINE 25 MG TABLET PO SCH (09:13)
[2022-11-24] MEDS: PATIROMER SORBITEX CALCIUM 8.4 GM POWDER PACKET (VELTASSA) PO SCH (11:35)
[2022-11-24 14:12] LABS: ERYTHROPOIETIN 10.6 mIU/mL (2.6-18.5); HAPTOGLOBIN 151 mg/dL (34-355); HLA CLASS 1 ANTIBODY Negative (Negative); IIb/IIIa ANTIBODY Positive (Negative); Ib/IX ANTIBODY Negative (Negative)
[2022-11-24] MEDS: methylPREDNISolone 40MG 1ML VIAL IV SCH (16:32)
[2022-11-24] MEDS: RAMELTEON 8 MG TAB (ROZEREM) PO PRN (21:41)
[2022-11-25] VITALS (19 sets, daily range): BP systolic 132–160; BP diastolic 62–86; O2SAT 89–96
[2022-11-25] MEDS: methylPREDNISolone 40MG 1ML VIAL IV SCH ×2 (00:05→09:00)
[2022-11-25] MEDS: IPRATROPIUM 0.5MG/ALBUTEROL 2.5MG INH SOL UD 3ML (DUONEB) NEB SCH ×4 (01:38→20:02)
[2022-11-25 06:15] LABS: BASO % 0.1 % (0.0-1.0); HEMATOCRIT 26.6 % (42.0-52.0); HEMOGLOBIN 8.6 g/dl (13.5-17.5); LYMPH # 0.3 10^3/uL (1.5-5.0); LYMPH % 3.2 % (24.0-44.0); MEAN CORPUSCULAR HEMOGLOBIN 32.7 pg (27.0-33.0); MEAN CORPUSCULAR HGB CONC 32.3 g/dl (32.0-36.5); MEAN CORPUSCULAR VOLUME 101.1 fl (80.0-96.0); MONO # 0.3 10^3/uL (0.0-0.8); MONO % 3.2 % (2.0-8.0); NEUTROPHILS # 7.1 10^3/uL (1.5-8.5); NEUTROPHILS % 91.3 % (36.0-66.0); RED BLOOD COUNT 2.63 10^6/uL (4.30-6.10); WHITE BLOOD COUNT 7.8 10^3/uL (4.0-10.0)
[2022-11-25 06:17] LABS: PLATELET COUNT, AUTOMATED 95 10^3/uL (150-450)
[2022-11-25 06:40] LABS: ALBUMIN 3.5 G/DL (3.2-5.2); BILIRUBIN,TOTAL 0.4 MG/DL (0.3-1.2); CALCIUM LEVEL 8.5 MG/DL (8.3-10.6); CREATININE FOR GFR 4.04 MG/DL (0.70-1.30); GLOMERULAR FILTRATION RATE 15.3 (>42); POTASSIUM SERUM 3.8 MMOL/L (3.5-5.1); TOTAL PROTEIN 5.8 G/DL (5.7-8.2)
[2022-11-25] MEDS: MECLIZINE 25 MG TABLET PO SCH (08:58)
[2022-11-25] MEDS: MAGNESIUM OXIDE 400MG TAB (MAG-OX) PO SCH (08:59)
[2022-11-25] MEDS: OMEPRAZOLE 20MG CAP PO SCH ×2 (08:59→20:18)
[2022-11-25] MEDS: HYDROXYCHLOROQUINE 200 MG TAB PO SCH (08:59)
[2022-11-25] MEDS: bisoproloL fumarate 5 MG TAB PO SCH (09:00)
[2022-11-25] MEDS: predniSONE 20 MG TAB PO SCH (11:23)
[2022-11-25] MEDS: PATIROMER SORBITEX CALCIUM 8.4 GM POWDER PACKET (VELTASSA) PO SCH (12:26)
[2022-11-25] MEDS: TORSEMIDE 20 MG TAB PO SCH (16:13)
[2022-11-25] MEDS ORDERED: NS 1,000 ML IV SCH (16:30)
[2022-11-25] MEDS: RAMELTEON 8 MG TAB (ROZEREM) PO PRN (21:40)
[2022-11-26] VITALS (9 sets, daily range): BP systolic 132–152; BP diastolic 72–88; O2SAT 91–95
[2022-11-26] MEDS: IPRATROPIUM 0.5MG/ALBUTEROL 2.5MG INH SOL UD 3ML (DUONEB) NEB SCH ×2 (02:35→08:44)
[2022-11-26 05:45] LABS: BASO % 0.3 % (0.0-1.0); HEMATOCRIT 28.2 % (42.0-52.0); HEMOGLOBIN 9.2 g/dl (13.5-17.5); LYMPH # 0.3 10^3/uL (1.5-5.0); LYMPH % 2.8 % (24.0-44.0); MEAN CORPUSCULAR HEMOGLOBIN 32.7 pg (27.0-33.0); MEAN CORPUSCULAR HGB CONC 32.6 g/dl (32.0-36.5); MEAN CORPUSCULAR VOLUME 100.4 fl (80.0-96.0); MONO # 0.7 10^3/uL (0.0-0.8); MONO % 6.7 % (2.0-8.0); NEUTROPHILS # 8.7 10^3/uL (1.5-8.5); NEUTROPHILS % 86.9 % (36.0-66.0); RED BLOOD COUNT 2.81 10^6/uL (4.30-6.10)
[2022-11-26 05:54] LABS: PLATELET COUNT, AUTOMATED 97 10^3/uL (150-450)
[2022-11-26 06:09] LABS: ALBUMIN 3.3 G/DL (3.2-5.2); BILIRUBIN,TOTAL 0.5 MG/DL (0.3-1.2); CALCIUM LEVEL 8.3 MG/DL (8.3-10.6); CREATININE FOR GFR 3.46 MG/DL (0.70-1.30); GLOMERULAR FILTRATION RATE 18.3 (>42); MAGNESIUM LEVEL 1.9 MG/DL (1.8-2.4); POTASSIUM SERUM 3.4 MMOL/L (3.5-5.1); TOTAL PROTEIN 5.6 G/DL (5.7-8.2)
[2022-11-26] MEDS ORDERED: POTASSIUM CHLORIDE 10MEQ SR TABLET PO ONE (07:10)
[2022-11-26] MEDS ORDERED: K-TA10TA2 PO (08:06)
[2022-11-26] MEDS ORDERED: BISO10TA14 PO (08:06)
[2022-11-26] MEDS ORDERED: MAGN400T2 PO (08:06)
[2022-11-26] MEDS ORDERED: PRED10TA2 PO (08:06)
[2022-11-26] MEDS ORDERED: PRED5TA PO (08:06)
[2022-11-26] MEDS ORDERED: TORS20TA2 PO (08:06)
[2022-11-26] MEDS: bisoproloL fumarate 5 MG TAB PO SCH (09:03)
[2022-11-26] MEDS: MAGNESIUM OXIDE 400MG TAB (MAG-OX) PO SCH (09:04)
[2022-11-26] MEDS: HYDROXYCHLOROQUINE 200 MG TAB PO SCH (09:04)
[2022-11-26] MEDS: predniSONE 20 MG TAB PO SCH (09:04)
[2022-11-26] MEDS: OMEPRAZOLE 20MG CAP PO SCH (09:04)
[2022-11-26] MEDS: TORSEMIDE 20 MG TAB PO SCH (09:05)
[2022-11-26] MEDS: MECLIZINE 25 MG TABLET PO SCH (09:09)
[2022-11-26] MEDS ORDERED: IPRA0.00 INH (09:57)
[2022-11-26] MEDS ORDERED: NEBU1EAC78 MC (09:57)
[2022-11-26] MEDS ORDERED: ALBU2.5V10 NEB (12:10)
== END 2022-11-26 12:47 | disposition home health service (06) | DRG 291 ==
LOC: M ED 18:33 → M ED INP 11-18 01:25 → ENRESERV 11-18 01:50 → CANRESERV 11-18 01:50 → M PCU 11-18 19:01
PROVIDERS: ADMIT Internal Medicine; ATTEND Internal Medicine
PROC: B246ZZZ Ultrasonography of Right and Left Heart (ICD-10-PCS; principal; 2022-11-19)
DX: I13.0 Hypertensive heart and chronic kidney disease with heart failure and stage 1 through stage 4 chronic kidney disease, or unspecified chronic kidney disease (principal); I50.33 Acute on chronic diastolic (congestive) heart failure; N17.9 Acute kidney failure, unspecified; N18.4 Chronic kidney disease, stage 4 (severe); E87.0 Hyperosmolality and hypernatremia; E87.20 Acidosis, unspecified; E66.2 Morbid (severe) obesity with alveolar hypoventilation; D69.6 Thrombocytopenia, unspecified; K21.9 Gastro-esophageal reflux disease without esophagitis; M06.9 Rheumatoid arthritis, unspecified; I71.40 Abdominal aortic aneurysm, without rupture, unspecified; I70.1 Atherosclerosis of renal artery; D53.9 Nutritional anemia, unspecified; R74.01 Elevation of levels of liver transaminase levels; E87.5 Hyperkalemia; E83.42 Hypomagnesemia; I27.20 Pulmonary hypertension, unspecified; D63.1 Anemia in chronic kidney disease; Z79.52 Long term (current) use of systemic steroids; Z79.899 Other long term (current) drug therapy; Z20.822 Contact with and (suspected) exposure to COVID-19; Z88.6 Allergy status to analgesic agent; Z88.8 Allergy status to other drugs, medicaments and biological substances; Z96.653 Presence of artificial knee joint, bilateral; Z87.891 Personal history of nicotine dependence; Z98.49 Cataract extraction status, unspecified eye; N26.1 Atrophy of kidney (terminal)

== ENCOUNTER → 2022-11-17 | Outpatient (CLI) | payer MEDICARE ==
[~2022-11-17] MED LIST changes: +AMLO2.5T3 PO; +COMBAER6 INH; +MECL-86 PO; +OMEP40CA5 PO; +TORS5TAB2 PO
[2022-11-17 15:47] LABS: C REACTIVE PROTEIN QUANTITATIV 0.9 MG/DL (<1.0)
[2022-11-17 15:52] LABS: BASO % 0.6 % (0.0-1.0); EOS # 0.1 10^3/uL (0.0-0.5); EOS % 2.7 % (0.0-3.0); HEMATOCRIT 30.1 % (42.0-52.0); LYMPH # 1.3 10^3/uL (1.5-5.0); LYMPH % 25.7 % (24.0-44.0); MEAN CORPUSCULAR HGB CONC 33.2 g/dl (32.0-36.5); MEAN CORPUSCULAR VOLUME 99.3 fl (80.0-96.0); MONO # 0.6 10^3/uL (0.0-0.8); MONO % 11.7 % (2.0-8.0); NEUTROPHILS # 2.8 10^3/uL (1.5-8.5); NEUTROPHILS % 58.3 % (36.0-66.0); RED BLOOD COUNT 3.03 10^6/uL (4.30-6.10); WHITE BLOOD COUNT 4.9 10^3/uL (4.0-10.0)
[2022-11-17 15:54] LABS: PLATELET COUNT, AUTOMATED 76 10^3/uL (150-450)
[2022-11-17 16:17] LABS: ALBUMIN 3.9 G/DL (3.2-5.2); BILIRUBIN,TOTAL 0.8 MG/DL (0.3-1.2); CALCIUM LEVEL 8.7 MG/DL (8.3-10.6); CREATININE FOR GFR 3.52 MG/DL (0.70-1.30); FREE T4 1.22 NG/DL (0.89-1.76); MAGNESIUM LEVEL 1.9 MG/DL (1.8-2.4); POTASSIUM SERUM 4.7 MMOL/L (3.5-5.1); THYROID STIMULATING HORMONE 1.069 uIU/ML (0.55-4.78)
[2022-11-17 17:35] LABS: TOTAL PROTEIN 6.5 G/DL (5.7-8.2)
== END ==
LOC: M LAB 14:17 → M PLALAB 14:17
PROVIDERS: ATTEND Family Medicine
DX: I50.32 Chronic diastolic (congestive) heart failure (principal); M06.9 Rheumatoid arthritis, unspecified

== ENCOUNTER → 2022-12-13 | Outpatient (REF) | payer MEDICARE ==
[~2022-12-13] MED LIST changes: +ALBU2.5V10 NEB; +AMLO2.5T3 PO; +BISO10TA14 PO; +COMBAER6 INH; +IPRA0.00 INH; +K-TA10TA2 PO; +MAGN400T2 PO; +MECL-86 PO; +NEBU1EAC78 MC; +OMEP40CA5 PO; +PRED10TA2 PO; +TORS20TA2 PO; +TORS5TAB2 PO
[2022-12-13 17:35] LABS: ALBUMIN 3.5 G/DL (3.2-5.2); BILIRUBIN,TOTAL 0.6 MG/DL (0.3-1.2); CALCIUM LEVEL 8.6 MG/DL (8.3-10.6); CREATININE FOR GFR 3.13 MG/DL (0.70-1.30); GLOMERULAR FILTRATION RATE 20.6 (>42); MAGNESIUM LEVEL 1.8 MG/DL (1.8-2.4); POTASSIUM SERUM 4.4 MMOL/L (3.5-5.1)
[2022-12-13 17:36] LABS: BASO % 0.4 % (0.0-1.0); EOS % 0.7 % (0.0-3.0); FERRITIN 720.6 NG/ML (10.5-307.3); HEMATOCRIT 34.3 % (42.0-52.0); HEMOGLOBIN 10.8 g/dl (13.5-17.5); LYMPH # 0.5 10^3/uL (1.5-5.0); LYMPH % 8.3 % (24.0-44.0); MEAN CORPUSCULAR HGB CONC 31.5 g/dl (32.0-36.5); MEAN CORPUSCULAR VOLUME 104.9 fl (80.0-96.0); MONO # 0.3 10^3/uL (0.0-0.8); MONO % 5.3 % (2.0-8.0); NEUTROPHILS # 4.8 10^3/uL (1.5-8.5); NEUTROPHILS % 84.9 % (36.0-66.0); RED BLOOD COUNT 3.27 10^6/uL (4.30-6.10); WHITE BLOOD COUNT 5.7 10^3/uL (4.0-10.0)
[2022-12-13 17:43] LABS: PLATELET COUNT, AUTOMATED 59 10^3/uL (150-450)
== END ==
LOC: M LAB REF 16:16
PROVIDERS: ATTEND Family Medicine
DX: I50.32 Chronic diastolic (congestive) heart failure (principal); D75.89 Other specified diseases of blood and blood-forming organs

== ENCOUNTER 2023-01-15 11:24 | Inpatient (IN) | payer MEDICARE ==
[~2023-01-15] VITALS: Ht 167.6 cm; Wt 81.6 kg
[2023-01-15 13:30] VITALS: BP 157/74; TEMP 97.6; O2SAT 96
[2023-01-15] MEDS ORDERED: ACETAMINOPHEN TAB 650MG DOSE (2X325MG) PO PRN (14:30)
[2023-01-15] MEDS ORDERED: BISACODYL 10MG SUPP PR PRN (14:30)
[2023-01-15] MEDS: REMEDY PHYTOPLEX Z-GUARD PASTE 113GM TUBE (FROM STOREROOM PRODUCT) TOP SCH ×2 (15:11→20:05)
[2023-01-15] MEDS ORDERED: FLON1SPR NARES (16:40)
[2023-01-15] MEDS ORDERED: VENTAER INH (16:40)
[2023-01-15] MEDS ORDERED: OMEP40CA5 PO (16:40)
[2023-01-15] MEDS ORDERED: BISO10TA14 PO (16:40)
[2023-01-15] MEDS ORDERED: SPIR12.9 INH (16:40)
[2023-01-15] MEDS ORDERED: BUME1TAB3 PO (16:40)
[2023-01-15] MEDS ORDERED: MIRA3350 PO (16:40)
[2023-01-15] MEDS ORDERED: ACET1TAB55 PO (16:40)
[2023-01-15] MEDS ORDERED: TAMS1CAP17 PO (16:40)
[2023-01-15] MEDS ORDERED: VITA100093 PO (16:40)
[2023-01-15] MEDS ORDERED: IPRA0.00 INH (16:40)
[2023-01-15] MEDS ORDERED: HYDR200T3 PO (16:40)
[2023-01-15] MEDS ORDERED: LIDO1PAD TOP (16:40)
[2023-01-15] MEDS ORDERED: HYDR-643 PO (16:40)
[2023-01-15] MEDS ORDERED: HEPA100I26 SC (16:40)
[2023-01-15] MEDS ORDERED: QUET1TAB17 PO (16:40)
[2023-01-15] MEDS ORDERED: PRED5TA PO (16:40)
[2023-01-15] MEDS ORDERED: HOME MED LIST COMPLETE! XX SCH (16:45)
[2023-01-15] MEDS: BUMETANIDE 1 MG TAB PO SCH (17:00)
[2023-01-15] MEDS: SUCRALFATE 1 GM TAB PO SCH (17:30)
[2023-01-15] MEDS: COMBIVENT RESPIMAT 100-20MCG INHALER 4GM INH SCH (19:41)
[2023-01-15 20:00] VITALS: BP 171/84; TEMP 97.3; O2SAT 97
[2023-01-15] MEDS: SENNA 8.6 MG TAB (SENOKOT) PO SCH (20:03)
[2023-01-15] MEDS: DOCUSATE SODIUM 100MG CAPSULE PO SCH (20:03)
[2023-01-15] MEDS: QUEtiapine FUMARATE 25 MG TAB PO SCH (20:03)
[2023-01-15] MEDS: HEPARIN SOD (PORCINE) 5000UNITS/ML 1ML VIAL/SYRINGE SQ SCH (20:04)
[2023-01-15] MEDS: FLUTICASONE PROP 0.05% NASAL SPRAY 16 GM (FLONASE) NARES SCH (20:04)
[2023-01-15] MEDS ORDERED: QUEtiapine FUMARATE 25 MG TAB PO SCH (21:00)
[2023-01-16 06:00] VITALS: BP 165/80; TEMP 97.2; O2SAT 96
[2023-01-16] MEDS: **hydrALAZINE HCL** 25 MG TAB PO SCH ×3 (07:13→17:14)
[2023-01-16] MEDS: BUMETANIDE 1 MG TAB PO SCH ×2 (07:22→16:08)
[2023-01-16] MEDS: bisoproloL fumarate 10 MG TAB PO SCH (07:22)
[2023-01-16] MEDS: SUCRALFATE 1 GM TAB PO SCH ×3 (07:22→17:14)
[2023-01-16] MEDS: HEPARIN SOD (PORCINE) 5000UNITS/ML 1ML VIAL/SYRINGE SQ SCH ×2 (07:22→19:52)
[2023-01-16] MEDS: OMEPRAZOLE 20MG CAP PO SCH (07:22)
[2023-01-16] MEDS: DOCUSATE SODIUM 100MG CAPSULE PO SCH ×2 (07:22→19:18)
[2023-01-16] MEDS: TAMSULOSIN 0.4 MG CAP PO SCH (07:22)
[2023-01-16] MEDS: predniSONE 5 MG TAB PO SCH (07:22)
[2023-01-16] MEDS: HYDROXYCHLOROQUINE 200 MG TAB PO SCH (07:22)
[2023-01-16] MEDS: REMEDY PHYTOPLEX Z-GUARD PASTE 113GM TUBE (FROM STOREROOM PRODUCT) TOP SCH ×3 (07:23→19:19)
[2023-01-16] MEDS: FLUTICASONE PROP 0.05% NASAL SPRAY 16 GM (FLONASE) NARES SCH ×2 (07:23→19:52)
[2023-01-16] MEDS: TIOTROPIUM INHALER/CAPSULE (SPIRIVA) INH SCH (07:36)
[2023-01-16] MEDS: COMBIVENT RESPIMAT 100-20MCG INHALER 4GM INH SCH ×2 (07:36→19:59)
[2023-01-16 08:05] LABS: BASO # 0.1 10^3/uL (0.0-0.2); BASO % 1.2 % (0.0-1.0); EOS # 0.1 10^3/uL (0.0-0.5); EOS % 2.5 % (0.0-3.0); HEMATOCRIT 29.6 % (42.0-52.0); HEMOGLOBIN 9.1 g/dl (13.5-17.5); LYMPH # 0.9 10^3/uL (1.5-5.0); LYMPH % 17.9 % (24.0-44.0); MEAN CORPUSCULAR HEMOGLOBIN 30.5 pg (27.0-33.0); MEAN CORPUSCULAR HGB CONC 30.7 g/dl (32.0-36.5); MEAN CORPUSCULAR VOLUME 99.3 fl (80.0-96.0); MONO # 0.6 10^3/uL (0.0-0.8); MONO % 11.3 % (2.0-8.0); NEUTROPHILS # 3.4 10^3/uL (1.5-8.5); NEUTROPHILS % 65.9 % (36.0-66.0); PLATELET COUNT, AUTOMATED 193 10^3/uL (150-450); RED BLOOD COUNT 2.98 10^6/uL (4.30-6.10); WHITE BLOOD COUNT 5.2 10^3/uL (4.0-10.0)
[2023-01-16 08:23] LABS: CALCIUM LEVEL 8.8 MG/DL (8.3-10.6); CREATININE FOR GFR 2.78 MG/DL (0.70-1.30); GLOMERULAR FILTRATION RATE 23.6 (>42); POTASSIUM SERUM 3.8 MMOL/L (3.5-5.1)
[2023-01-16 11:09] VITALS: BP 182/80
[2023-01-16 12:04] VITALS: BP 143/74
[2023-01-16 14:00] VITALS: BP 142/80; TEMP 97.5; O2SAT 96
[2023-01-16 17:12] VITALS: BP 166/80
[2023-01-16] MEDS: SENNA 8.6 MG TAB (SENOKOT) PO SCH (19:19)
[2023-01-16] MEDS: QUEtiapine FUMARATE 25 MG TAB PO SCH (19:52)
[2023-01-16 20:00] VITALS: BP 158/81; TEMP 97.7; O2SAT 96
[2023-01-17] MEDS: **hydrALAZINE HCL** 25 MG TAB PO SCH ×4 (00:43→08:29)
[2023-01-17 06:00] VITALS: BP 142/70; TEMP 97.9; O2SAT 96
[2023-01-17] MEDS: COMBIVENT RESPIMAT 100-20MCG INHALER 4GM INH SCH ×3 (07:14→19:16)
[2023-01-17] MEDS: TIOTROPIUM INHALER/CAPSULE (SPIRIVA) INH SCH (07:14)
[2023-01-17] MEDS: SUCRALFATE 1 GM TAB PO SCH ×3 (08:28→17:13)
[2023-01-17] MEDS: DOCUSATE SODIUM 100MG CAPSULE PO SCH ×2 (08:28→20:12)
[2023-01-17] MEDS: BUMETANIDE 1 MG TAB PO SCH ×2 (08:28→17:13)
[2023-01-17] MEDS: HYDROXYCHLOROQUINE 200 MG TAB PO SCH (08:28)
[2023-01-17] MEDS: OMEPRAZOLE 20MG CAP PO SCH (08:28)
[2023-01-17] MEDS: predniSONE 5 MG TAB PO SCH (08:28)
[2023-01-17] MEDS: TAMSULOSIN 0.4 MG CAP PO SCH (08:28)
[2023-01-17] MEDS: bisoproloL fumarate 10 MG TAB PO SCH (08:28)
[2023-01-17] MEDS: REMEDY PHYTOPLEX Z-GUARD PASTE 113GM TUBE (FROM STOREROOM PRODUCT) TOP SCH ×3 (08:30→20:42)
[2023-01-17] MEDS: HEPARIN SOD (PORCINE) 5000UNITS/ML 1ML VIAL/SYRINGE SQ SCH ×2 (09:10→20:11)
[2023-01-17] MEDS: FLUTICASONE PROP 0.05% NASAL SPRAY 16 GM (FLONASE) NARES SCH ×2 (09:10→20:42)
[2023-01-17 11:00] LABS: BASO # 0.1 10^3/uL (0.0-0.2); BASO % 0.8 % (0.0-1.0); EOS # 0.1 10^3/uL (0.0-0.5); EOS % 1.2 % (0.0-3.0); HEMATOCRIT 29.1 % (42.0-52.0); LYMPH # 0.6 10^3/uL (1.5-5.0); LYMPH % 9.5 % (24.0-44.0); MEAN CORPUSCULAR HEMOGLOBIN 30.7 pg (27.0-33.0); MEAN CORPUSCULAR HGB CONC 30.9 g/dl (32.0-36.5); MEAN CORPUSCULAR VOLUME 99.3 fl (80.0-96.0); MONO # 0.6 10^3/uL (0.0-0.8); MONO % 10.7 % (2.0-8.0); NEUTROPHILS # 4.5 10^3/uL (1.5-8.5); NEUTROPHILS % 76.1 % (36.0-66.0); PLATELET COUNT, AUTOMATED 164 10^3/uL (150-450); RED BLOOD COUNT 2.93 10^6/uL (4.30-6.10)
[2023-01-17 11:36] LABS: CALCIUM LEVEL 8.8 MG/DL (8.3-10.6); CREATININE FOR GFR 3.37 MG/DL (0.70-1.30); GLOMERULAR FILTRATION RATE 18.9 (>42); POTASSIUM SERUM 3.9 MMOL/L (3.5-5.1)
[2023-01-17 14:00] VITALS: BP 123/78; TEMP 97.3; O2SAT 98
[2023-01-17] MEDS: **hydrALAZINE** 50 MG TAB PO SCH ×2 (17:12→20:12)
[2023-01-17 20:00] VITALS: BP 163/74; TEMP 98; O2SAT 98
[2023-01-17] MEDS: SENNA 8.6 MG TAB (SENOKOT) PO SCH (20:11)
[2023-01-17] MEDS: QUEtiapine FUMARATE 25 MG TAB PO SCH (20:11)
[2023-01-18 06:00] VITALS: BP 143/68; TEMP 98.4; O2SAT 97
[2023-01-18] MEDS: COMBIVENT RESPIMAT 100-20MCG INHALER 4GM INH SCH ×3 (07:26→20:43)
[2023-01-18] MEDS: TIOTROPIUM INHALER/CAPSULE (SPIRIVA) INH SCH (07:27)
[2023-01-18] MEDS: REMEDY PHYTOPLEX Z-GUARD PASTE 113GM TUBE (FROM STOREROOM PRODUCT) TOP SCH ×3 (09:00→20:11)
[2023-01-18] MEDS: SUCRALFATE 1 GM TAB PO SCH ×3 (09:19→17:46)
[2023-01-18] MEDS: DOCUSATE SODIUM 100MG CAPSULE PO SCH ×2 (09:20→20:07)
[2023-01-18] MEDS: HEPARIN SOD (PORCINE) 5000UNITS/ML 1ML VIAL/SYRINGE SQ SCH ×2 (09:20→20:07)
[2023-01-18] MEDS: BUMETANIDE 1 MG TAB PO SCH ×2 (09:20→17:47)
[2023-01-18] MEDS: predniSONE 5 MG TAB PO SCH (09:20)
[2023-01-18] MEDS: TAMSULOSIN 0.4 MG CAP PO SCH (09:20)
[2023-01-18] MEDS: **hydrALAZINE** 50 MG TAB PO SCH ×3 (09:21→20:07)
[2023-01-18] MEDS: HYDROXYCHLOROQUINE 200 MG TAB PO SCH (09:21)
[2023-01-18] MEDS: OMEPRAZOLE 20MG CAP PO SCH (09:21)
[2023-01-18] MEDS: bisoproloL fumarate 10 MG TAB PO SCH (09:21)
[2023-01-18] MEDS: FLUTICASONE PROP 0.05% NASAL SPRAY 16 GM (FLONASE) NARES SCH ×2 (09:23→20:06)
[2023-01-18 14:00] VITALS: BP 169/79; TEMP 98.3; O2SAT 97
[2023-01-18 20:00] VITALS: BP 155/71; TEMP 98.4; O2SAT 97
[2023-01-18] MEDS: SENNA 8.6 MG TAB (SENOKOT) PO SCH (20:07)
[2023-01-18] MEDS: QUEtiapine FUMARATE 25 MG TAB PO SCH (20:07)
[2023-01-19 06:00] VITALS: BP 143/69; TEMP 99.1; O2SAT 96
[2023-01-19 06:10] LABS: CALCIUM LEVEL 8.8 MG/DL (8.3-10.6); CREATININE FOR GFR 4.08 MG/DL (0.70-1.30); GLOMERULAR FILTRATION RATE 15.1 (>42); PERCENT SATURATION 16.7 % (19.7-50.0); PHOSPHORUS LEVEL 4.8 MG/DL (2.4-5.1); POTASSIUM SERUM 3.5 MMOL/L (3.5-5.1)
[2023-01-19 06:13] LABS: FERRITIN 1089.2 NG/ML (10.5-307.3)
[2023-01-19] MEDS: TIOTROPIUM INHALER/CAPSULE (SPIRIVA) INH SCH (07:15)
[2023-01-19] MEDS: COMBIVENT RESPIMAT 100-20MCG INHALER 4GM INH SCH ×3 (07:16→20:12)
[2023-01-19] MEDS: SUCRALFATE 1 GM TAB PO SCH ×3 (08:28→18:02)
[2023-01-19] MEDS ORDERED: **hydrALAZINE HCL** 25 MG TAB PO SCH (09:00)
[2023-01-19] MEDS: REMEDY PHYTOPLEX Z-GUARD PASTE 113GM TUBE (FROM STOREROOM PRODUCT) TOP SCH ×3 (09:00→20:17)
[2023-01-19] MEDS: OMEPRAZOLE 20MG CAP PO SCH (09:25)
[2023-01-19] MEDS: HYDROXYCHLOROQUINE 200 MG TAB PO SCH (09:25)
[2023-01-19] MEDS: DOCUSATE SODIUM 100MG CAPSULE PO SCH ×2 (09:25→20:16)
[2023-01-19] MEDS: predniSONE 5 MG TAB PO SCH (09:25)
[2023-01-19] MEDS: TAMSULOSIN 0.4 MG CAP PO SCH (09:25)
[2023-01-19] MEDS: bisoproloL fumarate 10 MG TAB PO SCH (09:25)
[2023-01-19] MEDS: FLUTICASONE PROP 0.05% NASAL SPRAY 16 GM (FLONASE) NARES SCH ×2 (09:26→20:17)
[2023-01-19] MEDS: HEPARIN SOD (PORCINE) 5000UNITS/ML 1ML VIAL/SYRINGE SQ SCH ×2 (09:26→20:16)
[2023-01-19 09:30] VITALS: BP 135/64
[2023-01-19 09:33] LABS: RED BLOOD COUNT 2.75 10^6/uL (4.30-6.10); WHITE BLOOD COUNT 5.8 10^3/uL (4.0-10.0)
[2023-01-19 09:34] LABS: BASO % 0.7 % (0.0-1.0); EOS # 0.1 10^3/uL (0.0-0.5); EOS % 1.7 % (0.0-3.0); HEMATOCRIT 27.1 % (42.0-52.0); HEMOGLOBIN 8.6 g/dl (13.5-17.5); LYMPH # 1.2 10^3/uL (1.5-5.0); MEAN CORPUSCULAR HEMOGLOBIN 31.3 pg (27.0-33.0); MEAN CORPUSCULAR HGB CONC 31.7 g/dl (32.0-36.5); MEAN CORPUSCULAR VOLUME 98.5 fl (80.0-96.0); MONO # 0.8 10^3/uL (0.0-0.8); MONO % 12.9 % (2.0-8.0); NEUTROPHILS # 3.6 10^3/uL (1.5-8.5); NEUTROPHILS % 62.5 % (36.0-66.0); PLATELET COUNT, AUTOMATED 163 10^3/uL (150-450)
[2023-01-19 14:00] VITALS: BP 162/84; TEMP 98.2; O2SAT 96
[2023-01-19] MEDS: **hydrALAZINE** 50 MG TAB PO SCH ×2 (16:05→20:17)
[2023-01-19 16:06] VITALS: BP 161/77
[2023-01-19 20:00] VITALS: BP 158/70; TEMP 97.9; O2SAT 97
[2023-01-19] MEDS: QUEtiapine FUMARATE 25 MG TAB PO SCH (20:15)
[2023-01-19] MEDS: SENNA 8.6 MG TAB (SENOKOT) PO SCH (20:16)
[2023-01-20 06:00] VITALS: BP 133/66; TEMP 98.2; O2SAT 95
[2023-01-20] MEDS: COMBIVENT RESPIMAT 100-20MCG INHALER 4GM INH SCH ×3 (08:47→19:58)
[2023-01-20] MEDS: TIOTROPIUM INHALER/CAPSULE (SPIRIVA) INH SCH (08:47)
[2023-01-20] MEDS: **hydrALAZINE** 50 MG TAB PO SCH ×3 (08:50→20:18)
[2023-01-20] MEDS: OMEPRAZOLE 20MG CAP PO SCH (08:50)
[2023-01-20] MEDS: predniSONE 5 MG TAB PO SCH (08:50)
[2023-01-20] MEDS: TAMSULOSIN 0.4 MG CAP PO SCH (08:50)
[2023-01-20] MEDS: FLUTICASONE PROP 0.05% NASAL SPRAY 16 GM (FLONASE) NARES SCH ×2 (08:51→20:18)
[2023-01-20] MEDS: HYDROXYCHLOROQUINE 200 MG TAB PO SCH (08:51)
[2023-01-20] MEDS: bisoproloL fumarate 10 MG TAB PO SCH (08:51)
[2023-01-20] MEDS: REMEDY PHYTOPLEX Z-GUARD PASTE 113GM TUBE (FROM STOREROOM PRODUCT) TOP SCH ×3 (09:00→20:18)
[2023-01-20] MEDS: DOCUSATE SODIUM 100MG CAPSULE PO SCH ×3 (09:00→20:20)
[2023-01-20] MEDS: SUCRALFATE 1 GM TAB PO SCH ×3 (09:35→17:03)
[2023-01-20] MEDS: HEPARIN SOD (PORCINE) 5000UNITS/ML 1ML VIAL/SYRINGE SQ SCH ×2 (09:36→20:17)
[2023-01-20 09:56] LABS: ALBUMIN 3.1 G/DL (3.2-5.2); CALCIUM LEVEL 8.7 MG/DL (8.3-10.6); CREATININE FOR GFR 4.14 MG/DL (0.70-1.30); GLOMERULAR FILTRATION RATE 14.9 (>42); PHOSPHORUS LEVEL 3.9 MG/DL (2.4-5.1); POTASSIUM SERUM 3.6 MMOL/L (3.5-5.1)
[2023-01-20 14:00] VITALS: BP 150/70; TEMP 97.2; O2SAT 97
[2023-01-20 20:00] VITALS: BP 158/77; TEMP 97.3; O2SAT 99
[2023-01-20] MEDS: SENNA 8.6 MG TAB (SENOKOT) PO SCH ×2 (20:17→20:20)
[2023-01-20] MEDS: QUEtiapine FUMARATE 25 MG TAB PO SCH (20:17)
[2023-01-21] MEDS: IPRATROPIUM 0.5MG/ALBUTEROL 2.5MG INH SOL UD 3ML (DUONEB) NEB PRN (02:09)
[2023-01-21 06:00] VITALS: BP 138/65; TEMP 96.7; O2SAT 95
[2023-01-21 06:17] LABS: ALBUMIN 2.8 G/DL (3.2-5.2); CALCIUM LEVEL 8.2 MG/DL (8.3-10.6); CREATININE FOR GFR 3.76 MG/DL (0.70-1.30); GLOMERULAR FILTRATION RATE 16.6 (>42); PHOSPHORUS LEVEL 3.9 MG/DL (2.4-5.1); POTASSIUM SERUM 3.5 MMOL/L (3.5-5.1)
[2023-01-21] MEDS: DOCUSATE SODIUM 100MG CAPSULE PO SCH ×2 (07:37→20:48)
[2023-01-21] MEDS: **hydrALAZINE** 50 MG TAB PO SCH ×3 (07:40→20:49)
[2023-01-21] MEDS: SUCRALFATE 1 GM TAB PO SCH ×3 (07:40→16:55)
[2023-01-21] MEDS: OMEPRAZOLE 20MG CAP PO SCH (07:40)
[2023-01-21] MEDS: TAMSULOSIN 0.4 MG CAP PO SCH (07:40)
[2023-01-21] MEDS: bisoproloL fumarate 10 MG TAB PO SCH (07:41)
[2023-01-21] MEDS: FLUTICASONE PROP 0.05% NASAL SPRAY 16 GM (FLONASE) NARES SCH ×2 (07:41→20:50)
[2023-01-21] MEDS: HEPARIN SOD (PORCINE) 5000UNITS/ML 1ML VIAL/SYRINGE SQ SCH ×2 (07:41→20:48)
[2023-01-21] MEDS: REMEDY PHYTOPLEX Z-GUARD PASTE 113GM TUBE (FROM STOREROOM PRODUCT) TOP SCH ×3 (07:41→20:50)
[2023-01-21] MEDS: HYDROXYCHLOROQUINE 200 MG TAB PO SCH (07:41)
[2023-01-21] MEDS: predniSONE 5 MG TAB PO SCH (07:41)
[2023-01-21] MEDS: COMBIVENT RESPIMAT 100-20MCG INHALER 4GM INH SCH ×3 (08:03→20:01)
[2023-01-21] MEDS: TIOTROPIUM INHALER/CAPSULE (SPIRIVA) INH SCH (08:03)
[2023-01-21] MEDS: POTASSIUM CHLORIDE 10MEQ SR TABLET PO SCH ×2 (11:27→20:49)
[2023-01-21 14:00] VITALS: BP 153/73; TEMP 97.1; O2SAT 99
[2023-01-21 20:00] VITALS: BP 194/86; TEMP 97.6; O2SAT 98
[2023-01-21] MEDS: SENNA 8.6 MG TAB (SENOKOT) PO SCH (20:49)
[2023-01-21] MEDS: QUEtiapine FUMARATE 25 MG TAB PO SCH (20:50)
[2023-01-22 04:44] VITALS: BP 185/87; TEMP 96.9; O2SAT 97
[2023-01-22 04:53] VITALS: BP 156/92
[2023-01-22] MEDS: IPRATROPIUM 0.5MG/ALBUTEROL 2.5MG INH SOL UD 3ML (DUONEB) NEB PRN (05:16)
[2023-01-22 06:27] LABS: CALCIUM LEVEL 8.9 MG/DL (8.3-10.6); CREATININE FOR GFR 3.25 MG/DL (0.70-1.30); GLOMERULAR FILTRATION RATE 19.7 (>42); PHOSPHORUS LEVEL 3.6 MG/DL (2.4-5.1)
[2023-01-22] MEDS: TIOTROPIUM INHALER/CAPSULE (SPIRIVA) INH SCH (08:46)
[2023-01-22] MEDS: COMBIVENT RESPIMAT 100-20MCG INHALER 4GM INH SCH ×3 (08:46→20:05)
[2023-01-22] MEDS: REMEDY PHYTOPLEX Z-GUARD PASTE 113GM TUBE (FROM STOREROOM PRODUCT) TOP SCH ×3 (09:00→20:02)
[2023-01-22] MEDS: OMEPRAZOLE 20MG CAP PO SCH (09:02)
[2023-01-22] MEDS: bisoproloL fumarate 10 MG TAB PO SCH (09:02)
[2023-01-22] MEDS: SUCRALFATE 1 GM TAB PO SCH ×3 (09:02→16:23)
[2023-01-22] MEDS: HYDROXYCHLOROQUINE 200 MG TAB PO SCH (09:02)
[2023-01-22] MEDS: FLUTICASONE PROP 0.05% NASAL SPRAY 16 GM (FLONASE) NARES SCH ×2 (09:03→20:02)
[2023-01-22] MEDS: **hydrALAZINE** 50 MG TAB PO SCH (09:03)
[2023-01-22] MEDS: TAMSULOSIN 0.4 MG CAP PO SCH (09:03)
[2023-01-22] MEDS: DOCUSATE SODIUM 100MG CAPSULE PO SCH ×2 (09:03→20:01)
[2023-01-22] MEDS: HEPARIN SOD (PORCINE) 5000UNITS/ML 1ML VIAL/SYRINGE SQ SCH (09:03)
[2023-01-22] MEDS: predniSONE 5 MG TAB PO SCH (09:03)
[2023-01-22 10:37] LABS: BASO # 0.1 10^3/uL (0.0-0.2); BASO % 0.9 % (0.0-1.0); EOS # 0.1 10^3/uL (0.0-0.5); EOS % 1.3 % (0.0-3.0); HEMATOCRIT 26.9 % (42.0-52.0); HEMOGLOBIN 8.4 g/dl (13.5-17.5); LYMPH # 0.6 10^3/uL (1.5-5.0); LYMPH % 10.5 % (24.0-44.0); MEAN CORPUSCULAR HGB CONC 31.2 g/dl (32.0-36.5); MEAN CORPUSCULAR VOLUME 99.3 fl (80.0-96.0); MONO # 0.7 10^3/uL (0.0-0.8); MONO % 12.5 % (2.0-8.0); NEUTROPHILS # 4.1 10^3/uL (1.5-8.5); NEUTROPHILS % 74.1 % (36.0-66.0); PLATELET COUNT, AUTOMATED 128 10^3/uL (150-450); RED BLOOD COUNT 2.71 10^6/uL (4.30-6.10); WHITE BLOOD COUNT 5.5 10^3/uL (4.0-10.0)
[2023-01-22 11:07] LABS: CREATININE FOR GFR 3.13 MG/DL (0.70-1.30); GLOMERULAR FILTRATION RATE 20.6 (>42); POTASSIUM SERUM 3.9 MMOL/L (3.5-5.1)
[2023-01-22 14:00] VITALS: BP 154/71; TEMP 97.6; O2SAT 99
[2023-01-22 16:20] VITALS: BP 170/86
[2023-01-22] MEDS: **hydrALAZINE HCL** 25 MG TAB PO SCH ×2 (16:23→20:01)
[2023-01-22 19:53] VITALS: BP 157/76; TEMP 97.5; O2SAT 96
[2023-01-22] MEDS: QUEtiapine FUMARATE 25 MG TAB PO SCH (20:01)
[2023-01-22] MEDS: SENNA 8.6 MG TAB (SENOKOT) PO SCH (20:01)
[2023-01-23] MEDS: COMBIVENT RESPIMAT 100-20MCG INHALER 4GM INH SCH (05:45)
[2023-01-23] MEDS: TIOTROPIUM INHALER/CAPSULE (SPIRIVA) INH SCH (05:46)
[2023-01-23 06:00] VITALS: BP 144/70; TEMP 98.6; O2SAT 94
[2023-01-23 08:11] VITALS: BP 134/69
[2023-01-23] MEDS: bisoproloL fumarate 10 MG TAB PO SCH (08:11)
[2023-01-23] MEDS: OMEPRAZOLE 20MG CAP PO SCH (08:11)
[2023-01-23] MEDS: TAMSULOSIN 0.4 MG CAP PO SCH (08:11)
[2023-01-23] MEDS: SUCRALFATE 1 GM TAB PO SCH (08:11)
[2023-01-23] MEDS: predniSONE 5 MG TAB PO SCH (08:11)
[2023-01-23] MEDS: DOCUSATE SODIUM 100MG CAPSULE PO SCH (08:11)
[2023-01-23] MEDS: HYDROXYCHLOROQUINE 200 MG TAB PO SCH (08:12)
[2023-01-23] MEDS: REMEDY PHYTOPLEX Z-GUARD PASTE 113GM TUBE (FROM STOREROOM PRODUCT) TOP SCH (08:12)
[2023-01-23] MEDS: FLUTICASONE PROP 0.05% NASAL SPRAY 16 GM (FLONASE) NARES SCH (08:12)
[2023-01-23] MEDS: **hydrALAZINE HCL** 25 MG TAB PO SCH (08:12)
[2023-01-23] MEDS ORDERED: QUET1TAB17 PO (10:27)
[2023-01-23] MEDS ORDERED: HYDR-643 PO (10:27)
[2023-01-23] MEDS ORDERED: VENTAER INH (10:27)
[2023-01-23] MEDS ORDERED: OMEP40CA5 PO (10:27)
[2023-01-23] MEDS ORDERED: HYDR200T3 PO (10:27)
[2023-01-23] MEDS ORDERED: PRED5TA PO (10:27)
[2023-01-23] MEDS ORDERED: BISO10TA14 PO (10:27)
[2023-01-23] MEDS ORDERED: HYDR25TA PO (10:28)
[2023-01-23] MEDS ORDERED: TAMS1CAP17 PO (10:28)
[2023-01-23] MEDS ORDERED: SPIR12.9 INH (10:28)
== END 2023-01-23 11:25 | disposition home or self-care (01) | DRG 65 ==
LOC: M PM&R 13:17
PROVIDERS: ADMIT Physical Medicine & Rehabilitation; ATTEND Physical Medicine & Rehabilitation
DX: I61.5 Nontraumatic intracerebral hemorrhage, intraventricular (principal); N18.4 Chronic kidney disease, stage 4 (severe); I13.0 Hypertensive heart and chronic kidney disease with heart failure and stage 1 through stage 4 chronic kidney disease, or unspecified chronic kidney disease; N17.9 Acute kidney failure, unspecified; I50.9 Heart failure, unspecified; R26.89 Other abnormalities of gait and mobility; M06.9 Rheumatoid arthritis, unspecified; D63.1 Anemia in chronic kidney disease; Z88.8 Allergy status to other drugs, medicaments and biological substances; Z88.6 Allergy status to analgesic agent; Z79.899 Other long term (current) drug therapy; Z79.52 Long term (current) use of systemic steroids; K21.9 Gastro-esophageal reflux disease without esophagitis; M19.90 Unspecified osteoarthritis, unspecified site; I27.20 Pulmonary hypertension, unspecified; N40.0 Benign prostatic hyperplasia without lower urinary tract symptoms; I71.40 Abdominal aortic aneurysm, without rupture, unspecified; Z96.653 Presence of artificial knee joint, bilateral; F41.9 Anxiety disorder, unspecified

== ENCOUNTER 2023-02-19 19:13 | Inpatient (IN) | payer MEDICARE ==
[~2023-02-19] VITALS: Ht 160 cm; Wt 78.1 kg
[~2023-02-19 19:13] MED LIST changes: -ALBU2.5V10; -ALBU2.5V10 INH; -ALBU8.5H INH; -FLOM0.4C39 PO; -HYDR-3910 PO
[2023-02-19] MEDS ORDERED: ALBU2.5V10 (19:36)
[2023-02-19 20:18] LABS: BASO % 0.1 % (0.0-1.0); EOS % 0.1 % (0.0-3.0); LYMPH # 0.5 10^3/uL (1.5-5.0); LYMPH % 3.6 % (24.0-44.0); MEAN CORPUSCULAR HGB CONC 31.6 g/dl (32.0-36.5); MONO # 0.5 10^3/uL (0.0-0.8); MONO % 4.3 % (2.0-8.0); NEUTROPHILS # 11.5 10^3/uL (1.5-8.5); NEUTROPHILS % 90.4 % (36.0-66.0); PLATELET COUNT, AUTOMATED 160 10^3/uL (150-450); RED BLOOD COUNT 1.97 10^6/uL (4.30-6.10); WHITE BLOOD COUNT 12.7 10^3/uL (4.0-10.0)
[2023-02-19 20:31] LABS: HEMATOCRIT 19.3 % (42.0-52.0); HEMOGLOBIN 6.1 g/dl (13.5-17.5)
[2023-02-19] MEDS ORDERED: LIDOCAINE 2% 5ML JELLY UROJET TOP ONE (20:35)
[2023-02-19 20:47] LABS: CALCIUM LEVEL 7.8 MG/DL (8.3-10.6); CREATININE FOR GFR 9.75 MG/DL (0.70-1.30); GLOMERULAR FILTRATION RATE 5.5 (>35); POTASSIUM SERUM 4.6 MMOL/L (3.5-5.1)
[2023-02-19 21:17] LABS: ALBUMIN 2.9 G/DL (3.2-5.2); BILIRUBIN,DIRECT 0.9 MG/DL (<0.4); BILIRUBIN,TOTAL 1.2 MG/DL (0.3-1.2)
[2023-02-19 21:38] LABS: VENOUS BASE EXCESS -5.5 (-2.0-2.0); VENOUS HCO3 18.5 MMOL/L (23.0-27.0); VENOUS PARTIAL PRESSURE CO2 29.7 mmHg (38.0-50.0); VENOUS PARTIAL PRESSURE O2 79.6 mmHg (30.0-50.0); VENOUS PH 7.413 UNITS (7.330-7.430); VENOUS STANDARD HCO3 19.9 MMOL/L; VENOUS TOTAL CO2 19.4 MMOL/L (24.0-28.0)
[2023-02-19 21:54] LABS: THYROID STIMULATING HORMONE 1.596 uIU/ML (0.55-4.78)
[2023-02-19 22:13] LABS: RSV AMPLIFICATION NEGATIVE (NEGATIVE)
[2023-02-19 23:00] LABS: CREATININE,RANDOM URINE 168.4 MG/DL
[2023-02-19 23:02] VITALS: BP 169/79; TEMP 97; O2SAT 99
[2023-02-19 23:12] LABS: SODIUM,RANDOM URINE < 10 MMOL/L
[2023-02-19] MEDS ORDERED: BISO10TA14 PO (23:14)
[2023-02-19] MEDS ORDERED: ALBU8.5H INH (23:14)
[2023-02-19] MEDS ORDERED: ALBU2.5V10 INH (23:14)
[2023-02-19] MEDS ORDERED: HYDR-643 PO (23:21)
[2023-02-19] MEDS ORDERED: HYDR200T46 PO (23:21)
[2023-02-19] MEDS ORDERED: OMEP40CA5 PO (23:21)
[2023-02-19] MEDS ORDERED: FLOM0.4C39 PO (23:21)
[2023-02-19] MEDS ORDERED: HYDR-3910 PO (23:21)
[2023-02-19] MEDS ORDERED: PRED5TA PO (23:21)
[2023-02-19] MEDS ORDERED: QUET1TAB17 PO (23:21)
[2023-02-19 23:25] VITALS: BP 153/73; TEMP 97.2; O2SAT 97
[2023-02-19] MEDS ORDERED: HOME MED LIST COMPLETE! XX SCH (23:25)
[2023-02-20] VITALS (15 sets, daily range): BP systolic 130–167; BP diastolic 63–81; TEMP 97.1–98.9; O2SAT 96–99
[2023-02-20] MEDS ORDERED: ALBUTEROL 90 MCG/ACT 8GM HFA INHALER INH PRN (00:50)
[2023-02-20] MEDS ORDERED: ACETAMINOPHEN TAB 650MG DOSE (2X325MG) PO PRN (00:50)
[2023-02-20] MEDS ORDERED: FLUTICASONE PROP 0.05% NASAL SPRAY 16 GM (FLONASE) NARES PRN (00:50)
[2023-02-20 03:10] LABS: OSMOLALITY URINE 333 MOSM/KG (50-1400)
[2023-02-20 03:33] LABS: CREATININE,RANDOM URINE 166.9 MG/DL
[2023-02-20 03:41] LABS: SODIUM,RANDOM URINE < 10 MMOL/L
[2023-02-20] MEDS: ALBUTEROL SULFATE 2.5MG/0.5ML INH NEB SOLN INH PRN ×2 (07:25→20:10)
[2023-02-20 07:26] LABS: PERCENT SATURATION 7.5 % (19.7-50.0)
[2023-02-20 07:29] LABS: FERRITIN 1522.1 NG/ML (10.5-307.3); FOLATE 8.2 NG/ML (>5.4)
[2023-02-20 09:05] LABS: CALCIUM LEVEL 7.5 MG/DL (8.3-10.6); CREATININE FOR GFR 9.46 MG/DL (0.70-1.30); GLOMERULAR FILTRATION RATE 5.7 (>35); POTASSIUM SERUM 4.4 MMOL/L (3.5-5.1)
[2023-02-20 09:13] LABS: MEAN CORPUSCULAR HEMOGLOBIN 30.4 pg (27.0-33.0); MEAN CORPUSCULAR HGB CONC 31.8 g/dl (32.0-36.5); MEAN CORPUSCULAR VOLUME 95.7 fl (80.0-96.0); PLATELET COUNT, AUTOMATED 126 10^3/uL (150-450); RED BLOOD COUNT 2.07 10^6/uL (4.30-6.10); WHITE BLOOD COUNT 8.9 10^3/uL (4.0-10.0)
[2023-02-20 09:28] LABS: HEMATOCRIT 19.8 % (42.0-52.0)
[2023-02-20 09:30] LABS: HEMOGLOBIN 6.3 g/dl (13.5-17.5)
[2023-02-20] MEDS ORDERED: NS 1,000 ML IV SCH (09:55)
[2023-02-20] MEDS: HEPARIN SOD (PORCINE) 5000UNITS/ML 1ML VIAL/SYRINGE SC SCH ×2 (09:56→21:16)
[2023-02-20] MEDS: VITAMIN D 1,000 INTERNATIONAL UNITS TABLET PO SCH (09:57)
[2023-02-20] MEDS: predniSONE 5 MG TAB PO SCH (09:58)
[2023-02-20] MEDS: bisoproloL fumarate 10 MG TAB PO SCH (09:58)
[2023-02-20] MEDS: HYDROXYCHLOROQUINE 200 MG TAB PO SCH (09:58)
[2023-02-20] MEDS: **hydrALAZINE HCL** 25 MG TAB PO SCH ×3 (09:58→21:17)
[2023-02-20] MEDS: TAMSULOSIN 0.4 MG CAP PO SCH (09:58)
[2023-02-20 14:48] LABS: INR 1.41; PROTHROMBIN TIME 17.5 SECONDS (12.5-14.5)
[2023-02-20 14:49] LABS: PARTIAL THROMBOPLASTIN TIME 32.8 SECONDS (24.8-34.2)
[2023-02-20] MEDS ORDERED: QUEtiapine FUMARATE 25 MG TAB PO SCH (21:00)
[2023-02-21] VITALS (7 sets, daily range): BP systolic 140–174; BP diastolic 66–81; TEMP 97.1–98.1; O2SAT 94–96
[2023-02-21 00:01] LABS: HEMATOCRIT 25.9 % (42.0-52.0)
[2023-02-21 00:10] LABS: HEMOGLOBIN 8.7 g/dl (13.5-17.5)
[2023-02-21] MEDS ORDERED: HEPARIN 1,000UNITS/ML 10ML VIAL (FOR RADIOLOGY & DIALYSIS ONLY) XX SCH (00:10)
[2023-02-21] MEDS ORDERED: HEPARIN 1,000UNITS/ML 10ML VIAL (FOR RADIOLOGY & DIALYSIS ONLY) IV PRN (00:10)
[2023-02-21] MEDS ORDERED: SODIUM CHLORIDE 0.9% 1000ML IV PRN (00:10)
[2023-02-21] MEDS ORDERED: HALOPERIDOL 5MG/ML 1ML VIAL IM STA ×2 (00:45→22:33)
[2023-02-21] MEDS ORDERED: OLANZapine INTRAMUSCULAR 10MG VIAL IM ONE (03:50)
[2023-02-21 05:44] LABS: HEMATOCRIT 26.6 % (42.0-52.0); HEMOGLOBIN 8.6 g/dl (13.5-17.5); MEAN CORPUSCULAR HEMOGLOBIN 30.3 pg (27.0-33.0); MEAN CORPUSCULAR HGB CONC 32.3 g/dl (32.0-36.5); MEAN CORPUSCULAR VOLUME 93.7 fl (80.0-96.0); PLATELET COUNT, AUTOMATED 136 10^3/uL (150-450); RED BLOOD COUNT 2.84 10^6/uL (4.30-6.10); WHITE BLOOD COUNT 6.7 10^3/uL (4.0-10.0)
[2023-02-21 06:08] LABS: HEPATITIS B SURFACE ANTIBODY POSITIVE (POSITIVE)
[2023-02-21 06:14] LABS: ALBUMIN 2.5 G/DL (3.2-5.2); BILIRUBIN,TOTAL 1.8 MG/DL (0.3-1.2); CALCIUM LEVEL 7.3 MG/DL (8.3-10.6); CREATININE FOR GFR 7.98 MG/DL (0.70-1.30); MAGNESIUM LEVEL 2.1 MG/DL (1.8-2.4); POTASSIUM SERUM 3.9 MMOL/L (3.5-5.1); TOTAL PROTEIN 5.2 G/DL (5.7-8.2)
[2023-02-21 06:19] LABS: HEPATITIS B SURFACE ANTIGEN NEGATIVE (NEGATIVE)
[2023-02-21 06:40] LABS: HEPATITIS C VIRUS ABY INDEX 0.16 INDEX (<0.8)
[2023-02-21 06:41] LABS: HEPATITIS B CORE ANTIBODY IGM NEGATIVE (NEGATIVE)
[2023-02-21] MEDS ORDERED: MIDAZOLAM INJ 2MG/2ML VIAL IV ONE (07:20)
[2023-02-21] MEDS ORDERED: ceFAZolin 2 GM/D5W 50 ML IV BAG As Ordered ONE (07:20)
[2023-02-21] MEDS ORDERED: HEPARIN 1,000UNITS/ML 10ML VIAL (FOR RADIOLOGY & DIALYSIS ONLY) As Ordered ONE (07:20)
[2023-02-21] MEDS ORDERED: MIDAZOLAM INJ 2MG/2ML VIAL As Ordered ONE (07:20)
[2023-02-21] MEDS ORDERED: LIDOCAINE 1% MDV 20ML VIAL As Ordered ONE (07:20)
[2023-02-21] MEDS ORDERED: fentaNYL 100 MCG/2 ML INJECTION IV ONE (07:20)
[2023-02-21] MEDS ORDERED: fentaNYL 100 MCG/2 ML INJECTION As Ordered ONE (07:20)
[2023-02-21] MEDS ORDERED: LIDOCAINE W/EPINEPHRINE 1% 20ML VIAL As Ordered ONE ×2 (07:22→07:49)
[2023-02-21] MEDS ORDERED: ceFAZolin SOD 2 GM in IV 1 EA IV ONE (07:55)
[2023-02-21] MEDS: VITAMIN D 1,000 INTERNATIONAL UNITS TABLET PO SCH (13:35)
[2023-02-21] MEDS: bisoproloL fumarate 10 MG TAB PO SCH (13:35)
[2023-02-21] MEDS: TAMSULOSIN 0.4 MG CAP PO SCH (13:36)
[2023-02-21] MEDS: **hydrALAZINE HCL** 25 MG TAB PO SCH (13:36)
[2023-02-21] MEDS: HEPARIN SOD (PORCINE) 5000UNITS/ML 1ML VIAL/SYRINGE SC SCH ×2 (13:36→21:00)
[2023-02-21] MEDS: predniSONE 5 MG TAB PO SCH (13:37)
[2023-02-21] MEDS: HYDROXYCHLOROQUINE 200 MG TAB PO SCH (13:46)
[2023-02-21] MEDS: **hydrALAZINE** 50 MG TAB PO SCH ×2 (16:07→21:00)
[2023-02-21] MEDS ORDERED: QUEtiapine FUMARATE 25 MG TAB PO SCH (21:00)
[2023-02-22] MEDS ORDERED: QUEtiapine FUMARATE 25 MG TAB PO ONE (01:40)
[2023-02-22] MEDS ORDERED: OLANZapine INTRAMUSCULAR 10MG VIAL IM ONE (01:40)
[2023-02-22] MEDS ORDERED: HEPARIN 1,000UNITS/ML 10ML VIAL (FOR RADIOLOGY & DIALYSIS ONLY) XX SCH (03:40)
[2023-02-22] MEDS ORDERED: HEPARIN 1,000UNITS/ML 10ML VIAL (FOR RADIOLOGY & DIALYSIS ONLY) IV PRN (03:40)
[2023-02-22] MEDS ORDERED: DARBEPOETIN 100MCG/0.5ML *DIALYSIS* SYRINGE IV SCH (03:40)
[2023-02-22] MEDS ORDERED: IRON SUCROSE 100MG 5ML VIAL IV SCH (03:40)
[2023-02-22] MEDS ORDERED: SODIUM CHLORIDE 0.9% 1000ML IV PRN (03:40)
[2023-02-22 04:00] VITALS: BP 128/63; O2SAT 98
[2023-02-22 06:52] LABS: HEMATOCRIT 26.6 % (42.0-52.0); HEMOGLOBIN 8.7 g/dl (13.5-17.5); MEAN CORPUSCULAR HEMOGLOBIN 30.7 pg (27.0-33.0); MEAN CORPUSCULAR HGB CONC 32.7 g/dl (32.0-36.5); PLATELET COUNT, AUTOMATED 149 10^3/uL (150-450); RED BLOOD COUNT 2.83 10^6/uL (4.30-6.10); WHITE BLOOD COUNT 5.7 10^3/uL (4.0-10.0)
[2023-02-22 07:22] LABS: CALCIUM LEVEL 8.5 MG/DL (8.3-10.6); CREATININE FOR GFR 4.21 MG/DL (0.70-1.30); GLOMERULAR FILTRATION RATE 14.6 (>35)
[2023-02-22 07:49] VITALS: BP 156/71; TEMP 97; O2SAT 98
[2023-02-22] MEDS: **hydrALAZINE** 50 MG TAB PO SCH ×2 (09:00→16:00)
[2023-02-22] MEDS ORDERED: QUEtiapine FUMARATE 50MG TAB PO SCH (09:00)
[2023-02-22] MEDS: bisoproloL fumarate 10 MG TAB PO SCH (09:00)
[2023-02-22] MEDS ORDERED: HALOPERIDOL 5MG/ML 1ML VIAL IM STA ×3 (11:02→18:36)
[2023-02-22 12:20] VITALS: BP 116/66; TEMP 97.4; O2SAT 99
[2023-02-22] MEDS: ALBUTEROL SULFATE 2.5MG/0.5ML INH NEB SOLN INH PRN (12:46)
[2023-02-22] MEDS ORDERED: AMIODARONE HCL 150 MG/100 ML PREMIXED BAG (NEXTERONE) As Ordered ONE (13:09)
[2023-02-22] MEDS ORDERED: AMIODARONE HCL 150 MG in IV 1 EA IV ONE (13:20)
[2023-02-22] MEDS: predniSONE 5 MG TAB PO SCH (13:29)
[2023-02-22] MEDS: TAMSULOSIN 0.4 MG CAP PO SCH (13:29)
[2023-02-22] MEDS: VITAMIN D 1,000 INTERNATIONAL UNITS TABLET PO SCH (13:29)
[2023-02-22] MEDS: HEPARIN SOD (PORCINE) 5000UNITS/ML 1ML VIAL/SYRINGE SC SCH (13:29)
[2023-02-22] MEDS: HYDROXYCHLOROQUINE 200 MG TAB PO SCH (13:29)
[2023-02-22 13:32] LABS: HEMATOCRIT 27.8 % (42.0-52.0); HEMOGLOBIN 8.9 g/dl (13.5-17.5); MEAN CORPUSCULAR VOLUME 93.6 fl (80.0-96.0); PLATELET COUNT, AUTOMATED 181 10^3/uL (150-450); RED BLOOD COUNT 2.97 10^6/uL (4.30-6.10); WHITE BLOOD COUNT 7.3 10^3/uL (4.0-10.0)
[2023-02-22 13:38] VITALS: BP 150/80
[2023-02-22 13:59] LABS: CALCIUM LEVEL 9.6 MG/DL (8.3-10.6); CREATININE FOR GFR 1.87 MG/DL (0.70-1.30); GLOMERULAR FILTRATION RATE 37.2 (>35); MAGNESIUM LEVEL 1.8 MG/DL (1.8-2.4); PHOSPHORUS LEVEL 2.7 MG/DL (2.4-5.1); POTASSIUM SERUM 3.7 MMOL/L (3.5-5.1)
[2023-02-22] MEDS ORDERED: AMIODARONE HCL 360 MG in IV 1 EA IV SCH ×2 (14:00→20:00)
[2023-02-22] MEDS ORDERED: LORazepam 2 MG/ML 1ML VIAL IM STA (14:19)
[2023-02-22] MEDS ORDERED: LORazepam 2 MG/ML 1ML VIAL As Ordered ONE (14:22)
[2023-02-22 16:00] VITALS: BP 137/80; TEMP 97.6; O2SAT 96
[2023-02-22] MEDS ORDERED: diphenhydrAMINE 50MG/ML VIAL IV ONE (17:00)
[2023-02-22 19:53] VITALS: BP 163/80; TEMP 97.1; O2SAT 97
[2023-02-22] MEDS ORDERED: QUEtiapine FUMARATE 100 MG TAB PO SCH (21:00)
== END 2023-02-22 20:13 | disposition short-term general hospital (02) | DRG 682 ==
LOC: M ED 19:13 → M ED INP 02-20 00:47 → M PCU 02-20 02:31
PROVIDERS: ADMIT Internal Medicine; ATTEND Internal Medicine
PROC: 30233N1 Transfusion of Nonautologous Red Blood Cells into Peripheral Vein, Percutaneous Approach (ICD-10-PCS; principal; 2023-02-19)
PROC: 02HV33Z Insertion of Infusion Device into Superior Vena Cava, Percutaneous Approach (ICD-10-PCS; 2023-02-21)
PROC: B246ZZZ Ultrasonography of Right and Left Heart (ICD-10-PCS; 2023-02-22)
DX: N17.9 Acute kidney failure, unspecified (principal); G93.41 Metabolic encephalopathy; I50.32 Chronic diastolic (congestive) heart failure; I13.0 Hypertensive heart and chronic kidney disease with heart failure and stage 1 through stage 4 chronic kidney disease, or unspecified chronic kidney disease; E87.20 Acidosis, unspecified; E87.1 Hypo-osmolality and hyponatremia; I47.20 Ventricular tachycardia, unspecified; I70.1 Atherosclerosis of renal artery; D64.9 Anemia, unspecified; I27.20 Pulmonary hypertension, unspecified; N18.4 Chronic kidney disease, stage 4 (severe); M06.9 Rheumatoid arthritis, unspecified; I71.40 Abdominal aortic aneurysm, without rupture, unspecified; R26.89 Other abnormalities of gait and mobility; N40.0 Benign prostatic hyperplasia without lower urinary tract symptoms; Z79.899 Other long term (current) drug therapy; Z88.6 Allergy status to analgesic agent; Z88.8 Allergy status to other drugs, medicaments and biological substances; Z20.822 Contact with and (suspected) exposure to COVID-19

== ENCOUNTER → 2023-02-19 | Outpatient (REF) | payer MEDICARE ==
[~2023-02-19] MED LIST changes: +ACET1TAB55 PO; +ALBU2.5V10; +ALBU2.5V10 INH; +ALBU8.5H INH; +BUME1TAB3 PO; +FLOM0.4C39 PO; +FLON1SPR NARES; +HEPA100I26 SC; +HYDR-3910 PO; +HYDR-643 PO; -HYDR200T3; -HYDR200T3 PO; +HYDR200T46; +HYDR200T46 PO; +HYDR25TA PO; -K-TA10TA2 PO; +LIDO1PAD TOP; +MIRA3350 PO; +POTA-165 PO; +QUET1TAB17 PO; +SPIR12.9 INH; +TAMS1CAP17 PO; +VENTAER INH; +VITA100093 PO
[2023-02-19 17:44] LABS: BASO % 0.2 % (0.0-1.0); LYMPH # 0.3 10^3/uL (1.5-5.0); LYMPH % 2.7 % (24.0-44.0); MEAN CORPUSCULAR HEMOGLOBIN 30.9 pg (27.0-33.0); MEAN CORPUSCULAR HGB CONC 30.9 g/dl (32.0-36.5); MONO # 0.5 10^3/uL (0.0-0.8); NEUTROPHILS # 10.2 10^3/uL (1.5-8.5); NEUTROPHILS % 91.8 % (36.0-66.0); PLATELET COUNT, AUTOMATED 140 10^3/uL (150-450); RED BLOOD COUNT 1.91 10^6/uL (4.30-6.10); WHITE BLOOD COUNT 11.2 10^3/uL (4.0-10.0)
[2023-02-19 18:01] LABS: HEMATOCRIT 19.1 % (42.0-52.0); HEMOGLOBIN 5.9 g/dl (13.5-17.5)
[2023-02-19 18:31] LABS: ALBUMIN 3.1 G/DL (3.2-5.2); BILIRUBIN,TOTAL 1.2 MG/DL (0.3-1.2); CALCIUM LEVEL 8.5 MG/DL (8.3-10.6); CREATININE FOR GFR 9.72 MG/DL (0.70-1.30); FERRITIN 1585.5 NG/ML (10.5-307.3); POTASSIUM SERUM 4.4 MMOL/L (3.5-5.1); TOTAL PROTEIN 6.1 G/DL (5.7-8.2)
[2023-02-19 18:32] LABS: GLOMERULAR FILTRATION RATE 5.5 (>35)
== END ==
LOC: M SFHCPLAZ 16:12
PROVIDERS: ATTEND Physician Assistant Medical
DX: I61.5 Nontraumatic intracerebral hemorrhage, intraventricular (principal)

== ENCOUNTER 2023-02-27 14:42 | Inpatient (IN) | payer MEDICARE ==
[~2023-02-27] VITALS: Ht 160 cm; Wt 70.0 kg
[~2023-02-27 14:42] MED LIST changes: +ALBU2.5V10; +ALBU2.5V10 INH; +ALBU8.5H INH; +FLOM0.4C39 PO; +HYDR-3910 PO
[2023-02-27 22:38] VITALS: BP 176/90; TEMP 97.4; O2SAT 95
[2023-02-27] MEDS ORDERED: HYDROMORPHONE HCL 0.5 MG/ 0.5 ML SYRINGE IV PRN (22:55)
[2023-02-27] MEDS ORDERED: ALBUTEROL SULFATE 2.5MG/0.5ML INH NEB SOLN NEB PRN (22:55)
[2023-02-27] MEDS ORDERED: ACETAMINOPHEN TAB 650MG DOSE (2X325MG) PO PRN (22:55)
[2023-02-27] MEDS: methylPREDNISolone 40MG 1ML VIAL IV SCH (23:56)
[2023-02-28] VITALS (10 sets, daily range): BP systolic 132–164; BP diastolic 74–95; TEMP 97.1–98.6; O2SAT 92–98
[2023-02-28] MEDS ORDERED: ALBUTEROL SULFATE 2.5MG/0.5ML INH NEB SOLN NEB ONE
[2023-02-28 00:44] LABS: HEMATOCRIT 29.3 % (42.0-52.0); HEMOGLOBIN 9.5 g/dl (13.5-17.5); MEAN CORPUSCULAR HEMOGLOBIN 31.1 pg (27.0-33.0); MEAN CORPUSCULAR HGB CONC 32.4 g/dl (32.0-36.5); MEAN CORPUSCULAR VOLUME 96.1 fl (80.0-96.0); PLATELET COUNT, AUTOMATED 119 10^3/uL (150-450); RED BLOOD COUNT 3.05 10^6/uL (4.30-6.10); WHITE BLOOD COUNT 7.7 10^3/uL (4.0-10.0)
[2023-02-28 00:51] LABS: ALBUMIN 2.8 G/DL (3.2-5.2); BILIRUBIN,TOTAL 2.9 MG/DL (0.3-1.2); CALCIUM LEVEL 8.7 MG/DL (8.3-10.6); CREATININE FOR GFR 2.28 MG/DL (0.70-1.30); GLOMERULAR FILTRATION RATE 29.6 (>35); POTASSIUM SERUM 3.5 MMOL/L (3.5-5.1); TOTAL PROTEIN 5.5 G/DL (5.7-8.2)
[2023-02-28] MEDS ORDERED: IPRATROPIUM 0.5MG/ALBUTEROL 2.5MG INH SOL UD 3ML (DUONEB) NEB ONE (01:00)
[2023-02-28 01:03] LABS: PROCALCITONIN 0.49 ng/ml
[2023-02-28] MEDS ORDERED: BUME1TAB3 PO (02:00)
[2023-02-28] MEDS ORDERED: HOME MED LIST COMPLETE! XX SCH (02:05)
[2023-02-28] MEDS ORDERED: NS 250 ML IV ONE (02:25)
[2023-02-28] MEDS: IPRATROPIUM 0.5MG/ALBUTEROL 2.5MG INH SOL UD 3ML (DUONEB) NEB SCH ×4 (02:58→19:07)
[2023-02-28] MEDS ORDERED: OLANZapine INTRAMUSCULAR 10MG VIAL IM ONE (03:00)
[2023-02-28 03:09] LABS: ABG BASE EXCESS -2.1 (-2.0-2.0); ABG HCO3 20.4 MMOL/L (22.0-26.0); ABG O2 SATURATION 94.4 % (95.0-99.0); ABG PARTIAL PRESSURE CO2 27.7 mmHg (35.0-45.0); ABG PARTIAL PRESSURE O2 68.4 mmHg (75.0-100.0); ABG STANDARD HCO3 22.7 MMOL/L. (22.0-26.0); ABG TOTAL CO2 21.3 MMOL/L (23.0-31.0); ABG pH (ARTERIAL) 7.486 UNITS (7.350-7.450)
[2023-02-28] MEDS: methylPREDNISolone 40MG 1ML VIAL IV SCH ×2 (06:20→18:14)
[2023-02-28 06:30] LABS: CALCIUM LEVEL 7.7 MG/DL (8.3-10.6); CREATININE FOR GFR 2.22 MG/DL (0.70-1.30); GLOMERULAR FILTRATION RATE 30.5 (>35); POTASSIUM SERUM 3.3 MMOL/L (3.5-5.1)
[2023-02-28] MEDS: HEPARIN SOD (PORCINE) 5000UNITS/ML 1ML VIAL/SYRINGE SC SCH ×2 (08:56→22:06)
[2023-02-28] MEDS ORDERED: D5W 1,000 ML IV SCH (14:50)
[2023-02-28] MEDS: BUDESONIDE 0.5 MG/2 ML INHALATION SUSPENSION INH SCH (19:07)
[2023-02-28] MEDS: FORMOTEROL FUMARATE 20 MCG/2 ML INHALATION SOLUTION (PERFOROMIST) INH SCH (19:07)
[2023-03-01] VITALS (11 sets, daily range): BP systolic 146–164; BP diastolic 68–90; TEMP 97.2–99.3; O2SAT 95–100
[2023-03-01] MEDS: IPRATROPIUM 0.5MG/ALBUTEROL 2.5MG INH SOL UD 3ML (DUONEB) NEB SCH ×4 (02:29→20:21)
[2023-03-01] MEDS: methylPREDNISolone 40MG 1ML VIAL IV SCH (05:05)
[2023-03-01 06:26] LABS: BASO % 0.1 % (0.0-1.0); HEMATOCRIT 28.7 % (42.0-52.0); HEMOGLOBIN 8.9 g/dl (13.5-17.5); LYMPH # 0.3 10^3/uL (1.5-5.0); LYMPH % 2.9 % (24.0-44.0); MEAN CORPUSCULAR VOLUME 96.6 fl (80.0-96.0); MONO # 0.7 10^3/uL (0.0-0.8); MONO % 6.2 % (2.0-8.0); NEUTROPHILS # 9.9 10^3/uL (1.5-8.5); PLATELET COUNT, AUTOMATED 110 10^3/uL (150-450); RED BLOOD COUNT 2.97 10^6/uL (4.30-6.10)
[2023-03-01 06:27] LABS: CREATININE FOR GFR 2.27 MG/DL (0.70-1.30); GLOMERULAR FILTRATION RATE 29.7 (>35); POTASSIUM SERUM 3.5 MMOL/L (3.5-5.1)
[2023-03-01] MEDS: FORMOTEROL FUMARATE 20 MCG/2 ML INHALATION SOLUTION (PERFOROMIST) INH SCH ×2 (07:53→20:22)
[2023-03-01] MEDS: BUDESONIDE 0.5 MG/2 ML INHALATION SUSPENSION INH SCH ×2 (07:53→20:21)
[2023-03-01] MEDS: bisoproloL fumarate 10 MG TAB NG SCH (09:00)
[2023-03-01] MEDS: HEPARIN SOD (PORCINE) 5000UNITS/ML 1ML VIAL/SYRINGE SC SCH ×2 (11:06→21:00)
[2023-03-01] MEDS: FUROSEMIDE 100MG/10ML VIAL IV SCH ×2 (11:07→18:26)
[2023-03-01] MEDS: QUEtiapine FUMARATE 50MG TAB NG SCH (15:14)
[2023-03-01] MEDS: **hydrALAZINE HCL** 25 MG TAB NG SCH (18:00)
[2023-03-01] MEDS: PANTOPRAZOLE 40MG VIAL IV SCH (18:26)
[2023-03-02] VITALS (15 sets, daily range): BP systolic 136–160; BP diastolic 62–80; TEMP 97.6–100.8; O2SAT 98–100
[2023-03-02] MEDS ORDERED: PIPERACILLIN/TAZOBACTAM SOD 2.25 GM in D5W MINI-BAG PLUS 50 ML IV SCH (01:00)
[2023-03-02] MEDS ORDERED: ALBUTEROL SULFATE 2.5MG/0.5ML INH NEB SOLN NEB ONE (01:00)
[2023-03-02] MEDS: QUEtiapine FUMARATE 50MG TAB NG PRN (01:34)
[2023-03-02] MEDS: IPRATROPIUM 0.5MG/ALBUTEROL 2.5MG INH SOL UD 3ML (DUONEB) NEB SCH ×4 (03:49→19:19)
[2023-03-02] MEDS: **hydrALAZINE HCL** 25 MG TAB NG SCH ×5 (06:00→23:33)
[2023-03-02] MEDS: PANTOPRAZOLE 40MG VIAL IV SCH ×2 (07:03→18:49)
[2023-03-02 07:09] LABS: BASO % 0.1 % (0.0-1.0); LYMPH # 0.5 10^3/uL (1.5-5.0); LYMPH % 4.6 % (24.0-44.0); MEAN CORPUSCULAR HEMOGLOBIN 29.8 pg (27.0-33.0); MONO # 0.9 10^3/uL (0.0-0.8); MONO % 7.3 % (2.0-8.0); NEUTROPHILS # 10.1 10^3/uL (1.5-8.5); NEUTROPHILS % 86.9 % (36.0-66.0); PLATELET COUNT, AUTOMATED 100 10^3/uL (150-450); RED BLOOD COUNT 3.02 10^6/uL (4.30-6.10); WHITE BLOOD COUNT 11.6 10^3/uL (4.0-10.0)
[2023-03-02 07:33] LABS: CALCIUM LEVEL 9.2 MG/DL (8.3-10.6); CREATININE FOR GFR 2.54 MG/DL (0.70-1.30); GLOMERULAR FILTRATION RATE 26.1 (>35); POTASSIUM SERUM 3.2 MMOL/L (3.5-5.1)
[2023-03-02] MEDS: FORMOTEROL FUMARATE 20 MCG/2 ML INHALATION SOLUTION (PERFOROMIST) INH SCH ×2 (08:00→19:19)
[2023-03-02] MEDS: BUDESONIDE 0.5 MG/2 ML INHALATION SUSPENSION INH SCH ×2 (08:00→19:19)
[2023-03-02] MEDS: FUROSEMIDE 100MG/10ML VIAL IV SCH ×2 (08:59→15:57)
[2023-03-02] MEDS: methylPREDNISolone 40MG 1ML VIAL IV SCH (09:00)
[2023-03-02] MEDS: bisoproloL fumarate 10 MG TAB NG SCH (09:00)
[2023-03-02] MEDS: HEPARIN SOD (PORCINE) 5000UNITS/ML 1ML VIAL/SYRINGE SC SCH (09:00)
[2023-03-02] MEDS: ACETAMINOPHEN TAB 650MG DOSE (2X325MG) NG PRN (09:00)
[2023-03-02] MEDS: PIPERACILLIN/TAZOBACTAM SOD 2.25 GM in D5W MINI-BAG PLUS 50 ML IV SCH ×2 (09:06→15:57)
[2023-03-02] MEDS ORDERED: SODIUM CHLORIDE 0.9% 1000ML IV PRN (10:30)
[2023-03-02] MEDS ORDERED: HEPARIN 1,000UNITS/ML 10ML VIAL (FOR RADIOLOGY & DIALYSIS ONLY) IV PRN (10:30)
[2023-03-02] MEDS ORDERED: HEPARIN 1,000UNITS/ML 10ML VIAL (FOR RADIOLOGY & DIALYSIS ONLY) XX SCH (10:30)
[2023-03-02] MEDS: QUEtiapine FUMARATE 50MG TAB NG SCH (15:30)
[2023-03-02 18:22] LABS: PROCALCITONIN 0.38 ng/ml
[2023-03-02 18:27] LABS: C REACTIVE PROTEIN QUANTITATIV 3.4 MG/DL (<1.0)
[2023-03-03] VITALS (16 sets, daily range): BP systolic 130–153; BP diastolic 58–86; TEMP 96.8–98.3; O2SAT 94–100
[2023-03-03] MEDS: PIPERACILLIN/TAZOBACTAM SOD 2.25 GM in D5W MINI-BAG PLUS 50 ML IV SCH (00:32)
[2023-03-03] MEDS: QUEtiapine FUMARATE 50MG TAB NG PRN ×2 (00:32→23:49)
[2023-03-03] MEDS: IPRATROPIUM 0.5MG/ALBUTEROL 2.5MG INH SOL UD 3ML (DUONEB) NEB SCH ×4 (01:57→19:58)
[2023-03-03 05:52] LABS: BASO % 0.2 % (0.0-1.0); EOS % 0.2 % (0.0-3.0); HEMATOCRIT 27.8 % (42.0-52.0); HEMOGLOBIN 8.6 g/dl (13.5-17.5); LYMPH # 0.6 10^3/uL (1.5-5.0); LYMPH % 9.9 % (24.0-44.0); MEAN CORPUSCULAR HEMOGLOBIN 29.9 pg (27.0-33.0); MEAN CORPUSCULAR HGB CONC 30.9 g/dl (32.0-36.5); MEAN CORPUSCULAR VOLUME 96.5 fl (80.0-96.0); MONO # 0.5 10^3/uL (0.0-0.8); MONO % 8.2 % (2.0-8.0); NEUTROPHILS # 5.1 10^3/uL (1.5-8.5); NEUTROPHILS % 80.7 % (36.0-66.0); RED BLOOD COUNT 2.88 10^6/uL (4.30-6.10); WHITE BLOOD COUNT 6.4 10^3/uL (4.0-10.0)
[2023-03-03 05:56] LABS: C REACTIVE PROTEIN QUANTITATIV 7.2 MG/DL (<1.0)
[2023-03-03 05:58] LABS: CALCIUM LEVEL 8.5 MG/DL (8.3-10.6); CREATININE FOR GFR 2.19 MG/DL (0.70-1.30); POTASSIUM SERUM 3.4 MMOL/L (3.5-5.1)
[2023-03-03] MEDS: **hydrALAZINE HCL** 25 MG TAB NG SCH ×4 (06:10→23:49)
[2023-03-03] MEDS: PANTOPRAZOLE 40MG VIAL IV SCH ×2 (06:11→18:45)
[2023-03-03 06:12] LABS: PLATELET COUNT, AUTOMATED 79 10^3/uL (150-450)
[2023-03-03] MEDS: FORMOTEROL FUMARATE 20 MCG/2 ML INHALATION SOLUTION (PERFOROMIST) INH SCH ×2 (07:33→19:58)
[2023-03-03] MEDS: BUDESONIDE 0.5 MG/2 ML INHALATION SUSPENSION INH SCH ×2 (07:33→19:58)
[2023-03-03] MEDS: cefTRIAXone SOD 1 GM in D5W MINI-BAG PLUS 50 ML IV SCH (08:32)
[2023-03-03] MEDS: bisoproloL fumarate 10 MG TAB NG SCH (08:32)
[2023-03-03] MEDS: FUROSEMIDE 100MG/10ML VIAL IV SCH ×2 (08:33→16:42)
[2023-03-03] MEDS: methylPREDNISolone 40MG 1ML VIAL IV SCH (08:33)
[2023-03-03] MEDS ORDERED: SODIUM CHLORIDE 0.9% 1000ML IV PRN (10:35)
[2023-03-03] MEDS ORDERED: HEPARIN 1,000UNITS/ML 10ML VIAL (FOR RADIOLOGY & DIALYSIS ONLY) XX SCH (10:35)
[2023-03-03] MEDS ORDERED: HEPARIN 1,000UNITS/ML 10ML VIAL (FOR RADIOLOGY & DIALYSIS ONLY) IV PRN (10:35)
[2023-03-03] MEDS: QUEtiapine FUMARATE 50MG TAB NG SCH (16:41)
[2023-03-04] VITALS (16 sets, daily range): BP systolic 145–162; BP diastolic 62–84; TEMP 97–98.9; O2SAT 94–100
[2023-03-04] MEDS: IPRATROPIUM 0.5MG/ALBUTEROL 2.5MG INH SOL UD 3ML (DUONEB) NEB SCH ×4 (01:25→20:02)
[2023-03-04 05:26] LABS: BASO % 0.2 % (0.0-1.0); EOS % 0.2 % (0.0-3.0); HEMATOCRIT 29.8 % (42.0-52.0); HEMOGLOBIN 9.2 g/dl (13.5-17.5); LYMPH # 0.6 10^3/uL (1.5-5.0); LYMPH % 10.3 % (24.0-44.0); MEAN CORPUSCULAR HEMOGLOBIN 30.3 pg (27.0-33.0); MEAN CORPUSCULAR HGB CONC 30.9 g/dl (32.0-36.5); MONO # 0.5 10^3/uL (0.0-0.8); MONO % 9.1 % (2.0-8.0); NEUTROPHILS # 4.7 10^3/uL (1.5-8.5); RED BLOOD COUNT 3.04 10^6/uL (4.30-6.10); WHITE BLOOD COUNT 5.9 10^3/uL (4.0-10.0)
[2023-03-04 05:38] LABS: CALCIUM LEVEL 8.5 MG/DL (8.3-10.6); CREATININE FOR GFR 2.21 MG/DL (0.70-1.30); GLOMERULAR FILTRATION RATE 30.7 (>35); POTASSIUM SERUM 3.7 MMOL/L (3.5-5.1)
[2023-03-04 05:51] LABS: PROCALCITONIN 0.44 ng/ml
[2023-03-04] MEDS: **hydrALAZINE HCL** 25 MG TAB NG SCH ×3 (06:00→18:35)
[2023-03-04 06:03] LABS: PLATELET COUNT, AUTOMATED 96 10^3/uL (150-450)
[2023-03-04] MEDS: PANTOPRAZOLE 40MG VIAL IV SCH ×2 (06:17→16:20)
[2023-03-04] MEDS: cefTRIAXone SOD 1 GM in D5W MINI-BAG PLUS 50 ML IV SCH (08:59)
[2023-03-04] MEDS: methylPREDNISolone 40MG 1ML VIAL IV SCH (09:00)
[2023-03-04] MEDS: bisoproloL fumarate 10 MG TAB NG SCH (09:00)
[2023-03-04] MEDS: FUROSEMIDE 100MG/10ML VIAL IV SCH ×2 (09:00→16:20)
[2023-03-04] MEDS: FORMOTEROL FUMARATE 20 MCG/2 ML INHALATION SOLUTION (PERFOROMIST) INH SCH ×2 (09:15→20:02)
[2023-03-04] MEDS: BUDESONIDE 0.5 MG/2 ML INHALATION SUSPENSION INH SCH ×2 (09:15→20:02)
[2023-03-04] MEDS: QUEtiapine FUMARATE 50MG TAB NG SCH (15:02)
[2023-03-05] VITALS (24 sets, daily range): BP systolic 142–190; BP diastolic 72–85; TEMP 97.2–98.5; O2SAT 94–100
[2023-03-05] MEDS: **hydrALAZINE HCL** 25 MG TAB NG SCH ×4 (01:08→18:16)
[2023-03-05] MEDS: IPRATROPIUM 0.5MG/ALBUTEROL 2.5MG INH SOL UD 3ML (DUONEB) NEB SCH ×4 (01:17→19:57)
[2023-03-05] MEDS: PANTOPRAZOLE 40MG VIAL IV SCH ×2 (05:34→18:17)
[2023-03-05 06:42] LABS: BASO % 0.3 % (0.0-1.0); EOS % 0.4 % (0.0-3.0); HEMOGLOBIN 9.4 g/dl (13.5-17.5); LYMPH # 0.7 10^3/uL (1.5-5.0); LYMPH % 9.5 % (24.0-44.0); MEAN CORPUSCULAR HEMOGLOBIN 30.1 pg (27.0-33.0); MEAN CORPUSCULAR HGB CONC 31.3 g/dl (32.0-36.5); MEAN CORPUSCULAR VOLUME 96.2 fl (80.0-96.0); MONO # 0.6 10^3/uL (0.0-0.8); MONO % 8.3 % (2.0-8.0); NEUTROPHILS # 5.8 10^3/uL (1.5-8.5); NEUTROPHILS % 80.4 % (36.0-66.0); RED BLOOD COUNT 3.12 10^6/uL (4.30-6.10); WHITE BLOOD COUNT 7.2 10^3/uL (4.0-10.0)
[2023-03-05 06:47] LABS: PLATELET COUNT, AUTOMATED 94 10^3/uL (150-450)
[2023-03-05 06:57] LABS: CALCIUM LEVEL 8.4 MG/DL (8.3-10.6); CREATININE FOR GFR 2.82 MG/DL (0.70-1.30); GLOMERULAR FILTRATION RATE 23.1 (>35); POTASSIUM SERUM 3.5 MMOL/L (3.5-5.1)
[2023-03-05] MEDS ORDERED: HEPARIN 1,000UNITS/ML 10ML VIAL (FOR RADIOLOGY & DIALYSIS ONLY) XX SCH (07:15)
[2023-03-05] MEDS ORDERED: SODIUM CHLORIDE 0.9% 1000ML IV PRN (07:15)
[2023-03-05] MEDS ORDERED: HEPARIN 1,000UNITS/ML 10ML VIAL (FOR RADIOLOGY & DIALYSIS ONLY) IV PRN (07:15)
[2023-03-05] MEDS: FORMOTEROL FUMARATE 20 MCG/2 ML INHALATION SOLUTION (PERFOROMIST) INH SCH ×2 (08:00→19:57)
[2023-03-05] MEDS: BUDESONIDE 0.5 MG/2 ML INHALATION SUSPENSION INH SCH ×2 (08:00→19:57)
[2023-03-05] MEDS: bisoproloL fumarate 10 MG TAB NG SCH (08:05)
[2023-03-05] MEDS: cefTRIAXone SOD 1 GM in D5W MINI-BAG PLUS 50 ML IV SCH (13:20)
[2023-03-05] MEDS: methylPREDNISolone 40MG 1ML VIAL IV SCH (13:20)
[2023-03-05] MEDS: FUROSEMIDE 100MG/10ML VIAL IV SCH ×2 (13:20→18:16)
[2023-03-05] MEDS: QUEtiapine FUMARATE 50MG TAB NG SCH (15:49)
[2023-03-06] VITALS (17 sets, daily range): BP systolic 132–166; BP diastolic 69–82; TEMP 97.4–98.2; O2SAT 94–100
[2023-03-06] MEDS: IPRATROPIUM 0.5MG/ALBUTEROL 2.5MG INH SOL UD 3ML (DUONEB) NEB SCH ×5 (01:15→23:41)
[2023-03-06] MEDS: PANTOPRAZOLE 40MG VIAL IV SCH ×2 (05:56→17:05)
[2023-03-06] MEDS: **hydrALAZINE HCL** 25 MG TAB NG SCH ×4 (05:56→17:06)
[2023-03-06 06:53] LABS: BASO # 0.1 10^3/uL (0.0-0.2); BASO % 0.6 % (0.0-1.0); EOS % 0.3 % (0.0-3.0); HEMATOCRIT 31.7 % (42.0-52.0); HEMOGLOBIN 10.1 g/dl (13.5-17.5); LYMPH # 0.7 10^3/uL (1.5-5.0); LYMPH % 9.1 % (24.0-44.0); MEAN CORPUSCULAR HGB CONC 31.9 g/dl (32.0-36.5); MEAN CORPUSCULAR VOLUME 94.1 fl (80.0-96.0); MONO # 0.8 10^3/uL (0.0-0.8); MONO % 10.2 % (2.0-8.0); PLATELET COUNT, AUTOMATED 119 10^3/uL (150-450); RED BLOOD COUNT 3.37 10^6/uL (4.30-6.10); WHITE BLOOD COUNT 7.7 10^3/uL (4.0-10.0)
[2023-03-06 07:27] LABS: CALCIUM LEVEL 8.6 MG/DL (8.3-10.6); CREATININE FOR GFR 2.42 MG/DL (0.70-1.30); GLOMERULAR FILTRATION RATE 27.6 (>35); POTASSIUM SERUM 4.2 MMOL/L (3.5-5.1)
[2023-03-06] MEDS: BUDESONIDE 0.5 MG/2 ML INHALATION SUSPENSION INH SCH ×2 (07:34→20:08)
[2023-03-06] MEDS: FORMOTEROL FUMARATE 20 MCG/2 ML INHALATION SOLUTION (PERFOROMIST) INH SCH ×2 (07:34→20:00)
[2023-03-06] MEDS: FUROSEMIDE 100MG/10ML VIAL IV SCH ×2 (09:15→17:05)
[2023-03-06] MEDS: methylPREDNISolone 40MG 1ML VIAL IV SCH (09:15)
[2023-03-06] MEDS: bisoproloL fumarate 10 MG TAB NG SCH (09:15)
[2023-03-06] MEDS: QUEtiapine FUMARATE 50MG TAB NG SCH (17:06)
[2023-03-07] MEDS: **hydrALAZINE HCL** 25 MG TAB NG SCH ×4 (05:34→17:48)
[2023-03-07] MEDS: PANTOPRAZOLE 40MG VIAL IV SCH ×2 (05:34→17:48)
[2023-03-07 06:00] VITALS: BP 170/89; TEMP 98.1; O2SAT 100
[2023-03-07 06:08] LABS: BASO % 0.5 % (0.0-1.0); EOS # 0.1 10^3/uL (0.0-0.5); EOS % 0.6 % (0.0-3.0); HEMATOCRIT 30.8 % (42.0-52.0); HEMOGLOBIN 9.8 g/dl (13.5-17.5); LYMPH # 0.8 10^3/uL (1.5-5.0); LYMPH % 10.2 % (24.0-44.0); MEAN CORPUSCULAR HEMOGLOBIN 30.4 pg (27.0-33.0); MEAN CORPUSCULAR HGB CONC 31.8 g/dl (32.0-36.5); MEAN CORPUSCULAR VOLUME 95.7 fl (80.0-96.0); MONO # 0.8 10^3/uL (0.0-0.8); MONO % 10.5 % (2.0-8.0); NEUTROPHILS # 6.1 10^3/uL (1.5-8.5); NEUTROPHILS % 76.7 % (36.0-66.0); PLATELET COUNT, AUTOMATED 118 10^3/uL (150-450); RED BLOOD COUNT 3.22 10^6/uL (4.30-6.10); WHITE BLOOD COUNT 7.9 10^3/uL (4.0-10.0)
[2023-03-07 07:02] LABS: CALCIUM LEVEL 9.2 MG/DL (8.3-10.6); CREATININE FOR GFR 2.89 MG/DL (0.70-1.30); GLOMERULAR FILTRATION RATE 22.5 (>35)
[2023-03-07] MEDS ORDERED: HEPARIN 1,000UNITS/ML 10ML VIAL (FOR RADIOLOGY & DIALYSIS ONLY) IV PRN (07:25)
[2023-03-07] MEDS ORDERED: HEPARIN 1,000UNITS/ML 10ML VIAL (FOR RADIOLOGY & DIALYSIS ONLY) XX SCH (07:25)
[2023-03-07] MEDS ORDERED: SODIUM CHLORIDE 0.9% 1000ML IV PRN (07:25)
[2023-03-07] MEDS: IPRATROPIUM 0.5MG/ALBUTEROL 2.5MG INH SOL UD 3ML (DUONEB) NEB SCH ×3 (07:42→19:48)
[2023-03-07] MEDS: FORMOTEROL FUMARATE 20 MCG/2 ML INHALATION SOLUTION (PERFOROMIST) INH SCH ×2 (07:42→19:48)
[2023-03-07] MEDS: BUDESONIDE 0.5 MG/2 ML INHALATION SUSPENSION INH SCH ×2 (07:42→19:48)
[2023-03-07] MEDS: FUROSEMIDE 100MG/10ML VIAL IV SCH ×2 (08:12→17:46)
[2023-03-07] MEDS: methylPREDNISolone 40MG 1ML VIAL IV SCH (08:12)
[2023-03-07] MEDS: bisoproloL fumarate 10 MG TAB NG SCH (08:13)
[2023-03-07 13:21] VITALS: BP 159/87
[2023-03-07 14:00] VITALS: BP 159/87; TEMP 97.5; O2SAT 98
[2023-03-07] MEDS: QUEtiapine FUMARATE 50MG TAB NG SCH (17:47)
[2023-03-07] MEDS: ACETAMINOPHEN TAB 650MG DOSE (2X325MG) NG PRN (17:47)
[2023-03-07 19:52] VITALS: BP 110/60; TEMP 97.5; O2SAT 100
[2023-03-08] MEDS: QUEtiapine FUMARATE 50MG TAB NG PRN ×2 (00:31→23:24)
[2023-03-08] MEDS: IPRATROPIUM 0.5MG/ALBUTEROL 2.5MG INH SOL UD 3ML (DUONEB) NEB SCH ×4 (01:20→19:54)
[2023-03-08] MEDS: **hydrALAZINE HCL** 25 MG TAB NG SCH ×5 (05:31→22:02)
[2023-03-08] MEDS: PANTOPRAZOLE 40MG VIAL IV SCH (05:38)
[2023-03-08 06:00] VITALS: BP 129/59; TEMP 97.7; O2SAT 96
[2023-03-08] MEDS: FORMOTEROL FUMARATE 20 MCG/2 ML INHALATION SOLUTION (PERFOROMIST) INH SCH ×2 (07:22→20:00)
[2023-03-08] MEDS: BUDESONIDE 0.5 MG/2 ML INHALATION SUSPENSION INH SCH ×2 (07:22→19:54)
[2023-03-08] MEDS: FUROSEMIDE 100MG/10ML VIAL IV SCH ×2 (10:34→18:36)
[2023-03-08] MEDS: predniSONE 5 MG TAB NG SCH (10:35)
[2023-03-08] MEDS: bisoproloL fumarate 10 MG TAB NG SCH (10:35)
[2023-03-08] MEDS: ACETAMINOPHEN TAB 650MG DOSE (2X325MG) NG PRN (10:36)
[2023-03-08] MEDS ORDERED: LIDOCAINE 5% (LIDODERM) PATCH TD ONE (12:05)
[2023-03-08] MEDS: ACETAMINOPH W/CODEINE #3 TAB UD PO SCH ×2 (13:52→22:04)
[2023-03-08 14:00] VITALS: BP 134/67; TEMP 97.3; O2SAT 94
[2023-03-08 18:32] VITALS: BP 127/58
[2023-03-08] MEDS: QUEtiapine FUMARATE 50MG TAB NG SCH (18:35)
[2023-03-08] MEDS: HEPARIN SOD (PORCINE) 5000UNITS/ML 1ML VIAL/SYRINGE SQ SCH (22:04)
[2023-03-08 22:34] VITALS: BP 121/74; TEMP 97.7; O2SAT 94
[2023-03-09 00:03] VITALS: O2SAT 95
[2023-03-09] MEDS: ACETAMINOPHEN TAB 650MG DOSE (2X325MG) NG PRN (01:37)
[2023-03-09] MEDS: IPRATROPIUM 0.5MG/ALBUTEROL 2.5MG INH SOL UD 3ML (DUONEB) NEB SCH ×4 (02:00→19:33)
[2023-03-09] MEDS: **hydrALAZINE HCL** 25 MG TAB NG SCH ×3 (05:05→17:31)
[2023-03-09 05:07] VITALS: BP 134/81; TEMP 97.5; O2SAT 94
[2023-03-09] MEDS: predniSONE 5 MG TAB NG SCH (06:25)
[2023-03-09] MEDS: bisoproloL fumarate 10 MG TAB NG SCH (06:25)
[2023-03-09] MEDS: ACETAMINOPH W/CODEINE #3 TAB UD PO SCH ×2 (06:25→21:51)
[2023-03-09] MEDS: FUROSEMIDE 100MG/10ML VIAL IV SCH ×2 (06:26→17:29)
[2023-03-09] MEDS: HEPARIN SOD (PORCINE) 5000UNITS/ML 1ML VIAL/SYRINGE SQ SCH ×2 (06:26→21:51)
[2023-03-09 06:50] LABS: BASO % 0.5 % (0.0-1.0); EOS # 0.1 10^3/uL (0.0-0.5); EOS % 1.2 % (0.0-3.0); HEMATOCRIT 29.3 % (42.0-52.0); HEMOGLOBIN 9.4 g/dl (13.5-17.5); LYMPH # 0.7 10^3/uL (1.5-5.0); LYMPH % 11.2 % (24.0-44.0); MEAN CORPUSCULAR HEMOGLOBIN 30.6 pg (27.0-33.0); MEAN CORPUSCULAR HGB CONC 32.1 g/dl (32.0-36.5); MEAN CORPUSCULAR VOLUME 95.4 fl (80.0-96.0); MONO # 0.5 10^3/uL (0.0-0.8); MONO % 8.4 % (2.0-8.0); NEUTROPHILS # 4.9 10^3/uL (1.5-8.5); NEUTROPHILS % 76.7 % (36.0-66.0); PLATELET COUNT, AUTOMATED 122 10^3/uL (150-450); RED BLOOD COUNT 3.07 10^6/uL (4.30-6.10); WHITE BLOOD COUNT 6.4 10^3/uL (4.0-10.0)
[2023-03-09] MEDS: FORMOTEROL FUMARATE 20 MCG/2 ML INHALATION SOLUTION (PERFOROMIST) INH SCH ×2 (07:07→19:32)
[2023-03-09] MEDS: BUDESONIDE 0.5 MG/2 ML INHALATION SUSPENSION INH SCH ×2 (07:07→19:31)
[2023-03-09] MEDS ORDERED: HEPARIN 1,000UNITS/ML 10ML VIAL (FOR RADIOLOGY & DIALYSIS ONLY) XX SCH (07:10)
[2023-03-09] MEDS ORDERED: SODIUM CHLORIDE 0.9% 1000ML IV PRN (07:10)
[2023-03-09] MEDS ORDERED: HEPARIN 1,000UNITS/ML 10ML VIAL (FOR RADIOLOGY & DIALYSIS ONLY) IV PRN (07:10)
[2023-03-09 07:12] LABS: CALCIUM LEVEL 10.3 MG/DL (8.3-10.6); CREATININE FOR GFR 3.17 MG/DL (0.70-1.30); GLOMERULAR FILTRATION RATE 20.2 (>35); POTASSIUM SERUM 4.1 MMOL/L (3.5-5.1)
[2023-03-09] MEDS: OMEPRAZOLE/SODIUM BICARB 20-840MG 10ML ORAL SYRINGE NG SCH (07:58)
[2023-03-09 14:00] VITALS: BP 130/90; TEMP 97.7; O2SAT 96
[2023-03-09] MEDS: QUEtiapine FUMARATE 50MG TAB NG SCH (17:31)
[2023-03-09 21:38] VITALS: BP 140/52; TEMP 97.7; O2SAT 92
[2023-03-10] MEDS: QUEtiapine FUMARATE 50MG TAB NG PRN (00:19)
[2023-03-10] MEDS: IPRATROPIUM 0.5MG/ALBUTEROL 2.5MG INH SOL UD 3ML (DUONEB) NEB SCH ×4 (02:52→20:00)
[2023-03-10] MEDS: **hydrALAZINE HCL** 25 MG TAB NG SCH ×4 (06:08→17:50)
[2023-03-10 06:15] VITALS: BP 152/97; TEMP 97.7; O2SAT 100
[2023-03-10] MEDS: BUDESONIDE 0.5 MG/2 ML INHALATION SUSPENSION INH SCH ×2 (08:17→20:09)
[2023-03-10] MEDS: FORMOTEROL FUMARATE 20 MCG/2 ML INHALATION SOLUTION (PERFOROMIST) INH SCH ×2 (08:17→20:09)
[2023-03-10] MEDS: OMEPRAZOLE/SODIUM BICARB 20-840MG 10ML ORAL SYRINGE NG SCH (08:59)
[2023-03-10] MEDS: FUROSEMIDE 100MG/10ML VIAL IV SCH ×2 (08:59→17:53)
[2023-03-10] MEDS: HEPARIN SOD (PORCINE) 5000UNITS/ML 1ML VIAL/SYRINGE SQ SCH ×2 (08:59→20:59)
[2023-03-10] MEDS: predniSONE 5 MG TAB NG SCH (08:59)
[2023-03-10] MEDS: bisoproloL fumarate 10 MG TAB NG SCH (08:59)
[2023-03-10] MEDS: ACETAMINOPH W/CODEINE #3 TAB UD PO SCH ×2 (09:02→21:00)
[2023-03-10 14:00] VITALS: BP 120/60; TEMP 97; O2SAT 98
[2023-03-10] MEDS ORDERED: QUEtiapine FUMARATE 100 MG TAB PO SCH (18:00)
[2023-03-10] MEDS ORDERED: QUEtiapine FUMARATE 100 MG TAB NG SCH (18:00)
[2023-03-10 21:30] VITALS: TEMP 97.7; O2SAT 96
[2023-03-11] MEDS: QUEtiapine FUMARATE 50MG TAB NG PRN (00:58)
[2023-03-11] MEDS: IPRATROPIUM 0.5MG/ALBUTEROL 2.5MG INH SOL UD 3ML (DUONEB) NEB SCH ×4 (01:16→19:37)
[2023-03-11] MEDS: ACETAMINOPHEN TAB 650MG DOSE (2X325MG) NG PRN (04:11)
[2023-03-11] MEDS: **hydrALAZINE HCL** 25 MG TAB NG SCH ×3 (05:03→10:51)
[2023-03-11 05:07] VITALS: BP 122/50; TEMP 97.7; O2SAT 93
[2023-03-11 06:46] LABS: BASO % 0.7 % (0.0-1.0); EOS # 0.1 10^3/uL (0.0-0.5); EOS % 1.8 % (0.0-3.0); HEMATOCRIT 29.1 % (42.0-52.0); HEMOGLOBIN 9.2 g/dl (13.5-17.5); LYMPH # 0.9 10^3/uL (1.5-5.0); LYMPH % 15.1 % (24.0-44.0); MEAN CORPUSCULAR HEMOGLOBIN 30.2 pg (27.0-33.0); MEAN CORPUSCULAR HGB CONC 31.6 g/dl (32.0-36.5); MEAN CORPUSCULAR VOLUME 95.4 fl (80.0-96.0); MONO # 0.6 10^3/uL (0.0-0.8); NEUTROPHILS % 70.8 % (36.0-66.0); PLATELET COUNT, AUTOMATED 139 10^3/uL (150-450); RED BLOOD COUNT 3.05 10^6/uL (4.30-6.10); WHITE BLOOD COUNT 5.7 10^3/uL (4.0-10.0)
[2023-03-11 07:05] LABS: CALCIUM LEVEL 9.4 MG/DL (8.3-10.6); CREATININE FOR GFR 4.21 MG/DL (0.70-1.30); GLOMERULAR FILTRATION RATE 14.6 (>35); POTASSIUM SERUM 3.8 MMOL/L (3.5-5.1)
[2023-03-11] MEDS: FORMOTEROL FUMARATE 20 MCG/2 ML INHALATION SOLUTION (PERFOROMIST) INH SCH ×2 (08:34→19:37)
[2023-03-11] MEDS: BUDESONIDE 0.5 MG/2 ML INHALATION SUSPENSION INH SCH ×2 (08:34→19:37)
[2023-03-11] MEDS: FUROSEMIDE 100MG/10ML VIAL IV SCH ×2 (08:52→17:30)
[2023-03-11] MEDS: predniSONE 5 MG TAB NG SCH (08:52)
[2023-03-11] MEDS: bisoproloL fumarate 10 MG TAB NG SCH (08:52)
[2023-03-11] MEDS: HEPARIN SOD (PORCINE) 5000UNITS/ML 1ML VIAL/SYRINGE SQ SCH ×2 (08:52→20:35)
[2023-03-11] MEDS: OMEPRAZOLE/SODIUM BICARB 20-840MG 10ML ORAL SYRINGE NG SCH (08:53)
[2023-03-11] MEDS: ACETAMINOPH W/CODEINE #3 TAB UD PO SCH (09:02)
[2023-03-11] MEDS: oxyCODONE 5MG TAB PO SCH ×3 (10:59→20:35)
[2023-03-11] MEDS: QUEtiapine FUMARATE 50MG TAB PO SCH ×2 (10:59→12:45)
[2023-03-11] MEDS: LIDOCAINE 5% (LIDODERM) PATCH TD SCH (11:00)
[2023-03-11] MEDS ORDERED: ISOVUE-370 76% 100ML VIAL As Ordered ONE (12:39)
[2023-03-11 14:00] VITALS: BP 138/62; TEMP 96.8; O2SAT 94
[2023-03-11 15:00] VITALS: BP 109/66; TEMP 97.5; O2SAT 99
[2023-03-11 16:40] VITALS: BP 140/80
[2023-03-11] MEDS ORDERED: QUEtiapine FUMARATE 100 MG TAB NG SCH (20:00)
[2023-03-11] MEDS ORDERED: PILL CUTTER 1 EACH XX ONE (20:30)
[2023-03-11 22:04] VITALS: BP 149/75; TEMP 97.7; O2SAT 93
[2023-03-12] MEDS: IPRATROPIUM 0.5MG/ALBUTEROL 2.5MG INH SOL UD 3ML (DUONEB) NEB SCH ×4 (00:28→20:25)
[2023-03-12 05:21] VITALS: BP 147/69; TEMP 98.6; O2SAT 94
[2023-03-12] MEDS ORDERED: HEPARIN 1,000UNITS/ML 10ML VIAL (FOR RADIOLOGY & DIALYSIS ONLY) XX SCH (06:00)
[2023-03-12] MEDS ORDERED: SODIUM CHLORIDE 0.9% 1000ML IV PRN (06:00)
[2023-03-12] MEDS ORDERED: HEPARIN 1,000UNITS/ML 10ML VIAL (FOR RADIOLOGY & DIALYSIS ONLY) IV PRN (06:00)
[2023-03-12] MEDS: OMEPRAZOLE/SODIUM BICARB 20-840MG 10ML ORAL SYRINGE NG SCH (07:37)
[2023-03-12] MEDS: LIDOCAINE 5% (LIDODERM) PATCH TD SCH (07:37)
[2023-03-12] MEDS: FUROSEMIDE 100MG/10ML VIAL IV SCH (07:38)
[2023-03-12] MEDS: predniSONE 5 MG TAB NG SCH (07:38)
[2023-03-12] MEDS: HEPARIN SOD (PORCINE) 5000UNITS/ML 1ML VIAL/SYRINGE SQ SCH ×2 (07:38→21:15)
[2023-03-12] MEDS: QUEtiapine FUMARATE 50MG TAB PO SCH (07:39)
[2023-03-12] MEDS: bisoproloL fumarate 10 MG TAB NG SCH (07:40)
[2023-03-12] MEDS: oxyCODONE 5MG TAB PO SCH (07:41)
[2023-03-12] MEDS: BUDESONIDE 0.5 MG/2 ML INHALATION SUSPENSION INH SCH ×2 (08:00→20:25)
[2023-03-12] MEDS: FORMOTEROL FUMARATE 20 MCG/2 ML INHALATION SOLUTION (PERFOROMIST) INH SCH ×2 (08:00→20:25)
[2023-03-12] MEDS ORDERED: MORPHINE 4 MG/ML 1ML VIAL IV ONE (09:10)
[2023-03-12] MEDS: D5W/0.45% SODIUM CHLORIDE 1,000 ML IV SCH (13:18)
[2023-03-12] MEDS: CHLORHEXIDINE GLUCONATE 0.12 % 15ML UDC (PERIDEX ORAL RINSE) MT SCH ×2 (18:44→21:13)
[2023-03-12] MEDS: oxyCODONE 5MG TAB PO PRN (18:58)
[2023-03-12 20:00] VITALS: BP 138/68; TEMP 97.2; O2SAT 100
[2023-03-12] MEDS ORDERED: QUEtiapine FUMARATE 100 MG TAB NG ONE (20:00)
[2023-03-13] MEDS: IPRATROPIUM 0.5MG/ALBUTEROL 2.5MG INH SOL UD 3ML (DUONEB) NEB SCH ×4 (02:00→20:33)
[2023-03-13] MEDS: oxyCODONE 5MG TAB PO PRN (04:55)
[2023-03-13 06:00] VITALS: BP 153/69; TEMP 97.9; O2SAT 95
[2023-03-13 06:10] LABS: BASO % 0.4 % (0.0-1.0); EOS # 0.2 10^3/uL (0.0-0.5); EOS % 1.6 % (0.0-3.0); HEMATOCRIT 26.6 % (42.0-52.0); HEMOGLOBIN 8.5 g/dl (13.5-17.5); LYMPH # 0.7 10^3/uL (1.5-5.0); LYMPH % 7.9 % (24.0-44.0); MEAN CORPUSCULAR HEMOGLOBIN 30.4 pg (27.0-33.0); MONO # 0.8 10^3/uL (0.0-0.8); MONO % 8.6 % (2.0-8.0); NEUTROPHILS # 7.4 10^3/uL (1.5-8.5); NEUTROPHILS % 80.6 % (36.0-66.0); PLATELET COUNT, AUTOMATED 155 10^3/uL (150-450); WHITE BLOOD COUNT 9.2 10^3/uL (4.0-10.0)
[2023-03-13 06:34] LABS: CALCIUM LEVEL 8.3 MG/DL (8.3-10.6); CREATININE FOR GFR 4.14 MG/DL (0.70-1.30); GLOMERULAR FILTRATION RATE 14.9 (>35); POTASSIUM SERUM 3.7 MMOL/L (3.5-5.1)
[2023-03-13] MEDS: BUDESONIDE 0.5 MG/2 ML INHALATION SUSPENSION INH SCH ×2 (08:00→20:33)
[2023-03-13] MEDS: FORMOTEROL FUMARATE 20 MCG/2 ML INHALATION SOLUTION (PERFOROMIST) INH SCH ×2 (08:00→20:33)
[2023-03-13] MEDS: D5W/0.45% SODIUM CHLORIDE 1,000 ML IV SCH ×2 (08:50→22:09)
[2023-03-13] MEDS: predniSONE 5 MG TAB NG SCH (08:51)
[2023-03-13] MEDS: HEPARIN SOD (PORCINE) 5000UNITS/ML 1ML VIAL/SYRINGE SQ SCH ×2 (08:51→22:09)
[2023-03-13] MEDS: OMEPRAZOLE/SODIUM BICARB 20-840MG 10ML ORAL SYRINGE NG SCH (08:51)
[2023-03-13 08:52] VITALS: BP 158/72
[2023-03-13] MEDS: bisoproloL fumarate 10 MG TAB NG SCH (08:52)
[2023-03-13] MEDS: LIDOCAINE 5% (LIDODERM) PATCH TD SCH (08:53)
[2023-03-13] MEDS: CHLORHEXIDINE GLUCONATE 0.12 % 15ML UDC (PERIDEX ORAL RINSE) MT SCH ×3 (09:12→22:09)
[2023-03-13 14:00] VITALS: BP 139/73; TEMP 98.1; O2SAT 90
[2023-03-13] MEDS ORDERED: BENZOCAINE 10% 9GM TUBE (ANBESOL) TOP PRN (16:45)
[2023-03-13] MEDS: BENZOCAINE 10% 9GM TUBE (ANBESOL) MT SCH ×2 (17:00→22:10)
[2023-03-13] MEDS ORDERED: QUEtiapine FUMARATE 50MG TAB NG SCH (19:00)
[2023-03-13] MEDS ORDERED: QUEtiapine FUMARATE 100 MG TAB NG SCH (20:00)
[2023-03-14 00:50] VITALS: BP 145/64; TEMP 98.4; O2SAT 88
[2023-03-14] MEDS: IPRATROPIUM 0.5MG/ALBUTEROL 2.5MG INH SOL UD 3ML (DUONEB) NEB SCH ×3 (02:00→14:06)
[2023-03-14] MEDS ORDERED: ACETAMINOPHEN 1000MG 100ML IV BAG IV ONE ×2 (02:00→12:30)
[2023-03-14] MEDS ORDERED: MORPHINE 2 MG/ML 1ML VIAL IV ONE (03:00)
[2023-03-14] MEDS: oxyCODONE 5MG TAB PO PRN (03:29)
[2023-03-14 06:00] VITALS: BP 139/62; TEMP 98.2; O2SAT 90
[2023-03-14] MEDS ORDERED: HEPARIN 1,000UNITS/ML 10ML VIAL (FOR RADIOLOGY & DIALYSIS ONLY) IV PRN (06:00)
[2023-03-14] MEDS ORDERED: SODIUM CHLORIDE 0.9% 1000ML IV PRN (06:00)
[2023-03-14] MEDS ORDERED: HEPARIN 1,000UNITS/ML 10ML VIAL (FOR RADIOLOGY & DIALYSIS ONLY) XX SCH (06:00)
[2023-03-14] MEDS: FORMOTEROL FUMARATE 20 MCG/2 ML INHALATION SOLUTION (PERFOROMIST) INH SCH ×2 (08:00→18:33)
[2023-03-14] MEDS: BENZOCAINE 10% 9GM TUBE (ANBESOL) MT SCH ×4 (08:05→21:00)
[2023-03-14] MEDS: BUDESONIDE 0.5 MG/2 ML INHALATION SUSPENSION INH SCH ×2 (08:43→18:33)
[2023-03-14] MEDS: OMEPRAZOLE/SODIUM BICARB 20-840MG 10ML ORAL SYRINGE NG SCH (08:45)
[2023-03-14] MEDS: predniSONE 5 MG TAB NG SCH (08:45)
[2023-03-14] MEDS: CHLORHEXIDINE GLUCONATE 0.12 % 15ML UDC (PERIDEX ORAL RINSE) MT SCH ×3 (08:45→21:00)
[2023-03-14] MEDS: bisoproloL fumarate 10 MG TAB NG SCH (08:45)
[2023-03-14] MEDS ORDERED: SCOPOLAMINE 1MG TRANSDERMAL PATCH TOP SCH ×2 (09:00→16:25)
[2023-03-14] MEDS ORDERED: HALOPERIDOL 5MG/ML 1ML VIAL IV ONE ×2 (09:00→21:35)
[2023-03-14] MEDS ORDERED: MORPHINE 2 MG/ML 1ML VIAL IV PRN (12:30)
[2023-03-14] MEDS: LIDOCAINE 5% (LIDODERM) PATCH TD SCH (12:40)
[2023-03-14 14:00] VITALS: BP 133/63; TEMP 98.1; O2SAT 94
[2023-03-14] MEDS ORDERED: MORPHINE 10MG/0.5ML ORAL CONCENTRATE SOLUTION U/D SL PRN (14:50)
[2023-03-14] MEDS ORDERED: HYOSCYAMINE SULFATE 0.125 MG SUBL TABLET PO PRN (14:50)
[2023-03-14] MEDS ORDERED: BISACODYL 10MG SUPP PR PRN (14:50)
[2023-03-14] MEDS ORDERED: ONDANSETRON 4MG ORAL DISINTEGRATING TAB PO PRN (14:50)
[2023-03-14] MEDS: MORPHINE 2 MG/ML 1ML VIAL IV PRN ×2 (15:07→19:29)
[2023-03-14] MEDS: HALOPERIDOL 5MG/ML 1ML VIAL IV PRN (19:54)
[2023-03-14] MEDS ORDERED: LORazepam 2 MG/ML 1ML VIAL IV PRN (20:05)
[2023-03-14] MEDS ORDERED: ALBUTEROL SULFATE 2.5MG/0.5ML INH NEB SOLN NEB ONE (20:05)
[2023-03-14] MEDS ORDERED: diazePAM 10MG/2ML SYRINGE IV ONE (20:25)
[2023-03-14] MEDS ORDERED: HEPARIN SOD (PORCINE) 5000UNITS/ML 1ML VIAL/SYRINGE SQ SCH (21:00)
[2023-03-14] MEDS: MORPHINE 4 MG/ML 1ML VIAL IV PRN (22:27)
[2023-03-14] MEDS ORDERED: LOPERAMIDE 2 MG CAPLET PO PRN (22:45)
[2023-03-14] MEDS ORDERED: SCOPOLAMINE 1MG TRANSDERMAL PATCH TOP ONE (22:45)
[2023-03-14] MEDS: ATROPINE SULFATE 1% OPHTH SOLN 2ML BTL SL PRN (23:46)
[2023-03-15] MEDS: HALOPERIDOL 5MG/ML 1ML VIAL IV PRN (00:37)
[2023-03-15] MEDS: MORPHINE 4 MG/ML 1ML VIAL IV PRN ×2 (00:37→02:43)
[2023-03-15] MEDS: ATROPINE SULFATE 1% OPHTH SOLN 2ML BTL SL PRN (06:22)
[2023-03-15] MEDS: FORMOTEROL FUMARATE 20 MCG/2 ML INHALATION SOLUTION (PERFOROMIST) INH SCH (07:31)
[2023-03-15] MEDS: BUDESONIDE 0.5 MG/2 ML INHALATION SUSPENSION INH SCH (07:31)
[2023-03-15] MEDS ORDERED: FIDAXOMICIN 200 MG TAB (DIFICID) PO SCH (09:00)
[2023-03-15] MEDS: CHLORHEXIDINE GLUCONATE 0.12 % 15ML UDC (PERIDEX ORAL RINSE) MT SCH ×2 (09:00→16:00)
[2023-03-15] MEDS: BENZOCAINE 10% 9GM TUBE (ANBESOL) MT SCH ×3 (09:00→17:00)
[2023-03-15 09:53] LABS: CLOSTRIDIUM DIFFICILE PCR POSITIVE (NEGATIVE)
[2023-03-15] MEDS ORDERED: VANCOMYCIN ORAL SOL 250MG/5ML ORAL SYRINGE PO SCH (12:20)
== END 2023-03-15 13:28 | disposition expired | DRG 682 ==
LOC: M ED INP 22:52 → M PCU 22:53 → M MSPAV 03-06 16:30
PROVIDERS: ADMIT Internal Medicine; ATTEND General Practice
DX: N17.9 Acute kidney failure, unspecified (principal); K55.069 Acute infarction of intestine, part and extent unspecified; J96.01 Acute respiratory failure with hypoxia; I50.43 Acute on chronic combined systolic (congestive) and diastolic (congestive) heart failure; J69.0 Pneumonitis due to inhalation of food and vomit; G93.41 Metabolic encephalopathy; J44.1 Chronic obstructive pulmonary disease with (acute) exacerbation; I47.20 Ventricular tachycardia, unspecified; E87.1 Hypo-osmolality and hyponatremia; J98.11 Atelectasis; A04.72 Enterocolitis due to Clostridium difficile, not specified as recurrent; I13.2 Hypertensive heart and chronic kidney disease with heart failure and with stage 5 chronic kidney disease, or end stage renal disease; N28.0 Ischemia and infarction of kidney; N18.6 End stage renal disease; I73.9 Peripheral vascular disease, unspecified; I27.20 Pulmonary hypertension, unspecified; D64.9 Anemia, unspecified; I48.91 Unspecified atrial fibrillation; E87.6 Hypokalemia; I70.1 Atherosclerosis of renal artery; I71.40 Abdominal aortic aneurysm, without rupture, unspecified; K21.9 Gastro-esophageal reflux disease without esophagitis; N40.0 Benign prostatic hyperplasia without lower urinary tract symptoms; M06.9 Rheumatoid arthritis, unspecified; H81.09 Meniere's disease, unspecified ear; I34.0 Nonrheumatic mitral (valve) insufficiency; Z51.5 Encounter for palliative care; F03.90 Unspecified dementia, unspecified severity, without behavioral disturbance, psychotic disturbance, mood disturbance, and anxiety; D69.6 Thrombocytopenia, unspecified; Z96.653 Presence of artificial knee joint, bilateral; D50.9 Iron deficiency anemia, unspecified; Z66 Do not resuscitate; Z79.899 Other long term (current) drug therapy; Z88.6 Allergy status to analgesic agent; Z88.8 Allergy status to other drugs, medicaments and biological substances; Z99.2 Dependence on renal dialysis